=== PATIENT | female | born 1945 | race Caucasian/White ===

== ENCOUNTER 2021-03-03 17:22 | Emergency (ER) | payer MEDICARE, MEDICAID, SELFPAY ==
--- NOTE | ~2021-03-03 | US_ITS ---
EXAMINATION: US VENOUS ULTRASOUND WITH DOPPLER LOWER EXTREMITY, BILATERAL CLINICAL INFORMATION: Positive Homans, swelling COMPARISON: None TECHNIQUE: Ultrasound of the deep veins is performed from the hip to the calf with compression sonography and color and pulse Doppler assessment. Spectral analysis with color-flow imaging is performed. FINDINGS: RIGHT: There is normal venous compression and respiratory variation and augmented flow. The visualized common femoral vein, superficial femoral vein, profunda femoral vein, popliteal vein, and the trifurcation region shows no evidence of deep venous thrombosis. There is no significant popliteal fossa cyst. LEFT: There is normal venous compression and respiratory variation and augmented flow. The visualized common femoral vein, superficial femoral vein, profunda femoral vein, popliteal vein, and the trifurcation region shows no evidence of deep venous thrombosis. There is no significant popliteal fossa cyst. If the patient's symptoms persist, followup ultrasound in 5 days 7 days might be of value to exclude proximal propagation from a non-visualized calf vein. US/US venous duplex LE BI IMPRESSION: No DVT demonstrated in the bilateral lower extremity.
--- NOTE | ~2021-03-03 | XR_ITS ---
EXAMINATION: XR CHEST CLINICAL INFORMATION: Shortness of breath COMPARISON: None TECHNIQUE: 2 views of the chest were obtained. FINDINGS: The cardiac silhouette does not appear enlarged. The thoracic aorta is tortuous and may be slightly ectatic. Hilar and mediastinal contours are unremarkable. The lungs are clear. There is no pleural effusion or pneumothorax. There are degenerative changes of the spine. There are surgical clips under the left hemidiaphragm in the region of the stomach. XR/XR chest 2V IMPRESSION: Tortuous and possibly slightly ectatic thoracic aorta. No evidence for acute disease in the chest.
[2021-03-03 17:36] VITALS: BP 157/77; PULSE 95; RESP 24; TEMP 37.4; O2SAT 95; BMI 33.6
--- NOTE | 2021-03-03 18:03 | ED_ITS ---
HPI - Extremity Problem General Chief complaint: Extremity Problem Stated complaint: infected lower legs Time Seen by Provider: 03/03/21 17:35 Source: patient Mode of arrival: EMS Limitations: language barrier (Tajik speaking, used emergency vehicle technician as interpretor) History of Present Illness HPI Narrative: patient is a 75-year-old Tajik speaking female with a past medical history of hypertension, panic attacks, macular degeneration and low vitamin-D who presents with 2 weeks of increasing bilateral leg swelling and shortness of breath with exertion. Patient states her legs are getting heavy and itchy and are painful to walk on. She explains she has itchiness throughout her whole body. she states her legs have been getting bigger and bigger over the last 2 weeks, she has not tried to do anything to make it better, nothing seems to make it worse. She states she is drinking plenty of water, she denies headaches dizziness chest pain, arm pain. she states she is also concerned with some jaw pain because she had implants put in in [place] a little while ago and they are bothering her. She tried to go to a dentist in the [facility] but they referred her back to her oral surgeon in [place] which she has not been able to return to see. She states her left lower jaw line is painful. Related Data Previous Rx's Medication Instructions Recorded cephalexin [Keflex] 750 mg PO Q12H #20 cap 03/03/21 doxycycline hyclate 100 mg PO BID #20 tab 03/03/21 Allergies Allergy/AdvReac Type Severity Reaction Status Date / Time No Known Allergies Allergy Unverified 03/03/21 18:02 Review of Systems Review of Systems: Yes all other systems are reviewed and are negative [facility] Social History Social History Alcohol intake: unknown Patient Tobacco Use Status: Tobacco use Unknown Use of substances other than those prescribed or required for medical reasons: Unknown Advance Directives: No Advance Directives Information Provided: Yes Physical Exam Vital Signs: Vital Signs: Last Vital Signs Temp 99.8 F 03/03/21 21:13 Pulse 94 03/03/21 21:13 Resp 18 03/03/21 21:13 BP 137/68 03/03/21 21:13 Pulse Ox 95 03/03/21 21:13 Body Mass Index 33.6 Const: General: cooperative, healthy appearing, comfortable, no acute distress and well developed Nutritional Appearance: obese Orientation/consciousness: patient oriented x3 Limitations: language barrier HENMT: Head: Yes normal to inspection, Yes No palpable skull fracture present, Yes normocephalic and Yes atraumatic Ears: hearing grossly normal bilaterally General nose exam: Normal external nose present Face and sinus: Yes normal facial exam and Yes face symmetric Mouth: Normal oral and palatal mucosa present and tongue normal Teeth and gingiva: multiple restorations ( no inflammation, no erythema or other signs of infection noted) Throat: Yes posterior oropharynx normal and Yes uvula midline Eyes: General: appearance normal, both eyes and all related structures EOM: EOMs intact bilaterally Neck: Neck: Yes normal visual inspection and Yes full ROM Resp: Effort & Inspection: normal respiratory effort and able to speak in complete sentences Auscultation: clear to auscultation bilaterally Cardio: Rate: regular rate Rhythm: regular rhythm Heart sounds: normal S 1 and S2 GI: Inspection: Yes normal to inspection Palpation (GI): Soft to palpation and nontender Skin: General skin exam: no rashes or lesions noted Neuro: General: patient oriented x3 Extrem: General: Yes capillary refill normal, Yes edema (2+ pitting bilaterally) and Yes other (strong pedal pulses) Course Course Course Narrative: patient is a 75-year-old Tajik speaking female with a past medical history of hypertension, panic attacks, macular degeneration and low vitamin-D who presents with 2 weeks of increasing bilateral leg swelling and shortness of breath with exertion. VSS sans slightly elevated blood pressure, PE remarkable for 2+ pitting edema bilaterally. Will get EKG, labs, troponin, chest x-ray and reassess. Likely new onset CHF Reevaluation(s) Reevaluation #1: labs are all WNL, troponin was slightly elevated so we are pending a 2nd 1, chest x-ray was negative, very unlikely this is a new onset CHF as BNP was not elevated, Lung sounds were normal and chest x-ray did not show edema. Will get it ultrasound of bilateral lower extremities to rule out a DVT, she does have a small area of erythema on the left lower extremity and both legs are warm but both of her thighs are also warm. If DVT is ruled out, likely cellulitis as WBC is elevated at 14.3. Reevaluation #2: [address] [id number] ReportSigned Patient: Christopher Shaikh#: [id number]: 1945cct:[id number]/Sex: 75 / FADM Date: 03/03/21Loc: EDAttending Dr: Ordering Physician: Alberta Xavier PA-C Date of Service: 03/03/21 Procedure(s): US venous duplex LE BI Accession Number(s): [id number] cc: Alberta Xavier PA-C~ EXAMINATION: US VENOUS ULTRASOUND WITH DOPPLER LOWER EXTREMITY, BILATERAL CLINICAL INFORMATION: Positive Homans, swelling COMPARISON: None TECHNIQUE: Ultrasound of the deep veins is performed from the hip to the calf with compression sonography and color and pulse Doppler assessment. Spectral analysis with color-flow imaging is performed. FINDINGS: RIGHT: There is normal venous compression and respiratory variation and augmented flow. The visualized common femoral vein, superficial femoral vein, profunda femoral vein, popliteal vein, and the trifurcation region shows no evidence of deep venous thrombosis. There is no significant popliteal fossa cyst. LEFT: There is normal venous compression and respiratory variation and augmented flow. The visualized common femoral vein, superficial femoral vein, profunda femoral vein, popliteal vein, and the trifurcation region shows no evidence of deep venous thrombosis. There is no significant popliteal fossa cyst. If the patient's symptoms persist, followup ultrasound in 5 days 7 days might be of value to exclude proximal propagation from a non-visualized calf vein. US/US venous duplex LE BI IMPRESSION: No DVT demonstrated in the bilateral lower extremity. Dictated By:ESE LYNCH MDSigned By:<Electronically signed by ESE LYNCH MD in [place]>03/03/212205 DD/ 47TD/TT: Slide Forming Machine Tender: KARTIK Time: 22:53 Reevaluation #3: Discussed with patient's family, we have ruled out CHF, DVT so the most likely diagnosis at this point with swelling, warmth and erythema would be cellulitis. I did recommend that she follow-up with her PCP and possibly see a roof truss machine tender. Second trop was not >50% change. VSS. Will discharge. MDM - Extremity (Nontraumatic) Lab Data Attestation: I reviewed the patient's lab results. Result diagrams: 03/03/21 18:18 03/03/21 19:01 Labs: Lab Results 03/03/21 03/03/21 03/03/21 Range/Units 18:18 18:18 18:18 WBC 14.3 H (4.8-10.8) X10*3/uL RBC 4.40 (4.20-5.50) X10*6/uL Hgb 12.8 (12.0-16.0) g/dl Hct 40.7 (37-47) % MCV 92.5 (80-98) fL MCH 29.1 (27.0-33.0) pg MCHC 31.4 (31.0-35.0) g/dl RDW 13.2 (11.0-16.0) % Plt Count 161 (160-400) X10*3/uL MPV 10.5 (9.4-12.3) fL Immature Gran % (Auto) 1.0 H (0.0-0.4) % Neut % (Auto) 86.4 H (45-73) % Lymph % (Auto) 5.5 L (20-40) % Pine % (Auto) 6.2 (2-11) % Eos % (Auto) 0.6 (0-4) % Baso % (Auto) 0.3 (0-2) % Lymph # (Auto) 0.8 L (1.2-4.9) X10*3/uL Pine # (Auto) 0.9 (0.1-1.2) X10*3/uL Eos # (Auto) 0.1 (0.0-0.4) X10*3/uL Baso # (Auto) 0.0 (0.0-0.2) X10*3/uL Abs Immat Gran (auto) 0.14 H (0.00-0.03) X10*3/uL Absolute Neuts (auto) 12.4 H (2.0-8.3) X10*3/uL Absolute Nucleated RBC 0.000 (0.0-0.012) X10*3/uL Nucleated RBC % (auto) 0.0 (0.0-0.2) /100WBC PT 11.5 (10.8-13.0) SEC INR 1.0 (0.9-1.1) APTT 28.5 (24.1-38.0) SEC Sodium (135-145) mmol/L Potassium (3.3-5.1) mmol/L Chloride (96-108) mmol/L Carbon Dioxide (22-29) mmol/L Anion Gap (12-20) BUN (9-16) mg/dL Creatinine (0.5-1.4) mg/dL Estim Creat Clear Calc Estimated GFR Random Glucose (60-115) mg/dL Calcium (8.4-10.2) mg/dL Magnesium (1.6-2.6) mg/dL Total Bilirubin (0.0-1.0) mg/dL Direct Bilirubin (0.0-0.5) mg/dL AST (5-31) U/L ALT (0-31) U/L Alkaline Phosphatase (39-117) U/L Troponin I High Sens 7.5 (<3.5-17.0) ng/L B-Natriuretic Peptide 44 (<100) pg/mL Total Protein (6.5-8.0) g/dL Albumin (3.5-5.0) g/dL Urine Color Urine Appearance Urine pH (5.0-8.0) Ur Specific [place] (1.005-1.025) Urine Protein (NEG-TRACE) MG/DL Urine Glucose (UA) (NEG) MG/DL Urine Ketones (NEG) MG/DL Urine Blood (NEG) Urine Nitrite (NEG) Ur Leukocyte Esterase (NEG) 03/03/21 03/03/21 03/03/21 Range/Units 19:01 19:01 21:54 WBC (4.8-10.8) X10*3/uL RBC (4.20-5.50) X10*6/uL Hgb (12.0-16.0) g/dl Hct (37-47) % MCV (80-98) fL MCH (27.0-33.0) pg MCHC (31.0-35.0) g/dl RDW (11.0-16.0) % Plt Count (160-400) X10*3/uL MPV (9.4-12.3) fL Immature Gran % (Auto) (0.0-0.4) % Neut % (Auto) (45-73) % Lymph % (Auto) (20-40) % Pine % (Auto) (2-11) % Eos % (Auto) (0-4) % Baso % (Auto) (0-2) % Lymph # (Auto) (1.2-4.9) X10*3/uL Pine # (Auto) (0.1-1.2) X10*3/uL Eos # (Auto) (0.0-0.4) X10*3/uL Baso # (Auto) (0.0-0.2) X10*3/uL Abs Immat Gran (auto) (0.00-0.03) X10*3/uL Absolute Neuts (auto) (2.0-8.3) X10*3/uL Absolute Nucleated RBC (0.0-0.012) X10*3/uL Nucleated RBC % (auto) (0.0-0.2) /100WBC PT (10.8-13.0) SEC INR (0.9-1.1) APTT (24.1-38.0) SEC Sodium 139 (135-145) mmol/L Potassium 4.2 (3.3-5.1) mmol/L Chloride 105 (96-108) mmol/L Carbon Dioxide 24 (22-29) mmol/L Anion Gap 14 (12-20) BUN 19 H (9-16) mg/dL Creatinine 1.14 (0.5-1.4) mg/dL Estim Creat Clear Calc 44.3 Estimated GFR 46 Random Glucose 106 (60-115) mg/dL Calcium 10.2 (8.4-10.2) mg/dL Magnesium 1.9 (1.6-2.6) mg/dL Total Bilirubin 0.4 (0.0-1.0) mg/dL Direct Bilirubin 0.2 (0.0-0.5) mg/dL AST 19 (5-31) U/L ALT 19 (0-31) U/L Alkaline Phosphatase 86 (39-117) U/L Troponin I High Sens 12.2 D (<3.5-17.0) ng/L B-Natriuretic Peptide (<100) pg/mL Total Protein 7.6 (6.5-8.0) g/dL Albumin 4.0 (3.5-5.0) g/dL Urine Color YELLOW Urine Appearance CLEAR Urine pH 5.5 (5.0-8.0) Ur Specific [place] 1.020 (1.005-1.025) Urine Protein NEG (NEG-TRACE) MG/DL Urine Glucose (UA) NEG (NEG) MG/DL Urine Ketones NEG (NEG) MG/DL Urine Blood NEG (NEG) Urine Nitrite NEG (NEG) Ur Leukocyte Esterase NEG (NEG) Imaging Data Chest x-ray: Attestation: I personally reviewed and interpreted this imaging study as follows: Radiologist's impression: [address] [id number] ReportSigned Patient: Christopher Shaikh#: [id number]: 1945cct:[id number]/Sex: 75 / FADM Date: 03/03/21Loc: [email or web address].EDAttending Dr: Ordering Physician: Alberta Xavier PA-C Date of Service: 03/03/21 Procedure(s): XR chest 2V Accession Number(s): [id number] cc: Alberta Xavier PA-C~ EXAMINATION: XR CHEST CLINICAL INFORMATION: Shortness of breath COMPARISON: None TECHNIQUE: 2 views of the chest were obtained. FINDINGS: The cardiac silhouette does not appear enlarged. The thoracic aorta is tortuous and may be slightly ectatic. Hilar and mediastinal contours are unremarkable. The lungs are clear. There is no pleural effusion or pneumothorax. There are degenerative changes of the spine. There are surgical clips under the left hemidiaphragm in the region of the stomach. XR/XR chest 2V IMPRESSION: Tortuous and possibly slightly ectatic thoracic aorta. No evidence for acute disease in the chest. Dictated By:ESTEE AGUIRRE MDSigned By:<Electronically signed by ESTEE AGUIRRE MD in [place]>03/03/211929 DD/ 1803TD/TT: Slide Forming Machine Tender: YOVANY ECG Data Attestation EKG: I personally reviewed and interpreted this ECG as follows: Interpretation: [address] [id number] ReportDraft Patient: Christopher Shaikh#: [id number]: 1945cct:[id number]/Sex: 75 / FADM Date: 03/03/21Loc: Ramez Dr: Ordering Physician: lAberta Xavier PA-C Date of Service: 03/03/21 Procedure(s): ECG 12 lead EKG Accession Number(s): [id number] cc: ~ Test Reason : SHORTNESS OF BREATH Blood Pressure : / mmHG Vent. Rate : 097 BPM Atrial Rate : 097 BPM P-R Int : 124 ms QRS Dur : 086 ms QT Int : 340 ms P-R-T Axes : 044 053 026 degrees QTc Int : 431 ms Normal sinus rhythm Normal ECG No previous ECGs available Referred By: Alberta Xavier Electronically Signed By: Dictated By:Signed By: DD/ 13TD/TT: 03/03/211813Transcriptionist: Discharge Plan Discharge Clinical Impression: Cellulitis Patient Disposition: Home, Self-Care Instructions: Cellulitis (ED) Additional Instructions: As discussed, we are treating you for a lower extremity cellulitis with 2 different antibiotics. It is important that you take both antibiotics in full. We have given your 1st dose of each antibiotic tonight in the emergency department. If you develop of chest pain, shortness of breath, please return to the emergency department. Prescriptions: New cephalexin [Keflex] 750 mg capsule 750 mg PO Q12H Qty: 20 RF: 0 doxycycline hyclate 100 mg tablet 100 mg PO BID Qty: 20 RF: 0 Interventions: ED Discharge Assessment Last Done: 03/03/21 23:52 Discharge Date/Time: 03/03/21 23:53
[2021-03-03 18:22] VITALS: BP 176/83; PULSE 96; RESP 24; O2SAT 94
[2021-03-03 18:34] LABS: MANUAL DIFF FLAG NO
[2021-03-03 18:35] LABS: Basophils Percent Auto 0.3 % (0-2); Eosinophils Absolute Auto 0.1 X10*3/uL (0.0-0.4); Eosinophils Percent Auto 0.6 % (0-4); Hematocrit 40.7 % (37-47); Hemoglobin 12.8 g/dl (12.0-16.0); Imm Gran Abs Auto 0.14 X10*3/uL (0.00-0.03); Lymphocytes Absolute Auto 0.8 X10*3/uL (1.2-4.9); Lymphocytes Percent Auto 5.5 % (20-40); Mean Corpuscular HGB Conc 31.4 g/dl (31.0-35.0); Mean Corpuscular Hemoglobin 29.1 pg (27.0-33.0); Mean Corpuscular Volume 92.5 fL (80-98); Mean Platelet Volume 10.5 fL (9.4-12.3); Monocytes Absolute Auto 0.9 X10*3/uL (0.1-1.2); Monocytes Percent Auto 6.2 % (2-11); Neutrophils Absolute Auto 12.4 X10*3/uL (2.0-8.3); Neutrophils Percent Auto 86.4 % (45-73); Platelet Count 161 X10*3/uL (160-400); Red Cell Distribution Width 13.2 % (11.0-16.0); White Blood Count 14.3 X10*3/uL (4.8-10.8)
[2021-03-03 18:39] LABS: Prothrombin Time 11.5 SEC (10.8-13.0)
[2021-03-03 18:42] LABS: Partial Thromboplastin Time 28.5 SEC (24.1-38.0)
--- NOTE | 2021-03-03 18:52 | PC.NURSE ---
Recollection required for chemistry level.
[2021-03-03 19:02] LABS: B Type Natriuretic Peptide 44 pg/mL (<100); Troponin-I High Sensitivity 7.5 ng/L (<3.5-17.0)
[2021-03-03 19:10] LABS: Glucose Urine UA NEG (NEG); Leukocyte Esterase Urine NEG (NEG); Nitrite Urine NEG (NEG); PH 5.5 (5.0-8.0); Urine Blood NEG (NEG); Urine Ketones NEG (NEG); Urine Protein NEG (NEG-TRACE)
[2021-03-03 19:11] LABS: Appearance Urine CLEAR; Color Urine YELLOW
[2021-03-03 19:36] LABS: Alanine Aminotransferase 19 U/L (0-31); Alkaline Phosphatase 86 U/L (39-117); Anion Gap 14 (12-20); Aspartate Amino Transferase 19 U/L (5-31); Bilirubin Direct 0.2 mg/dL (0.0-0.5); Bilirubin Total 0.4 mg/dL (0.0-1.0); Blood Urea Nitrogen 19 mg/dL (9-16); Calcium 10.2 mg/dL (8.4-10.2); Carbon Dioxide 24 mmol/L (22-29); Chloride 105 mmol/L (96-108); Creatinine Clr Calc Pharmacy 44.3; Estimated Glomerular Filt Rate 46; Glucose Random 106 mg/dL (60-115); Magnesium 1.9 mg/dL (1.6-2.6); Potassium 4.2 mmol/L (3.3-5.1); Sodium 139 mmol/L (135-145); Total Protein 7.6 g/dL (6.5-8.0)
[2021-03-03 21:13] VITALS: BP 137/68; PULSE 94; RESP 18; TEMP 37.7; O2SAT 95
--- NOTE | 2021-03-03 21:23 | PC.NURSE ---
Patient away for ultrasound. Plan to draw repeat troponin upon return to ED bed 3.
[2021-03-03 22:28] LABS: Troponin-I High Sensitivity 12.2 ng/L (<3.5-17.0)
[2021-03-03] MEDS: cephALEXin 500 MG CAPSULE PO (23:46)
== END 2021-03-03 23:53 | disposition home or self-care (01) ==
PROVIDERS: Physician Assistant; Emergency Provider Internal Medicine
DX: L03.119 Cellulitis of unspecified part of limb (principal); R06.02 Shortness of breath; I10 Essential (primary) hypertension
CPT/HCPCS: 36415; 71046; 80048; 80076; 81003; 83735; 83880; 84484; 85025; 85610; 85730; 93005; 93970; 99284

== ENCOUNTER 2021-05-19 18:02 | Emergency (ER) | payer MEDICARE, SELFPAY ==
[2021-05-19 19:40] VITALS: BP 171/76; PULSE 69; RESP 16; TEMP 36.6; O2SAT 99; BMI 32.9
[2021-05-19 20:52] VITALS: BP 148/77; PULSE 60; RESP 18; TEMP 36.9; O2SAT 96
--- NOTE | 2021-05-19 21:40 | ED.ANXIETY ---
HPI - Anxiety General Chief Complaint: Anxiety Stated Complaint: Panix attacks for past 10 days Time Seen by Provider: 05/19/21 21:40 Source: patient and family Mode of arrival: ambulatory Limitations: no limitations History of Present Illness HPI narrative: Patient history of anxiety panic attacks on citalopram came from presents saying with her daughter no increased stressors been more anxious and having panic attacks often. Denies any significant depression or suicidal ideation crying constantly Related Data Previous Rx's Medication Instructions Recorded cephalexin 750 mg capsule (Keflex) 750 mg PO Q12H #20 cap 03/03/21 doxycycline hyclate 100 mg tablet 100 mg PO BID #20 tab 03/03/21 lorazepam 1 mg tablet (Ativan) 1 mg PO DAILY PRN #30 tab 05/19/21 Allergies Allergy/AdvReac Type Severity Reaction Status Date / Time cortisone Allergy Unknown Verified 05/19/21 19:49 Review of Systems Review of Systems: Yes all other systems are reviewed and are negative [facility] Social History Social History Alcohol intake: unknown Patient Tobacco Use Status: Tobacco use Unknown Advance Directives: No Advance Directives Information Provided: No Physical Exam Vital Signs: Vital Signs: Last Vital Signs Temp 98.5 F 05/19/21 20:52 Pulse 60 05/19/21 20:52 Resp 18 05/19/21 20:52 BP 148/77 H 05/19/21 20:52 Pulse Ox 96 05/19/21 20:52 Body Mass Index 32.9 Appearance: Alert. Oriented X3. No acute distress. Anxious Eyes: PERRLA, No Nystagmus ENT: Pharynx normal. Oral Mucosa moist Neck: Normal inspection. Neck supple. CVS: Normal heart rate and rhythm. Pulses normal. Respiratory: No respiratory distress. Equal air entry bilateral, no wheezing/rales/rhonchi Abdomen: Soft and nontender. Bowel sounds are present, no mass palpable, no CVA tenderness Skin: Skin warm and dry. Normal skin color. Normal skin turgor. Extremities: No lower extremity edema. No calf tenderness Neuro: Oriented X 3. No motor deficit. No sensory deficit.No cerebellar signs , cranial nerves II-XII intact MDM - Anxiety MDM Narrative Medical decision making narrative: Patient's anxiety/panic attacks Max gonzalez denies depression suicidal ideation will discharge patient home on Ativan 0.5 mg tablet once or twice daily Discharge Plan Discharge Clinical Impression: Panic disorder Patient Disposition: Home, Self-Care Instructions: Panic Attack (ED) Additional Instructions: Continue citalopram Take Ativan 1/2 to 1 tablet daily for acute anxiety once or twice as prescribed Prescriptions: New lorazepam [Ativan] 1 mg tablet 1 mg PO DAILY PRN (Reason: anxiety) Qty: 30 RF: 0 No Action cephalexin [Keflex] 750 mg capsule 750 mg PO Q12H Qty: 20 RF: 0 doxycycline hyclate 100 mg tablet 100 mg PO BID Qty: 20 RF: 0
[2021-05-19] MEDS: LORazepam 1 MG TABLET PO (22:01)
== END 2021-05-19 22:04 | disposition home or self-care (01) ==
PROVIDERS: Emergency Provider Internal Medicine
DX: F43.0 Acute stress reaction (principal); Z79.899 Other long term (current) drug therapy
CPT/HCPCS: 99284

== ENCOUNTER 2021-07-31 13:58 | Emergency (ER) | payer MEDICARE, SELFPAY ==
[2021-07-31 14:17] VITALS: BP 144/69; PULSE 66; RESP 18; TEMP 36.6; O2SAT 97; BMI 35.4
--- NOTE | 2021-07-31 15:52 | ED.GENADULT ---
HPI - General Adult General Chief complaint: General Medical Stated complaint: shingles Time Seen by Provider: 07/31/21 15:06 Source: patient and family (Son at the bedside) Mode of arrival: ambulatory Limitations: language barrier (Used son as welfare administrator) History of Present Illness HPI narrative: 75-year-old female past medical history significant for anxiety, hypertension, GERD presents to the emergency department with a rash progressively worsening x2 days. The rash is localized to the right side of the torso, patient tells me it started as a burning sensation, then she developed a rash, then she developed blistering all within 2 days. She tells me that the pain is 10/10, severe and it feels like there is a hot iron pressing on her. She states this is never happened to her before. She denies fevers, chills, nausea, vomiting, chest pain, shortness breath, headache, weakness, dizziness, recent URI. Onset (ago): day(s) (2) Location: chest (right ) and right Radiation: non-radiation Severity: severe Severity scale (1-10): >10 Quality: burning Pain Consistency: constant Relieving factors: none Exacerbating factors: none Associated symptoms: denies other symptoms Treatments prior to arrival: none Related Data Previous Rx's Medication Instructions Recorded amlodipine 5 mg-olmesartan 40 mg 1 tab PO DAILY #30 tab 06/10/21 tablet citalopram 20 mg tablet 20 mg PO DAILY #30 tab 06/10/21 famotidine 20 mg tablet 20 mg PO DAILY #30 tab 06/10/21 hydroxyzine HCl 25 mg tablet 25 mg PO BID PRN #20 tab 06/10/21 gabapentin 100 mg capsule 100 mg PO TID PRN #12 cap 07/31/21 valacyclovir 1 gram tablet 1,000 mg PO TID 7 Days #21 tab 07/31/21 (Valtrex) Allergies Allergy/AdvReac Type Severity Reaction Status Date / Time No Known Allergies Allergy Verified 06/18/21 02:10 Review of Systems Review of Systems: Constitutional : No Weight loss, No Fever, No Chills, No Fatigue, No Malaise ENT/Mouth : No sore throat, No Rhinorrhea Eyes: No Eye Pain, No Swelling, No Redness Cardiovascular : No Chest Pain, No SOB, No Dyspnea on Exertion, No Orthopnea, No Edema, No Palpitations Respiratory : No Cough, No Sputum, No Wheezing Gastrointestinal : No Nausea, No Vomiting, No Diarrhea, No Constipation, No abdominal Pain, No Hematochezia, No Melena Genitourinary : No Dysuria, No Urinary Frequency, No Hematuria, Musculoskeletal : No joint pain, No Myalgias, No Joint Swelling Skin : No Skin Lesions, + rash Neuro : No Weakness, No Numbness, No Dizziness, No Headache All other systems reviewed and are negative [facility] Past Medical History Attestation statement: The following information was validated with the patient. Source: old records reviewed and nursing notes reviewed Medical History Chronic gastroesophageal reflux disease Essential hypertension Generalized anxiety disorder with panic attacks Lesion of skin of face GALLITO on CPAP Family History Family History Son Generalized anxiety disorder with panic attacks Social History Social History Housing: Apartment Alcohol intake: unknown Patient Tobacco Use Status: Former Tobacco user Years Smoked: 5 yrs Advance Directives: No Advance Directives Information Provided: No Current occupational status: disabled Physical Exam Vital Signs: Vital Signs: Last Vital Signs Temp 98 F 07/31/21 14:17 Pulse 66 07/31/21 14:17 Resp 18 07/31/21 14:17 BP 144/69 H 07/31/21 14:17 Pulse Ox 97 07/31/21 14:17 Body Mass Index 35.4 VSS slightly hypertensive. Appearance: Alert.? Oriented X3.? No acute distress.? Head: Normocephalic, atraumatic, no step-offs or deformities Eyes: Pupils equal, round and reactive to light.? ENT: Pharynx normal.? Neck: Normal inspection.? Neck supple.? CVS: Normal heart rate and rhythm.? Pulses normal.? Respiratory: No respiratory distress.? Breath sounds normal.? Abdomen: Soft and nontender.? Skin: Skin warm and dry.? Normal skin color.? Normal skin turgor.?+ erythematous, vesicular rash overlying T5 dermatome on the right side doesnt cross the midline. (picture below) Extremities: No lower extremity edema.? No calf ttp. 5/5 strength to bilateral upper and lower extremities Back: No midline tenderness, no C-spine tenderness, full range of motion, no CVA tenderness bilaterally Neuro: Oriented X 3.? No motor deficit.? No sensory deficit. Course Reevaluation(s) Reevaluation #1: Answered all questions, educated patient. Advised her to return to the emergency department with new or worsening symptoms. Patient is safe for discharge home with PCP follow-up. Time: 16:08 Medical Decision Making [facility] Narrative Medical decision making narrative: 1550 75-year-old female past medical history significant for hypertension, anxiety presents the emergency department with a vesicular rash that started 2 days ago progressively worsening. Started off as a burning sensation, then got a rash, then blistering. Patient reports severe 10/10 pain to the site. Denies fevers, chills, nausea, vomiting, chest pain, shortness of breath, recent upper respiratory infection Upon physical examination there is a vesicular rash noted in the T5 dermatome on the right side of the trunk. There is a picture in the physical examination portion of the chart. This rash is consistent with shingles. No other abnormalities noted on exam. Plan at this time is to discharge patient home on Valtrex 1 g p.o. t.i.d. x7 days, will also prescribe gabapentin for nerve pain. Critical Care Time Critical Care Time Critical Care Time: No Discharge Plan Discharge Clinical Impression: Shingles Qualifiers: Herpes zoster complications: without complications Qualified Code(s): B02.9 - Zoster without complications Patient Disposition: Home, Self-Care Instructions: Shingles (ED) Additional Instructions: Take your medications as prescribed. Stay away from females. Gabapentin is a medication tnat was prescribed for nerve pain. Follow-up with your primary care provider this week. Return to the emergency department with new or worsening symptoms. In case of emergency call 911 I attest that I have reviewed patients MassPAT, and at the time prescribing the patient a controlled substance is appropriate based off of patients diagnosis and treatment plan. Prescriptions: New valacyclovir [Valtrex] 1 gram tablet 1,000 mg PO TID 7 Days Qty: 21 RF: 0 gabapentin 100 mg capsule 100 mg PO TID PRN (Reason: severe pain (scale score 7-10)) Qty: 12 RF: 0 No Action hydroxyzine HCl 25 mg tablet 25 mg PO BID PRN (Reason: itching) Qty: 20 RF: 0 citalopram 20 mg tablet 20 mg PO DAILY Qty: 30 RF: 2 amlodipine-olmesartan 5-40 mg tablet 1 tab PO DAILY Qty: 30 RF: 3 famotidine 20 mg tablet 20 mg PO DAILY Qty: 30 RF: 4 Referrals: Buffy Delgado MD [Primary Care Provider] - 2 days
== END 2021-07-31 16:17 | disposition home or self-care (01) ==
LOC: HO.ED 16:00
PROVIDERS: Emergency Provider Emergency Medicine; PCP Internal Medicine
DX: B02.9 Zoster without complications (principal); I10 Essential (primary) hypertension
CPT/HCPCS: 99283

== ENCOUNTER 2021-10-04 10:48 | Outpatient (REF) | payer MEDICARE, SELFPAY ==
[2021-10-04 14:38] LABS: MANUAL DIFF FLAG NO
[2021-10-04 14:44] LABS: Basophils Percent Auto 0.4 % (0-2); Eosinophils Absolute Auto 0.3 X10*3/uL (0.0-0.4); Eosinophils Percent Auto 4.6 % (0-4); Hematocrit 42.3 % (37.0-47.0); Hemoglobin 12.8 g/dl (12.0-16.0); Imm Gran Abs Auto 0.01 X10*3/uL (0.00-0.03); Imm Gran Pct Auto 0.1 % (0.0-0.4); Lymphocytes Absolute Auto 1.8 X10*3/uL (1.2-4.9); Mean Corpuscular HGB Conc 30.3 g/dl (31.0-35.0); Mean Corpuscular Hemoglobin 28.1 pg (27.0-33.0); Mean Platelet Volume 11.3 fL (9.4-12.3); Monocytes Absolute Auto 0.5 X10*3/uL (0.1-1.2); Neutrophils Absolute Auto 4.1 x10*3/uL (2.0-8.3); Neutrophils Percent Auto 59.9 % (45-73); Platelet Count 204 X10*3/uL (160-400); Red Blood Count 4.55 X10*6/uL (4.20-5.50); Red Cell Distribution Width 13.8 % (11.0-16.0); White Blood Count 6.8 X10*3/uL (4.8-10.8)
[2021-10-04 15:01] LABS: Alanine Aminotransferase 21 U/L (0-31); Anion Gap 9 (12-20); Aspartate Amino Transferase 19 U/L (5-31); Blood Urea Nitrogen 23 mg/dL (9-16); Calcium 10.5 mg/dL (8.4-10.2); Carbon Dioxide 32 mmol/L (22-29); Chloride 105 mmol/L (96-108); Cholesterol 247 mg/dL; Estimated Glomerular Filt Rate 45; Glucose Fasting 90 mg/dL (60-99); HDL Cholesterol 44 mg/dL; LDL Cholesterol Calculated 174 mg/dl; Potassium 4.5 mmol/L (3.3-5.1); Sodium 141 mmol/L (135-145); Triglycerides 146 mg/dL
[2021-10-04 15:24] LABS: Vitamin D 25-OH Total 50.3 ng/mL (>30)
== END 2021-10-04 10:49 | disposition home or self-care (01) ==
LOC: HO.HMGCLDS 10:48
PROVIDERS: PCP Internal Medicine; Visit Provider Internal Medicine
DX: F41.0 Panic disorder [episodic paroxysmal anxiety] (principal); F41.1 Generalized anxiety disorder; I10 Essential (primary) hypertension; K21.9 Gastro-esophageal reflux disease without esophagitis; N90.4 Leukoplakia of vulva; Z78.0 Asymptomatic menopausal state
CPT/HCPCS: 36415; 80048; 80061; 82306; 84443; 84450; 84460; 85025

== ENCOUNTER 2022-11-07 10:24 | Outpatient (REF) | payer MEDICARE, SELFPAY ==
[2022-11-07 11:15] LABS: MANUAL DIFF FLAG NO
[2022-11-07 11:35] LABS: Basophils Absolute Auto 0.1 X10*3/uL (0.0-0.2); Basophils Percent Auto 0.8 % (0-2); Eosinophils Absolute Auto 0.2 X10*3/uL (0.0-0.4); Eosinophils Percent Auto 2.9 % (0-4); Hematocrit 39.3 % (37.0-47.0); Hemoglobin 12.4 g/dl (12.0-16.0); Imm Gran Abs Auto 0.02 X10*3/uL (0.00-0.03); Imm Gran Pct Auto 0.3 % (0.0-0.4); Lymphocytes Percent Auto 25.4 % (20-40); Mean Corpuscular HGB Conc 31.6 g/dl (31.0-35.0); Mean Corpuscular Hemoglobin 28.4 pg (27.0-33.0); Mean Corpuscular Volume 90.1 fL (80.0-98.0); Mean Platelet Volume 11.1 fL (9.4-12.3); Monocytes Absolute Auto 0.5 X10*3/uL (0.1-1.2); Monocytes Percent Auto 6.6 % (2-11); Neutrophils Absolute Auto 5.1 x10*3/uL (2.0-8.3); Platelet Count 194 X10*3/uL (160-400); Red Blood Count 4.36 X10*6/uL (4.20-5.50); Red Cell Distribution Width 13.4 % (11.0-16.0); White Blood Count 7.9 X10*3/uL (4.8-10.8)
[2022-11-07 12:59] LABS: Alanine Aminotransferase 13 U/L (0-31); Albumin Level 3.6 g/dL (3.5-5.0); Alkaline Phosphatase 96 U/L (39-117); Anion Gap 12 (12-20); Aspartate Amino Transferase 15 U/L (5-31); Bilirubin Total 0.4 mg/dL (0.0-1.0); Blood Urea Nitrogen 21 mg/dL (9-16); Calcium 9.7 mg/dL (8.4-10.2); Carbon Dioxide 31 mmol/L (22-29); Chloride 106 mmol/L (96-108); Cholesterol 163 mg/dL; Estimated Glomerular Filt Rate 48; Glucose Fasting 88 mg/dL (60-99); HDL Cholesterol 53 mg/dL; LDL Cholesterol Calculated 86 mg/dl; Potassium 4.6 mmol/L (3.3-5.1); Sodium 144 mmol/L (135-145); Total Protein 6.6 g/dL (6.5-8.0); Triglycerides 123 mg/dL
[2022-11-07 13:11] LABS: TSH reflex Free T4 1.06 uIU/mL (0.32-4.0); Vitamin B12 1567 pg/mL (200-900); Vitamin D 25-OH Total 41.3 ng/mL (>30)
== END 2022-11-07 10:25 | disposition home or self-care (01) ==
LOC: HO.HMGCLDS 10:24
PROVIDERS: PCP Internal Medicine; Visit Provider Internal Medicine
DX: E78.5 Hyperlipidemia, unspecified (principal); F41.0 Panic disorder [episodic paroxysmal anxiety]; F41.1 Generalized anxiety disorder; G47.33 Obstructive sleep apnea (adult) (pediatric); I10 Essential (primary) hypertension; K21.9 Gastro-esophageal reflux disease without esophagitis; R12 Heartburn; Z99.89 Dependence on other enabling machines and devices; Z83.49 Family history of other endocrine, nutritional and metabolic diseases
CPT/HCPCS: 36415; 80053; 80061; 82306; 82607; 82746; 84443; 85025

== ENCOUNTER → 2022-12-06 11:03 | Outpatient (BNVA) | payer MEDICARE, SELFPAY | PROVIDERS: PCP Internal Medicine; Visit Provider Internal Medicine | DX: Z12.11 Encounter for screening for malignant neoplasm of colon (principal); R12 Heartburn; K21.9 Gastro-esophageal reflux disease without esophagitis | CPT/HCPCS: 99202 ==

== ENCOUNTER 2023-06-06 09:56 | Outpatient (REF) | payer MEDICARE, SELFPAY ==
[2023-06-06 13:57] LABS: Alanine Aminotransferase 12 U/L (0-31); Albumin Level 3.6 g/dL (3.5-5.0); Alkaline Phosphatase 90 U/L (39-117); Anion Gap 13 (12-20); Aspartate Amino Transferase 14 U/L (5-31); Bilirubin Total 0.3 mg/dL (0.0-1.0); Blood Urea Nitrogen 19 mg/dL (9-16); Calcium 10.1 mg/dL (8.4-10.2); Carbon Dioxide 29 mmol/L (22-29); Chloride 106 mmol/L (96-108); Cholesterol 219 mg/dL (<200); Estimated Glomerular Filt Rate 54; Glucose Fasting 96 mg/dL (60-99); HDL Cholesterol 50 mg/dL (>40); LDL Cholesterol Calculated 142 mg/dL (<100); Potassium 4.7 mmol/L (3.3-5.1); Sodium 143 mmol/L (135-145); Triglycerides 138 mg/dL (<150)
[2023-06-06 14:30] LABS: Folate 12.8 ng/mL (> or = 4.0); Vitamin B12 1768 pg/mL (200-900)
== END 2023-06-06 09:57 | disposition home or self-care (01) ==
LOC: HO.HMGCLDS 09:56
PROVIDERS: PCP Internal Medicine; Visit Provider Internal Medicine
DX: E78.5 Hyperlipidemia, unspecified (principal); I10 Essential (primary) hypertension; R74.8 Abnormal levels of other serum enzymes; N18.9 Chronic kidney disease, unspecified
CPT/HCPCS: 36415; 80053; 80061; 82607; 82746

== ENCOUNTER 2023-06-13 11:54 | Outpatient (AMB) | payer MEDICARE, SELFPAY ==
[2023-06-13 12:45] VITALS: BP 100/60; PULSE 68; O2SAT 95; BMI 35.5
--- NOTE | 2023-06-13 12:45 | A.OFFPC_ITS ---
Vital Signs 06/13/23 12:45 Height 4 ft 11 in Weight 176 lb BMI 35.5 BP 100/60 Blood Pressure Location Rt brachial Position Sitting Pulse 68 Pulse Source Pulse Oximeter Pulse Oximetry (%) 95 Oxygen Delivery Method Room Air Intake Visit Reasons: f/u labs Intake Note: Pt is here today to discuss recent lab results Allergies hydrocortisone [From Cortizone-10] Adverse Reaction (Verified 06/13/23 12:50) blurred vision Medication List - Last Reconciled 06/13/23 by Buffy Delgado MD amlodipine-olmesartan 5-40 mg 1 tab PO DAILY citalopram 20 mg PO DAILY omeprazole 20 mg PO DAILY vit C,X-Dz-qfzmd-lutein-zeaxan 250-90-40-1 mg (PreserVision AREDS-2) 1 tab PO BID Tobacco use date assessed: 06/13/23 Fall risk assessment: 1 Fall in past year Last assessed Fall Risk: 06/13/23 Dental Screening Dental Screen Date: 06/13/23 Did you have a dental visit in the last 12 months?: Yes Did you have a dental problem in the last 6 months where you did not have access to dental care?: Yes Was dental information given to patient?: Patient has dentist HPI f/u labs HPI Details 77-year-old lady with hyperlipidemia, hy pertension, and macular degeneration, here today for follow-up. She had recent fasting labs done which showed fasting glucose, and fasting lipids showed LDL cholesterol elevated at 142 mg/dL. She of however was noted to have markedly elevated vitamin B12 level. Blood pressure however has been stable controlled on amlodipine-olmesartan 5-40 mg tablet taken once daily [facility] Medical History Gait instability Heartburn symptom Macular degeneration Hyperlipidemia Family history of thyroid disease Lichen sclerosus et atrophicus of the vulva History of herpes zoster Lesion of skin of face Generalized anxiety disorder with panic attacks GALLITO on CPAP Essential hypertension Chronic gastroesophageal reflux disease Surgical History Hx of colonoscopy History of esophagogastroduodenoscopy (EGD) Hx of hernia repair Family History Son Generalized anxiety disorder with panic attacks Maternal Aunt Mental health disorder Social History Housing: Apartment Alcohol intake: unknown Patient Tobacco Use Status: Former Tobacco user Quit Date: 50 years Years Smoked: 5 yrs e-Cigarette/Vaping Use: Never Used service: No Current occupational status: disabled Cognitive needs: No Hearing needs: No Vision needs: No Questionnaire Thrive Questionnaire Date Thrive assessed: 11/03/22 AUDIT C Alcohol Use Questionnaire (AUDIT-C) 1. How often do you have a drink containing alcohol?: Never Total Score: 0 NELY-7 AMB Questionnaire NELY-7 Date NELY - 7 assessed: 11/03/22 Source: Developed by Drs. Kemar Cullen, Cira Mclean, Bo Allen and colleagues, with an educational haily from [employer]. Review of Systems Const Denies fever(s), Denies headache(s) and Denies weakness Eyes Reports no additional complaints ENT Denies dizziness, Denies headache(s), Denies nasal congestion, Denies nasal discharge and Denies sore throat Card Denies chest pain, Denies lightheadedness, Denies palpitations and Denies dyspnea Resp Denies chest congestion, Denies cough, Denies dyspnea and Denies wheezing GI Denies abdominal pain, Denies change in bowel habits and Denies heartburn Denies urinary frequency, Denies dysuria and Denies urinary urgency Musc Denies abnormal gait, Denies deformity, Denies arthralgias and Reports stiffness Skin/Breast Denies lesions and Denies rash Neuro Denies abnormal gait, Denies dizziness, Denies headache(s) and Denies weakness Endo Denies polydipsia, Denies polyuria and Denies palpitations Abilio/Lymph Denies easy bruising Aller/Immun Denies seasonal rhinorrhea and Denies wheezing Physical exam (Primary Care) Vital Signs: Last Vital Signs Pulse 68 06/13/23 12:45 BP 100/60 06/13/23 12:45 Pulse Ox 95 06/13/23 12:45 Oxygen Delivery Method Room Air 06/13/23 12:45 BMI result Body Mass Index 35.5 Tobacco/Smoking Status: Tobacco use Status Tobacco use date assessed 06/13/23 06/13/23 12:49 Patient Tobacco Use Status Former Tobacco user 06/13/23 12:49 e-Cigarette/Vaping Use Never Used 06/13/23 12:49 Thrive Assessment: Date of Thrive Assessment Date Thrive assessed 11/03/22 06/13/23 12:49 Const General: comfortable, no acute distress and alert Orientation/consciousness: patient oriented x3 [facility] General nose exam: Normal external nose present and No nasal discharge present Face and sinus: Yes face symmetric Mouth: Normal oral and palatal mucosa present, oropharynx normal and moist mucous membranes Eyes General: appearance normal, both eyes and all related structures Neck Neck: Yes full ROM, Yes no lymphadenopathy and Yes supple Resp Effort & Inspection: normal respiratory effort and able to speak in complete sentences Auscultation: clear to auscultation bilaterally Cardio Jugular venous distension: no JVD Rate: regular rate Rhythm: regular rhythm Heart sounds: S1 normal heart sound present and S2 normal heart sound present GI Palpation (GI): Soft to palpation, nontender, no guarding and no masses Back/Spine/Pelvis Back: No back tenderness Neuro General: patient oriented x3, moves all extremities, Normal light touch and pain sensation, no focal motor deficits and CN's II-XI intact bilaterally Extrem General: Yes full ROM, Yes no joint enlargement, Yes no pedal edema and Yes no calf tenderness Results Reviewed Results Reviewed: NTERED: 06/06/23 [facility] [place]: ORDERED: CMP Fast, Lipid Panel Test Result Flag Reference Site Sodium 143 135-145 mmol/L Potassium 4.7 3.3-5.1 mmol/L CL 106 96-108 mmol/L CO2 29 22-29 mmol/L Gap 13 12-20 BUN 19 H 9-16 mg/dL Creat 1.00 0.5-1.4 mg/dL EGFR 54 NOTE: For -[place] individuals, multiply the result by 1.210. Chronic Kidney Disease: Estimated GFR < 60 mL/min/1.73m2 Severe Kidney Disease: Estimated GFR < 15 mL/min/1.73m2 FBS 96 60-99 mg/dL CA 10.1 8.4-10.2 mg/dL Total Bili 0.3 0.0-1.0 mg/dL AST (GOT) 14 5-31 U/L ALT (GPT) 12 0-31 U/L Protein, Total 7.0 6.5-8.0 g/dL Alb 3.6 3.5-5.0 g/dL Triglyceride 138 <150 mg/dL Desirable Triglyceride: less than 150 mg/dL Borderline High Triglyceride 150-199 mg/dL High Triglyceride: 200-499 mg/dL Very High Triglyceride: greater than or equal to 5OO mg/dL Cholesterol 219 H <200 mg/dL Desirable Cholesterol: less than 200 mg/dL Borderline High Cholesterol: 200-239 mg/dL High Cholesterol: greater than 239 mg/dL LDL Calculated 142 H <100 mg/dL Desirable LDL: less than 100 mg/dL Near Optimal/Above Optimal LDL: 110-129 mg/dL Borderline High LDL: 130-159 mg/dL High LDL: 160-189 mg/dL Very High LDL: greater than or equal to 190 mg/dL HDL 50 >40 mg/dL Desirable HDL: greater than 40 mg/dL Note: This HDL assay may give artificially low results in patients with liver disease. Alk Phos 90 39-117 U/L Assessment and Plan Assessment & Plan (1) Hyperlipidemia: Code(s): E78.5 - Hyperlipidemia, unspecified Qualifiers: Hyperlipidemia type: pure hypercholesterolemia Qualified Code(s): E78.00 - Pure hypercholesterolemia, unspecified Plan: Reviewed recent fasting lipid profile with patient with LDL cholesterol better than last check but still above normal limits. . Continue with adherence to low-cholesterol diet and regular exercise, at least 30 minutes 3 to 4 times a week. Advised patient to make healthy food choices, eat more fruits, vegetables, whole grains, wild caught fish and low-fat dairy. Limit amount of meat and fried or fatty food products, as well as processed foods and fast foods. Follow-up scheduled with repeat fasting lipid panel in months. (2) Essential hypertension: Code(s): I10 - Essential (primary) hypertension Plan: Blood pressure at goal of less than 130/80. Continue with current medication. Reinforced importance of following a low sodium diet, getting regular exercise, and lowering stress levels. Orders: Orders PT Evaluation and Treatment 06/13/23 R26.81 - Unsteadiness on feet Coding Level of Care Code Est Pt Level 3 (32312) Diagnoses Pure hypercholesterolemia E78.00 Hyperlipidemia type: pure hypercholesterolemia Essential hypertension I10
== END 2023-06-13 13:28 | disposition home or self-care (01) ==
PROVIDERS: PCP Internal Medicine; Visit Provider Internal Medicine
DX: E78.00 Pure hypercholesterolemia, unspecified (principal); I10 Essential (primary) hypertension
CPT/HCPCS: 99213

== ENCOUNTER 2023-10-26 11:05 | Day surgery (SDC) | payer MEDICARE, SELFPAY ==
--- NOTE | 2023-10-25 09:23 | HO.ANESPROP2 ---
Documented by User: Tiesha Hernandez NP 10/25/23 09:24 HPI - Anesthesia Eval Consult details Narrative: 77yo F for Colonoscopy, Upper Endoscopy with Balloon Dilitation PMFSH Active Problems Active Problems: All Active Problems (Updated 06/13/23 @ 13:17 by Buffy Delgado MD) Gait instability (Acute) Globus sensation (Acute) GERD (gastroesophageal reflux disease) (Acute) Heartburn symptom (Acute) Macular degeneration (Acute) Hyperlipidemia (Acute) Family history of thyroid disease (Acute) Lichen sclerosus et atrophicus of the vulva (Acute) Lesion of skin of face (Acute) Generalized anxiety disorder with panic attacks (Acute) GALLITO on CPAP (Acute) Essential hypertension (Acute) Chronic gastroesophageal reflux disease (Acute) Past Medical History Medical History (Updated 06/13/23 @ 13:17 by Buffy Delgado MD) Gait instability Heartburn symptom Macular degeneration Hyperlipidemia Family history of thyroid disease Lichen sclerosus et atrophicus of the vulva History of herpes zoster Lesion of skin of face Generalized anxiety disorder with panic attacks GALLITO on CPAP Essential hypertension Chronic gastroesophageal reflux disease Family History Family History Son Generalized anxiety disorder with panic attacks Maternal Aunt Mental health disorder Surgical History Surgical History Hx of colonoscopy History of esophagogastroduodenoscopy (EGD) Hx of hernia repair Social History Social History Housing: Apartment Alcohol intake: unknown Patient Tobacco Use Status: Former Tobacco user Years Smoked: 5 yrs e-Cigarette/Vaping Use: Never Used Current occupational status: disabled Cognitive needs: No Hearing needs: No Vision needs: No Meds Allergies Allergy/AdvReac Type Severity Reaction Status Date / Time hydrocortisone AdvReac blurred Verified 06/13/23 12:50 [From Cortizone-10] vision Home Medications Medication Instructions Recorded Confirmed Last Taken Type vit C 250 mg-vit E 90 mg-zinc 40 1 tab PO BID 11/03/22 10/24/23 Unknown History mg-copper 1 cg-nzfiqb-egjqyq capsule (PreserVision AREDS-2) Exam Height,Weight and Vital Signs: Height 4 ft 11 in Assessment and Plan Assessment Anesthesia Assessment: Chart Reviewed Documented by User: Gertrude Asencio MD 10/26/23 10:41 PMFSH Past Medical History Medical History (Updated 06/13/23 @ 13:17 by Buffy Delgado MD) Gait instability Heartburn symptom Macular degeneration Hyperlipidemia Family history of thyroid disease Lichen sclerosus et atrophicus of the vulva History of herpes zoster Lesion of skin of face Generalized anxiety disorder with panic attacks GALLITO on CPAP Essential hypertension Chronic gastroesophageal reflux disease Family History Family History Son Generalized anxiety disorder with panic attacks Maternal Aunt Mental health disorder Family history of problems with anesthesia: No Surgical History Surgical History Hx of colonoscopy History of esophagogastroduodenoscopy (EGD) Hx of hernia repair History of Problems with Anesthesia: No Social History Social History Housing: Apartment Alcohol intake: unknown Patient Tobacco Use Status: Former Tobacco user Years Smoked: 5 yrs e-Cigarette/Vaping Use: Never Used Current occupational status: disabled Cognitive needs: No Hearing needs: No Vision needs: No Meds Allergies Allergy/AdvReac Type Severity Reaction Status Date / Time hydrocortisone AdvReac blurred Verified 06/13/23 12:50 [From Cortizone-10] vision Home Medications Medication Instructions Recorded Confirmed Last Taken Type vit C 250 mg-vit E 90 mg-zinc 40 1 tab PO BID 11/03/22 10/24/23 Unknown History mg-copper 1 sd-czcmbf-nlruyx capsule (PreserVision AREDS-2) Exam Airway Mallampati Class: III TM Dist: >3cm Neck ROM: Full Assessment and Plan Assessment Anesthesia Assessment: Anesthesia Plan Discussed Final Anesthetic Review Family History of Problems with Anesthesia: No History of Problems with Anesthesia: No NPO: Yes ASA Class: III Final Preanesthetic Review: No Changes in Pt Med Stat, Meds/Allgs Chart Reviewed, Consent Obtained/Reviewed and Anes Risks/Benef Reviewed Patient Risk: Intermediate Procedure Risk: Low Anesthetic Plan Anesthetic Plan: TIVA Disposition: Standard PACU
--- NOTE | 2023-10-26 10:02 | P.HPSUR_ITS ---
Pre-Procedural Eval Section A - 24 Hr Update-Section A only Date of Service: 10/26/23 The patient is an INPATIENT: No The patient has been examined within 24 hours of the surgical procedure. The History & Physical has been completed within 30 days and I have reviewed it.: No Section B - Complete if H&P > 30 days Chief Complaint: Colon cancer screening, GERD, dysphagia Relevant Family History (Specify if Yes): No Relevant Social History: Tobacco Use (Former smoker) Present Medications: see Short Stay Collaborative assessment Medical History: Significant History (Chronic gastroesophageal reflux disease Essential hypertension Family history of thyroid disease Generalized anxiety disorder with panic attacks Heartburn symptom History of herpes zoster H yperlipidemia Lesion of skin of face Lichen sclerosus et atrophicus of the vulva Macular degeneration GALLITO on CP) History of Previous Operations: Relevant previous surgery/procedure and date(s) (History of esophagogastroduodenoscopy (EGD) Hx of colonoscopy Hx of hernia repair) Allergies: Allergies Allergy/AdvReac Type Severity Reaction Status Date / Time hydrocortisone AdvReac blurred Verified 06/13/23 12:50 [From Cortizone-10] vision Review of Systems Sugical H&P ROS: Negative: Constitution, Cardiovascular and Respiratory and Yes, Specify: Gastrointestinal (dysphagia) Exam Surgical H&P Exam: Normal: Heart, Normal: Lungs, Normal: Extremities and Normal: Abdomen Plan Diagnosis/Plan: Unchanged I have reviewed the history and physical and performed a pertinent physical examination on my patient. No changes have occurred unless specified. Time Spent With Patient Time: Total time managing care of this patient today ____ minutes.
[2023-10-26 11:20] VITALS: BMI 35.3
[2023-10-26 11:22] VITALS: BP 104/65; PULSE 78; RESP 18; TEMP 36.2; O2SAT 94
[2023-10-26 11:31] VITALS: BMI 34.2
[2023-10-26] MEDS: Lactated Ringers 1,000 ML 100 ML IVCONT (11:46)
--- NOTE | 2023-10-26 11:50 | W.PM.OPN ---
Operative Note Operative Note Date of Service: 10/26/23 Narrative: FLEXIBLE TRANSORAL UPPER GASTROINTESTINAL ENDOSCOPY WITH BIOPSIES AND COLONOSCOPY TILL CECUM WITH BIOPSIES Pre-op diagnosis: Colon cancer screening, GERD, dysphagia Post-op diagnosis: GERD, erosive esophagitis, gastritis, gastric polyps, Esophageal Nodule Colon polyp, diverticulosis, hemorrhoids Endoscopist:? Jonny Olson MD Anesthesia:?MAC UPPER ENDOSCOPY Consent: Indications for the procedure and potential complications of bleeding, perforation, reaction to medications and missed diagnosis were discussed with the patient and informed consent was obtained. Instrument: Olympus GIF H 190 mid size upper endoscope Monitoring: Vital signs and clinical assessment, continuous EKG monitoring, Pulse oximetry, Carbon Dioxide monitoring and blood pressure monitoring were done throughout the procedure. Procedure: The patient was placed in the left lateral decubitis position and pre-procedure medications were administered and a bite block was placed. The endoscope was inserted into the mouth and advanced under direct vision to the third part of duodenum. A careful inspection was made as the upper endoscope was withdrawn including a retroflexed examination of the proximal stomach; Findings and interventions are described below. Findings: Larynx: Normal Esophagus: GE junction at 36 cms. Erosive esophagitis from 30 to 36 cms with multiple 1-2 cms ulcers (LA grade D) Edematous folds at the GE junction with two benign appearing nodules - biopsied. Stomach: A few 5-6 mm benign appearing polyps in the gastric body - biopsied. Mild gastric erythema. Biopsies were obtained. Loose/slipped fundal wrap on retroflexed examination of the cardia. Duodenum: Normal bulb and descending duodenum Intervention: Biopsies as noted above COLONOSCOPY PROCEDURE NOTE Consent: Indications for the procedure and potential complications of bleeding, perforation, reaction to medications and missed diagnosis were discussed with the patient and informed consent was obtained. Instrument: Olympus PCF H 190 L variable stiffness pediatric colonoscope Monitoring: Vital signs and clinical assessment, intermittent blood pressure monitoring, continuous EKG monitoring, Pulse oximetry and Carbon Dioxide monitoring were done throughout the procedure. Colon withdrawl time was 20 minutes. Procedure: The patient was placed in the left lateral decubitis position and pre-procedure medications were administered. After a digital rectal examination of the ano-rectum, the video colonoscope was inserted into the rectum and advanced through the colon to the cecum. The colonoscope was slowly withdrawn in a retrograde panoramic fashion and the colon mucosa was carefully examined including a retroflexed view of the rectum. Findings and interventions are described below. Procedure Difficulty: : Without difficulty Findings: Terminal Ileum: Not evaluated Cecum: Normal Ascending Colon: Moderate scattered diverticulosis throughout the entire colon Transverse Colon: A 1 cms fold versus inverted diverticulum in the proximal TC - biopsied. A 3-4 mm sessile polyp - removed with a cold snare. Moderate scattered diverticulosis throughout the entire colon Descending Colon: Moderate scattered diverticulosis throughout the entire colon (left > right) Sigmoid Colon: Moderate diverticulosis Rectum: Normal Ano-rectum: Moderate internal hemorrhoids Colon preparation: Good after some irrigation Impression and Post Procedure Diagnosis: Endoscopy Findings: ESOPHAGUS: Erosive esophagitis from 30 to 36 cms with multiple 1-2 cms ulcers (LA grade D) Edematous folds at the GE junction with two benign appearing nodules - biopsied. STOMACH: A few 5-6 mm benign appearing polyps in the gastric body - biopsied. Mild gastric erythema. Biopsies were obtained. Loose/slipped fundal wrap on retroflexed examination of the cardia. Colonoscopy Findings: One small polyp removed Moderate diverticulosis seen in the enitre colon Moderate hemorrhoids on retroflexed exam. Plan: Await pathology results Patient has an appointment on 12/05/23 in the [facility] with Dr Sommers. Repeat Colonoscopy interval based on path results - in 5 years if polyps are adenomatous and 10 years if polyps are hyperplastic. Above findings were reviewed with the patient and GERD, colon polyps and diverticulosis handouts were given in the discharge area Pt was advised to increase Omerazole to 20 mg twice a day and schedule a FU EGD with Dr Sommers in 4-5 months to confirm esophagitis has healed.. BIOPSIES SHOWED: A. Gastric antrum, biopsy: Gastric antral mucosa with reactive changes, ectatic mucosal vessels, and focal minimal chronic inactive inflammation; negative for H pylori, intestinal metaplasia and dysplasia. B. Gastric polyp: Gastric body mucosa with congestion and focal minimal chronic inactive inflammation; no adenomatous dysplasia seen. C. Esophagogastric junction, esophageal nodule, biopsy: Squamous mucosa with spongiosis and intraepithelial neutrophils and few eosinophils (up to 2 per high-power field) consistent with reflux esophagitis and columnar mucosa with mild chronic active inflammation and hyperplasia; negative for intestinal metaplasia and dysplasia (see comment). D. Colon, transverse fold, biopsy: Colonic mucosa with lymphoid aggregate and no specific change. E. Colon, transverse, polyp: Tubular adenoma; negative for high-grade dysplasia and carcinoma. Comment: (C): The findings may represent an inflammatory polyp
[2023-10-26 12:56] VITALS: BP 132/71; PULSE 80; RESP 16; TEMP 36.9; O2SAT 96
[2023-10-26 13:11] VITALS: BP 126/72; PULSE 75; RESP 16; TEMP 36.5; O2SAT 98
[2023-10-26 13:26] VITALS: BP 126/66; PULSE 69; RESP 16; TEMP 36.7; O2SAT 95
[2023-10-26 13:41] VITALS: BP 120/60; PULSE 68; RESP 14; O2SAT 98
[2023-10-26 13:56] VITALS: BP 121/67; PULSE 68; RESP 14; TEMP 36.7; O2SAT 94
== END 2023-10-26 14:15 | disposition home or self-care (01) ==
PROVIDERS: PCP Internal Medicine; Visit Provider Internal Medicine Gastroenterology
PROC: 0DJD8ZZ Inspection of Lower Intestinal Tract, Via Natural or Artificial Opening Endoscopic (ICD-10-PCS; CPT 45378; principal; 2023-10-26 11:50)
PROC: (CPT 45385; 2023-10-26 11:50)
DX: Z12.11 Encounter for screening for malignant neoplasm of colon (principal); K57.30 Diverticulosis of large intestine without perforation or abscess without bleeding; K64.8 Other hemorrhoids; K21.00 Gastro-esophageal reflux disease with esophagitis, without bleeding; K22.10 Ulcer of esophagus without bleeding; R13.10 Dysphagia, unspecified; K22.9 Disease of esophagus, unspecified; K29.50 Unspecified chronic gastritis without bleeding; K31.7 Polyp of stomach and duodenum; I10 Essential (primary) hypertension; F41.0 Panic disorder [episodic paroxysmal anxiety]; E78.5 Hyperlipidemia, unspecified; H35.30 Unspecified macular degeneration; G47.33 Obstructive sleep apnea (adult) (pediatric); Z99.89 Dependence on other enabling machines and devices; Z79.899 Other long term (current) drug therapy; Z88.8 Allergy status to other drugs, medicaments and biological substances
CPT/HCPCS: 45385; 45380; 43239; 88305; 88313; 88342; C1726; J2405; J2704; J3010

== ENCOUNTER → 2023-10-26 11:05 | Outpatient (BNV) | payer MEDICARE, SELFPAY | PROVIDERS: PCP Internal Medicine; Visit Provider Internal Medicine Gastroenterology | DX: Z12.11 Encounter for screening for malignant neoplasm of colon (principal); K57.90 Diverticulosis of intestine, part unspecified, without perforation or abscess without bleeding; D12.3 Benign neoplasm of transverse colon; K64.8 Other hemorrhoids; K21.00 Gastro-esophageal reflux disease with esophagitis, without bleeding; R13.10 Dysphagia, unspecified; K29.70 Gastritis, unspecified, without bleeding; K31.7 Polyp of stomach and duodenum | CPT/HCPCS: 43239; 45380; 45385 ==

== ENCOUNTER 2023-10-27 15:15 | Inpatient (IN) | payer MEDICARE, SELFPAY ==
[2023-10-27] VITALS (12 sets, daily range): BP systolic 100–128; BP diastolic 47–62; PULSE 66–80; RESP 16–18; TEMP 36.7; O2SAT 86–98; BMI 33.4
--- NOTE | ~2023-10-27 | CT_ITS ---
EXAMINATION: CT ANGIOGRAM OF THE CHEST WITH AND WITHOUT CONTRAST (CT PULMONARY ANGIOGRAM FOR PE) CLINICAL INFORMATION: Reason for Exam hypoxia, R sided pain COMPARISON: None. TECHNIQUE: Prior to contrast administration, noncontrast localization images were obtained. Subsequently, multidetector volumetric imaging was performed from the thoracic inlet to below the diaphragms following the administration of 80 mL Omnipaque 350 intravenous contrast. No contrast reaction reported Sagittal, coronal, and MIP oblique sagittal reformatted images were obtained on the CT workstation, uploaded to PACS, and reviewed. This CT examination was performed using dose optimization techniques as appropriate, variously including the following: *Automated exposure control *Adjustment of mA and/or kV according to patient size (this includes techniques or standardized protocols for targeted exams where dose is matched to indication/reason for exam; i.e. extremities or head) *Use of iterative reconstruction technique Total exam dose-length product 193 mGy-cm FINDINGS: QUALITY OF STUDY/CONTRAST BOLUS: Satisfactory. PULMONARY ARTERIES: No pulmonary emboli. Main pulmonary arteries enlarged suggesting elements of pulmonary arterial hypertension. THORACIC AORTA: Aneurysmal dilatation of the ascending aorta at the level of main pulmonary artery measuring 4.1 cm. The descending aorta at this level measures 2.9 cm. Atherosclerotic calcifications of the aortic arch. LUNG/PLEURA: Emphysematous changes. Peripheral reticular nodular opacities. Atelectatic changes versus scarring in the right middle lobe. Pleural-based nodular focus in the lateral aspect of the right upper lobe (series 29, image 237) measuring 2 mm. Subpleural nodule in the lateral aspect of the right lower lobe (series 21, image 279) measuring 3 mm. Central airways are patent. No pneumothorax. No large pleural effusion. MEDIASTINUM: Heart is mildly enlarged. No pericardial effusion. A few mildly prominent though nonenlarged lymph nodes are noted. Coronary artery calcifications are noted. No evidence of septal bowing or right heart strain. CHEST WALL/AXILLA: No axillary or internal mammary lymphadenopathy. OSSEOUS STRUCTURES: Multilevel degenerative changes of the thoracolumbar and lumbosacral spine. UPPER ABDOMEN: Decreased hepatic attenuation suggesting hepatic steatosis. Small to moderate hiatal hernia. Postsurgical changes at the gastroesophageal junction. Postsurgical changes in the splenogastric space. Reflux of contrast into the hepatic veins suggesting elevated right heart pressures. CT/CT angio chest PE protocol IMPRESSION: 1. No pulmonary emboli. Main pulmonary artery is enlarged suggesting elements of pulmonary arterial hypertension. Reflux of contrast into the hepatic veins suggesting elevated right heart pressures. 2. Aneurysmal dilatation of the ascending aorta at the level of main pulmonary artery measuring 4.1 cm. 3. Multiple pulmonary nodules the largest measuring up to 3 mm. Follow-up as per Fleischner criteria. 4. Decreased hepatic attenuation suggesting hepatic steatosis. 5. Small to moderate hiatal hernia. Various management parameters for solitary pulmonary nodules are in the literature. According to the Fleischner Society, recommendations for pulmonary nodules are as follows: According to the UPDATED 2017 Fleischner Society recommendations, the advised follow-up imaging for solid nodules < 6 mm is: HIGH RISK PATIENT: Optional CT at 12 months.
--- NOTE | ~2023-10-27 | CT_ITS ---
EXAMINATION: CT head/brain wo IV con CLINICAL INFORMATION: Reason for Exam AMS, headache change in mental status COMPARISON: None. TECHNIQUE: Contiguous axial imaging was performed from the skull base to vertex without intravenous contrast. Sagittal and coronal reformatted images were obtained. This CT examination was performed using dose optimization techniques as appropriate, variously including the following: * Automated exposure control * Adjustment of mA and/or kV according to patient size (this includes techniques or standardized protocols for targeted exams where dose is matched to indication/reason for exam; i.e. extremities or head) Use of iterative reconstruction technique DLP: 668.5 mGy-cm FINDINGS: No acute osseous or soft tissue abnormality. Hyperostosis frontalis interna. The mastoid air cells and visualized portions of the paranasal sinuses are well aerated. There is no evidence of acute intracranial hemorrhage or territorial infarction. No abnormal mass effect or midline shift is seen. Starks to white matter differentiation is well preserved. No extra-axial fluid collections are identified. No hydrocephalus. No significant volume loss. Patchy periventricular and deep white matter hypoattenuation is consistent with mild small vessel ischemic changes. CT/CT head/brain wo IV con IMPRESSION: No acute intracranial abnormality including hemorrhage, mass effect, hydrocephalus, or acute territorial edematous infarction.
--- NOTE | 2023-10-27 15:43 | ECG_ITS ---
Test Reason : HYPOXIA Blood Pressure : / mmHG Vent. Rate : 076 BPM Atrial Rate : 076 BPM P-R Int : 130 ms QRS Dur : 088 ms QT Int : 368 ms P-R-T Axes : -13 048 035 degrees QTc Int : 414 ms Normal sinus rhythm Normal ECG When compared with ECG of 03-MAR-2021 18:14, No significant change was found Referred By: Alice Pulido Electronically Signed By:MEÑO STINSON MD
--- NOTE | 2023-10-27 15:59 | PC.NURSE ---
Pt coming in from home via EMS. pt Romanian speaking, family at bedside translates. Family reports pt had routine endoscopy/ colonoscopy yesterday and since then has been weak, lethargic and pale. Family also reported pt slept until after 1pm today which is not normal for her. Family reports pt had low SPO2 and BP after procedure yesterday, they checked her vitals today and found the same. Pt was complaining of some lower back pain this morning per family. Pt is alert and oriented, breathing even and unlabored, skin notably pale and dry. Pt denied any pain, SOB or CP. Pt appears lethargic. ABD slightly distended. SPO2 noted to be 84-86% on RA, pt placed on 2L O2 via NC with quick improvements to 95-99%. Pt placed on monitoring coordinator bedside. Provider aware of condition, family at bedside.
[2023-10-27] MEDS: 0.9 % Sodium Chloride 500 ML IV (16:13)
[2023-10-27 16:15] LABS: MANUAL DIFF FLAG NO
[2023-10-27 16:20] LABS: VBG Base Excess 2.6 mmol/L; VBG HCO3 32 mmol/L (22-26); VBG pCO2 73 mmHg; VBG pH 7.24 (7.32-7.43); VBG pO2 48 mmHg
--- NOTE | 2023-10-27 16:20 | ED_ITS ---
HPI - Weakness General Chief complaint: General Medical Stated complaint: low blood pressure Time Seen by Provider: 10/27/23 16:05 Source: patient, family and old records reviewed Mode of arrival: EMS Limitations: no limitations History of Present Illness HPI Narrative: 77 yo female with PMH of GALLITO who has CPAP but did not use it last night, GERD/hiatal hernia, HLD, anxiety, HTN here with c/o having a colonoscopy / EGD done yesterday with Dr. Olson. Her sons note she seemed to do well and did tolerate PO. She seemed to be doing well yesterday. She did not use her CPAP last night. She does have a history of choking on her food but the sons did not notice this. The patient was very sleepy and slept all day and did not wake up until 130pm today and when she did her O2 sats were in the 80s, she was dizzy and acting off, she had chills and nausea. They noted she had a hard time walking. She was able to answer orientation questions. She had a cough prior to the procedure as well for 4 days. She noted R flank pain but no abdominal pain bloody stools, diarrhea, vomiting. MD Complaint: generalized weakness Onset (ago): day(s) (1) Duration: constant Location: generalized Migration: none Severity: moderate Relieving factors: none Exacerbating factors: movement and exertion Context: recent illness and recent surgery Associated symptoms: confusion, headaches, loss of appetite and nausea/vomiting Related Data Home Medications Medication Instructions Recorded Confirmed vit C 250 mg-vit E 90 mg-zinc 40 1 tab PO BID 11/03/22 10/24/23 mg-copper 1 [id number] capsule (PreserVision AREDS-2) Previous Rx's Medication Instructions Recorded amlodipine 5 mg-olmesartan 40 mg 1 tab PO DAILY #90 tabs 11/03/22 tablet citalopram 20 mg tablet 20 mg PO DAILY #90 tabs 11/03/22 omeprazole 20 mg capsule,delayed 20 mg PO DAILY #90 caps 06/08/23 release Allergies Allergy/AdvReac Type Severity Reaction Status Date / Time hydrocortisone AdvReac blurred Verified 06/13/23 12:50 [From Cortizone-10] vision Review of Systems 2 Review of Systems: Constitutional : No Fever, No Chills, pos Fatigue ENT/Mouth : No sore throat, No Rhinorrhea Eyes: No Eye Pain, No Swelling, No Redness Cardiovascular : No Chest Pain, pos SOB, No Dyspnea on Exertion Respiratory : pos Cough, No Sputum Gastrointestinal : pos Nausea, No Vomiting, No Diarrhea, No abdominal Pain Genitourinary : No Dysuria, No Urinary Frequency, No Hematuria, Musculoskeletal : No joint pain, No Myalgias, No Joint Swelling Skin : No Skin Lesions, No rash Neuro : pos Weakness, No Numbness, No Dizziness, positive Headache Psych : No Anxiety/Panic, No Depression Heme/Lymph: No Bruising, No Bleeding,No Lymphadenopathy Endocrine : No Polyuria, No Polydipsia All other systems reviewed and are negative [facility] Past Medical History Attestation statement: The following information was validated with the patient. Source: old records reviewed and obtained from family Medical History Gait instability Heartburn symptom Macular degeneration Hyperlipidemia Family history of thyroid disease Lichen sclerosus et atrophicus of the vulva History of herpes zoster Lesion of skin of face Generalized anxiety disorder with panic attacks GALLITO on CPAP Essential hypertension Chronic gastroesophageal reflux disease Surgical History Hx of colonoscopy History of esophagogastroduodenoscopy (EGD) Hx of hernia repair Family History Family History Son Generalized anxiety disorder with panic attacks Maternal Aunt Mental health disorder Social History Social History Housing: Apartment Alcohol intake: unknown Patient Tobacco Use Status: Former Tobacco user Quit Date: 50 years Years Smoked: 5 yrs Smoked in Last 30 Days: No e-Cigarette/Vaping Use: Never Used Use of substances other than those prescribed or required for medical reasons: No Advance Directives: Yes Advance Directives Information Provided: No Advance Directives on File: No Current occupational status: disabled Cognitive needs: No Hearing needs: No Vision needs: No Physical Exam 2 Vital Signs: Vital Signs: Last Vital Signs Temp 98.1 F 10/27/23 15:49 Pulse 66 10/27/23 18:11 Resp 18 10/27/23 18:11 BP 101/47 L 10/27/23 18:11 Pulse Ox 95 10/27/23 20:28 O2 Del Method Nasal Cannula 10/27/23 20:28 O2 Flow Rate 3 10/27/23 20:28 BMI result Body Mass Index 33.4 Appearance: Alert. Oriented X3. No acute distress. Eyes: Pupils equal, round and reactive to light. ENT: Pharynx normal. Neck: Normal inspection. Neck supple. CVS: Normal heart rate and rhythm. Pulses normal. Respiratory: No respiratory distress. Breath sounds diminished rales heard R base Abdomen: Soft and nontender. no pain to palpation Skin: Skin warm and dry. Normal skin color. Normal skin turgor. Extremities: trace bilateral pitting lower extremity edema. Neuro: Oriented X 3. No motor deficit. No sensory deficit. Course Course Course Narrative: given VGB ABG ordered but patient is not altered she is alert and oriented x 3 easily answering questions Reevaluation(s) Reevaluation #1: patient is tolerating NIPPV well Reevaluation #2: VBG improved - will trial off bipap Reevaluation #3: still requiring O2 becomes hypoxic without it. family notes she has not been compliant with CPAP for a year colonoscopy likely tipped her over. off bipap doing well. VBG improved will monitor and if stable still will admit to floor will need nighttime CPAP Medications Administered Discontinued Medications Generic Name Dose Route Start Last Admin Trade Name Eircq PRN Reason Stop Dose Admin Albuterol/Ipratropium 3 ml 10/27/23 16:33 10/27/23 16:36 Albuterol/Iprat 2.5/0.5mg 3 Ml Ampul.Neb INHALE 10/27/23 16:34 3 ml ONCE ONE Administration Sodium Chloride 500 mls @ 500 mls/hr 10/27/23 15:45 10/27/23 17:32 Ns IV 10/27/23 16:44 Infused .Q1H EVELIN Infusion Piperacillin Sod/Tazobactam 50 mls @ 100 mls/hr 10/27/23 16:15 10/27/23 18:12 Sod 3.375 gm/ Sodium Chloride IV 10/27/23 16:44 Infused ONCE ONE Infusion Iohexol 100 ml 10/27/23 18:46 10/27/23 18:47 Iohexol 350 Mg/Ml 100 Ml Infus..Btl IV 10/27/23 18:47 65 ml ONCE ONE Administration Medical Decision Making Medical Decision Making [facility] Narrative: 77 yo female with PMH of GALLITO who has CPAP but did not use it last night, GERD/hiatal hernia, HLD, anxiety, HTN here with recent colonoscopy but preceding cough per sons - she woke up after prolonged sleep after seemingly doing okay yesterday upon discharge from short stay. She woke up at 130pm confused, hypoxic and with low BPs. At this time will obtain CT head for ICH has no focal deficitis, CTA for PE/aspiration pneumonia given nausea chills and hypoxia and hx of aspiration in past. Her abdomen is benign she has no ttp and no GIB symptoms reported. She will be given gentle fluids, empiric zosyn given concern for aspiration, viral testing, O2, bronch protocol and likely admit pending findings Differential Diagnosis Differential Diagnoses: The differential diagnosis associated with the presentation includes aspiration pneumonia, COVID/flu, PE, hypercarbia due to lack of CPAP Admission/Observation Consideration of admission/observation: Escalation of care including admission/observation considered admit given hypoxia which is new recovered well with Bipap and repeat VBG is normal. she is much more awake and alert. suspect the colonoscopy and her non- compliance with CPAP is what contributed to her retention and hypoxia though the hypoxia has not recovered. there is no aspiration I did discuss the importance of her CPAP with patient and family Consult Healthcare Provider Management of the patient was discussed with: Hospitalist (will admit) Lab Data [facility] Lab Attestation statement: I reviewed the patient's lab results. 10/27/23 16:07 10/27/23 16:07 Labs: Lab Results 10/27/23 10/27/23 10/27/23 Range/Units 16:07 16:13 16:45 WBC 8.0 (4.8-10.8) X10*3/uL RBC 4.02 L (4.20-5.50) X10*6/uL Hgb 11.6 L (12.0-16.0) g/dl Hct 38.4 (37.0-47.0) % MCV 95.5 (80.0-98.0) fL MCH 28.9 (27.0-33.0) pg MCHC 30.2 L (31.0-35.0) g/dl RDW 13.9 (11.0-16.0) % Plt Count 142 L D (160-400) X10*3/uL MPV 10.5 (9.4-12.3) fL Immature Gran % (Auto) 0.6 H (0.0-0.4) % Neut % (Auto) 78.0 H (45-73) % Lymph % (Auto) 13.7 L (20-40) % Greenlee % (Auto) 7.1 (2-11) % Eos % (Auto) 0.2 (0-4) % Baso % (Auto) 0.4 (0-2) % Lymph # (Auto) 1.1 L (1.2-4.9) X10*3/uL [place]lee # (Auto) 0.6 (0.1-1.2) X10*3/uL Eos # (Auto) 0.0 (0.0-0.4) X10*3/uL Baso # (Auto) 0.0 (0.0-0.2) X10*3/uL Abs Immat Gran (auto) 0.05 H (0.00-0.03) X10*3/uL Absolute Neuts (auto) 6.2 (2.0-8.3) x10*3/uL Absolute Nucleated RBC 0.000 (0.0-0.012) X10*3/uL Nucleated RBC % (auto) 0.0 (0.0-0.2) /100WBC PT 11.2 (11.1-13.3) SEC INR 0.9 (0.9-1.1) O2 Saturation 97.0 % ABG pH at Pt Temp 7.27 L (7.35-7.45) ABG pCO2 at Pt Temp 63 H* (32-45) mmHg ABG pO2 at Pt Temp 82 L (83-108) mmHg ABG HCO3 30 H (22-26) mmol/L ABG Base Excess (Actual) 1.8 mmol/L VBG pH 7.24 L (7.32-7.43) VBG pCO2 73 mmHg VBG pO2 48 mmHg VBG HCO3 32 H (22-26) mmol/L VBG O2 Saturation 79.0 % VBG Base Excess 2.6 mmol/L Sodium 142 (135-145) mmol/L Potassium 4.5 (3.3-5.1) mmol/L Chloride 106 (96-108) mmol/L Carbon Dioxide 27 (22-29) mmol/L Anion Gap 14 (12-20) BUN 20 H (9-16) mg/dL Creatinine 1.25 (0.5-1.4) mg/dL Estim Creat Clear Calc 36.1 Estimated GFR 42 Random Glucose 156 H (60-115) mg/dL Lactic Acid 1.8 (0.5-2.0) mmol/L Calcium 9.7 (8.4-10.2) mg/dL Magnesium 2.2 (1.6-2.6) mg/dL Total Bilirubin 0.2 (0.0-1.0) mg/dL AST 21 (5-31) U/L ALT 24 (0-31) U/L Alkaline Phosphatase 83 (39-117) U/L Troponin I High Sens 34.4 H (<3.5-17.0) ng/L B-Natriuretic Peptide 398 H (<100) pg/mL Total Protein 7.0 (6.5-8.0) g/dL Albumin 3.5 (3.5-5.0) g/dL Influenza Type A (PCR) NEGATIVE (Negative) Influenza Type B (PCR) NEGATIVE (Negative) RSV RNA Qual (PCR) NEGATIVE (Negative) SARS-CoV-2 RNA (RT-PCR) NEGATIVE (Negative) 10/27/23 10/27/23 Range/Units 19:11 19:13 WBC (4.8-10.8) X10*3/uL RBC (4.20-5.50) X10*6/uL Hgb (12.0-16.0) g/dl Hct (37.0-47.0) % MCV (80.0-98.0) fL MCH (27.0-33.0) pg MCHC (31.0-35.0) g/dl RDW (11.0-16.0) % Plt Count (160-400) X10*3/uL MPV (9.4-12.3) fL Immature Gran % (Auto) (0.0-0.4) % Neut % (Auto) (45-73) % Lymph % (Auto) (20-40) % Greenlee % (Auto) (2-11) % Eos % (Auto) (0-4) % Baso % (Auto) (0-2) % Lymph # (Auto) (1.2-4.9) X10*3/uL Greenlee # (Auto) (0.1-1.2) X10*3/uL Eos # (Auto) (0.0-0.4) X10*3/uL Baso # (Auto) (0.0-0.2) X10*3/uL Abs Immat Gran (auto) (0.00-0.03) X10*3/uL Absolute Neuts (auto) (2.0-8.3) x10*3/uL Absolute Nucleated RBC (0.0-0.012) X10*3/uL Nucleated RBC % (auto) (0.0-0.2) /100WBC PT (11.1-13.3) SEC INR (0.9-1.1) O2 Saturation % ABG pH at Pt Temp (7.35-7.45) ABG pCO2 at Pt Temp (32-45) mmHg ABG pO2 at Pt Temp (83-108) mmHg ABG HCO3 (22-26) mmol/L ABG Base Excess (Actual) mmol/L VBG pH 7.37 (7.32-7.43) VBG pCO2 51 mmHg VBG pO2 44 mmHg VBG HCO3 29 H (22-26) mmol/L VBG O2 Saturation 80.0 % VBG Base Excess 3.5 mmol/L Sodium (135-145) mmol/L Potassium (3.3-5.1) mmol/L Chloride (96-108) mmol/L Carbon Dioxide (22-29) mmol/L Anion Gap (12-20) BUN (9-16) mg/dL Creatinine (0.5-1.4) mg/dL Estim Creat Clear Calc Estimated GFR Random Glucose (60-115) mg/dL Lactic Acid (0.5-2.0) mmol/L Calcium (8.4-10.2) mg/dL Magnesium (1.6-2.6) mg/dL Total Bilirubin (0.0-1.0) mg/dL AST (5-31) U/L ALT (0-31) U/L Alkaline Phosphatase (39-117) U/L Troponin I High Sens 45.8 H (<3.5-17.0) ng/L B-Natriuretic Peptide (<100) pg/mL Total Protein (6.5-8.0) g/dL Albumin (3.5-5.0) g/dL Influenza Type A (PCR) (Negative) Influenza Type B (PCR) (Negative) RSV RNA Qual (PCR) (Negative) SARS-CoV-2 RNA (RT-PCR) (Negative) Independent Interpretation I performed an independent interpretation of an: EKG and CT Scan (no ICH, no PE, no aspiration) Interpretation: Rate: 76 Rhythm: NSR [place]: normal Normal P waves. Normal MIRANDA. Normal QRS complex. ST T wave : normal no LOS qTC: 414 prior studies: no acute ischemia The study has been interpreted contemporaneously by me. . Radiology Impression Discussion of test interpretation with radiology: I have reviewed the radiologist's reading. Independent Historian Clinical information obtained from an independent historian. History obtained from or confirmed by: Other (sons) External Record Review External record reviewed: Inpatient record Critical Care Time Critical Care Time Critical Care Time: Yes Total Critical Care Time: 60 Attestation: repeat VBG, Bipap, repeat assessments, discussion with family, review of records I attest to this time spent taking care of the patient Discharge Plan Discharge Clinical Impression: Hypoxia Respiratory failure Qualifiers: Chronicity: acute Respiratory failure complication: hypoxia and hypercapnia Q ualified Code(s): J96.01 - Acute respiratory failure with hypoxia Cough Qualifiers: Cough type: acute Qualified Code(s): R05.1 - Acute cough Patient Disposition: Admitted As Inpatient
[2023-10-27 16:21] LABS: Venous Blood Gas Refer to POC result
[2023-10-27 16:21] LABS: Basophils Percent Auto 0.4 % (0-2); Eosinophils Percent Auto 0.2 % (0-4); Hematocrit 38.4 % (37.0-47.0); Hemoglobin 11.6 g/dl (12.0-16.0); Imm Gran Abs Auto 0.05 X10*3/uL (0.00-0.03); Imm Gran Pct Auto 0.6 % (0.0-0.4); Lymphocytes Absolute Auto 1.1 X10*3/uL (1.2-4.9); Lymphocytes Percent Auto 13.7 % (20-40); Mean Corpuscular HGB Conc 30.2 g/dl (31.0-35.0); Mean Corpuscular Hemoglobin 28.9 pg (27.0-33.0); Mean Corpuscular Volume 95.5 fL (80.0-98.0); Mean Platelet Volume 10.5 fL (9.4-12.3); Monocytes Absolute Auto 0.6 X10*3/uL (0.1-1.2); Monocytes Percent Auto 7.1 % (2-11); Neutrophils Absolute Auto 6.2 x10*3/uL (2.0-8.3); Platelet Count 142 X10*3/uL (160-400); Red Blood Count 4.02 X10*6/uL (4.20-5.50); Red Cell Distribution Width 13.9 % (11.0-16.0)
[2023-10-27 16:31] LABS: INTERNATIONAL NORM RATIO 0.9 (0.9-1.1); Prothrombin Time 11.2 SEC (11.1-13.3)
[2023-10-27 16:33] LABS: Lactic Acid 1.8 mmol/L (0.5-2.0)
[2023-10-27] MEDS: Albuterol/Iprat 2.5/0.5MG 3 ML AMPUL.NEB INHALE ×2 (16:36→21:09)
[2023-10-27 16:40] LABS: B Type Natriuretic Peptide 398 pg/mL (<100)
[2023-10-27 16:51] LABS: Troponin-I High Sensitivity 34.4 ng/L (<3.5-17.0)
[2023-10-27 16:52] LABS: ABG Base Excess 1.8 mmol/L; ABG HCO3 30 mmol/L (22-26); ABG pCO2 63 mmHg (32-45); ABG pH 7.27 (7.35-7.45); ABG pO2 82 mmHg (83-108)
[2023-10-27 16:56] LABS: Influenza A PCR NEGATIVE (Negative); Influenza B PCR NEGATIVE (Negative); Resp Syncy Virus RNA Qual PCR NEGATIVE (Negative); SARS COV2 PCR INHOUSE NEGATIVE (Negative)
--- NOTE | 2023-10-27 17:04 | PC.NURSE ---
Addendum entered by Margareth Angel 10/27/23 17:30: BIPAP settings updated to: 16/03, 30% per RT Original Note: Pt being placed on BIPAP by RT per MD. BIPAP settings: 08/07, 30%. Pt tolerating well.
[2023-10-27] MEDS: Piperacillin Sodium/Tazobactam 3.375 GM in 0.9 % Sodium Chloride 50 ML IV (17:31)
[2023-10-27 18:11] LABS: Alanine Aminotransferase 24 U/L (0-31); Albumin Level 3.5 g/dL (3.5-5.0); Alkaline Phosphatase 83 U/L (39-117); Anion Gap 14 (12-20); Aspartate Amino Transferase 21 U/L (5-31); Bilirubin Total 0.2 mg/dL (0.0-1.0); Blood Urea Nitrogen 20 mg/dL (9-16); Calcium 9.7 mg/dL (8.4-10.2); Carbon Dioxide 27 mmol/L (22-29); Chloride 106 mmol/L (96-108); Creatinine Clr Calc Pharmacy 36.1; Estimated Glomerular Filt Rate 42; Glucose Random 156 mg/dL (60-115); Magnesium 2.2 mg/dL (1.6-2.6); Potassium 4.5 mmol/L (3.3-5.1); Sodium 142 mmol/L (135-145)
--- NOTE | 2023-10-27 18:12 | PC.NURSE ---
Pt continues to tolerate BIPAP well, skin color has improved. VSS.
[2023-10-27] MEDS: iohexoL 350 MG/ML 100 ML INFUS..BTL IV (18:47)
[2023-10-27 19:18] LABS: Venous Blood Gas Refer to POC result
[2023-10-27 19:19] LABS: VBG Base Excess 3.5 mmol/L; VBG HCO3 29 mmol/L (22-26); VBG pCO2 51 mmHg; VBG pH 7.37 (7.32-7.43); VBG pO2 44 mmHg
--- NOTE | 2023-10-27 19:31 | PC.NURSE ---
Assumed care of pt. Pt lying on stretcher, on BiPap 14/7 30%, current O2 saturation at 93%. Explained currwent plan of care to family at bedside, no acute distress at this time.
[2023-10-27 19:39] LABS: Troponin-I High Sensitivity 45.8 ng/L (<3.5-17.0)
--- NOTE | 2023-10-27 20:29 | PC.NURSE ---
Purewik placed for pt comfort.
--- NOTE | 2023-10-27 21:17 | P.HPHOSP_ITS ---
History of Present Illness Date of Service: 10/27/23 Attending physician on admission: Douglas Rivero Chief Complaint: Somnolence, cough Evelyn Shaikh is a very pleasant 77 years old woman with past medical history significant for obstructive sleep apnea noncompliant with CPAP, essential hypertension and GERD was brought to the emergency department from home via EMS as she was found somnolent. Seems like she slept until 15:30 today. She underwent a colonoscopy/endoscopy yesterday. Patient's daughter who was at bedside mentioned that after the procedure her oxygen saturation was monitored closely as it was dropping. The patient complained of productive cough and headache. There is no fever or chills reported. She denies chest pain. In the ED, she was noted to have stable vital sign, however her oxygen saturation dropped to 86% on room air. She underwent BiPAP ventilation as her venous blood gas showed significant respiratory acidosis. Venous blood gas was repeated and significantly improved. She is still requiring supplemental oxygen 3 liters/minute -her oxygen saturation is fluctuating between 95 and 97%. The rest of her vital signs are basically unremarkable except for slight elevation of troponin x2 and BNP. ED tx: NS 500 mL IV, Zosyn 3.375 g IV, DuoNeb x1. Review of Systems 2 Review of Systems: All 12 systems were reviewed and normal except as noted in HPI. [facility] Medical History Gait instability Heartburn symptom Macular degeneration Hyperlipidemia Family history of thyroid disease Lichen sclerosus et atrophicus of the vulva History of herpes zoster Lesion of skin of face Generalized anxiety disorder with panic attacks GALLITO on CPAP Essential hypertension Chronic gastroesophageal reflux disease Family History Son Generalized anxiety disorder with panic attacks Maternal Aunt Mental health disorder Surgical History Hx of colonoscopy History of esophagogastroduodenoscopy (EGD) Hx of hernia repair Social History Housing: Apartment Alcohol intake: unknown Patient Tobacco Use Status: Former Tobacco user Quit Date: 50 years Years Smoked: 5 yrs Smoked in Last 30 Days: No e-Cigarette/Vaping Use: Never Used Use of substances other than those prescribed or required for medical reasons: No Advance Directives: Yes Advance Directives Information Provided: No Advance Directives on File: No Current occupational status: disabled Cognitive needs: No Hearing needs: No Vision needs: No Meds Allergies Allergy/AdvReac Type Severity Reaction Status Date / Time hydrocortisone AdvReac blurred Verified 06/13/23 12:50 [From Cortizone-10] vision Active Medications: Current Medications Albuterol/Ipratropium (Albuterol/Iprat 2.5/0.5mg 3 Ml Ampul.Neb) 3 ml INHALE Q4H [facility]ELIN Stop: 10/28/23 05:01 Heparin Sodium (Porcine) (Heparin Sodium,Porcine 5,000 Unit/Ml Vial) 5,000 unit SUBCUT Q12H EVELIN Piperacillin Sod/Tazobactam (Sod 3.375 gm/ Sodium Chloride) 50 mls @ 100 mls/hr IV Q6H [facility] Sodium Chloride (0.9 % Sodium Chloride Flush 3 Ml Syringe) 3 ml IVFLUSH QSHIFT [facility] Home Medications Medication Instructions Recorded Confirmed Last Taken Type vit C 250 mg-vit E 90 mg-zinc 40 1 tab PO BID 11/03/22 10/27/23 Unknown History mg-copper 1 [id number] capsule (PreserVision AREDS-2) Physical Exam 2 Vital Signs and Narrative: Vital Signs: Last Vital Signs Temp 98.1 F 10/27/23 15:49 Pulse 67 10/27/23 21:09 Resp 16 10/27/23 21:09 BP 101/47 L 10/27/23 18:11 Pulse Ox 95 10/27/23 20:28 O2 Del Method Nasal Cannula 10/27/23 20:28 O2 Flow Rate 3 10/27/23 20:28 BMI result Body Mass Index 33.4 Constitutional - Awake and Alert, No apparent distress. Pleaseant. Cooperative. Afebrile. HEENT - Pupils equally round. No sclera icterus. Dry oral mucosa. Heart - S1S2, RRR, No edema Lungs - Normal lung expansion, Normal respiratory effort, No respiratory distress, CTA bilaterally Abdomen - NT / ND; +BS; No rebound or guarding Extremities - No calf tenderness bilaterally. Minimal pitting edema. Musculoskeletal - Normal inspection, normal ROM Skin - Warm/Dry Neurological - Alert & oriented x3. No gross focal weakness. Normal speech. Answer questions appropriately. Psychological - Appropriate affect Results Labs 10/27/23 16:07 10/27/23 16:07 Labs: Laboratory Results - last 24 hr 10/27/23 10/27/23 10/27/23 16:07 16:13 16:45 MCV 95.5 MCH 28.9 MCHC 30.2 L RDW 13.9 Plt Count 142 L D MPV 10.5 Immature Gran % (Auto) 0.6 H Neut % (Auto) 78.0 H Lymph % (Auto) 13.7 L [place] % (Auto) 7.1 Eos % (Auto) 0.2 Baso % (Auto) 0.4 Lymph # (Auto) 1.1 L [place] # (Auto) 0.6 Eos # (Auto) 0.0 Baso # (Auto) 0.0 Abs Immat Gran (auto) 0.05 H Absolute Neuts (auto) 6.2 Absolute Nucleated RBC 0.000 Nucleated RBC % (auto) 0.0 PT 11.2 INR 0.9 O2 Saturation 97.0 ABG pH at Pt Temp 7.27 L ABG pCO2 at Pt Temp 63 H* ABG pO2 at Pt Temp 82 L ABG HCO3 30 H ABG Base Excess (Actual) 1.8 VBG pH 7.24 L VBG pCO2 73 VBG pO2 48 VBG HCO3 32 H VBG O2 Saturation 79.0 VBG Base Excess 2.6 Anion Gap 14 Estim Creat Clear Calc 36.1 Estimated GFR 42 Random Glucose 156 H Lactic Acid 1.8 Calcium 9.7 Magnesium 2.2 Total Bilirubin 0.2 AST 21 ALT 24 Alkaline Phosphatase 83 Troponin I High Sens 34.4 H B-Natriuretic Peptide 398 H Total Protein 7.0 Albumin 3.5 Influenza Type A (PCR) NEGATIVE Influenza Type B (PCR) NEGATIVE RSV RNA Qual (PCR) NEGATIVE SARS-CoV-2 RNA (RT-PCR) NEGATIVE 10/27/23 10/27/23 19:11 19:13 MCV MCH MCHC RDW Plt Count MPV Immature Gran % (Auto) Neut % (Auto) Lymph % (Auto) [place] % (Auto) Eos % (Auto) Baso % (Auto) Lymph # (Auto) [place] # (Auto) Eos # (Auto) Baso # (Auto) Abs Immat Gran (auto) Absolute Neuts (auto) Absolute Nucleated RBC Nucleated RBC % (auto) PT INR O2 Saturation ABG pH at Pt Temp ABG pCO2 at Pt Temp ABG pO2 at Pt Temp ABG HCO3 ABG Base Excess (Actual) VBG pH 7.37 VBG pCO2 51 VBG pO2 44 VBG HCO3 29 H VBG O2 Saturation 80.0 VBG Base Excess 3.5 Anion Gap Estim Creat Clear Calc Estimated GFR Random Glucose Lactic Acid Calcium Magnesium Total Bilirubin AST ALT Alkaline Phosphatase Troponin I High Sens 45.8 H B-Natriuretic Peptide Total Protein Albumin Influenza Type A (PCR) Influenza Type B (PCR) RSV RNA Qual (PCR) SARS-CoV-2 RNA (RT-PCR) Imaging Radiologist's Impressions: Impressions Chest CTA 10/27/23 18:55 IMPRESSION: 1. No pulmonary emboli. Main pulmonary artery is enlarged suggesting elements of pulmonary arterial hypertension. Reflux of contrast into the hepatic veins suggesting elevated right heart pressures. 2. Aneurysmal dilatation of the ascending aorta at the level of main pulmonary artery measuring 4.1 cm. 3. Multiple pulmonary nodules the largest measuring up to 3 mm. Follow-up as per Fleischner criteria. 4. Decreased hepatic attenuation suggesting hepatic steatosis. 5. Small to moderate hiatal hernia. Various management parameters for solitary pulmonary nodules are in the literature. According to the Fleischner Society, recommendations for pulmonary nodules are as follows: According to the UPDATED 2017 Fleischner Society recommendations, the advised follow-up imaging for solid nodules < 6 mm is: HIGH RISK PATIENT: Optional CT at [address] 10/27/23 18:55 IMPRESSION: No acute intracranial abnormality including hemorrhage, mass effect, hydrocephalus, or acute territorial edematous infarction. Assessment and Plan (1) Hypercapnic respiratory failure: Qualifiers: Chronicity: acute Qualified Code(s): J96.02 - Acute respiratory failure with hypercapnia Status: Acute (2) Hypoxia: Status: Acute (3) Cough: Qualifiers: Cough type: acute Qualified Code(s): R05.1 - Acute cough Status: Acute (4) GERD (gastroesophageal reflux disease): Qualifiers: Esophagitis presence: without esophagitis Qualified Code(s): K21.9 - Gastro-esophageal reflux disease without esophagitis Status: Acute (5) Essential hypertension: Status: Acute (6) Elevated brain natriuretic peptide (BNP) level: Status: Acute Plan Evelyn Shaikh is a very pleasant 77 years old woman with past medical history significant for obstructive sleep apnea noncompliant with CPAP, essential hypertension and GERD * Hypercapnic and hypoxic respiratory failure likely secondary to sedation (had endoscopies yesterday) in in the setting of obstructive sleep apnea. Concern for aspiration. Admit to hospitalist service. Telemetry. Pulse oximetry. Continue supplemental oxygen to keep saturation between 89-90% to avoid CO2 poisoning. Start nocturnal CPAP now. Bronchodilator therapy now and as needed. Continue empiric IV antibiotic therapy with Zosyn. Robitussin every 6 hours. * Elevated BNP, findings consistent with pulmonary hypertension on chest x-ray. Likely cor pulmonale. Check echocardiogram. * Essential hypertension. Continue amlodipine/olmesartan (or alternative). * GERD. Continue PPI. DVT prophylaxis-heparin subcut Code status: Full Patient will need hospitalization for at least 2 midnights for hypercapnic and hypoxic respiratory failure therapy + ? Aspiration with supplemental oxygen, bronchodilator therapy, vital signs close monitoring and empiric IV antibiotic therapy. Quality Stroke Does the patient have a stroke diagnosis?: No VTE Prior VTE?: No VTE Risk Level:: Medical - moderate - high VTE Device Contraindication: N/A - Device Ordered VTE Drug Contraindication: N/A - Med Ordered
--- NOTE | 2023-10-27 22:22 | PC.NURSE ---
Pt with mild desaturation - repositioned in bed, O2 at 4L via CPAP, pt now at 92-93%.
[2023-10-28] VITALS (13 sets, daily range): BP systolic 123–143; BP diastolic 58–96; PULSE 59–75; RESP 14–22; TEMP 36.4–38.2; O2SAT 90–96; BMI 33.4
[2023-10-28] MEDS: Piperacillin Sodium/Tazobactam 3.375 GM in 0.9 % Sodium Chloride 50 ML IV ×2 (00:07→06:28)
[2023-10-28] MEDS: Albuterol/Iprat 2.5/0.5MG 3 ML AMPUL.NEB INHALE ×2 (00:34→05:16)
--- NOTE | 2023-10-28 00:36 | MHC.EDTECH ---
This tech took over care of patient at 2300.hourly rounds and vitals completed. Patient has a pure-wick in place done by previous shift,patient has an output of 200MLs in canister,patient is clean and dry at this time and is resting comfortably.call garcia in reach
[2023-10-28] MEDS: Omeprazole 20 MG CAPSULE.DR PO (06:28)
--- NOTE | 2023-10-28 07:51 | PHA.MEDREC ---
Pharmacy Consult ? Medication Reconciliation Pharmacy has completed the medication reconciliation. Reviewed med rec done by Dr: Douglas Rivero.
[2023-10-28] MEDS: Heparin Sodium,Porcine 5,000 UNIT/ML VIAL 5000 UNIT SUBCUT ×2 (10:17→22:26)
[2023-10-28] MEDS: Escitalopram Oxalate 10 MG TABLET PO (10:17)
[2023-10-28] MEDS: Multivitamin TABLET 1 TAB PO (10:17)
[2023-10-28] MEDS: guaiFENesin 100 MG/5 ML LIQUID PO ×2 (10:17→16:20)
[2023-10-28] MEDS: amLODIPine Besylate 5 MG TABLET PO (10:30)
[2023-10-28] MEDS: Valsartan 160 MG TABLET PO (10:30)
--- NOTE | 2023-10-28 11:26 | HO.PM.IMPN ---
Subjective Subjective Date of Service: 10/28/23 Interval History: seen and examined this morning follow up for respiratory failure history obtained with assistance of [place] hearing stenographer via MIRELA used CPAP overnight, appears more awake this morning but still reports being sleepy no cough, fever or chills Review of Systems Review of Systems: Yes all other systems are reviewed and are negative Constitutional Constitutional: Denies chills and Denies fever(s) Cardiovascular Cardiovascular: Denies chest pain and Denies palpitations Endocrine Endocrine: Denies palpitations Physical Exam Vital Signs: Vital Signs: Last Vital Signs Temp 99.1 F 10/28/23 11:15 Pulse 73 10/28/23 11:15 Resp 18 10/28/23 11:15 BP 131/63 10/28/23 11:15 Pulse Ox 93 10/28/23 11:15 O2 Del Method Nasal Cannula 10/28/23 11:15 O2 Flow Rate 3 10/28/23 11:15 BMI result Body Mass Index 33.4 Const: General: cooperative, comfortable, alert and awake Nutritional Appearance: overweight Orientation/consciousness: patient oriented x3 Resp: Effort & Inspection: normal respiratory effort, able to speak in complete sentences, no respiratory distress and no use of accessory muscles Auscultation: no wheezes Cardio: Rate: regular rate Skin: Other: warm/dry Neuro: General: patient oriented x3, No moves all extremities and CN's II-XI intact bilaterally Extrem: General: Yes no pedal edema Objective Data Active Medications Amlodipine Besylate (Amlodipine Besylate 5 Mg Tablet) 5 mg PO DAILY [facility] Last Admin: 10/28/23 10:30 Dose: 5 mg Documented By: DAVINA Artificial Tears (Artificial Tears 15 Ml Drops) 2 drop EYE-BOTH Q4H PRN PRN Reason: Dry Eyes Escitalopram Oxalate (Escitalopram Oxalate 10 Mg Tablet) 10 mg PO DAILY [facility] Last Admin: 10/28/23 10:17 Dose: 10 mg Documented By: DAVINA Guaifenesin (Guaifenesin 100 Mg/5 Ml Liquid) 5 ml PO Q6H [facility] Last Admin: 10/28/23 10:17 Dose: 5 ml Documented By: DAVINA Heparin Sodium (Porcine) (Heparin Sodium,Porcine 5,000 Unit/Ml Vial) 5,000 unit SUBCUT Q12H [facility] Last Admin: 10/28/23 10:17 Dose: 5,000 unit Documented By: DAVINA Piperacillin Sod/Tazobactam (Sod 3.375 gm/ Sodium Chloride) 50 mls @ 100 mls/hr IV Q6H [facility] Last Infusion: 10/28/23 07:10 Dose: Infused Documented By: DAVINA Multivitamins/Vitamin C (Multivitamin Tablet) 1 tab PO DAILY [facility] Last Admin: 10/28/23 10:17 Dose: 1 tab Documented By: DAVINA Omeprazole (Omeprazole 20 Mg Capsule.Dr) 20 mg PO DAILY@0630 [facility] Last Admin: 10/28/23 06:28 Dose: 20 mg Documented By: CHUCK Sodium Chloride (0.9 % Sodium Chloride Flush 3 Ml Syringe) 3 ml IVFLUSH QSHIFT [facility] Last Admin: 10/28/23 07:10 Dose: Not Given Documented By: DAVINA Non-Admin Reason: See Note Valsartan (Valsartan 160 Mg Tablet) 160 mg PO DAILY [facility] Last Admin: 10/28/23 10:30 Dose: 160 mg Documented By: DAVINA Labs 10/27/23 16:07 10/27/23 16:07 Labs: Laboratory Results - last 24 hr 10/27/23 10/27/23 10/27/23 16:07 16:13 16:45 MCV 95.5 MCH 28.9 MCHC 30.2 L RDW 13.9 Plt Count 142 L D MPV 10.5 Immature Gran % (Auto) 0.6 H Neut % (Auto) 78.0 H Lymph % (Auto) 13.7 L [place] % (Auto) 7.1 Eos % (Auto) 0.2 Baso % (Auto) 0.4 Lymph # (Auto) 1.1 L [place] # (Auto) 0.6 Eos # (Auto) 0.0 Baso # (Auto) 0.0 Abs Immat Gran (auto) 0.05 H Absolute Neuts (auto) 6.2 Absolute Nucleated RBC 0.000 Nucleated RBC % (auto) 0.0 PT 11.2 INR 0.9 O2 Saturation 97.0 ABG pH at Pt Temp 7.27 L ABG pCO2 at Pt Temp 63 H* ABG pO2 at Pt Temp 82 L ABG HCO3 30 H ABG Base Excess (Actual) 1.8 VBG pH 7.24 L VBG pCO2 73 VBG pO2 48 VBG HCO3 32 H VBG O2 Saturation 79.0 VBG Base Excess 2.6 Anion Gap 14 Estim Creat Clear Calc 36.1 Estimated GFR 42 Random Glucose 156 H Lactic Acid 1.8 Calcium 9.7 Magnesium 2.2 Total Bilirubin 0.2 AST 21 ALT 24 Alkaline Phosphatase 83 Troponin I High Sens 34.4 H B-Natriuretic Peptide 398 H Total Protein 7.0 Albumin 3.5 Influenza Type A (PCR) NEGATIVE Influenza Type B (PCR) NEGATIVE RSV RNA Qual (PCR) NEGATIVE SARS-CoV-2 RNA (RT-PCR) NEGATIVE 10/27/23 10/27/23 19:11 19:13 MCV MCH MCHC RDW Plt Count MPV Immature Gran % (Auto) Neut % (Auto) Lymph % (Auto) [place] % (Auto) Eos % (Auto) Baso % (Auto) Lymph # (Auto) [place] # (Auto) Eos # (Auto) Baso # (Auto) Abs Immat Gran (auto) Absolute Neuts (auto) Absolute Nucleated RBC Nucleated RBC % (auto) PT INR O2 Saturation ABG pH at Pt Temp ABG pCO2 at Pt Temp ABG pO2 at Pt Temp ABG HCO3 ABG Base Excess (Actual) VBG pH 7.37 VBG pCO2 51 VBG pO2 44 VBG HCO3 29 H VBG O2 Saturation 80.0 VBG Base Excess 3.5 Anion Gap Estim Creat Clear Calc Estimated GFR Random Glucose Lactic Acid Calcium Magnesium Total Bilirubin AST ALT Alkaline Phosphatase Troponin I High Sens 45.8 H B-Natriuretic Peptide Total Protein Albumin Influenza Type A (PCR) Influenza Type B (PCR) RSV RNA Qual (PCR) SARS-CoV-2 RNA (RT-PCR) Assessment and Plan (1) GALLITO on CPAP: Status: Acute (2) Hypercapnic respiratory failure: Status: Acute Plan This is a 77 year old female with past medical history significant for obstructive sleep apnea noncompliant with CPAP, essential hypertension and GERD who presented to the emergency department with somnolence found to have hypercapnic respiratory failure Hypercapnic and hypoxic respiratory failure likely secondary to sedation (had endoscopies yesterday) in in the setting of obstructive sleep apnea and underlying undiagnosed COPD CTA showing emphysematous changes Continue supplemental oxygen to keep saturation between 89-90% nocturnal CPAP (has been noncompliant with cpap at home) Bronchodilator prn no wheezing on exam to suggest exacerbation of copd treated empirically for aspiration but no pneumonia on imaging, no wbc count or fever, will stop abx blood cultures pending check am abg Elevated BNP echocardiogram pending does not appears to be fluid overloaded on exam pulmonary nodules outpatient follow up Essential hypertension Continue amlodipine/olmesartan GERD. Continue PPI. mood continue lexapro DVT prophylaxis-heparin subcut Code status: Full Requires ongoing inpatiet stay for hypercapnic and hypoxic respiratory failure therapy, supplemental oxygen, bronchodilator therapy, vital signs close monitoring Quality Stroke Does the patient have a stroke diagnosis?: No VTE Prior VTE?: No VTE Risk Level:: Medical - moderate - high VTE Device Contraindication: N/A - Device Ordered VTE Drug Contraindication: N/A - Med Ordered
--- NOTE | 2023-10-28 11:50 | PC.NURSE ---
family updated by this RN and MD
--- NOTE | 2023-10-28 14:06 | MHC.CM.PN ---
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
[2023-10-28] MEDS: Artificial Tears 15 ML DROPS 2 DROP EYE-BOTH ×2 (16:17→22:26)
[2023-10-28] MEDS: 0.9 % Sodium Chloride Flush 3 ML SYRINGE IVFLUSH (16:20)
--- NOTE | 2023-10-28 18:24 | PC.NURSE ---
both eyelids and sclera reddened, pt reports burning sensation to both eyes ,family reported that they noticed some crust in her eyes . Pt's son stated that he is concern about bacterial infection . Provider Neva was notified , per provider continue artificial tears and pt's will be reassess tomorrow
[2023-10-28] MEDS: Acetaminophen 325 MG TABLET 650 MG PO (18:53)
--- NOTE | 2023-10-28 22:45 | PC.NURSE ---
ambulated on the hallway this afternoon with oxygen , tolerated well . Oxygen saturation down to 84% when fell asleep , CPAP applied by RT , tolerating well 96% o2sat
[2023-10-29] MEDS: 0.9 % Sodium Chloride Flush 3 ML SYRINGE IVFLUSH ×3 (00:10→14:43)
[2023-10-29 03:10] VITALS: BP 142/76; PULSE 60; RESP 18; TEMP 36.4; O2SAT 95
[2023-10-29 05:58] LABS: Venous Blood Gas Refer to POC result
[2023-10-29 06:02] LABS: VBG Base Excess 6.3 mmol/L; VBG HCO3 30 mmol/L (22-26); VBG pCO2 42 mmHg; VBG pH 7.46 (7.32-7.43); VBG pO2 79 mmHg
--- NOTE | 2023-10-29 07:00 | CA_ITS ---
Transthoracic Echocardiogram Patient (Last, First, Middle): Evelyn Shaikh, Gender: Female Date of : 1945 Age: 77 Procedure Date: 10/29/2023 Procedure Type: Transthoracic Echocardiogram [place] [facility] [place]: 154.94 cm Weight: 80.29 kg BSA: 1.79 m2 Heart Rate: 73 bpm BP: 142 / 76 mmHg Legal Coordinator: SB Referring MD: Charlotte FERRSI Symptoms: sob ?chf Study Quality: Fair ECG Rhythm: Sinus Conclusions: - The left ventricular systolic function is hyperdynamic. The visually estimated ejection fraction is >70%. - No obvious valvular pathology seen on this study. Findings Procedure Information The quality of the study was technically difficult. The study quality is limited by patients body habitus. Left Ventricle Normal left ventricular cavity size. There is normal left ventricular wall thickness. The left ventricular systolic function is hyperdynamic. The visually estimated ejection fraction is >70%. There is no evidence of regional wall motion abnormalities. Diastolic function is normal for age. Right Ventricle Normal right ventricular cavity size and systolic function. Atria Both atria are normal in size. Aortic Valve There is mild calcification of the aortic valve. There is no aortic valve stenosis. There is no aortic valve regurgitation. Mitral Valve The mitral valve appears normal. There is no mitral valve regurgitation. There is no mitral valve stenosis. Pulmonic Valve The pulmonic valve is likely normal. Tricuspid Valve There is trace tricuspid valve regurgitation. There is no evidence of pulmonary hypertension. Great Vessels The aorta was not well visualized. The sinuses of valsalva is normal in size. Venous The inferior vena cava is mildly dilated and collapses greater than 50% with inspiration. Pericardium/Pleural There is no evidence of pericardial effusion. Prior Study Comparison No prior study available for comparison. Recommendations, Care & Conclusions No obvious valvular pathology seen on this study. Measurements 2D Linear Measurements IVSd: 0.83 0.6-0.9/0.6-1.0 cm LVIDd: 4.97 3.9-5.3/4.2-5.9 cm LVIDd Index: 2.78 2.4-3.2/2.2-3.1 cm/m2 LVIDs: 3.54 2.0-3.6 cm LVPWd: 0.80 0.7-1.1 cm LA Diam: 3.90 2.7-3.8/3.0-4.0 cm LAIDs Index: 2.18 1.5-2.3 cm/m2 LV Mass: 172.00 67-162/88-224 g LV Mass Index: 96.09 43-95/49-115 g/m2 LVOT Diam: 1.90 3.0+(-)1.3 cm 2D Systolic Function EF 4C: 74.60 >55% Mitral Valve MV Pk E: 1.05 MV PK A: 1.41 MV Decel Time: 210.00 E/A: 0.70 E'Lateral: 7.51 E'Medial: 6.42 E/E' Med: 16.40 E/E' Lat: 14.00 PHT: 61.00 MVA PHT: 3.61 Decel [place]: 5.00 Aortic Valve AoV Pk Maurice: 2.14 AoV Mn Maurice: 1.35 AoV VTI: 0.38 AoV Pk Grad: 18.00 Aov Mn Grad: 9.00 BRIAN Cont.VTI: 2.57 LVOT LVOT Pk Maurice: 1.79 LVOT Mn Maurice: 1.22 LVOT VTI: 0.35 LVOT Pk Grad: 13.00 LVOT Mn Grad: 7.00 LVOT Diam: 1.90 LVOT Area: 2.84 Diastolic Function MV Pk E: 1.05 MV Pk A: 1.41 E/A: 0.70 E'Medial: 6.42 E/E' Med: 16.40 E' Laterial: 7.51 E/E' Lat: 14.00 Right Ventricle TAPSE (mm): 22.80 TVS' Maurice: 13.70 Tricuspid Valve TR Pk Maurice: 2.70 TR Pk Grad: 29.00 RA Press: 8.00 RVSP: 37.00 Great Vessels Aorta Sinus of Valsalva: 3.60 2.0-3.5 cm Updated in Other Vendor System with Status of Final Fransisco Savage MD electronically signed on 10/29/2023 7:59:45 AM with status of Final
[2023-10-29 08:00] VITALS: BP 125/73; PULSE 62; RESP 20; TEMP 36.5; O2SAT 95
[2023-10-29] MEDS: Valsartan 160 MG TABLET PO (08:42)
[2023-10-29] MEDS: Escitalopram Oxalate 10 MG TABLET PO (08:42)
[2023-10-29] MEDS: Heparin Sodium,Porcine 5,000 UNIT/ML VIAL 5000 UNIT SUBCUT (08:42)
[2023-10-29] MEDS: amLODIPine Besylate 5 MG TABLET PO (08:42)
[2023-10-29] MEDS: Multivitamin TABLET 1 TAB PO (08:42)
[2023-10-29] MEDS: guaiFENesin 100 MG/5 ML LIQUID PO ×2 (08:42→14:42)
[2023-10-29 11:43] LABS: Hematocrit 38.5 % (37.0-47.0); Mean Corpuscular HGB Conc 31.2 g/dl (31.0-35.0); Mean Corpuscular Hemoglobin 28.6 pg (27.0-33.0); Mean Corpuscular Volume 91.9 fL (80.0-98.0); Mean Platelet Volume 10.6 fL (9.4-12.3); Platelet Count 124 X10*3/uL (160-400); Red Blood Count 4.19 X10*6/uL (4.20-5.50); Red Cell Distribution Width 13.2 % (11.0-16.0); White Blood Count 7.1 X10*3/uL (4.8-10.8)
[2023-10-29 11:50] VITALS: BP 125/70; PULSE 70; RESP 16; TEMP 36.9; O2SAT 91
[2023-10-29 12:03] LABS: Anion Gap 6 (12-20); Blood Urea Nitrogen 18 mg/dL (9-16); Calcium 10.2 mg/dL (8.4-10.2); Carbon Dioxide 33 mmol/L (22-29); Chloride 106 mmol/L (96-108); Creatinine Clr Calc Pharmacy 50.7; Estimated Glomerular Filt Rate > 60; Glucose Random 78 mg/dL (60-115); Potassium 4.1 mmol/L (3.3-5.1); Sodium 141 mmol/L (135-145)
[2023-10-29] MEDS: Docusate Sodium 100 MG CAPSULE PO (12:04)
[2023-10-29] MEDS: Artificial Tears 15 ML DROPS 2 DROP EYE-BOTH (12:07)
--- NOTE | 2023-10-29 13:01 | P.DS_ITS ---
DS: Providers Provider Date of Service: 10/30/23 Date of admission: 10/27/23 21:09 Primary care physician: Buffy Delgado MD DS: Diagnosis Discharge Diagnosis (1) GALLITO on CPAP: Status: Acute (2) Hypercapnic respiratory failure: Status: Acute DS: Summary Hospital Course Hospital Course: History of presenting illness: Date of Service: 10/27/23 Attending physician on admission: Douglas Rivero Chief Complaint: Somnolence, cough Evelyn Shaikh is a very pleasant 77 years old woman with past medical history significant for obstructive sleep apnea noncompliant with CPAP, essential hypertension and GERD was brought to the emergency department from home via EMS as she was found somnolent. Seems like she slept until 15:30 today. She underwent a colonoscopy/endoscopy yesterday. Patient's daughter who was at bedside mentioned that after the procedure her oxygen saturation was monitored closely as it was dropping. The patient complained of productive cough and headache. There is no fever or chills reported. She denies chest pain. In the ED, she was noted to have stable vital sign, however her oxygen saturation dropped to 86% on room air. She underwent BiPAP ventilation as her venous blood gas showed significant respiratory acidosis. Venous blood gas was repeated and significantly improved. She is still requiring supplemental oxygen 3 liters/minute -her oxygen saturation is fluctuating between 95 and 97%. The rest of her vital signs are basically unremarkable except for slight elevation of troponin x2 and BNP. ED tx: NS 500 mL IV, Zosyn 3.375 g IV, DuoNeb x1. Hospital course: 77 year old female with past medical history significant for obstructive sleep apnea noncompliant with CPAP, essential hypertension and GERD who presented to the emergency department with somnolence found to have hypercapnic respiratory failure Hypercapnic and hypoxic respiratory failure likely secondary to sedation had endoscopies day prior to admission,in the setting of obstructive sleep apnea and underlying undiagnosed COPD ,CTA showing emphysematous changes , patient was placed on nocturnal CPAP she has been noncompliant with CPAP at home, she required supplemental oxygen, bronchodilators as needed patient had no acute exacerbation of COPD, had no fevers, no WBC count therefore did not require treatment with antibiotics, blood cultures x2 negative, repeat ABG showed si gnificant improvement in CO2, oxygen was weaned to off, oxygenation remains stable on room air therefore she is being discharged home with strong recommendation to continue home CPAP. Recommend to avoid sedatives, she was noted to have elevated BNP ,echocardiogram was obtained that showed stable EF, normal diastolic function, no wall motion abnormality, likely related to underlying COPD, CTA chest showed pulmonary nodules up to 4 mm recommend to follow-up with PCP for repeat CT chest in 12 weeks, noted to have mild drop in platelet count, no active bleeding noted, recommend to follow CBC as outpatient. Essential hypertension recommend to continue amlodipine/olmesartan GERD. ontinue PPI. mood disorder continue lexapro Time Attestation Discharge coordination time: Greater than 30 minutes Quality: Safe Use of Opioids Does Pt have an Active Cancer Diagnosis on the Problem List?: No Quality: Stroke Does the patient have a stroke diagnosis?: No Physical Exam Vital Signs: Vital Signs: Last Vital Signs Temp 98.4 F 10/29/23 11:50 Pulse 70 10/29/23 11:50 Resp 16 10/29/23 11:50 BP 125/70 10/29/23 11:50 Pulse Ox 91 L 10/29/23 11:50 O2 Del Method Room Air 10/29/23 11:50 O2 Flow Rate 3 10/28/23 20:00 BMI result Body Mass Index 33.4 Const: Other: General awake alert x3, resting comfortably in no acute distress. Neck supple no JVD. CVS regular rate rhythm, Respiratory lungs clear to auscultation, no respiratory distress, no wheeze, no rhonchi. Gastrointestinal abdomen soft, non tender, bowel sounds audible, no guarding , no rigidity. Extremities no edema. Neuro nonfocal Skin no rash Psych appropriate affect DS: Data Data Completed and Pending Labs on day of discharge: Laboratory Results - last 24 hr 10/29/23 10/29/23 10/29/23 05:47 05:56 11:33 WBC 7.1 RBC 4.19 L Hgb 12.0 Hct 38.5 MCV 91.9 MCH 28.6 MCHC 31.2 RDW 13.2 Plt Count 124 L MPV 10.6 Absolute Nucleated RBC 0.000 Nucleated RBC % (auto) 0.0 Hold Purple Top SEE NOTE VBG pH 7.46 H VBG pCO2 42 VBG pO2 79 VBG HCO3 30 H VBG O2 Saturation 99.0 VBG Base Excess 6.3 Sodium 141 Potassium 4.1 Chloride 106 Carbon Dioxide 33 H Anion Gap 6 L BUN 18 H Creatinine 0.89 Estim Creat Clear Calc 50.7 Estimated GFR > 60 Random Glucose 78 Calcium 10.2 Preliminary micro results at discharge 10/27/23 16:07 Blood Culture - Preliminary Blood - Venous No growth after 24 hours. 10/27/23 16:07 Blood Culture - Preliminary Blood - Venous No growth after 24 hours. Discharge Plan Discharge Anticipated Discharge Date/Time: 10/29/23 11:17 Patient Disposition: Home, Self-Care Discharge Diagnosis: Acute hypercarbic and hypoxic respiratory failure Referrals: Buffy Delgado MD [Primary Care Provider] - 1 Week Discharge Medications: Continued omeprazole 20 mg capsule,delayed release(DR/EC) 20 mg PO DAILY Qty: 90 1RF PreserVision AREDS-2 250-90-40-1 mg capsule 1 tab PO BID citalopram 20 mg tablet 20 mg PO DAILY Qty: 90 3RF Rx Instructions: Schedule PCP appt for more refills amlodipine-olmesartan 5-40 mg tablet 1 tab PO DAILY Qty: 90 3RF Rx Instructions: Schedule PCP appt for more refills Discharge Orders: Discharge Order (Routine); Ordered 10/29/23 Ordered By: Dasiy Campa Diet: Advance to usual diet Activity on Discharge: As tolerated Stand Alone Forms: Patient Portal Discharge page Other Ambulatory Orders: Basic Metabolic Panel (Routine) Timeframe: 1 Week Facility: [facility] - Location: Laboratory Ordered By: Daisy Campa Complete Blood Count no Diff (Routine) Timeframe: 1 Week Facility: [facility] - Location: Laboratory Ordered By: Daisy Campa Care Plan Goals: Hypoxic and hypercarbic respiratory failure resolved recommend compliance with CPAP Pulmonary nodules measuring up to 3 mm recommend outpatient follow-up with primary care physician Aneurysmal dilatation of ascending aorta 4.1 cm outpatient follow-up with primary care physician Health Concerns: Continue CPAP at home Continue all home medications as before Avoid sedative medications Plan of Treatment: Outpatient follow-up with primary care physician call for appointment Assessment: as above Discharge Date/Time: 10/29/23 15:17
--- NOTE | 2023-10-29 13:14 | MHC.CM.PN ---
Patient has been medically cleared for dc to home today, self care. Last IMM was addressed yesterday.
[2023-10-29] MEDS: polyethylene glycoL 3350 17 GM POWD.PACK PO (14:43)
== END 2023-10-29 15:17 | disposition home or self-care (01) | DRG 189 ==
LOC: HO.ED 17:14 → HO.EDOVER 21:33 → HO.IMC 10-28 00:39
PROVIDERS: Physician Assistant; Physician Assistant Medical; Admitting Provider Internal Medicine; Emergency Provider Emergency Medicine; PCP Internal Medicine; Visit Provider Hospitalist
DX: J95.821 Acute postprocedural respiratory failure (principal); E87.29 Other acidosis; G47.33 Obstructive sleep apnea (adult) (pediatric); I27.29 Other secondary pulmonary hypertension; R91.8 Other nonspecific abnormal finding of lung field; I10 Essential (primary) hypertension; K21.9 Gastro-esophageal reflux disease without esophagitis; Z20.822 Contact with and (suspected) exposure to COVID-19; Z91.199 Patient's noncompliance with other medical treatment and regimen due to unspecified reason; Z87.891 Personal history of nicotine dependence; Z79.899 Other long term (current) drug therapy
CPT/HCPCS: 0241U; 36415; 70450; 71275; 80048; 80053; 82803; 83605; 83735; 83880; 84484; 85025; 85027; 85610; 87040; 93005; 93306; 94640; 94660; 99285; J1644; J2543; Q9967

== ENCOUNTER → 2023-10-27 15:43 | Outpatient (BNV) | payer MEDICARE, SELFPAY | PROVIDERS: Admitting Provider Internal Medicine; Emergency Provider Emergency Medicine; PCP Internal Medicine; Visit Provider Internal Medicine Cardiovascular Disease | DX: R09.02 Hypoxemia (principal) | CPT/HCPCS: 93010 ==

== ENCOUNTER 2023-10-27 21:09 | Outpatient (BNV) | payer MEDICARE, SELFPAY | END 2023-10-29 07:00 | PROVIDERS: Admitting Provider Internal Medicine; Emergency Provider Emergency Medicine; PCP Internal Medicine; Visit Provider Internal Medicine | DX: J96.02 Acute respiratory failure with hypercapnia (principal) | CPT/HCPCS: 93306 ==

== ENCOUNTER → 2023-10-27 21:09 | Outpatient (BNV) | payer MEDICARE, SELFPAY | PROVIDERS: Admitting Provider Internal Medicine; Emergency Provider Emergency Medicine; PCP Internal Medicine; Visit Provider Internal Medicine | DX: J96.01 Acute respiratory failure with hypoxia (principal); J96.02 Acute respiratory failure with hypercapnia; J44.9 Chronic obstructive pulmonary disease, unspecified; G47.33 Obstructive sleep apnea (adult) (pediatric); Z99.89 Dependence on other enabling machines and devices | CPT/HCPCS: 99223; 99233; 99238 ==

== ENCOUNTER 2023-11-05 06:10 | Outpatient (REF) | payer MEDICARE, SELFPAY ==
[2023-11-05 07:33] LABS: Hematocrit 37.4 % (37.0-47.0); Hemoglobin 11.4 g/dl (12.0-16.0); Mean Corpuscular HGB Conc 30.5 g/dl (31.0-35.0); Mean Corpuscular Hemoglobin 28.4 pg (27.0-33.0); Mean Platelet Volume 10.7 fL (9.4-12.3); Platelet Count 167 X10*3/uL (160-400); Red Blood Count 4.02 X10*6/uL (4.20-5.50); Red Cell Distribution Width 13.3 % (11.0-16.0); White Blood Count 7.5 X10*3/uL (4.8-10.8)
[2023-11-05 08:10] LABS: Anion Gap 11 (12-20); Blood Urea Nitrogen 20 mg/dL (9-16); Calcium 10.2 mg/dL (8.4-10.2); Carbon Dioxide 30 mmol/L (22-29); Chloride 107 mmol/L (96-108); Estimated Glomerular Filt Rate 50; Glucose Random 83 mg/dL (60-115); Potassium 4.3 mmol/L (3.3-5.1); Sodium 144 mmol/L (135-145)
== END 2023-11-05 06:11 | disposition home or self-care (01) ==
LOC: HO.LAB 06:10
PROVIDERS: PCP Internal Medicine; Visit Provider Hospitalist
DX: J96.92 Respiratory failure, unspecified with hypercapnia (principal); D69.6 Thrombocytopenia, unspecified
CPT/HCPCS: 36415; 80048; 85027

== ENCOUNTER 2023-12-05 14:21 | Outpatient (AMB) | payer MEDICARE, SELFPAY ==
--- NOTE | 2023-12-05 14:27 | A.OFFVIS_ITS ---
Intake Vital Signs 12/05/23 14:30 Height 5 ft 1 in Weight 176 lb 5.917 oz BMI 33.3 BP 113/52 L Blood Pressure Location Lt brachial Position Sitting Pulse 75 Intake Visit Reasons: S/P Double; Dr. Olson Intake Note: Evelyn presents in the office as a follow up egd and colo. 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 This is associated with nausea and vomiting. Occurs mostly with solid foods or acidic foods such as coffee. Has never needed medical attention for food obstruction. Was prescribed famotidine by her PCP but never picked it up. No unintentional weight loss. No blood in emesis or stool. Last colo was roughly 5 years ago in [facility]. Per her report no polyps. 10/06/23: EGD/colo (Dr Olson) ESOPHAGUS: Erosive esophagitis from 30 to 36 cms with multiple 1-2 cms ulcers (LA grade D) Edematous folds at the GE junction with two benign appearing nodules - biopsied. STOMACH: A few 5-6 mm benign appearing polyps in the gastric body - biopsied. Mild gastric erythema. Biopsies were obtained. Loose/slipped fundal wrap on retroflexed examination of the cardia. Colonoscopy Findings: One small polyp removed Moderate diverticulosis seen in the enitre colon Moderate hemorrhoids on retroflexed exam. Path: A. Gastric antrum, biopsy: Gastric antral mucosa with reactive changes, ectatic mucosal vessels, and focal minimal chronic inactive inflammation; negative for H pylori, intestinal metaplasia and dysplasia. B. Gastric polyp: Gastric body mucosa with congestion and focal minimal chronic inactive inflammation; no adenomatous dysplasia seen. C. Esophagogastric junction, esophageal nodule, biopsy: Squamous mucosa with spongiosis and intraepithelial neutrophils and few eosinophils (up to 2 per high-power field) consistent with reflux esophagitis and columnar mucosa with mild chronic active inflammation and hyperplasia; negative for intestinal metaplasia and dysplasia (see comment). D. Colon, transverse fold, biopsy: Colonic mucosa with lymphoid aggregate and no specific change. E. Colon, transverse, polyp: Tubular adenoma; negative for high-grade dysplasia and carcinoma. Comment: (C): The findings may represent an infla mmatory polyp 12/05/23: Seen with online Cambodian dope heater: [id number] Accompanied by daughter. Reports complete resolution of sx including burning pain or nausea. Feels back to baseline. Has been taking omeprazole 20 BID. EGD and colo results and path reviewed. Pt aware that needs a repeat EGD to ensure esophagitis has healed- already booked for April. [facility] Medical History Gait instability Heartburn symptom Macular degeneration Hyperlipidemia Family history of thyroid disease Lichen sclerosus et atrophicus of the vulva History of herpes zoster Lesion of skin of face Generalized anxiety disorder with panic attacks GALLITO on CPAP Essential hypertension Chronic gastroesophageal reflux disease Surgical History Hx of colonoscopy History of esophagogastroduodenoscopy (EGD) Hx of hernia repair Family History Son Generalized anxiety disorder with panic attacks Maternal Aunt Mental health disorder Social History Housing: Apartment Alcohol intake: unknown Patient Tobacco Use Status: Former Tobacco user Quit Date: 50 years Years Smoked: 5 yrs e-Cigarette/Vaping Use: Never Used service: No Current occupational status: disabled Cognitive needs: No Hearing needs: No Vision needs: No Review of Systems Const All systems reviewed & are unremarkable except as noted in HPI and below Physical Exam Vital Signs: Last Vital Signs Pulse 75 12/05/23 14:30 BP 113/52 L 12/05/23 14:30 BMI result Body Mass Index 33.3 Elderly female NAD Nonicteric NO overt resp distress A.Ox3, normal gait Assessment & Plan Assessment & Plan (1) Erosive esophagitis: Code(s): K22.10 - Ulcer of esophagus without bleeding (2) Tubular adenoma: Code(s): D36.9 - Benign neoplasm, unspecified site Plan GERD with erosive esophagitis: COmpelted 8 weeks of BID ppi therapy with good clinical response. Plan: - Interval EGD to document healing - Decrease omeprazole to 20mg once daily to be cont'd indefinitely. Refilled today. - Avoid trigger foods Hx of polyps: Had one small TA on most recent colo. Plan: - Can consider repeat colo in 5-7 years if pt in good health Follow up after EGD Medications: Refilled omeprazole 20 mg PO DAILY 90 caps 1RF Coding Level of Care Code Est Pt Level 4 (63667) Diagnoses Erosive esophagitis K22.10 Tubular adenoma D36.9
[2023-12-05 14:30] VITALS: BP 113/52; PULSE 75; BMI 33.3
== END 2023-12-05 15:39 | disposition home or self-care (01) ==
PROVIDERS: PCP Internal Medicine; Visit Provider Internal Medicine
DX: K22.10 Ulcer of esophagus without bleeding (principal); D36.9 Benign neoplasm, unspecified site
CPT/HCPCS: 99214

== ENCOUNTER → 2023-12-05 14:21 | Outpatient (BNVA) | payer MEDICARE, SELFPAY | PROVIDERS: PCP Internal Medicine; Visit Provider Internal Medicine | DX: K22.10 Ulcer of esophagus without bleeding (principal); R11.2 Nausea with vomiting, unspecified; R09.89 Other specified symptoms and signs involving the circulatory and respiratory systems; D36.9 Benign neoplasm, unspecified site | CPT/HCPCS: 99212 ==

== ENCOUNTER 2023-12-19 09:04 | Outpatient (AMB) | payer MEDICARE, SELFPAY ==
[2023-12-19 09:13] VITALS: BP 102/52; PULSE 69; O2SAT 94; BMI 34.8
--- NOTE | 2023-12-19 09:13 | MHC.PC.OV ---
Vital Signs 12/19/23 09:13 Height 5 ft 1 in Weight 184 lb BMI 34.8 BP 102/52 L Blood Pressure Location Rt brachial Position Sitting Pulse 69 Pulse Source Pulse Oximeter Pulse Oximetry (%) 94 Oxygen Delivery Method Room Air Intake Visit Reasons: [facility], dizzy, lethargic Intake Note: Pt is here today [facility] dizzy and lethargic Accompanied by: Daughter (Lynda) Allergies hydrocortisone [From Cortizone-10] Adverse Reaction (Verified 12/20/23 01:56) blurred vision Medication List - Last Reconciled 12/20/23 by Buffy Delgado MD amlodipine-olmesartan 5-40 mg 1 tab PO DAILY carbamazepine ER 100 mg PO Q12H citalopram 20 mg PO DAILY furosemide 40 mg PO QAM omeprazole 20 mg PO DAILY vit C,J-Gv-rrlqx-lutein-zeaxan 250-90-40-1 mg (PreserVision AREDS-2) 1 tab PO BID Tobacco use date assessed: 12/19/23 Fall risk assessment: No Falls in past year Last assessed Fall Risk: 12/19/23 Dental Screening Dental Screen Date: 12/19/23 Did you have a dental visit in the last 12 months?: Yes Did you have a dental problem in the last 6 months where you did not have access to dental care?: No Was dental information given to patient?: Patient has dentist HPI HMC, dizzy, lethargic HPI Details 78 year old female with past medical history significant for obstructive sleep apnea noncompliant with CPAP, essential hypertension, esophagitis, gastritis , hiatal hernia and GERD here today for follow-up after recent admission at [facility]. She presented to the emergency department with somnolence found to have hypercapnic respiratory failure, which was felt to be likely secondary to sedation given during her endoscopies the day prior to admission,in the setting of obstructive sleep apnea and underlying undiagnosed COPD . CTA showed emphysematous changes , she required supplemental oxygen, bronchodilators as needed . During her hospital stay, she had no fever no elevation in white blood cell count, blood cultures obtained came back negative x2 and repeat ABG showed improve significant improvement in her CO2, and supplemental oxygen was weaned off, and she remained stable on room air . She was discharged home with strong recommendation to continue home CPAP, avoid sedatives. During her hospital stay, BNP was noted to be slightly elevated ,echocardiogram was was done which showed stable EF, normal diastolic function, no wall motion abnormality. CTA chest showed pulmonary nodules up to 4 mm. Remote history of smoking cigarettes when she was younger. She was continued on her amlodipine and olmesartan for blood pressure control, continued on omeprazole 20 mg once a day, and continued on citalopram for her anxiety disorder which has been helping. Patient however complains of swelling in both lower extremities the right more than the left , feels tight but not painful. Patient states that she has had varicose veins in both legs had vein stripping done more than 10 years ago in [place]. Incidental finding of aneurysmal dilatation of ascending aorta measuring 4.1 cm as noted on CTA of chest. Denies any chest pain, no shortness of breath, palpitations or lightheadedness. Has history of trigeminal neuralgia, previously was receiving treatment in [place] could not remember the name of the medication. Experiences sharp shooting pains in her right cheek occurring intermittently. [facility] Medical History (Updated 12/20/23 @ 02:32 by Buffy Delgado MD) Essential hypertension Trigeminal neuralgia of right side of face Localized swelling of both lower legs Ascending aorta dilatation Polyarthralgia Cough GERD (gastroesophageal reflux disease) Gait instability Heartburn symptom Macular degeneration Hyperlipidemia Family history of thyroid disease Lichen sclerosus et atrophicus of the vulva History of herpes zoster Lesion of skin of face Generalized anxiety disorder with panic attacks GALLITO on CPAP Chronic gastroesophageal reflux disease Surgical History (Updated 12/19/23 @ 10:02 by Buffy Delgado MD) History of varicose vein ligation Hx of colonoscopy History of esophagogastroduodenoscopy (EGD) Hx of hernia repair Family History Son Generalized anxiety disorder with panic attacks Maternal Aunt Mental health disorder Social History Housing: Apartment Alcohol intake: unknown Patient Tobacco Use Status: Former Tobacco user Quit Date: 50 years Years Smoked: 5 yrs e-Cigarette/Vaping Use: Never Used service: No Current occupational status: disabled Cognitive needs: No Hearing needs: No Vision needs: No Questionnaire PHQ-9 Over the last 2 weeks, how often have you been bothered by any of the following problems? 1. Little interest or pleasure in doing things: not at all 2. Feeling down, depressed, or hopeless: not at all 3. Trouble falling or staying asleep, or sleeping too much: not at all 4. Feeling tired or having little energy: more than half the days 5. Poor appetite or overeating: not at all 6. Feeling bad about yourself - or that you are a failure or have let yourself or your family down: not at all 7. Trouble concentrating on things, such as reading the newspaper or watching television: not at all 8. Moving or speaking so slowly that other people could have noticed. Or the opposite - being so fidgety or restless that you have been moving around a lot more than usual: not at all 9. Thoughts that you would be better off or of hurting yourself in some way: not at all Total score: 2 Depression Screening Interpretation: Negative Depression Screening Done: Yes 14636 - PHQ-9 Billing: Yes Source: Developed by Drs. Kemar Cullen, Cira Mclean, Bo Allen and colleagues, with an educational haily from [employer]. Thrive Questionnaire Date Thrive assessed: 12/19/23 I am a: Patient What is your living situation today?: I have a steady place to live Within the past 12 months, did the food you bought not last and you didn't have the money to get more?: Never true Within the past 12 months, did you worry whether your food would run out before you got money to buy more?: Never true Do you have trouble paying for medicines?: No Do you have trouble getting transportation to medical appointments?: No Do you have trouble paying your heating and electricity bill?: No Do you have trouble taking care of your child, family member or friend?: No Do you have trouble with day-to-day activities such as bathing, preparing meals, shopping, managing finances, etc.?: No Are you currently unemployed and looking for a job?: No Are you interested in more education?: No THRIVE Score: 0 AUDIT C Alcohol Use Questionnaire (AUDIT-C) 1. How often do you have a drink containing alcohol?: Never Total Score: 0 NELY-7 AMB Questionnaire NELY-7 Date NELY - 7 assessed: 12/19/23 Feeling nervous, anxious, or on edge: 0 = Not at all Not being able to stop or control worryin = Not at all Worrying too much about different things: 0 = Not at all Trouble relaxin = Not at all Being so restless that it is hard to sit still: 0 = Not at all Becoming easily annoyed or irritable: 0 = Not at all Feeling afraid as if something awful might happen: 0 = Not at all Total NELY-7 score (0-4 normal; 5-9 mild; 10-14 moderate; 15-21 severe): 0 Source: Developed by Drs. Kemar Cullen, Cira Mclean, Bo Allen and colleagues, with an educational haily from [employer]. NELY-7 Assessment Billing NELY-7 Assessment Tool: NELY-7 Assessment 12028 Review of Systems Const Denies fever(s), Denies headache(s) and Denies weakness Eyes Reports no additional complaints ENT Denies dizziness, Denies headache(s), Denies nasal congestion, Denies nasal discharge and Denies sore throat Card Denies chest pain, Denies lightheadedness, Denies palpitations and Denies dyspnea Resp Denies chest congestion, Denies cough, Denies dyspnea and Denies wheezing GI Denies abdominal pain, Denies change in bowel habits and Reports heartburn (Controlled with omeprazole) Denies urinary frequency, Denies dysuria and Denies urinary urgency Musc Reports as per HPI, Denies abnormal gait, Denies deformity, Reports arthralgias and Reports stiffness Skin/Breast Denies lesions and Denies rash Neuro Reports as per HPI, Denies abnormal gait, Denies dizziness, Denies headache(s) and Denies weakness Psych Reports no additional complaints Endo Denies polydipsia, Denies polyuria and Denies palpitations Abilio/Lymph Denies easy bruising Aller/Immun Denies seasonal rhinorrhea and Denies wheezing Physical exam (Primary Care) Vital Signs: Last Vital Signs Pulse 69 12/19/23 09:13 BP 102/52 L 12/19/23 09:13 Pulse Ox 94 12/19/23 09:13 Oxygen Delivery Method Room Air 12/19/23 09:13 BMI result Body Mass Index 34.8 Tobacco/Smoking Status: Tobacco use Status Tobacco use date assessed 12/19/23 12/19/23 09:23 Patient Tobacco Use Status Former Tobacco user 12/19/23 09:13 e-Cigarette/Vaping Use Never Used 12/19/23 09:13 PHQ-9: PHQ-9 Score PHQ-9: Total score 2 12/19/23 10:18 Depression Screening Interpretation: Negative Thrive Assessment: Date of Thrive Assessment Date Thrive assessed 12/19/23 12/19/23 09:33 Const Other: Accompanied by daughter who helps translate General: comfortable, no acute distress and alert Nutritional Appearance: obese Orientation/consciousness: patient oriented x3 [facility] General nose exam: Normal external nose present and No nasal discharge present Face and sinus: Yes face symmetric Mouth: Normal oral and palatal mucosa present, oropharynx normal and moist mucous membranes Neck Neck: Yes full ROM, Yes no lymphadenopathy and Yes supple Resp Effort & Inspection: normal respiratory effort and able to speak in complete sentences Auscultation: clear to auscultation bilaterally Cardio Jugular venous distension: no JVD Rate: regular rate Rhythm: regular rhythm Heart sounds: S1 normal heart sound present and S2 normal heart sound present Peripheral pulses: popliteal pulses present, posterior tibial pulses present and dorsalis pedis present GI Palpation (GI): Soft to palpation, nontender, no guarding and no masses Back/Spine/Pelvis Back: No back tenderness Neuro Other: Positive tenderness on tapping over right cheek General: patient oriented x3, moves all extremities, no focal motor deficits and CN's II-XI intact bilaterally Extrem Other: Diffuse erythematous swelling in both lower extremities the right more than the left, no increased warmth on palpation, no tenderness General: Yes full ROM, Yes no joint enlargement and Yes no calf tenderness Psych Appearance: grossly normal and well kempt Affect: normal affect Attitude: cooperative Assessment and Plan Assessment & Plan (1) Pulmonary nodule: Code(s): R91.1 - Solitary pulmonary nodule Plan: Incidental finding of a 4 mm pulmonary nodule seen on CT chest, referred to Pulmonary for further evaluation management. Emphysema toes changes noted also on recent CT of chest (2) Polyarthralgia: Code(s): M25.50 - Pain in unspecified joint Plan: Not much relief afforded by Tylenol and oxmu-xyx-zqolgvj arthritis cream, advised to try using absorbent pam. Referred to Rheumatology per patient request (3) Ascending aorta dilatation: Code(s): I77.810 - Thoracic aortic ectasia Plan: Cardiology consult ordered. Reinforced importance of controlling blood pressure, cholesterol and glucose levels. (4) Localized swelling of both lower legs: Code(s): R22.43 - Localized swelling, mass and lump, lower limb, bilateral Plan: History of varicose veins with history of vein stripping in the past and right lower extremity, advised to elevate legs as much as possible, prescription was sent for furosemide 20 mg per tablet to take 1 tablet once a day in a.m. for no more than 5 days,. Advised to try wearing travel socks, as directed. Venous ultrasound ordered of both lower extremities, vascular consult obtained (5) History of varicose vein ligation: Code(s): Z98.890 - Other specified postprocedural states; Z86.79 - Personal history of other diseases of the circulatory system (6) Erosive esophagitis: Code(s): K22.10 - Ulcer of esophagus without bleeding Plan: Followed by GI, currently on omeprazole 20 mg daily which has been helping. Advised avoidance food triggers for heartburn, advised to avoid lying or sitting immediately after meal, noted to be mildly anemic on previous test, repeat CBC and iron profile ordered (7) Elevated brain natriuretic peptide (BNP) level: Code(s): R79.89 - Other specified abnormal findings of blood chemistry Plan: Recheck BNP, prescription sent for furosemide to take as directed (8) Hyperlipidemia: Code(s): E78.5 - Hyperlipidemia, unspecified Qualifiers: Hyperlipidemia type: pure hypercholesterolemia Qualified Code(s): E78.00 - Pure hypercholesterolemia, unspecified Plan: Fasting lipid panel ordered (9) Generalized anxiety disorder with panic attacks: Code(s): F41.1 - Generalized anxiety disorder; F41.0 - Panic disorder [episodic paroxysmal anxiety] Plan: Currently stable controlled on citalopram (10) Elevated vitamin B12 level: Code(s): R74.8 - Abnormal levels of other serum enzymes Plan: Repeat vitamin B12 and folic acid level (11) Trigeminal neuralgia of right side of face: Code(s): G50.0 - Trigeminal neuralgia Plan: Started on carbamazepine 100 mg per capsule to take 1 capsule every 12 hours. Return to clinic if no improvement of symptoms (12) Essential hypertension: Code(s): I10 - Essential (primary) hypertension Plan: Blood pressure at goal of less than 130/80. Continue with current medication. Reinforced importance of following a low sodium diet, getting regular exercise, and lowering stress levels.. Compressive metabolic panel ordered Orders: Orders Complete Blood Count Auto Diff 12/19/23 E78.00 - Pure hypercholesterolemia, unspecified, F41.0 - Panic disorder [episodic paroxysmal anxiety], F41.1 - Generalized anxiety disorder, I77.810 - Thoracic aortic ectasia, K22.10 - Ulcer of esophagus without bleeding, R22.43 - Localized swelling, mass and lump, lower limb, bilateral, R79.89 - Other specified abnormal findings of blood chemistry Lipid Panel 12/19/23 E78.00 - Pure hypercholesterolemia, unspecified, F41.0 - Panic disorder [episodic paroxysmal anxiety], F41.1 - Generalized anxiety disorder, I77.810 - Thoracic aortic ectasia, K22.10 - Ulcer of esophagus without bleeding, R22.43 - Localized swelling, mass and lump, lower limb, bilateral, R79.89 - Other specified abnormal findings of blood chemistry Vitamin B12 and Folate 12/19/23 E78.00 - Pure hypercholesterolemia, unspecified, F41.0 - Panic disorder [episodic paroxysmal anxiety], F41.1 - Generalized anxiety disorder, I77.810 - Thoracic aortic ectasia, K22.10 - Ulcer of esophagus without bleeding, R22.43 - Localized swelling, mass and lump, lower limb, bilateral, R74.8 - Abnormal levels of other serum enzymes, R79.89 - Other specified abnormal findings of blood chemistry B Type Natriuretic Peptide 12/19/23 E78.00 - Pure hypercholesterolemia, unspecified, F41.0 - Panic disorder [episodic paroxysmal anxiety], F41.1 - Generalized anxiety disorder, I77.810 - Thoracic aortic ectasia, K22.10 - Ulcer of esophagus without bleeding, R22.43 - Localized swelling, mass and lump, lower limb, bilateral, R79.89 - Other specified abnormal findings of blood chemistry US venous duplex LE BI 12/19/23 R22.43 - Localized swelling, mass and lump, lower limb, bilateral Comprehensive [place]. Panel Fast 12/19/23 E78.00 - Pure hypercholesterolemia, unspecified, F41.0 - Panic disorder [episodic paroxysmal anxiety], F41.1 - Generalized anxiety disorder, I77.810 - Thoracic aortic ectasia, K22.10 - Ulcer of esophagus without bleeding, R22.43 - Localized swelling, mass and lump, lower limb, bilateral, R79.89 - Other specified abnormal findings of blood chemistry IRON PROFILE 12/19/23 E78.00 - Pure hypercholesterolemia, unspecified, F41.0 - Panic disorder [episodic paroxysmal anxiety], F41.1 - Generalized anxiety disorder, I77.810 - Thoracic aortic ectasia, K22.10 - Ulcer of esophagus without bleeding, R22.43 - Localized swelling, mass and lump, lower limb, bilateral, R79.89 - Other specified abnormal findings of blood chemistry Vitamin D 25-OH Total 12/19/23 E78.00 - Pure hypercholesterolemia, unspecified, F41.0 - Panic disorder [episodic paroxysmal anxiety], F41.1 - Generalized anxiety disorder, I77.810 - Thoracic aortic ectasia, K22.10 - Ulcer of esophagus without bleeding, R22.43 - Localized swelling, mass and lump, lower limb, bilateral, R79.89 - Other specified abnormal findings of blood chemistry, Z78.0 - Asymptomatic menopausal state Referrals Pulmonary Medicine Referral R91.1 - Solitary pulmonary nodule Vascular Surgery Referral R22.43 - Localized swelling, mass and lump, lower limb, bilateral, Z86.79 - Personal history of other diseases of the circulatory system, Z98.890 - Other specified postprocedural states Rheumatology Referral M25.50 - Pain in unspecified joint Cardiology Referral I77.810 - Thoracic aortic ectasia Medications: New furosemide 40 mg PO QAM 7 tabs 0RF carbamazepine ER 100 mg PO Q12H 60 tabs 0RF Coding Level of Care Code Est Pt Level 4 (13088) Diagnoses Pulmonary nodule R91.1 Polyarthralgia M25.50 Ascending aorta dilatation I77.810 Localized swelling of both lower legs R22.43 History of varicose vein ligation Z98.890; Z86.79 Erosive esophagitis K22.10 Elevated brain natriuretic peptide (BNP) level R79.89 Pure hypercholesterolemia E78.00 Hyperlipidemia type: pure hypercholesterolemia Generalized anxiety disorder with panic attacks F41.1; F41.0 Elevated vitamin B12 level R74.8 Trigeminal neuralgia of right side of face G50.0 Essential hypertension I10 Additional Codes NELY-7 Assessment Billing - NELY-7 Assessment Tool: NELY-7 Assessment 91990 ([id number])
== END 2023-12-19 11:18 | disposition home or self-care (01) ==
PROVIDERS: PCP Internal Medicine; Visit Provider Internal Medicine
DX: R91.1 Solitary pulmonary nodule (principal); M25.50 Pain in unspecified joint; I77.810 Thoracic aortic ectasia; Z98.890 Other specified postprocedural states; Z86.79 Personal history of other diseases of the circulatory system; K22.10 Ulcer of esophagus without bleeding; R79.89 Other specified abnormal findings of blood chemistry; E78.00 Pure hypercholesterolemia, unspecified; F41.1 Generalized anxiety disorder; F41.0 Panic disorder [episodic paroxysmal anxiety]; R74.8 Abnormal levels of other serum enzymes; G50.0 Trigeminal neuralgia
CPT/HCPCS: 99214

== ENCOUNTER 2023-12-29 11:24 | Outpatient (REF) | payer MEDICARE, SELFPAY ==
[2023-12-29 13:45] LABS: MANUAL DIFF FLAG NO
[2023-12-29 13:53] LABS: Basophils Absolute Auto 0.1 X10*3/uL (0.0-0.2); Basophils Percent Auto 0.9 % (0-2); Eosinophils Absolute Auto 0.4 X10*3/uL (0.0-0.4); Hematocrit 37.7 % (37.0-47.0); Hemoglobin 11.8 g/dl (12.0-16.0); Imm Gran Abs Auto 0.01 X10*3/uL (0.00-0.03); Imm Gran Pct Auto 0.2 % (0.0-0.4); Lymphocytes Absolute Auto 1.4 X10*3/uL (1.2-4.9); Lymphocytes Percent Auto 24.6 % (20-40); Mean Corpuscular HGB Conc 31.3 g/dl (31.0-35.0); Mean Corpuscular Hemoglobin 28.2 pg (27.0-33.0); Mean Platelet Volume 11.3 fL (9.4-12.3); Monocytes Absolute Auto 0.4 X10*3/uL (0.1-1.2); Neutrophils Absolute Auto 3.2 x10*3/uL (2.0-8.3); Neutrophils Percent Auto 58.3 % (45-73); Platelet Count 149 X10*3/uL (160-400); Red Blood Count 4.19 X10*6/uL (4.20-5.50); Red Cell Distribution Width 13.2 % (11.0-16.0); White Blood Count 5.5 X10*3/uL (4.8-10.8)
[2023-12-29 14:16] LABS: B Type Natriuretic Peptide 84 pg/mL (<100)
[2023-12-29 14:17] LABS: Alanine Aminotransferase 17 U/L (0-31); Albumin Level 3.6 g/dL (3.5-5.0); Alkaline Phosphatase 97 U/L (39-117); Anion Gap 10 (12-20); Aspartate Amino Transferase 17 U/L (5-31); Bilirubin Total 0.3 mg/dL (0.0-1.0); Blood Urea Nitrogen 21 mg/dL (9-16); Calcium 10.1 mg/dL (8.4-10.2); Carbon Dioxide 32 mmol/L (22-29); Chloride 106 mmol/L (96-108); Cholesterol 241 mg/dL (<200); Estimated Glomerular Filt Rate 54; Glucose Fasting 90 mg/dL (60-99); HDL Cholesterol 58 mg/dL (>40); Iron 103 mcg/dL (30-160); LDL Cholesterol Calculated 154 mg/dL (<100); Percent Iron Saturation 34 % (15-50); Potassium 4.4 mmol/L (3.3-5.1); Sodium 144 mmol/L (135-145); Total Iron Binding Capacity 303 mcg/dL (228-428); Total Protein 7.3 g/dL (6.5-8.0); Triglycerides 148 mg/dL (<150); Unsaturated Iron Binding 200 ug/dL
[2023-12-29 14:35] LABS: Vitamin D 25-OH Total 47.5 ng/mL (>30)
[2023-12-29 14:49] LABS: Folate 11.6 ng/mL (> or = 4.0); Vitamin B12 > 2000 pg/mL (200-900)
== END 2023-12-29 11:25 | disposition home or self-care (01) ==
LOC: HO.HMGCLDS 11:24
PROVIDERS: PCP Internal Medicine; Visit Provider Internal Medicine
DX: I77.810 Thoracic aortic ectasia (principal); K22.10 Ulcer of esophagus without bleeding; R79.89 Other specified abnormal findings of blood chemistry; E78.00 Pure hypercholesterolemia, unspecified; F41.1 Generalized anxiety disorder; F41.0 Panic disorder [episodic paroxysmal anxiety]; R22.43 Localized swelling, mass and lump, lower limb, bilateral; Z78.0 Asymptomatic menopausal state
CPT/HCPCS: 36415; 80053; 80061; 82306; 82607; 82746; 83540; 83880; 85025

== ENCOUNTER 2024-01-16 10:30 | Outpatient (REF) | payer MEDICARE, SELFPAY ==
--- NOTE | ~2024-01-16 | US_ITS ---
EXAMINATION: US LOWER EXTREMITY VENOUS (REFLUX EXAM), BILATERAL CLINICAL INFORMATION: Chronic venous insufficiency with history of varicose veins and pain. History of prior vein stripping COMPARISON: Ultrasound from 03/03/2021 TECHNIQUE: Color flow triplex imaging and compression Doppler was performed to evaluate both the deep and the superficial systems bilaterally. To evaluate the superficial system, the examination was performed in the upright position. Color-flow Doppler ultrasound and compression ultrasound were utilized. In addition, maneuvers were utilized to demonstrate reflux. FINDINGS: 1. DEEP VENOUS ULTRASOUND OF THE RIGHT LOWER EXTREMITY: Common Femoral Vein: Compressible, normal respiratory variation and augmented flow. Femoral Vein: Compressible, normal color flow and augmentation. Popliteal Vein: Compressible, normal augmentation. Deep Reflux: Deep venous reflux seen in the common femoral vein measuring 2116 ms and mid superficial femoral vein measuring 1936 ms There is no evidence of a Evans's cyst. Enlarged lymph node in the right groin measuring 4.3 x 0.8 x 1.7 cm 2. SUPERFICIAL ULTRASOUND WITH DOPPLER OF RIGHT LOWER EXTREMITY: GREAT SAPHENOUS VEIN: Saphenofemoral Junction: 0.4 cm cm; Reflux: 1488 ms Remainder great saphenous vein not visualized consistent with history of prior vein stripping DUPLICATED MEDIAL GREAT SAPHENOUS VEIN: Diameter: None imaged Reflux: NA DUPLICATED LATERAL GREAT SAPHENOUS VEIN: Diameter: None imaged Reflux: NA SMALL SAPHENOUS VEIN: Saphenopopliteal Junction: 0.4 cm; Reflux: 0 ms Proximal: 0.6 cm; Reflux: 0 ms. Internal septations and partial compressibility consistent with chronic thrombophlebitis Distal: 0.2 cm; Reflux: 672 ms VEIN OF GIACOMINI: Size: NA Reflux: NA PERFORATORS: Location: Posterior mid calf into the small saphenous vein Size: 0.5 cm Reflux: 2652 ms VARICOSITIES: Location: Posterior calf off the small saphenous vein. There is partial compressibility and internal septations consistent with chronic thrombophlebitis Size: 0.3 to 0.5 cm Reflux: 2212 ms 3. DEEP VENOUS ULTRASOUND OF THE LEFT LOWER EXTREMITY: Common Femoral Vein: Compressible, normal respiratory variation and augmented flow. Femoral Vein: Compressible, normal color flow and augmentation. Popliteal Vein: Compressible, normal augmentation. Deep Reflux: There is no evidence of reflux in the deep system in either the common femoral vein, superficial femoral or the popliteal vein. There is no evidence of a Evans's cyst. 4. SUPERFICIAL ULTRASOUND WITH DOPPLER OF LEFT LOWER EXTREMITY: GREAT SAPHENOUS VEIN: Saphenofemoral Junction: 0.5 cm; Reflux: 0 ms Proximal Thigh: 0.3 cm; Reflux: 0 ms Mid Thigh: 0.3 cm; Reflux: 2676 ms Distal Thigh: 0.4 cm; Reflux: 2376 ms At Knee: 0.3 cm; Reflux: 1544 ms Proximal Calf: 0.2 cm; Reflux: 1284 ms Mid Calf: 0.2 cm; Reflux: 0 ms Distal Calf: 0.2 cm; Reflux: 0 ms DUPLICATED MEDIAL GREAT SAPHENOUS VEIN: Diameter: 0.3 cm Reflux: None DUPLICATED LATERAL GREAT SAPHENOUS VEIN: Diameter: 0.4 cm Reflux: None SMALL SAPHENOUS VEIN: Saphenopopliteal Junction: 0.2 cm; Reflux: 0 ms Proximal: 0.3 cm; Reflux: 0 ms Distal: 0.2 cm; Reflux: 0 ms VEIN OF GIACOMINI: Size: NA Reflux: NA PERFORATORS: Location: Proximal calf Size: 0.3 cm Reflux: None VARICOSITIES: Location: None Imaged Size: NA Reflux: NA US/US venous insuf bilat IMPRESSION: Right: Great saphenous vein is not visualized consistent with prior vein stripping. Evidence of chronic thrombophlebitis within the right small saphenous vein and branching varicosities with underlying reflux as described above. Severe deep venous reflux seen in the right common femoral vein and superficial femoral Left: Severe reflux in the left great saphenous vein through the thigh and calf as described above.
== END 2024-01-16 10:31 | disposition home or self-care (01) ==
LOC: HO.US 10:30
PROVIDERS: PCP Internal Medicine; Visit Provider Internal Medicine
DX: R22.43 Localized swelling, mass and lump, lower limb, bilateral (principal)
CPT/HCPCS: 93970

== ENCOUNTER 2024-01-23 13:36 | Outpatient (AMB) | payer MEDICARE, SELFPAY ==
[2024-01-23 13:50] VITALS: BP 138/67; PULSE 73; O2SAT 93; BMI 36.0
--- NOTE | 2024-01-23 13:50 | MHC.OFFVIS ---
Vital Signs 01/23/24 13:50 Height 5 ft 1 in Weight 190 lb 11.198 oz BMI 36.0 BP 138/67 Blood Pressure Location Rt brachial Position Sitting Pulse 73 Pulse Source Doppler Pulse Oximetry (%) 93 Oxygen Delivery Method Room Air Intake Visit Reasons: solitary pulm nodule Allergies hydrocortisone [From Cortizone-10] Adverse Reaction (Verified 12/20/23 01:56) blurred vision HPI HPI solitary pulm nodule: Details: 78-year-old lady, former minimal smoker in her 20s, referred for evaluation of abnormal CT scan that demonstrated multiple 3 mm and under pulmonary nodules. Patient denies any pulmonary related concerns or complaints. She has been employed with no exposure to industrial dusts. He denies significant environmental allergies. Patient does not have any pets in the house. Patient does not have prior personal or family history of lung disease. [facility] Medical History (Updated 01/23/24 @ 14:56 by Caden Angel MD) Essential hypertension Trigeminal neuralgia of right side of face Localized swelling of both lower legs Ascending aorta dilatation Polyarthralgia Cough GERD (gastroesophageal reflux disease) Gait instability Heartburn symptom Macular degeneration Hyperlipidemia Family history of thyroid disease Lichen sclerosus et atrophicus of the vulva History of herpes zoster Lesion of skin of face Generalized anxiety disorder with panic attacks GALLITO on CPAP Chronic gastroesophageal reflux disease Surgical History (Updated 12/19/23 @ 10:02 by Buffy Delgado MD) History of varicose vein ligation Hx of colonoscopy History of esophagogastroduodenoscopy (EGD) Hx of hernia repair Family History Son Generalized anxiety disorder with panic attacks Maternal Aunt Mental health disorder Social History Housing: Apartment Alcohol intake: unknown Patient Tobacco Use Status: Former Tobacco user Quit Date: 50 years Years Smoked: 5 yrs e-Cigarette/Vaping Use: Never Used service: No Current occupational status: disabled Cognitive needs: No Hearing needs: No Vision needs: No Review of Systems Const Denies daytime sleepiness, Denies excessive sweating, Denies fatigue, Denies fever(s), Denies lethargy, Denies malaise, Denies night sweats, Denies snoring and Denies weight loss Eyes Denies blurry vision and Denies itchy eyes ENT Denies nasal congestion, Denies post nasal drip, Denies sinus pain, Denies sinus pressure and Denies other ( Thrush) Card Denies chest pain, Denies pedal edema, Denies dyspnea, Denies orthopnea and Denies paroxysmal nocturnal dyspnea Resp Denies cough, Denies hemoptysis, Denies excessive phlegm production, Denies dyspnea, Denies snoring and Denies wheezing GI Denies abdominal pain and Denies heartburn Musc Denies myalgias, Denies arthralgias and Denies joint swelling Skin/Breast Denies rash Neuro Denies memory loss and Denies seizure-like activity Psych Denies abnormal sleep pattern, Denies anxiety and Denies memory loss Endo Denies excessive sweating, Denies fatigue and Denies heat intolerance Abilio/Lymph Denies easy bruising Aller/Immun Denies itchy eyes, Denies seasonal rhinorrhea and Denies wheezing Physical Exam Vital Signs: Last Vital Signs Pulse 73 01/23/24 13:50 BP 138/67 01/23/24 13:50 Pulse Ox 93 01/23/24 13:50 Oxygen Delivery Method Room Air 01/23/24 13:50 BMI result Body Mass Index 36.0 Const General: no acute distress and alert Nutritional Appearance: not obese Orientation/consciousness: Other orientation findings ( oriented) HEENT Head: Yes atraumatic Eyes General: appearance normal, both eyes and all related structures Sclerae: sclerae normal EOM: EOMs intact bilaterally Neck Neck: Yes supple Lymphatic: no lymphadenopathy noted Resp Effort & Inspection: normal respiratory effort and no use of accessory muscles Auscultation: clear to auscultation bilaterally Cardio Rate: regular rate Rhythm: regular rhythm Heart sounds: no gallops, no murmurs and no rubs Skin General skin exam: other ( warm) Extrem General: No clubbing, No cyanosis and No edema Assessment & Plan Assessment & Plan (1) Multiple pulmonary nodules: Code(s): R91.8 - Other nonspecific abnormal finding of lung field Category: Medical Plan: Results of CT chest reviewed, multiple pulmonary nodules mm and under. Will repeat CT chest in 6 months. Orders: Orders CT chest wo IV con 07/05/24 R91.8 - Other nonspecific abnormal finding of lung field Coding Level of Care Code New Pt Level 3 (91072) Diagnoses Multiple pulmonary nodules R91.8
== END 2024-01-23 14:25 | disposition home or self-care (01) ==
LOC: HO.HPS 13:40
PROVIDERS: PCP Internal Medicine; Visit Provider Internal Medicine Pulmonary Disease
DX: R91.8 Other nonspecific abnormal finding of lung field (principal)
CPT/HCPCS: 99203

== ENCOUNTER → 2024-01-23 13:40 | Outpatient (BNVA) | payer MEDICARE, SELFPAY | PROVIDERS: PCP Internal Medicine; Visit Provider Internal Medicine Pulmonary Disease | DX: R91.8 Other nonspecific abnormal finding of lung field (principal) | CPT/HCPCS: 99202 ==

== ENCOUNTER 2024-02-07 13:20 | Outpatient (AMB) | payer MEDICARE, SELFPAY ==
--- NOTE | 2024-02-07 13:23 | MHC.PC.OV ---
Vital Signs 02/07/24 13:24 Height 5 ft 1 in Weight 190 lb BMI 35.9 BP 122/80 Blood Pressure Location Lt brachial Position Sitting Pulse 67 Pulse Source Pulse Oximeter Pulse Oximetry (%) 94 Oxygen Delivery Method Room Air Intake Visit Reasons: Leg/Knee pain swelling Intake Note: pt here c/o leg/knee pain and swelling Allergies hydrocortisone [From Cortizone-10] Adverse Reaction (Verified 02/07/24 13:35) blurred vision Medication List - Last Reconciled 02/07/24 by Buffy Delgado MD amlodipine-olmesartan 5-40 mg 1 tab PO DAILY carbamazepine ER 100 mg PO Q12H citalopram 20 mg PO DAILY omeprazole 20 mg PO DAILY vit C,D-Ac-vjuow-lutein-zeaxan 250-90-40-1 mg (PreserVision AREDS-2) 1 tab PO BID Tobacco use date assessed: 02/07/24 Fall risk assessment: 1 Fall in past year Last assessed Fall Risk: 02/07/24 Dental Screening Dental Screen Date: 02/07/24 Did you have a dental visit in the last 12 months?: Yes Did you have a dental problem in the last 6 months where you did not have access to dental care?: No Was dental information given to patient?: Patient has dentist HPI Leg/Knee pain swelling HPI Details 78-year-old lady with hypertension, history of trigeminal neuralgia, generalized anxiety disorder chronic GERD, and history of macular degeneration, here today complaining of pain and swelling in both knees, right more than the left.. No history of trauma, has been taking zicx-yas-vlqbgis Tylenol which affords only temporary relief. Unable to walk long distances due to pain in knee, and would start swelling PFSH Medical History (Updated 02/07/24 @ 14:01 by Buffy Delgado MD) Venous insufficiency of both lower extremities Bilateral knee pain Essential hypertension Trigeminal neuralgia of right side of face Localized swelling of both lower legs Ascending aorta dilatation Polyarthralgia Cough GERD (gastroesophageal reflux disease) Gait instability Heartburn symptom Macular degeneration Hyperlipidemia Family history of thyroid disease Lichen sclerosus et atrophicus of the vulva History of herpes zoster Lesion of skin of face Generalized anxiety disorder with panic attacks GALLITO on CPAP Chronic gastroesophageal reflux disease Surgical History History of varicose vein ligation Hx of colonoscopy History of esophagogastroduodenoscopy (EGD) Hx of hernia repair Family History Son Generalized anxiety disorder with panic attacks Maternal Aunt Mental health disorder Social History Housing: Apartment Alcohol intake: unknown Patient Tobacco Use Status: Former Tobacco user Years Smoked: 5 yrs e-Cigarette/Vaping Use: Never Used service: No Current occupational status: disabled Cognitive needs: No Hearing needs: No Vision needs: No Questionnaire PHQ-9 Over the last 2 weeks, how often have you been bothered by any of the following problems? Depression Screening Interpretation: Negative Depression Screening Done: Yes Source: Developed by Drs. Kemar Cullen, Cira Mclean, Bo Allen and colleagues, with an educational haily from [employer]. Thrive Questionnaire Date Thrive assessed: 12/19/23 AUDIT C Alcohol Use Questionnaire (AUDIT-C) 1. How often do you have a drink containing alcohol?: Never Total Score: 0 NELY-7 AMB Questionnaire NELY-7 Date NELY - 7 assessed: 12/19/23 Source: Developed by Drs. Kemar Cullen, Cira Mclean, Bo Allen and colleagues, with an educational haily from [employer]. Review of Systems Const Denies fever(s), Denies headache(s) and Denies weakness Eyes Reports no additional complaints ENT Denies dizziness, Denies headache(s), Denies nasal congestion, Denies nasal discharge and Denies sore throat Card Denies chest pain, Denies lightheadedness, Denies palpitations and Denies dyspnea Resp Denies chest congestion, Denies cough, Denies dyspnea and Denies wheezing GI Denies abdominal pain, Denies change in bowel habits and Reports heartburn (Controlled with omeprazole) Denies urinary frequency, Denies dysuria and Denies urinary urgency Musc Denies deformity, Reports arthralgias and Reports stiffness Neuro Denies dizziness, Denies headache(s) and Denies weakness Psych Reports no additional complaints Endo Denies polydipsia, Denies polyuria and Denies palpitations Abilio/Lymph Denies easy bruising Aller/Immun Denies seasonal rhinorrhea and Denies wheezing Physical exam (Primary Care) Vital Signs: Last Vital Signs Pulse 67 02/07/24 13:24 BP 122/80 02/07/24 13:24 Pulse Ox 94 02/07/24 13:24 Oxygen Delivery Method Room Air 02/07/24 13:24 BMI result Body Mass Index 35.9 Tobacco/Smoking Status: Tobacco use Status Tobacco use date assessed 02/07/24 02/07/24 13:32 Patient Tobacco Use Status Former Tobacco user 02/07/24 13:32 e-Cigarette/Vaping Use Never Used 02/07/24 13:32 Depression Screening Interpretation: Negative Thrive Assessment: Date of Thrive Assessment Date Thrive assessed 12/19/23 02/07/24 13:32 Const Other: Accompanied by daughter who helps translate General: comfortable, no acute distress and alert Nutritional Appearance: obese Orientation/consciousness: patient oriented x3 [facility] General nose exam: Normal external nose present and No nasal discharge present Face and sinus: Yes face symmetric Mouth: Normal oral and palatal mucosa present, oropharynx normal and moist mucous membranes Neck Neck: Yes full ROM, Yes no lymphadenopathy and Yes supple Resp Effort & Inspection: normal respiratory effort and able to speak in complete sentences Auscultation: clear to auscultation bilaterally Cardio Jugular venous distension: no JVD Rate: regular rate Rhythm: regular rhythm Heart sounds: S1 normal heart sound present and S2 normal heart sound present Peripheral pulses: popliteal pulses present, posterior tibial pulses present and dorsalis pedis present GI Palpation (GI): Soft to palpation, nontender, no guarding and no masses Back/Spine/Pelvis Back: No back tenderness Neuro Other: Positive tenderness on tapping over right cheek General: patient oriented x3, moves all extremities, no focal motor deficits and CN's II-XI intact bilaterally Extrem Other: Diffuse erythematous swelling in both lower extremities the right more than the left, no increased warmth on palpation, no tenderness; crepitus felt in both knee joints General: Yes no joint enlargement and Yes no calf tenderness Psych Appearance: grossly normal and well kempt Affect: normal affect Attitude: cooperative Assessment and Plan Assessment & Plan (1) Bilateral knee pain: Code(s): M25.561 - Pain in right knee; M25.562 - Pain in left knee Plan: Ordered x-ray of both knees, not much relief afforded with taking fjbd-vxy-zomsejc Tylenol, unable to take NSAIDs due to her heartburn. Has tried massaging joint with jejm-yso-wxflsoc arthritis cream which has not helped. Will refer to orthopedics for further evaluation management (2) Venous insufficiency of both lower extremities: Code(s): I87.2 - Venous insufficiency (chronic) (peripheral) (3) Localized swelling of both lower legs: Code(s): R22.43 - Localized swelling, mass and lump, lower limb, bilateral Plan: Vascular surgery consult ordered (4) Essential hypertension: Code(s): I10 - Essential (primary) hypertension Plan: Blood pressure at goal of less than 130/80. Continue with amlodipine-olmesartan 5-40 mg tablet taken once a day. Reinforced importance of following a low sodium diet, getting regular exercise, and lowering stress levels. (5) Hyperlipidemia: Code(s): E78.5 - Hyperlipidemia, unspecified Qualifiers: Hyperlipidemia type: pure hypercholesterolemia Qualified Code(s): E78.00 - Pure hypercholesterolemia, unspecified Plan: Encouraged adherence to low-cholesterol diet and getting regular exercise, fasting lipid panel or Orders: Orders XR knee RT 4V 02/07/24 M25.561 - Pain in right knee, M25.562 - Pain in left knee Lipid Panel 06/03/24 I10 - Essential (primary) hypertension, E78.00 - Pure hypercholesterolemia, unspecified Alanine Aminotransferase 06/03/24 I10 - Essential (primary) hypertension, E78.00 - Pure hypercholesterolemia, unspecified XR knee LT 4V 02/07/24 M25.561 - Pain in right knee, M25.562 - Pain in left knee Aspartate Amino Transferase 06/03/24 I10 - Essential (primary) hypertension, E78.00 - Pure hypercholesterolemia, unspecified Basic Metabolic Panel Fasting 06/03/24 I10 - Essential (primary) hypertension, E78.00 - Pure hypercholesterolemia, unspecified Referrals Orthopedics Referral M25.561 - Pain in right knee, M25.562 - Pain in left knee Vascular Surgery Referral I87.2 - Venous insufficiency (chronic) (peripheral), R22.43 - Localized swelling, mass and lump, lower limb, bilateral Coding Level of Care Code Est Pt Level 4 (95005) Diagnoses Bilateral knee pain M25.561; M25.562 Venous insufficiency of both lower extremities I87.2 Localized swelling of both lower legs R22.43 Essential hypertension I10 Pure hypercholesterolemia E78.00 Hyperlipidemia type: pure hypercholesterolemia
[2024-02-07 13:24] VITALS: BP 122/80; PULSE 67; O2SAT 94; BMI 35.9
== END 2024-02-07 14:03 | disposition home or self-care (01) ==
PROVIDERS: PCP Internal Medicine; Visit Provider Internal Medicine
DX: M25.561 Pain in right knee (principal); M25.562 Pain in left knee; I87.2 Venous insufficiency (chronic) (peripheral); R22.43 Localized swelling, mass and lump, lower limb, bilateral; I10 Essential (primary) hypertension; E78.00 Pure hypercholesterolemia, unspecified
CPT/HCPCS: 99214

== ENCOUNTER 2024-02-07 14:04 | Outpatient (REF) | payer MEDICARE, SELFPAY ==
--- NOTE | ~2024-02-07 | XR_ITS ---
EXAMINATION: XR KNEE, RIGHT XR KNEE, LEFT CLINICAL INFORMATION: Pain in the bilateral knees. COMPARISON: None available. TECHNIQUE: 4 views of each knee. FINDINGS: RIGHT KNEE: Severe narrowing of the medial knee joint space is noted with subarticular sclerosis and mild irregularity of the articular margins. Lateral knee joint space is preserved. Patellofemoral joint space narrowing. Mild osteopenia. No evidence of acute fracture or dislocation. No soft tissue calcifications. No evidence of suprapatellar joint effusion. Patellar enthesophyte is noted at the insertion of quadriceps tendon. No evidence of soft tissue air or radiopaque foreign body. No evidence of acute fracture or dislocation. LEFT KNEE: Ftsliqdr-uw-hignwy narrowing of the medial knee joint space with subarticular sclerosis and irregularity of articular margins. Lateral knee joint space is preserved. There is minimal medial subluxation of the femoral condyles over tibial plateau. Mild osteopenia. No evidence of suprapatellar joint effusion. Narrowing of the patellofemoral joint space with marginal osteophytic changes. No evidence of soft tissue air or radiopaque foreign body. No soft tissue calcifications. Probable 0.7 cm loose body in the anterior knee joint space. No evidence of acute fracture or dislocation. XR/XR knee LT 4V IMPRESSION: Tricompartmental osteoarthritic changes in bilateral knees, uwcygtjq-zi-hvqvuj in the medial and patellofemoral compartments. Suspected small loose body in the left anterior knee joint space. No evidence of acute fracture or dislocation in the bilateral knees.
--- NOTE | ~2024-02-07 | XR_ITS ---
EXAMINATION: XR KNEE, RIGHT XR KNEE, LEFT CLINICAL INFORMATION: Pain in the bilateral knees. COMPARISON: None available. TECHNIQUE: 4 views of each knee. FINDINGS: RIGHT KNEE: Severe narrowing of the medial knee joint space is noted with subarticular sclerosis and mild irregularity of the articular margins. Lateral knee joint space is preserved. Patellofemoral joint space narrowing. Mild osteopenia. No evidence of acute fracture or dislocation. No soft tissue calcifications. No evidence of suprapatellar joint effusion. Patellar enthesophyte is noted at the insertion of quadriceps tendon. No evidence of soft tissue air or radiopaque foreign body. No evidence of acute fracture or dislocation. LEFT KNEE: Inwchkne-tu-zlhxbp narrowing of the medial knee joint space with subarticular sclerosis and irregularity of articular margins. Lateral knee joint space is preserved. There is minimal medial subluxation of the femoral condyles over tibial plateau. Mild osteopenia. No evidence of suprapatellar joint effusion. Narrowing of the patellofemoral joint space with marginal osteophytic changes. No evidence of soft tissue air or radiopaque foreign body. No soft tissue calcifications. Probable 0.7 cm loose body in the anterior knee joint space. No evidence of acute fracture or dislocation. XR/XR knee RT 4V IMPRESSION: Tricompartmental osteoarthritic changes in bilateral knees, ryoaouow-hp-yxjzde in the medial and patellofemoral compartments. Suspected small loose body in the left anterior knee joint space. No evidence of acute fracture or dislocation in the bilateral knees.
== END 2024-02-07 14:05 | disposition home or self-care (01) ==
LOC: HO.HMGCLDS 14:04
PROVIDERS: PCP Internal Medicine; Visit Provider Internal Medicine
DX: M25.561 Pain in right knee (principal); M25.562 Pain in left knee
CPT/HCPCS: 73564

== ENCOUNTER 2024-02-21 15:00 | Outpatient (AMB) | payer MEDICARE, SELFPAY ==
--- NOTE | 2024-02-21 15:03 | MHC.OFFVIS ---
Vital Signs 02/21/24 15:04 Height 5 ft 1 in Weight 186 lb 8.177 oz BMI 35.2 BP 114/76 Blood Pressure Location Lt brachial Position Sitting Pulse 66 Pulse Source Pulse Oximeter Pulse Oximetry (%) 94 Oxygen Delivery Method Room Air Intake Visit Reasons: Joint Pain/CM Family Caseworker Required: Yes Family Caseworker Language: Setswana Family Caseworker Name: Aníbal [id number] Allergies hydrocortisone [From Cortizone-10] Adverse Reaction (Verified 02/21/24 15:08) blurred vision Medication List - Last Reconciled 02/21/24 by Qasim Alaniz MD amlodipine-olmesartan 5-40 mg 1 tab PO DAILY carbamazepine ER 100 mg PO Q12H citalopram 20 mg PO DAILY omeprazole 20 mg PO DAILY vit C,K-Xm-styrg-lutein-zeaxan 250-90-40-1 mg (PreserVision AREDS-2) 1 tab PO BID HPI Comments Details: This is a 78-year-old female who presents for evaluation of multiple joint pain. Patient states that she has significant bilateral knee pain. She has swelling both her legs all the way to her toes. She has known history of venous insufficiency s/p vascular procedures. She takes Tylenol Arthritis without much relief. She has known history of erosive esophagitis. She is unaware of any family history of an autoimmune rheumatic disease [facility] Medical History Venous insufficiency of both lower extremities Essential hypertension Trigeminal neuralgia of right side of face Localized swelling of both lower legs Ascending aorta dilatation Polyarthralgia Cough GERD (gastroesophageal reflux disease) Gait instability Heartburn symptom Macular degeneration Hyperlipidemia Family history of thyroid disease Lichen sclerosus et atrophicus of the vulva History of herpes zoster Lesion of skin of face Generalized anxiety disorder with panic attacks GALLITO on CPAP Chronic gastroesophageal reflux disease Surgical History History of varicose vein ligation Hx of colonoscopy History of esophagogastroduodenoscopy (EGD) Hx of hernia repair Family History Son Generalized anxiety disorder with panic attacks Maternal Aunt Mental health disorder Social History Housing: Apartment Alcohol intake: unknown Patient Tobacco Use Status: Former Tobacco user Years Smoked: 5 yrs e-Cigarette/Vaping Use: Never Used service: No Current occupational status: disabled Cognitive needs: No Hearing needs: No Vision needs: No Review of Systems Eyes Reports loss of vision Musc Reports arthralgias, Reports joint swelling and Reports stiffness Skin/Breast Reports alopecia Neuro Reports loss of vision Psych Reports anxiety Physical Exam Vital Signs: Last Vital Signs Pulse 66 02/21/24 15:04 BP 114/76 02/21/24 15:04 Pulse Ox 94 02/21/24 15:04 Oxygen Delivery Method Room Air 02/21/24 15:04 BMI result Body Mass Index 35.2 Const General: cooperative, healthy appearing and comfortable Nutritional Appearance: obese Orientation/consciousness: patient oriented x3 Limitations: no limitations HEENT Head: Yes normocephalic and Yes atraumatic Mouth: moist mucous membranes Resp Effort & Inspection: normal respiratory effort and able to speak in complete sentences Skin Other: Signs of venous stasis bilaterally Neuro General: patient oriented x3 Extrem Other: Bilateral knee warmth, pain with flexion and extension No active synovitis otherwise Normal nailfold capillaroscopy Results Reviewed Results Reviewed: Reviewed patient's bilateral knee x-rays which showed significant osteoarthritis, more severe on the medial compartment Assessment & Plan Assessment & Plan (1) Bilateral primary osteoarthritis of knee: Code(s): M17.0 - Bilateral primary osteoarthritis of knee Category: Medical Plan: This is a 78-year-old female who presents for evaluation of multiple joint pain. Upon evaluation I do not see any signs suggestive of an autoimmune rheumatic disease. Clinical picture consistent with osteoarthritis. Patient has an appointment with Orthopedics in 2 weeks to further address. Advised patient to keep her appointment (2) Venous insufficiency of both lower extremities: Code(s): I87.2 - Venous insufficiency (chronic) (peripheral) Category: Medical Plan: Has a follow-up appointment with vascular next month Plan I spent 30 minutes reviewing patient's chart, evaluating patient, counseling patient and documenting in the chart Coding Level of Care Code New Pt Level 3 (57911) Diagnoses Bilateral primary osteoarthritis of knee M17.0 Venous insufficiency of both lower extremities I87.2
[2024-02-21 15:04] VITALS: BP 114/76; PULSE 66; O2SAT 94; BMI 35.2
== END 2024-02-21 15:34 | disposition home or self-care (01) ==
PROVIDERS: PCP Internal Medicine; Visit Provider Student in an Organized Health Care Education/Training Program
DX: M17.0 Bilateral primary osteoarthritis of knee (principal); I87.2 Venous insufficiency (chronic) (peripheral)
CPT/HCPCS: 99203

== ENCOUNTER → 2024-02-21 15:00 | Outpatient (BNVA) | payer MEDICARE, SELFPAY | PROVIDERS: PCP Internal Medicine; Visit Provider Student in an Organized Health Care Education/Training Program | DX: M17.0 Bilateral primary osteoarthritis of knee (principal); I87.2 Venous insufficiency (chronic) (peripheral) | CPT/HCPCS: 99202 ==

== ENCOUNTER 2024-03-05 12:37 | Outpatient (AMB) | payer MEDICARE, SELFPAY ==
--- NOTE | 2024-03-05 12:44 | A.OFFVIS_ITS ---
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 Pt states the pain started over a year ago with no injury. Pt states sometimes she can barely walk. She states the pain is getting worse. She states the pain goes down her legs as well. Pt denies any previous surgeries. The patient states that she is ?allergic to cortisone?. She has not had a viscosupplementation injection. She takes Tylenol which gives her minimal re lief. Heavy Equipment Technician Required: Yes Heavy Equipment Technician Language: Danish Heavy Equipment Technician Name: Sadiq([id number]) Allergies hydrocortisone [From Cortizone-10] Adverse Reaction (Verified 03/05/24 12:45) blurred vision Medication List - Last Reconciled 03/05/24 by Adrian Tsai MD amlodipine-olmesartan 5-40 mg 1 tab PO DAILY carbamazepine ER 100 mg PO Q12H citalopram 20 mg PO DAILY omeprazole 20 mg PO DAILY vit C,N-Sg-kkyaj-lutein-zeaxan 250-90-40-1 mg (PreserVision AREDS-2) 1 tab PO BID PFSH Medical History Venous insufficiency of both lower extremities Essential hypertension Trigeminal neuralgia of right side of face Localized swelling of both lower legs Ascending aorta dilatation Polyarthralgia Cough GERD (gastroesophageal reflux disease) Gait instability Heartburn symptom Macular degeneration Hyperlipidemia Family history of thyroid disease Lichen sclerosus et atrophicus of the vulva History of herpes zoster Lesion of skin of face Generalized anxiety disorder with panic attacks GALLITO on CPAP Chronic gastroesophageal reflux disease Surgical History History of varicose vein ligation Hx of colonoscopy History of esophagogastroduodenoscopy (EGD) Hx of hernia repair Family History Son Generalized anxiety disorder with panic attacks Maternal Aunt Mental health disorder Social History Housing: Apartment Alcohol intake: unknown Patient Tobacco Use Status: Former Tobacco user Years Smoked: 5 yrs e-Cigarette/Vaping Use: Never Used service: No Current occupational status: disabled Cognitive needs: No Hearing needs: No Vision needs: No Physical Exam Const Other: Well-nourished well-developed very friendly female awake alert and oriented x3 in no acute distress Extrem Other: Bilateral lower extremity examination shows good capillary refill, no skin lesions noted, normal sensation light touch Bilateral knee examination shows minimal effusions, palpable crepitus with range of motion, pain with range of motion, no instability Results Reviewed Results Reviewed: X-rays of the patient's bilateral knee show moderate to severe joint space narrowing, subchondral sclerosis, no acute bony abnormalities Assessment & Plan Assessment & Plan (1) Bilateral primary osteoarthritis of knee: Code(s): M17.0 - Bilateral primary osteoarthritis of knee Category: Medical Plan Ms. Shaikh presents with bilateral knee pains due to degenerative joint disease. I had a lengthy discussion with the patient regarding the treatment options. She wishes to hold off on total knee replacement surgery for as long as possible. I agree with this plan. The patient states that she is allergic to cortisone injections. We did discuss the risks and benefits of a viscosupplementation injection for both of her knees. She wishes to think this over. I did give her a prescription for meloxicam to help with her discomfort in the meantime. Feel free to call me at any time should questions regarding her orthopedic management arise. Thank you very much for asking me to see this very friendly patient. I spent 20 minutes in reviewing the patient's records and imaging studies, seeing the patient and documenting in the medical record. Medications: New meloxicam 15 mg PO DAILY PRN 30 tabs 2RF pain Coding Level of Care Code New Pt Level 3 (47889) Diagnoses Bilateral primary osteoarthritis of knee M17.0
== END 2024-03-05 13:01 | disposition home or self-care (01) ==
PROVIDERS: PCP Internal Medicine; Visit Provider Orthopaedic Surgery
DX: M17.0 Bilateral primary osteoarthritis of knee (principal)
CPT/HCPCS: 99203

== ENCOUNTER → 2024-03-05 12:37 | Outpatient (BNVA) | payer MEDICARE, SELFPAY | PROVIDERS: PCP Internal Medicine; Visit Provider Orthopaedic Surgery | DX: M17.0 Bilateral primary osteoarthritis of knee (principal) | CPT/HCPCS: 99202 ==

== ENCOUNTER 2024-03-26 14:23 | Outpatient (AMB) | payer MEDICARE, SELFPAY ==
[2024-03-26 14:26] VITALS: BP 120/62; PULSE 73; BMI 36.7
--- NOTE | 2024-03-26 14:26 | A.OFFVIS_ITS ---
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/?Thoracic aortic ectasia Dry Roller Required: Yes Dry Roller Name: [id number]/cyracom/mohawk buster Freight Hustler: Freight Hustler Present Accompanied by: Daughter Allergies hydrocortisone [From Cortizone-10] Adverse Reaction (Verified 03/05/24 12:45) blurred vision Medication List - Last Reconciled 03/26/24 by Fransisco Savage MD amlodipine-olmesartan 5-40 mg 1 tab PO DAILY carbamazepine ER 100 mg PO Q12H citalopram 20 mg PO DAILY meloxicam 15 mg PO DAILY PRN omeprazole 20 mg PO DAILY vit C,Q-Hu-uqhpk-lutein-zeaxan 250-90-40-1 mg (PreserVision AREDS-2) 1 tab PO BID HPI Comments Details: Evelyn has been referred for cardiac consultation for ascending aortic enlargement. Patient herself does not have any cardiac issues like coronary disease or myocardial infarction or cardiomyopathy. Her main issue or concern is the fact that her legs are swollen up and very painful. Otherwise, she denies any clear-cut exertional chest pain or other definitive cardiac symptoms. [facility], [facility] Medical History Venous insufficiency of both lower extremities Essential hypertension Trigeminal neuralgia of right side of face Localized swelling of both lower legs Ascending aorta dilatation Polyarthralgia Cough GERD (gastroesophageal reflux disease) Gait instability Heartburn symptom Macular degeneration Hyperlipidemia Family history of thyroid disease Lichen sclerosus et atrophicus of the vulva History of herpes zoster Lesion of skin of face Generalized anxiety disorder with panic attacks GALLITO on CPAP Chronic gastroesophageal reflux disease Surgical History History of varicose vein ligation Hx of colonoscopy History of esophagogastroduodenoscopy (EGD) Hx of hernia repair Family History Son Generalized anxiety disorder with panic attacks Maternal Aunt Mental health disorder Social History Housing: Apartment Alcohol intake: unknown Patient Tobacco Use Status: Former Tobacco user Years Smoked: 5 yrs e-Cigarette/Vaping Use: Never Used service: No Current occupational status: disabled Cognitive needs: No Hearing needs: No Vision needs: No Review of Systems Const Denies chills, Denies daytime sleepiness, Denies fatigue, Denies fever(s), Denies poor appetite, Denies snoring, Denies stops breathing during sleep, Denies weakness, Denies weight gain and Denies weight loss Eyes Denies loss of vision ENT Denies dizziness and Denies hearing loss Card Denies chest pain, Denies irregular heart rhythm, Denies claudication, Denies leg edema, Denies lightheadedness, Denies palpitations, Denies dyspnea on exertion and Denies orthopnea Resp Denies cough, Denies excessive phlegm production, Denies dyspnea on exertion, Denies snoring and Denies wheezing GI Denies abdominal pain, Denies hematochezia, Denies change in bowel habits, Denies nausea and Denies vomiting Denies urinary frequency and Denies dysuria Musc Denies arthralgias, Denies muscle weakness, Denies numbness and Denies other Skin/Breast Denies nail changes and Denies rash Neuro Denies Abnormal speech present, Denies dizziness, Denies loss of vision, Denies memory loss, Denies numbness and Denies weakness Psych Denies depression and Denies memory loss Endo Denies fatigue and Denies palpitations Abilio/Lymph Denies easy bruising Aller/Immun Denies wheezing Physical Exam Vital Signs: Last Vital Signs Pulse 73 03/26/24 14:26 BP 120/62 03/26/24 14:26 BMI result Body Mass Index 36.7 Const General: comfortable and no acute distress Orientation/consciousness: patient oriented x3 HEENT Other: Unremarkable Head: Yes normal to inspection Neck Neck: Yes normal visual inspection Chest Chest palpation & inspection: normal inspection of the chest Resp Auscultation: clear to auscultation bilaterally Cardio Palpation: normal PMI Heart sounds: S1 normal heart sound present, S2 normal heart sound present, no gallops, no murmurs and no rubs GI Palpation (GI): Soft to palpation Back/Spine/Pelvis Other: unremarkable Skin General skin exam: no rashes or lesions noted Neuro General: patient oriented x3 Speech: No Abnormal speech present Extrem Other: 1-2 + swelling bilateral. General: Yes normal to inspection Psych Mental Status: mental status grossly normal Assessment & Plan Assessment & Plan (1) Ascending aorta dilatation: Code(s): I77.810 - Thoracic aortic ectasia Category: Medical Plan: In the recent CT scan, ascending aortic size 4.1 cm the level of main pulmonary artery. No specific management at this time. Can be followed yearly. May choose to do this on echocardiograms. (2) Chronic right heart failure: Code(s): I50.812 - Chronic right heart failure Category: Medical Plan: She does have bilateral leg swelling which could be multifactorial. In the CT scan, there is reflux of contrast into the hepatic veins suggesting elevated right heart pressures. However, she also underwent venous insufficiency studies that showed bilateral venous reflux findings. Hence leg swelling could be from combination of both the right heart dysfunction as well as venous insufficiency. Can try low-dose Lasix to see if that helps. Patient states she did try that in the past but not much help. Prefer not to do high dose diuretics as it might cause other issues. Otherwise, losing weight will help both the right heart dysfunction type edema as well as venous insufficiency. Compliance with CPAP. Plan Discussed with patient as well as daughter using Togolese/Kiswahili armored transport service manager. Care plan discussed and they are in agreement. Medications: New furosemide (Lasix) 20 mg PO DAILY 90 tabs 1RF Coding Level of Care Code New Pt Level 4 (80839) Diagnoses Ascending aorta dilatation I77.810 Chronic right heart failure I50.812
== END 2024-03-26 15:04 | disposition home or self-care (01) ==
PROVIDERS: PCP Internal Medicine; Visit Provider Internal Medicine
DX: I77.810 Thoracic aortic ectasia (principal); I50.812 Chronic right heart failure
CPT/HCPCS: 99214

== ENCOUNTER → 2024-03-26 14:23 | Outpatient (BNVA) | payer MEDICARE, SELFPAY | PROVIDERS: PCP Internal Medicine; Visit Provider Internal Medicine | DX: I77.810 Thoracic aortic ectasia (principal); I50.812 Chronic right heart failure | CPT/HCPCS: 99212 ==

== ENCOUNTER 2024-04-01 11:15 | Outpatient (AMB) | payer MEDICARE, SELFPAY ==
[2024-04-01 11:35] VITALS: BMI 36.7
--- NOTE | 2024-04-01 11:35 | A.OFFVIS_ITS ---
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 Pt states she had sx 50 years ago bilateral LE, stripping of Right GSV, over last 3 months swelling has increased. Slight swelling prior. Pt states she has pain over right thigh area as well. 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 Reports that it has been more present over the last 3 months. She does have a history of venous disease. She reports that it is right more so than left. Patient prior right leg vein stripping nearly 30-40 years ago Patient denies any history of DVT/ PE. Patient denies any history of phlebitis. Trial of compression includes - [id number] They now present for vascular evaluation regarding their varicose veins. [facility] Medical History Venous insufficiency of both lower extremities Essential hypertension Trigeminal neuralgia of right side of face Localized swelling of both lower legs Ascending aorta dilatation Polyarthralgia Cough GERD (gastroesophageal reflux disease) Gait instability Heartburn symptom Macular degeneration Hyperlipidemia Family history of thyroid disease Lichen sclerosus et atrophicus of the vulva History of herpes zoster Lesion of skin of face Generalized anxiety disorder with panic attacks GALLITO on CPAP Chronic gastroesophageal reflux disease Surgical History History of varicose vein ligation Hx of colonoscopy History of esophagogastroduodenoscopy (EGD) Hx of hernia repair Family History Son Generalized anxiety disorder with panic attacks Maternal Aunt Mental health disorder Social History Housing: Apartment Alcohol intake: unknown Patient Tobacco Use Status: Former Tobacco user Years Smoked: 5 yrs e-Cigarette/Vaping Use: Never Used service: No Current occupational status: disabled Cognitive needs: No Hearing needs: No Vision needs: No Review of Systems Const Reports as per HPI ENT Reports no additional complaints Card Denies chest pain, Denies chest pain at rest and Denies chest pain with activity Resp Denies chest congestion and Denies cough GI Reports no additional complaints Musc Details: pain over varicosities, aching of lower extremities, swelling, cramping, heaviness and tiredness, itching Denies abnormal gait Skin/Breast Reports pruritus and Denies wounds Neuro Reports no additional complaints and Denies abnormal gait Psych Denies no additional complaints Physical Exam Vital Signs: BMI result Body Mass Index 36.7 Const General: cooperative, healthy appearing and comfortable Orientation/consciousness: oriented to person, oriented to place and oriented to time Neck Carotids: no bruits Chest Chest palpation & inspection: normal inspection of the chest and normal palpation of entire chest wall Resp Effort & Inspection: normal respiratory effort and able to speak in complete sentences Cardio Rate: regular rate Heart sounds: S1 normal heart sound present and S2 normal heart sound present Peripheral pulses: Peripheral pulses 2+ throughout GI Inspection: Yes normal to inspection Skin Other: +2 edema CEAP Classification C4 - skin color changes Ep - Etiology Primary As - superficial veins P - reflux General skin exam: dry skin Neuro General: oriented to person, oriented to place and oriented to time Extrem Right lower extremity: full ROM, normal capillary refill and edema Left lower extremity: full ROM, normal capillary refill and edema Psych Mental Status: mental status grossly normal Results Reviewed Results Reviewed: Brief summary of venous insufficiency testing is as follows: right great saphenous vein: Strip right small saphenous vein: negative right accessory vein: none present left great saphenous vein: Positive left small saphenous vein: negative left accessory vein: none present Please note there is no evidence of any venous aneurysms or significant tortuosity Assessment & Plan Assessment & Plan (1) Varicose veins of right lower extremity with inflammation: Code(s): I83.11 - Varicose veins of right lower extremity with inflammation Category: Medical Plan: In short patient has swollen lower extremities. This may be multifactorial inclusive of her morbid obesity and congestive heart failure. She does have a history of venous disease. She has refluxing left more so than right but complains more so of the right. We will have a 3 month trial of conservative management. Should that not be effective will consider left leg ablation. May even require lymphedema pumps in the future. For now would like to continue with conservative measures including compression elevation and exercise. This was discussed in detail with the patient and the patient's son who was at bedside. Thank you for allowing us to assist in her care. Coding Level of Care Code New Pt Level 4 (13707) Diagnoses Varicose veins of right lower extremity with inflammation I83.11
== END 2024-04-01 12:27 | disposition home or self-care (01) ==
PROVIDERS: PCP Internal Medicine; Visit Provider Surgery Vascular Surgery
DX: I83.11 Varicose veins of right lower extremity with inflammation (principal)
CPT/HCPCS: 99204

== ENCOUNTER → 2024-04-01 11:15 | Outpatient (BNVA) | payer MEDICARE, SELFPAY | PROVIDERS: PCP Internal Medicine; Visit Provider Surgery Vascular Surgery | DX: I83.11 Varicose veins of right lower extremity with inflammation (principal) | CPT/HCPCS: 99202 ==

== ENCOUNTER 2024-04-09 13:01 | Outpatient (AMB) | payer MEDICARE, SELFPAY ==
--- NOTE | 2024-04-09 13:03 | MHC.OFFVIS ---
Intake Visit Reasons: Bilateral primary osteoarthritis of knee Intake Note: Evelyn is a 78 year old female who presents with complaints of progressively worsening bilateral knee pains. The patient describes her pains as sharp in nature. Her pains have gotten worse over the last year in spite of continued non operative treatments. She has failed the last 3 months of a home exercise program, topical creams, Tylenol and anti-inflammatory medicines. The patient states that she can not tolerate cortisone injections because of an allergic reaction. She has not had a viscosupplementation injection. She wishes to hold off on surgery for as long as possible. Allergies hydrocortisone [From Cortizone-10] Adverse Reaction (Verified 04/09/24 13:03) blurred vision Medication List - Last Reconciled 04/09/24 by Adrian Tsai MD amlodipine-olmesartan 5-40 mg 1 tab PO DAILY carbamazepine ER 100 mg PO Q12H citalopram 20 mg PO DAILY commode As directed furosemide (Lasix) 20 mg PO DAILY Grab bar As directed meloxicam 15 mg PO DAILY PRN omeprazole 20 mg PO DAILY vit C,C-Sg-vqkut-lutein-zeaxan 250-90-40-1 mg (PreserVision AREDS-2) 1 tab PO BID walker (Ultra-Light Rollator misc) As directed [facility] Medical History Venous insufficiency of both lower extremities Essential hypertension Trigeminal neuralgia of right side of face Localized swelling of both lower legs Ascending aorta dilatation Polyarthralgia Cough GERD (gastroesophageal reflux disease) Gait instability Heartburn symptom Macular degeneration Hyperlipidemia Family history of thyroid disease Lichen sclerosus et atrophicus of the vulva History of herpes zoster Lesion of skin of face Generalized anxiety disorder with panic attacks GALLITO on CPAP Chronic gastroesophageal reflux disease Surgical History History of varicose vein ligation Hx of colonoscopy History of esophagogastroduodenoscopy (EGD) Hx of hernia repair Family History Son Generalized anxiety disorder with panic attacks Maternal Aunt Mental health disorder Social History Housing: Apartment Alcohol intake: unknown Patient Tobacco Use Status: Former Tobacco user Years Smoked: 5 yrs e-Cigarette/Vaping Use: Never Used service: No Current occupational status: disabled Cognitive needs: No Hearing needs: No Vision needs: No Physical Exam Const Other: Well-nourished well-developed very friendly female awake alert and oriented x3 in no acute distress Extrem Other: Bilateral lower extremity examination shows good capillary refill, no skin lesions noted, normal sensation light touch Bilateral knee examination shows minimal effusions, palpable crepitus with range of motion, pain with range of motion, range of motion from -3 degrees to 115 degrees, no instability Results Reviewed Results Reviewed: X-rays of the patient's bilateral knee show joint space narrowing, subchondral sclerosis, no acute bony abnormalities Assessment & Plan Assessment & Plan (1) Bilateral primary osteoarthritis of knee: Code(s): M17.0 - Bilateral primary osteoarthritis of knee Category: Medical Plan Ms. Shaikh presents with bilateral knee pains due to osteoarthritis. I had a lengthy discussion with the patient regarding the treatment options. At this point she has failed the last 3 months of conservative treatment. She is allergic to cortisone injections. Thus, I will see whether or not the patient's insurance company will cover a viscosupplementation injection for both of her knees. I will see her back once the injections are available. She will contact me prior to that time should her symptoms worsen in any way. I spent 22 minutes in reviewing the patient's records and imaging studies, seeing the patient and documenting in the medical record. Coding Level of Care Code Est Pt Level 3 (62148) Diagnoses Bilateral primary osteoarthritis of knee M17.0
== END 2024-04-09 13:18 | disposition home or self-care (01) ==
PROVIDERS: PCP Internal Medicine; Visit Provider Orthopaedic Surgery
DX: M17.0 Bilateral primary osteoarthritis of knee (principal)
CPT/HCPCS: 99213

== ENCOUNTER → 2024-04-09 13:01 | Outpatient (BNVA) | payer MEDICARE, SELFPAY | PROVIDERS: PCP Internal Medicine; Visit Provider Orthopaedic Surgery | DX: M17.0 Bilateral primary osteoarthritis of knee (principal) | CPT/HCPCS: 99212 ==

== ENCOUNTER 2024-04-17 06:23 | Day surgery (SDC) | payer MEDICARE, SELFPAY ==
[2024-04-15 09:10] VITALS: BMI 36.8
--- NOTE | 2024-04-16 08:37 | P.CONAN_ITS ---
Documented by User: Tiesha Hernandez NP 04/16/24 08:41 HPI - Anesthesia Eval Consult details Narrative: 78yo F for Upper End[place] [facility] [place]iac eval 03/2024 for Asc aortic dilitation (4.1cm on CT, follow yearly) and chronic right HF (leg swelling could be from combination of both the right heart dysfunction as well as venous insufficiency) PMFSH Active Problems Active Problems: All Active Problems Varicose veins of right lower extremity with inflammation (Acute) Chronic right heart failure (Acute) Bilateral primary osteoarthritis of knee (Acute) Venous insufficiency of both lower extremities (Acute) Multiple pulmonary nodules (Acute) Essential hypertension (Acute) Trigeminal neuralgia of right side of face (Acute) History of varicose vein ligation (Acute) Localized swelling of both lower legs (Acute) Ascending aorta dilatation (Acute) Polyarthralgia (Acute) Tubular adenoma (Acute) Erosive esophagitis (Acute) Elevated brain natriuretic peptide (BNP) level (Acute) Gait instability (Acute) Globus sensation (Acute) Heartburn symptom (Acute) Macular degeneration (Acute) Hyperlipidemia (Acute) Family history of thyroid disease (Acute) Lichen sclerosus et atrophicus of the vulva (Acute) Lesion of skin of face (Acute) Generalized anxiety disorder with panic attacks (Acute) Chronic gastroesophageal reflux disease (Acute) Past Medical History Medical History Venous insufficiency of both lower extremities Essential hypertension Trigeminal neuralgia of right side of face Localized swelling of both lower legs Ascending aorta dilatation Polyarthralgia Cough GERD (gastroesophageal reflux disease) Gait instability Heartburn symptom Macular degeneration Hyperlipidemia Family history of thyroid disease Lichen sclerosus et atrophicus of the vulva History of herpes zoster Lesion of skin of face Generalized anxiety disorder with panic attacks GALLITO on CPAP Chronic gastroesophageal reflux disease Family History Family History Son Generalized anxiety disorder with panic attacks Maternal Aunt Mental health disorder Family history of problems with anesthesia: No Surgical History Surgical History History of varicose vein ligation Hx of colonoscopy History of esophagogastroduodenoscopy (EGD) Hx of hernia repair History of Problems with Anesthesia: No Social History Social History Housing: Apartment Alcohol intake: unknown Patient Tobacco Use Status: Former Tobacco user Years Smoked: 5 yrs e-Cigarette/Vaping Use: Never Used service: No Current occupational status: disabled Cognitive needs: No Hearing needs: No Vision needs: No Meds Allergies Allergy/AdvReac Type Severity Reaction Status Date / Time hydrocortisone AdvReac blurred Verified 04/17/24 06:43 [From Cortizone-10] vision Home Medications ?Medication ?Instructions ?Recorded ?Confirmed ?Last Taken ?Type vit C 250 mg-vit E 90 mg-zinc 40 1 tab PO BID 11/03/22 04/17/24 04/16/24 History mg-copper 1 zf-[id number]-dhxjfh capsule (PreserVision AREDS-2) Exam Height,Weight and Vital Signs: Height 5 ft 1 in Weight 88.451 kg Pertinent Lab Results Pertinent Lab Results: Laboratory Tests 12/29/23 11:34 WBC 5.5 Hgb 11.8 L Hct 37.7 Plt Count 149 L Sodium 144 Potassium 4.4 Chloride 106 Carbon Dioxide 32 H BUN 21 H Creatinine 1.00 Narrative Narrative: ECHO 10/2023 Conclusions: - The left ventricular systolic function is hyperdynamic. The visually estimated ejection fraction is >70%. - No obvious valvular pathology seen on this study. EKG 10/2023 Vent. Rate : 076 BPM Atrial Rate : 076 BPM P-R Int : 130 ms QRS Dur : 088 ms QT Int : 368 ms P-R-T Axes : -13 048 035 degrees QTc Int : 414 ms Normal sinus rhythm Normal ECG When compared with ECG of 03-MAR-2021 18:14, No significant change was found Assessment and Plan Assessment Anesthesia Assessment: Chart Reviewed Final Anesthetic Review Family History of Problems with Anesthesia: No History of Problems with Anesthesia: No Documented by User: Nae Cotton MD 04/17/24 08:33 PMFSH Active Problems Active Problems: All Active Problems Varicose veins of right lower extremity with inflammation (Acute) Chronic right heart failure (Acute) Bilateral primary osteoarthritis of knee (Acute) Venous insufficiency of both lower extremities (Acute) Multiple pulmonary nodules (Acute) Essential hypertension (Acute) Trigeminal neuralgia of right side of face (Acute) History of varicose vein ligation (Acute) Localized swelling of both lower legs (Acute) Ascending aorta dilatation (Acute) Polyarthralgia (Acute) Tubular adenoma (Acute) Erosive esophagitis (Acute) Elevated brain natriuretic peptide (BNP) level (Acute) Gait instability (Acute) Globus sensation (Acute) Heartburn symptom (Acute) Macular degeneration (Acute) Hyperlipidemia (Acute) Family history of thyroid disease (Acute) Lichen sclerosus et atrophicus of the vulva (Acute) Lesion of skin of face (Acute) Generalized anxiety disorder with panic attacks (Acute) Chronic gastroesophageal reflux disease (Acute) GALLITO. Uses CPAP machine Past Medical History Medical History Venous insufficiency of both lower extremities Essential hypertension Trigeminal neuralgia of right side of face Localized swelling of both lower legs Ascending aorta dilatation Polyarthralgia Cough GERD (gastroesophageal reflux disease) Gait instability Heartburn symptom Macular degeneration Hyperlipidemia Family history of thyroid disease Lichen sclerosus et atrophicus of the vulva History of herpes zoster Lesion of skin of face Generalized anxiety disorder with panic attacks GALLITO on CPAP Chronic gastroesophageal reflux disease Family History Family History Son Generalized anxiety disorder with panic attacks Maternal Aunt Mental health disorder Family history of problems with anesthesia: No Surgical History Surgical History History of varicose vein ligation Hx of colonoscopy History of esophagogastroduodenoscopy (EGD) Hx of hernia repair History of Problems with Anesthesia: No Social History Social History Housing: Apartment Alcohol intake: unknown Patient Tobacco Use Status: Former Tobacco user Years Smoked: 5 yrs e-Cigarette/Vaping Use: Never Used service: No Current occupational status: disabled Cognitive needs: No Hearing needs: No Vision needs: No Meds Allergies Allergy/AdvReac Type Severity Reaction Status Date / Time hydrocortisone AdvReac blurred Verified 04/17/24 06:43 [From Cortizone-10] vision Home Medications ?Medication ?Instructions ?Recorded ?Confirmed ?Last Taken ?Type vit C 250 mg-vit E 90 mg-zinc 40 1 tab PO BID 11/03/22 04/17/24 04/16/24 History mg-copper 1 [id number]-hvrapt capsule (PreserVision AREDS-2) Exam Height,Weight and Vital Signs: Height 5 ft 1 in Weight 88.451 kg Vital Signs Temp Pulse Resp BP Pulse Ox O2 Del Method 97.8 F 67 16 136/76 93 Room Air 04/17/24 06:57 04/17/24 06:57 04/17/24 06:57 04/17/24 06:57 04/17/24 06:57 04/17/24 06:57 Pertinent Lab Results Pertinent Lab Results: Laboratory Tests 12/29/23 11:34 WBC 5.5 Hgb 11.8 L Hct 37.7 Plt Count 149 L Sodium 144 Potassium 4.4 Chloride 106 Carbon Dioxide 32 H BUN 21 H Creatinine 1.00 Airway Mallampati Class: IV (Overbite) TM Dist: >3cm Neck ROM: Full Partial: Upper and Lower Loose/Missing/Broken Teeth: Yes (Loose implant bottom left. Denies broken teeth) Heart: RRR Lungs: CTAB Assessment and Plan Assessment Anesthesia Assessment: Anesthesia Plan Discussed and Chart Reviewed Final Anesthetic Review Family History of Problems with Anesthesia: No History of Problems with Anesthesia: No NPO: Yes ASA Class: III Final Preanesthetic Review: No Changes in Pt Med Stat, Meds/Allgs Chart Reviewed, Consent Obtained/Reviewed and Anes Risks/Benef Reviewed Patient Risk: Intermediate Procedure Risk: Low Assessment/Block/Sedation in SS: Assess/Block/Sedation-SS Anesthetic Plan Anesthetic Plan: TIVA Disposition: Standard PACU
[2024-04-17 06:31] VITALS: BMI 36.7
[2024-04-17 06:57] VITALS: BP 136/76; PULSE 67; RESP 16; TEMP 36.6; O2SAT 93
--- NOTE | 2024-04-17 07:57 | MHC.SHP ---
Pre-Procedural Eval Section A - 24 Hr Update-Section A only Date of Service: 04/17/24 Section B - Complete if H&P > 30 days Chief Complaint: Esophagitis Details of Present Illness: Gait instability Heartburn symptom Macular degeneration Hyperlipidemia Family history of thyroid disease Lichen sclerosus et atrophicus of the vulva History of herpes zoster Lesion of skin of face Generalized anxiety disorder with panic attacks GALLITO on CPAP Essential hypertension Chronic gastroesophageal reflux disease Surgical History Hx of colonoscopy History of esophagogastroduodenoscopy (EGD) Hx of hernia repair Present Medications: see Short Stay Collaborative assessment Allergies: Allergies Allergy/AdvReac Type Severity Reaction Status Date / Time hydrocortisone AdvReac blurred Verified 04/17/24 06:43 [From Cortizone-10] vision Review of Systems Review of Systems Comment: 10 Point ROS negative Exam Exam Comment: Gen appear: No acute distress HEENT: no icterus Chest: No overt resp distress Abd: soft, nontender, nondistended Psych: Stable affect, answering questions appropriately Neuro: A/Ox3 noted to move all extremities spontaneously Ext: no peripheral edema Plan Diagnosis/Plan: Unchanged I have reviewed the history and physical and performed a pertinent physical examination on my patient. No changes have occurred unless specified. Time Spent With Patient Time: Total time managing care of this patient today ____ minutes.
--- NOTE | 2024-04-17 07:58 | P.OP_ITS ---
Operative Note Operative Note Date of Service: 04/17/24 Narrative: Procedure: Esophagogastroduodenoscopy Endoscopist: Izabela Sommers MD Indication: Esophagitis Anesthesia Provider: Dr Nae Cotton MD Anesthesia Type: MAC ?? EGD Procedure:?? The procedure, indications, preparation and potential complications were review ed with the patient, who indicated understanding and gave written informed consent to proceed. A physical exam was performed. The endoscope was introduced through the mouth, and advanced to the second part of duodenum. The mucosa was carefully examined on slow withdrawal of the endoscope. The patient tolerated the procedure well. There were no immediate complications.? ? EGD Findings:? * Esophagus:? Normal mucosa noted in the entire esophagus. The Z line was at 30 cm. There was a large hiatal hernia with the diaphragmatic pinch at 38 cm. Lower esophagus forceps biopsies were obtained. * Stomach:? Mild erythema and edema was noted in the body as well as antrum of the stomach. Random cold forceps gastric biopsies were taken to rule out H Pylori infection. * Duodenum:? Normal mucosa was noted in the whole of the examined duodenum. ? EGD Impressions:? * Normal esophagus (biopsy) * Gastritis (biopsy) * Normal duodenum ?? Recommendations:?? * Follow biopsy results. Our office will call or send a letter with results within 7-10 days. * Continue PPI therapy. * Check barium swallow for further evaluation of the large hiatal hernia * If H pylori +, patient will be prescribed eradication therapy followed by test of cure. * Avoid NSAIDs. Above has been reviewed with the patient.
[2024-04-17 08:26] VITALS: BP 112/59; PULSE 68; RESP 20; TEMP 36.4; O2SAT 94
[2024-04-17 08:41] VITALS: BP 126/71; PULSE 67; RESP 16; O2SAT 96
[2024-04-17 08:51] VITALS: BP 159/78; PULSE 63; RESP 18; TEMP 36.4; O2SAT 96
--- NOTE | 2024-04-17 09:49 | PC.NURSE ---
HILDA USED FOR LANGUAGE PURPOSES. DR. LAUREANO SPOKE WITH PATIENT PRIOR TO DISCHARGE. DC PAPERS GIVEN WITH HILDA .
--- NOTE | 2024-04-17 09:51 | PC.NURSE ---
OUTSIDE SALES ASSOCIATE NO. [id number].
== END 2024-04-17 09:51 | disposition home or self-care (01) ==
PROVIDERS: PCP Internal Medicine; Visit Provider Internal Medicine
PROC: 0DJ08ZZ Inspection of Upper Intestinal Tract, Via Natural or Artificial Opening Endoscopic (ICD-10-PCS; CPT 43235; principal; 2024-04-17 07:30)
DX: K29.60 Other gastritis without bleeding (principal); K44.9 Diaphragmatic hernia without obstruction or gangrene; K22.10 Ulcer of esophagus without bleeding; K21.9 Gastro-esophageal reflux disease without esophagitis; I11.0 Hypertensive heart disease with heart failure; I50.812 Chronic right heart failure; E78.5 Hyperlipidemia, unspecified; G47.33 Obstructive sleep apnea (adult) (pediatric); Z99.89 Dependence on other enabling machines and devices; Z87.891 Personal history of nicotine dependence; Z79.899 Other long term (current) drug therapy
CPT/HCPCS: 43239; 88305; 88313; 88342; J2704

== ENCOUNTER → 2024-04-17 06:23 | Outpatient (BNV) | payer MEDICARE, SELFPAY | PROVIDERS: PCP Internal Medicine; Visit Provider Internal Medicine | DX: K20.90 Esophagitis, unspecified without bleeding (principal); K29.70 Gastritis, unspecified, without bleeding | CPT/HCPCS: 43239 ==

== ENCOUNTER 2024-04-18 13:38 | Outpatient (AMB) | payer MEDICARE, SELFPAY ==
[2024-04-18 13:49] VITALS: BP 110/64; PULSE 81; O2SAT 94; BMI 34.7
--- NOTE | 2024-04-18 13:49 | MHC.OFFVIS ---
Vital Signs 04/18/24 13:49 Height 5 ft 1 in Weight 183 lb 6.793 oz BMI 34.7 BP 110/64 Blood Pressure Location Rt brachial Position Sitting Pulse 81 Pulse Source Pulse Oximeter Pulse Oximetry (%) 94 Oxygen Delivery Method Room Air Intake Visit Reasons: follow up Intake Note: Pt presents to the office today for a follow up.Pt states she is feeling better since taking the omeprazole. Haircutter Required: Yes Haircutter Language: Citizen Of [place] Haircutter Name: [id number] Allergies hydrocortisone [From Cortizone-10] Adverse Reaction (Verified 04/18/24 13:53) blurred vision HPI Comments Details: 77y.o Citizen Of [place] speaking F with PMH of HTN who is here for follow up after EGD/colo 12/06/22: Pt reports heartburn and sensation of food getting stuck in her upper esophagus. This is associated with nausea and vomiting. Occurs mostly with solid foods or acidic foods such as coffee. Has never needed medical attention for food obstruction. Was prescribed famotidine by her PCP but never picked it up. No unintentional weight loss. No blood in emesis or stool. Last colo was roughly 5 years ago in [facility]. Per her report no polyps. 10/06/23: EGD/colo (Dr Olson) ESOPHAGUS: Erosive esophagitis from 30 to 36 cms with multiple 1-2 cms ulcers (LA grade D) Edematous folds at the GE junction with two benign appearing nodules - biopsied. STOMACH: A few 5-6 mm benign appearing polyps in the gastric body - biopsied. Mild gastric erythema. Biopsies were obtained. Loose/slipped fundal wrap on retroflexed examination of the cardia. Colonoscopy Findings: One small polyp removed Moderate diverticulosis seen in the enitre colon Moderate hemorrhoids on retroflexed exam. Path: A. Gastric antrum, biopsy: Gastric antral mucosa with reactive changes, ectatic mucosal vessels, and focal minimal chronic inactive inflammation; negative for H pylori, intestinal metaplasia and dysplasia. B. Gastric polyp: Gastric body mucosa with congestion and focal minimal chronic inactive inflammation; no adenomatous dysplasia seen. C. Esophagogastric junction, esophageal nodule, biopsy: Squamous mucosa with spongiosis and intraepithelial neutrophils and few eosinophils (up to 2 per high-power field) consistent with reflux esophagitis and columnar mucosa with mild chronic active inflammation and hyperplasia; negative for intestinal metaplasia and dysplasia (see comment). D. Colon, transverse fold, biopsy: Colonic mucosa with lymphoid aggregate and no specific change. E. Colon, transverse, polyp: Tubular adenoma; negative for high-grade dysplasia and carcinoma. Comment: (C): The findings may represent an inflammatory polyp 12/05/23: Seen with online Citizen Of [place] exhibition designer: [id number] Accompanied by daughter. Reports complete resolution of sx including burning pain or nausea. Feels back to baseline. Has been taking omeprazole 20 BID. EGD and colo results and path reviewed. Pt aware that needs a repeat EGD to ensure esophagitis has healed- already booked for April. 04/17/24: EGD Impressions:? Normal esophagus (biopsy) Gastritis (biopsy) Normal duodenum ?? 04/18/24: Here for follow up. EGD results reviewed. Resolution of esophagitis. Bx still pending however. [facility] Medical History Venous insufficiency of both lower extremities Essential hypertension Trigeminal neuralgia of right side of face Localized swelling of both lower legs Ascending aorta dilatation Polyarthralgia Cough GERD (gastroesophageal reflux disease) Gait instability Heartburn symptom Macular degeneration Hyperlipidemia Family history of thyroid disease Lichen sclerosus et atrophicus of the vulva History of herpes zoster Lesion of skin of face Generalized anxiety disorder with panic attacks GALLITO on CPAP Chronic gastroesophageal reflux disease Surgical History History of varicose vein ligation Hx of colonoscopy History of esophagogastroduodenoscopy (EGD) Hx of hernia repair Family History Son Generalized anxiety disorder with panic attacks Maternal Aunt Mental health disorder Social History Housing: Apartment Alcohol intake: unknown Patient Tobacco Use Status: Former Tobacco user Years Smoked: 5 yrs e-Cigarette/Vaping Use: Never Used service: No Current occupational status: disabled Cognitive needs: No Hearing needs: No Vision needs: No Review of Systems Const All systems reviewed & are unremarkable except as noted in HPI and below Physical Exam Vital Signs: Last Vital Signs Pulse 81 04/18/24 13:49 BP 110/64 04/18/24 13:49 Pulse Ox 94 04/18/24 13:49 Oxygen Delivery Method Room Air 04/18/24 13:49 BMI result Body Mass Index 34.7 No apparent distress Nonicteric Abdomen soft, nondistended Alert and oriented x3, normal gait Assessment & Plan Assessment & Plan (1) Erosive esophagitis: Code(s): K22.10 - Ulcer of esophagus without bleeding Category: Medical (2) Hiatal hernia: Code(s): K44.9 - Diaphragmatic hernia without obstruction or gangrene Category: Medical Plan GERD with erosive esophagitis - healed. Large hiaral hernia on EGD for which would recommend barium esophagogram for further eval. Plan: - Cont omeprazole 20mg once daily - Barium swallow - results of path will be communicated over the letter Follow up 6 months Orders: Orders [place] barium swallow Today K44.9 - Diaphragmatic hernia without obstruction or gangrene Medications: Refilled omeprazole 20 mg PO DAILY 90 caps 1RF Coding Level of Care Code Est Pt Level 4 (57083) Diagnoses Erosive esophagitis K22.10 Hiatal hernia K44.9
== END 2024-04-18 14:38 | disposition home or self-care (01) ==
PROVIDERS: PCP Internal Medicine; Visit Provider Internal Medicine
DX: K22.10 Ulcer of esophagus without bleeding (principal); K44.9 Diaphragmatic hernia without obstruction or gangrene
CPT/HCPCS: 99214

== ENCOUNTER → 2024-04-18 13:38 | Outpatient (BNVA) | payer MEDICARE, SELFPAY | PROVIDERS: PCP Internal Medicine; Visit Provider Internal Medicine | DX: K44.9 Diaphragmatic hernia without obstruction or gangrene (principal); K21.9 Gastro-esophageal reflux disease without esophagitis; I10 Essential (primary) hypertension; Z87.19 Personal history of other diseases of the digestive system | CPT/HCPCS: 99212 ==

== ENCOUNTER 2024-05-02 14:08 | Outpatient (AMB) | payer MEDICARE, SELFPAY ==
--- NOTE | 2024-05-02 13:00 | A.OFFPSYCH_ITS ---
Intake Intake Visit Reasons: consultation, panic attacks Veterans Service Officer Required: Yes Provided:: Language: ([place] Citizen [place]) and Veterans Service Officer (ID # [id number] voice only video not available ) Type:: Remote Allergies hydrocortisone [From Cortizone-10] Adverse Reaction (Verified 04/18/24 13:53) blurred vision Medication List - Last Reconciled 05/02/24 by Candace Mcclelland APRN amlodipine-olmesartan 5-40 mg 1 tab PO DAILY carbamazepine ER 100 mg PO Q12H citalopram 20 mg PO DAILY commode As directed furosemide (Lasix) 20 mg PO DAILY Grab bar As directed meloxicam 15 mg PO DAILY PRN omeprazole 20 mg PO DAILY vit C,E-Ld-aylhs-lutein-zeaxan 250-90-40-1 mg (PreserVision AREDS-2) 1 tab PO BID walker (Ultra-Light Rollator misc) As directed HPI- Psychiatric Chief Complaint: consultation, panic attacks HPI Narrative: 78-year-old woman referred by PCP for ev al of panic attacks. Pt has history of hypertension, history of trigeminal neuralgia, generalized anxiety disorder chronic GERD, and history of macular degeneration. Pt tells me she has been on celexa 20mg daily for 25 years due to anxiety and worry; she had her first panic attack years ago. She has had increased sadness and anxiety since her sister became ill and then ; it was particularly difficult for her- they were very close and when sister she was in [facility] and patient could not get to her to say goodbaye and arrived only in time for . Pt worries about he future, about her children and granchildren. She has had several panic attacks in the last year; some panic lasted from 24 hours- 5 days; she hs stayed with family memeber to feels safe; a friend gave her clonazepam 1mg which helped with the panic once- she denies side effects from it. she denies depression ans she feels she can enjoy family and has energy to get things done; the only time she feels high distress is when she panics and feels fearful. During these episodes she can not eat or drink; she is afraid to be alone. No SI or HI. she says she has taken clonazepam 1 mg disintegrating tablet in past as prn with good effect Past Psychiatric History: outpatient treatment x 25 yrs celexa 20 mg daily; she has taken 30mg daily on her own thinking it would help and she feels it helped little; no side effects; no cardiac hx Subjective Subjective Subjective Medication Compliance: Yes Side effects from medications: No Review of Systems Medical Review of Systems: unchanged Mental Status Exam Mental Status Exam Patient Appearance: Well Grooomed and Appropriate Patient Orientation: Person, Place, Time and Situation Level of Consciousness: Awake, Appropriate and Alert Patient Behavior: Appropriate and Talkative Mood Description: Anxious Affect Description: Anxious Patient Cognition Impaired: No Ability to Follow Directions: Good Speech Pattern: Clear Memory Description: Intact Hallucinations: None Delusions: Not Present Thought Process: Intact and Goal Oriented Thought Content: positive for Intact and positive for Goal Oriented Judgement: Good Assessment and Plan Assessment & Plan (1) Generalized anxiety disorder with panic attacks: Status: Acute Code(s): F41.1 - Generalized anxiety disorder; F41.0 - Panic disorder [episodic paroxysmal anxiety] Plan increase celexa to 30mg daily add clonazepam 0.5mg disintergrating tablets one daily prn panic discussed risks vs benefits Medications: New clonazepam 0.5 mg PO DAILY PRN 30 tabs 2RF anxiety/panic Changed From citalopram 20 mg PO DAILY 90 tabs 1RF F41.1 - Generalized anxiety disorder, F41.0 - Panic disorder [episodic paroxysmal anxiety] To citalopram 30 mg (1.5 x 20 mg) PO DAILY 135 tabs 2RF F41.1 - Generalized anxiety disorder, F41.0 - Panic disorder [episodic paroxysmal anxiety] Counseling and coordination of Care Pt. Self Management counseling: Maintenance-social rhythm, Sleep hygiene, Behavior activation and General coping skills Medication management counseling: Effectiveness, Side effects, Dosing range, Duration, Drug interaction and Adherence Diagnosis and Prognosis Counseling: Accuracy of diagnosis, Prognosis over time, Impact of diagnosis on life functions, Impact of family relationship, Problematic behaviors secondary to diagnosis and Adequacy of current interventions Details: I spent 75 minutes reviewing the record, seeing the patient and documenting in the medical record. Counseling provided to the patient/caregiver as outlined below. Addressed patient/caregiver concerns regarding current medication regime including effective adherence. Addressed patient/caregiver concerns regarding diagnosis and prognosis including accuracy of diagnosis, prognosis over time, impact of diagnosis. Addressed patient/caregiver concerns regarding impact of recent stressors. [facility] Medical History Venous insufficiency of both lower extremities Essential hypertension Trigeminal neuralgia of right side of face Localized swelling of both lower legs Ascending aorta dilatation Polyarthralgia Cough GERD (gastroesophageal reflux disease) Gait instability Heartburn symptom Macular degeneration Hyperlipidemia Family history of thyroid disease Lichen sclerosus et atrophicus of the vulva History of herpes zoster Lesion of skin of face Generalized anxiety disorder with panic attacks GALLITO on CPAP Chronic gastroesophageal reflux disease Surgical History History of varicose vein ligation Hx of colonoscopy History of esophagogastroduodenoscopy (EGD) Hx of hernia repair Family History Son Generalized anxiety disorder with panic attacks Maternal Aunt Mental health disorder Social History Housing: Apartment Alcohol intake: unknown Patient Tobacco Use Status: Former Tobacco user Years Smoked: 5 yrs e-Cigarette/Vaping Use: Never Used service: No Current occupational status: disabled Cognitive needs: No Hearing needs: No Vision needs: No Social History: lives alone; from [place]; has 4 children 3 sons and 1 daughter - all her children are very supportive Substance History: none Trauma History: deferred Coding Level of Care Code Psych Diag Eval w/Med (75399) Diagnoses Generalized anxiety disorder with panic attacks F41.1; F41.0
== END 2024-05-02 14:09 | disposition home or self-care (01) ==
LOC: HO.HOP 14:08
PROVIDERS: PCP Internal Medicine; Visit Provider Clinical Nurse Specialist Psychiatric/Mental Health
DX: F41.1 Generalized anxiety disorder (principal); F41.0 Panic disorder [episodic paroxysmal anxiety]
CPT/HCPCS: 90792

== ENCOUNTER → 2024-05-02 14:08 | Outpatient (BNVA) | payer MEDICARE, SELFPAY | PROVIDERS: PCP Internal Medicine; Visit Provider Clinical Nurse Specialist Psychiatric/Mental Health | DX: F41.1 Generalized anxiety disorder (principal); F41.0 Panic disorder [episodic paroxysmal anxiety]; Z71.89 Other specified counseling | CPT/HCPCS: 90792 ==

== ENCOUNTER 2024-10-27 11:25 | Outpatient (AMB) | payer MEDICARE, SELFPAY ==
[2024-10-27 11:49] VITALS: BP 138/90; PULSE 75; TEMP 36.8; O2SAT 96; BMI 35.7
--- NOTE | 2024-10-27 11:49 | MHC.PC.OV ---
Vital Signs 10/27/24 11:49 Height 5 ft 1 in Weight 189 lb BMI 35.7 BP 138/90 H Blood Pressure Location Lt brachial Position Sitting Pulse 75 Pulse Source Pulse Oximeter Temp 98.2 F Temp Source Oral Pulse Oximetry (%) 96 Oxygen Delivery Method Room Air Intake Visit Reasons: 4 month f/u Intake Note: Pt is here today for her 4mo f/u Clinical Services Assistant Required: Yes Clinical Services Assistant Name: VOYCE Information Interpreted: clinical only Traffic Law Attorney: Present Allergies hydrocortisone [From Cortizone-10] Adverse Reaction (Verified 10/27/24 12:08) blurred vision Medication List - Last Reconciled 10/27/24 by Buffy Delgado MD amlodipine 5 mg PO DAILY atorvastatin 40 mg PO DAILY carbamazepine ER 100 mg PO Q12H cholecalciferol (vitamin D3) 50 mcg PO DAILY commode As directed escitalopram oxalate 20 mg PO DAILY Grab bar As directed omeprazole 20 mg PO DAILY quetiapine 50 mg PO BEDTIME vit C,J-Nq-sxwzb-lutein-zeaxan 250-90-40-1 mg (PreserVision AREDS-2) 1 tab PO BID walker (Ultra-Light Rollator misc) As directed Tobacco use date assessed: 10/27/24 Dental Screening Dental Screen Date: 02/07/24 HPI 4 month f/u HPI Details 78-year-old lady with hypertension, venous insufficiency , chronic right heart failure, osteoarthritis of knee, ascending aorta dilatation, history of adenomatous polyp of colon, and gastritis here today for follow-up. She has been compliant with taking her medications, but no regular exercise done, lives a sedentary lifestyle. Adherence to recommended diet is spotty at times. Recently came back from [place] where she had treatment for her right sided trigeminal neuralgia. As per her daughter who accompanied her during that visit, patient started developing severe anxiety attacks, does not want to be left alone at all times. She has generalized anxiety disorder with panic attacks currently on escitalopram, seen by nurse psychiatrist at [facility] who increased her citalopram to 30 mg daily and added clonazepam to take as needed for acute panic attacks. Patient however has not yet been seen for her follow-up. FOR[facility]LY [facility], [facility] Medical History (Updated 10/27/24 @ 12:51 by Buffy Delgado MD) Depression with anxiety Venous insufficiency of both lower extremities Essential hypertension Trigeminal neuralgia of right side of face Localized swelling of both lower legs Ascending aorta dilatation Polyarthralgia Cough GERD (gastroesophageal reflux disease) Gait instability Heartburn symptom Macular degeneration Hyperlipidemia Family history of thyroid disease Lichen sclerosus et atrophicus of the vulva History of herpes zoster Lesion of skin of face Generalized anxiety disorder with panic attacks GALLITO on CPAP Chronic gastroesophageal reflux disease Surgical History History of varicose vein ligation Hx of colonoscopy History of esophagogastroduodenoscopy (EGD) Hx of hernia repair Family History Son Generalized anxiety disorder with panic attacks Maternal Aunt Mental health disorder Social History Housing: Apartment Alcohol intake: former Patient Tobacco Use Status: Former Tobacco user Years Smoked: 5 yrs e-Cigarette/Vaping Use: Never Used service: No Current occupational status: disabled Cognitive needs: No Hearing needs: No Vision needs: No Questionnaire PHQ-9 Over the last 2 weeks, how often have you been bothered by any of the following problems? 1. Little interest or pleasure in doing things: not at all 2. Feeling down, depressed, or hopeless: several days 3. Trouble falling or staying asleep, or sleeping too much: several days 4. Feeling tired or having little energy: several days 5. Poor appetite or overeating: not at all 6. Feeling bad about yourself - or that you are a failure or have let yourself or your family down: not at all 7. Trouble concentrating on things, such as reading the newspaper or watching television: not at all 8. Moving or speaking so slowly that other people could have noticed. Or the opposite - being so fidgety or restless that you have been moving around a lot more than usual: not at all 9. Thoughts that you would be better off or of hurting yourself in some way: not at all Total score: 3 Depression Screening Interpretation: Positive Depression Screening Follow-up: Existing condition and Community Mental Health Worker F/U Depression Screening Done: Yes 81206 - PHQ-9 Billing: Yes Source: Developed by Drs. Kemar LCira Rosales Kurt Kroenke and colleagues, with an educational haily from [employer]. Thrive Questionnaire Date Thrive assessed: 10/24/24 I am a: Parent/Caregiver What is your living situation today?: I have a steady place to live Within the past 12 months, did the food you bought not last and you didn't have the money to get more?: Never true Within the past 12 months, did you worry whether your food would run out before you got money to buy more?: Never true Do you have trouble paying for medicines?: Yes Do you have trouble getting transportation to medical appointments?: Yes Do you have trouble paying your heating and electricity bill?: Yes Do you have trouble taking care of your child, family member or friend?: No Do you have trouble with day-to-day activities such as bathing, preparing meals, shopping, managing finances, etc.?: Yes Are you currently unemployed and looking for a job?: No Are you interested in more education?: No Please select the resources that you would like help with: Food, Paying for medicine, Transportation, Utilities, Care for elder or disabled and Daily support Currently or been in a relationship where the following occur: No concerns reported THRIVE Score: 2 AUDIT C Alcohol Use Questionnaire (AUDIT-C) 1. How often do you have a drink containing alcohol?: Never 3. How often do you have six or more drinks on one occasion?: Never Total Score: 0 NELY-7 AMB Questionnaire NELY-7 Date NELY - 7 assessed: 12/19/23 Feeling nervous, anxious, or on edge: 3 = Nearly every day Not being able to stop or control worryin = Nearly every day Worrying too much about different things: 3 = Nearly every day Trouble relaxin = Nearly every day Being so restless that it is hard to sit still: 1 = Several days Becoming easily annoyed or irritable: 0 = Not at all Feeling afraid as if something awful might happen: 0 = Not at all Total NELY-7 score (0-4 normal; 5-9 mild; 10-14 moderate; 15-21 severe): 13 Source: Developed by Cira Danielson Kurt Kroenke and colleagues, with an educational haily from [employer]. NELY-7 Assessment Billing NELY-7 Assessment Tool: NELY-7 Assessment 06360 (Currently being seen by nurse psychiatrist, Candace Lee at [facility] Review of Systems Const Denies chills, Denies fatigue, Denies fever(s), Denies headache(s) and Denies weight gain ENT Denies dizziness, Denies headache(s) and Denies nasal congestion Card Denies chest pain, Denies edema, Denies irregular heart rhythm, Denies leg edema, Denies lightheadedness, Denies palpitations, Reports dyspnea on exertion and Denies orthopnea Resp Denies cough and Reports dyspnea on exertion GI Denies hematochezia and Denies change in stool character Reports no additional complaints Musc Denies abnormal gait, Denies muscle weakness, Denies numbness, Denies radiating pain into limb and Denies tingling Neuro Denies Abnormal speech present, Denies abnormal gait, Denies dizziness, Denies headache(s), Denies numbness and Denies tingling Psych Reports as per HPI Endo Denies fatigue and Denies palpitations Abilio/Lymph Reports no additional complaints Aller/Immun Reports no additional complaints Physical exam (Primary Care) Vital Signs: Last Vital Signs Temp 98.2 F 10/27/24 11:49 Pulse 75 10/27/24 11:49 BP 138/90 H 10/27/24 11:49 Pulse Ox 96 10/27/24 11:49 Oxygen Delivery Method Room Air 10/27/24 11:49 BMI result Body Mass Index 35.7 Tobacco/Smoking Status: Tobacco use Status Tobacco use date assessed 10/27/24 10/27/24 12:00 Patient Tobacco Use Status Former Tobacco user 10/27/24 12:00 e-Cigarette/Vaping Use Never Used 10/27/24 12:00 PHQ-9: PHQ-9 Score PHQ-9: Total score 3 10/27/24 12:17 Depression Screening Interpretation: Positive Depression Screening Follow-up: Existing condition and Community Mental Health Worker F/U Thrive Assessment: Date of Thrive Assessment Date Thrive assessed 10/24/24 10/27/24 12:00 Currently or been in a relationship where the following occur: No concerns reported Const Other: Accompanied by daughter General: alert and anxious Nutritional Appearance: obese Orientation/consciousness: patient oriented x3 HENMT General nose exam: Normal external nose present and No nasal discharge present Face and sinus: Yes sinuses nontender and Yes face symmetric Mouth: Normal oral and palatal mucosa present, oropharynx normal and moist mucous membranes Neck Neck: Yes full ROM, Yes no lymphadenopathy and Yes supple Resp Effort & Inspection: normal respiratory effort and able to speak in complete sentences Auscultation: clear to auscultation bilaterally Cardio Jugular venous distension: no JVD Rate: regular rate Rhythm: regular rhythm Heart sounds: S1 normal heart sound present and S2 normal heart sound present Peripheral pulses: popliteal pulses present, posterior tibial pulses present and dorsalis pedis present GI Palpation (GI): Soft to palpation, nontender, no guarding and no masses Back/Spine/Pelvis Back: No back tenderness Neuro General: patient oriented x3, moves all extremities, no focal motor deficits and CN's II-XI intact bilaterally Speech: No Abnormal speech present Extrem General: Yes no joint enlargement and Yes no calf tenderness Psych Appearance: grossly normal and well kempt Affect: normal affect Attitude: cooperative Coding Level of Care Code Est Pt Level 4 (21491) Complex EM visit Add On G2211 Diagnoses Depression with anxiety F41.8 Essential hypertension I10 Pure hypercholesterolemia E78.00 Hyperlipidemia type: pure hypercholesterolemia Erosive esophagitis K22.10 Additional Codes PHQ-9 - 18201 - PHQ-9 Billing: Yes ([id number]) NELY-7 Assessment Billing - NELY-7 Assessment Tool: NELY-7 Assessment 50724 ([id number]) Assessment & Plan Assessment & Plan (1) Depression with anxiety: Code(s): F41.8 - Other specified anxiety disorders Category: Medical Plan: Advised to continue taking quetiapine 50 mg at bedtime to help her sleep and increase dose of escitalopram to 30 mg daily, advised to schedule an appointment with Mariela Lee NP for follow-up. (2) Essential hypertension: Code(s): I10 - Essential (primary) hypertension Category: Medical Plan: Blood pressure slightly elevated on this visit, likely due to acute anxiety attack. On amlodipine 5 mg daily and started on olmesartan 20 mg daily. Has an appointment already scheduled for with cardiology later this week. (3) Hyperlipidemia: Code(s): E78.5 - Hyperlipidemia, unspecified Category: Medical Qualifiers: Hyperlipidemia type: pure hypercholesterolemia Qualified Code(s): E78.00 - Pure hypercholesterolemia, unspecified Plan: Continue atorvastatin 40 mg daily (4) Erosive esophagitis: Code(s): K22.10 - Ulcer of esophagus without bleeding Category: Medical Plan: Continue omeprazole 20 mg daily Orders: Orders Basic Metabolic Panel Fasting 10/27/24 E78.00 - Pure hypercholesterolemia, unspecified, F41.0 - Panic disorder [episodic paroxysmal anxiety], F41.1 - Generalized anxiety disorder, F41.8 - Other specified anxiety disorders, I10 - Essential (primary) hypertension, I50.812 - Chronic right heart failure, K22.10 - Ulcer of esophagus without bleeding Alanine Aminotransferase 10/27/24 E78.00 - Pure hypercholesterolemia, unspecified, F41.0 - Panic disorder [episodic paroxysmal anxiety], F41.1 - Generalized anxiety disorder, F41.8 - Other specified anxiety disorders, I10 - Essential (primary) hypertension, I50.812 - Chronic right heart failure, K22.10 - Ulcer of esophagus without bleeding Aspartate Amino Transferase 10/27/24 E78.00 - Pure hypercholesterolemia, unspecified, F41.0 - Panic disorder [episodic paroxysmal anxiety], F41.1 - Generalized anxiety disorder, F41.8 - Other specified anxiety disorders, I10 - Essential (primary) hypertension, I50.812 - Chronic right heart failure, K22.10 - Ulcer of esophagus without bleeding Complete Blood Count Auto Diff 10/27/24 E78.00 - Pure hypercholesterolemia, unspecified, F41.0 - Panic disorder [episodic paroxysmal anxiety], F41.1 - Generalized anxiety disorder, F41.8 - Other specified anxiety disorders, I10 - Essential (primary) hypertension, I50.812 - Chronic right heart failure, K22.10 - Ulcer of esophagus without bleeding Lipid Panel 10/27/24 E78.00 - Pure hypercholesterolemia, unspecified, F41.0 - Panic disorder [episodic paroxysmal anxiety], F41.1 - Generalized anxiety disorder, F41.8 - Other specified anxiety disorders, I10 - Essential (primary) hypertension, I50.812 - Chronic right heart failure, K22.10 - Ulcer of esophagus without bleeding Vitamin D 25-OH Total 10/27/24 E78.00 - Pure hypercholesterolemia, unspecified, F41.0 - Panic disorder [episodic paroxysmal anxiety], F41.1 - Generalized anxiety disorder, F41.8 - Other specified anxiety disorders, I10 - Essential (primary) hypertension, I50.812 - Chronic right heart failure, K22.10 - Ulcer of esophagus without bleeding Medications: New olmesartan Taken in am 40 mg PO DAILY 30 tabs 0RF escitalopram oxalate 30 mg (1.5 x 20 mg) PO DAILY 30 days 45 tabs 5RF escitalopram oxalate 20 mg PO DAILY 30 tabs 5RF
--- OUTSIDE RECORDS SUMMARY | 2024-10-27 13:10 | XMS_ITS | Encounter Summary ---
Author Organization [facility] Address [address] [place] [address] [address] [place] [address] Care Team Providers Care Outside Installation Machinist Name Role Phone Vlad Childers Primary Care Provider Encounter Details Date Type Department Care Team (Latest Contact Info) Description 06/21/2020 Abstract [facility] CONVERSIONS Dental, Provider, DDS Social History Tobacco Use Types Packs/Day Years Used Date Smoking Tobacco: Never Assessed Comments Unknown Sex and Gender Information Value Date Recorded Sex Assigned at Female 05/08/2024 9:50 AM EDT Legal Sex Female 8:37 PM EST Gender Identity Female 05/08/2024 9:50 AM EDT Sexual Orientation Straight 05/08/2024 9: 50 AM EDT documented as of this encounter Plan of Treatment Not on file documented as of this encounter Visit Diagnoses Not on filedocumented in this encounter Care Teams Outside Installation Machinist Relationship Specialty Start Date End Date Vlad Childers LLD [address] [place] [place] [id number] PCP - General Dentist 06/30/22 documented as of this encounter
--- OUTSIDE RECORDS SUMMARY | 2024-10-27 13:10 | XMS_ITS | Clinical Summary ---
Author Organization [facility] Address [address] [place] [address] Care Team Providers Care Underground Mining Section Foreman Name Role Phone Vlad Childers Primary Care Provider Allergies Active Allergy Reactions Criticality Noted Date Comments Hydrocortisone 04/04/2018 Because of her eyes Medications omeprazole (PriLOSEC) [address] capsule Take 20 mg by mouth Once per day. Active amLODIPine-olme sartan (Pipe) 5-40 MG tablet Take 1 tablet by mouth Once per day. Active citalopram (CeleXA) 20 MG tablet TAKE 1 AND 1/2 TABLETS BY MOUTH DAILY Active Multiple Vitamins-Minera ls (ICAPS AREDS 2 PO) Take by mouth. Activ e chlorhexidine (Peridex) 0.12 % solution Please use 15 ml solution orally as mouthwash every night before bed for 2 weeks. 473 mL Active Active Problems No known active problems Social History Tobacco Use Types Packs/Day Years Used Date Smoking Tobacco: Unknown Tobacco Cessation:Counseling Given: Not Answered Comments Unknown Sex and Gender Information Value Date Recorded Sex Assigned at Female 05/08/2024 9:50 AM EDT Legal Sex Female 8:37 PM EST Gender Identity Female 05/08/2024 9:50 AM EDT Sexual Orientation Straight 05/08/2024 9: 50 AM EDT Plan of Treatment Health Maintenance Due Date Last Done Comments Depression Screening 1945 Lipid Panel 1945 SDOH Screening 1945 Alcohol/Substance Use Screening 1957 Hepatitis C Screening 12/07/1963 RSV Patients and Patients Aged 60 years or older (1 - 1-dose 75+ series) 2020 Dental Oral Exam 12/21/2020 06/21/2020, 01/2017, 08/15/2011 Dental Prophylaxis 12/21/2020 06/21/2020, 0 03/04/2012, 07/18/2011 Dental X-Ray: Full Mouth 11/13/2023 021, 06/21/2020, 2016 Zoster Vaccines (2 of 2) 02/27/2024 01/02/2024 COVID-19 Vaccine (4 - season) 2024 09/19/2021, 12/13/2020, 11/15/2020 Tobacco Screening 05/08/2025 05/08/2024 Dental X-Ray: Bitewings 05/09/2025 05/08/20 24, 06/21/2020, 2016, Additional history exists DTaP/Tdap/Td Vaccines (2 - Td or Tdap) 07/10/2026 07/10/2016 Pneumococcal Vaccine: 50+ Years Completed 01/02/2024, 11/03/2022, 11/03/2022 Influenza Vaccine Completed 04/24/2024, , 05/24/2017, Additional history exists HIB Vaccines Aged Out No longer eligi ble based on patient's age to complete this topic HPV Vaccines Aged Out No longer eligi ble based on patient's age to complete this topic Hepatitis A Vaccines Aged Out No long er eligible based on patient's age to complete this topic Hepatitis B Vaccines Aged Out No long er eligible based on patient's age to complete this topic IPV Vaccines Aged Out No longer eligi ble based on patient's age to complete this topic Meningococcal Vaccine Aged Out No kenney artur eligible based on patient's age to complete this topic RSV under 20 months Aged Out No longe r eligible based on patient's age to complete this topic Rotavirus Vaccines Aged Out No longer eligible based on patient's age to complete this topic Procedures Procedure Name Priority Date/Time Associated Diagnosis Comments BITEWING - SINGLE RADIOGRAPHIC IMAGE Routine 05/08/2024 1:00 PM EDT PANORAMIC RADIOGRAPHIC IMAGE Routine 11/11/2020 12:00 AM EST PROPHYLAXIS - ADULT Routine 06/21/2020 1 2:00 AM EDT PERIODIC ORAL EVALUATION - ESTABLISHED PATIENT Routine 06/21/2020 12:00 AM EDT from Last 3 Months or Most Recently Relevant to Health Maintenance Insurance DENTAL - DQ [facility] Care Teams Underground Mining Section Foreman Relationship Specialty Start Date End Date Vlad Childers LLD [address] [place] [id number] PCP - General Dentist 06/30/22
== END 2024-10-27 13:20 | disposition home or self-care (01) ==
PROVIDERS: PCP Internal Medicine; Visit Provider Internal Medicine
DX: F41.8 Other specified anxiety disorders (principal); I10 Essential (primary) hypertension; E78.00 Pure hypercholesterolemia, unspecified; K22.10 Ulcer of esophagus without bleeding

== ENCOUNTER → 2024-10-27 11:25 | Outpatient (BNVA) | payer MEDICARE, SELFPAY | PROVIDERS: PCP Internal Medicine; Visit Provider Internal Medicine | DX: F41.8 Other specified anxiety disorders (principal); I10 Essential (primary) hypertension; E78.00 Pure hypercholesterolemia, unspecified; K22.10 Ulcer of esophagus without bleeding | CPT/HCPCS: 96127; 99212 ==

== ENCOUNTER 2024-10-30 14:20 | Outpatient (AMB) | payer MEDICARE, SELFPAY ==
--- NOTE | 2024-10-30 14:24 | MHC.OFFVIS ---
Vital Signs 10/30/24 14:25 Height 5 ft 1 in Weight 186 lb 8.177 oz BMI 35.2 BP 120/58 L Blood Pressure Location Lt brachial Position Sitting Pulse 70 Pulse Source Pulse Oximeter Intake Visit Reasons: Over due Follow up Cherry Grower Required: Yes Cherry Grower Services: Cherry Grower Present Cherry Grower Name: Jhonny [phone] Accompanied by: Daughter Allergies hydrocortisone [From Cortizone-10] Adverse Reaction (Verified 10/27/24 12:08) blurred vision Medication List - Last Reconciled 10/30/24 by Fransisco Savage MD amlodipine 5 mg PO DAILY atorvastatin 40 mg PO DAILY carbamazepine ER 100 mg PO Q12H cholecalciferol (vitamin D3) 50 mcg PO DAILY commode As directed escitalopram oxalate 30 mg (1.5 x 20 mg) PO DAILY 30 days Grab bar As directed olmesartan 40 mg PO DAILY omeprazole 20 mg PO DAILY quetiapine 50 mg PO BEDTIME vit C,T-Lw-rcyqe-lutein-zeaxan 250-90-40-1 mg (PreserVision AREDS-2) 1 tab PO BID walker (Ultra-Light Rollator misc) As directed HPI Comments Details: Evelyn returns for follow-up. In the past, she was seen regarding ascending aortic enlargement. Patient herself does not have any cardiac issues like coronary disease or myocardial infarction or cardiomyopathy. Her main issue or concern is the fact that her legs are swollen up and very painful. Otherwise, she denies any clear-cut exertional chest pain or other definitive cardiac symptoms. Since last seen, no new concerns. Leg swelling is also stable. [facility] Medical History (Updated 10/27/24 @ 12:51 by Buffy Delgado MD) Depression with anxiety Venous insufficiency of both lower extremities Essential hypertension Trigeminal neuralgia of right side of face Localized swelling of both lower legs Ascending aorta dilatation Polyarthralgia Cough GERD (gastroesophageal reflux disease) Gait instability Heartburn symptom Macular degeneration Hyperlipidemia Family history of thyroid disease Lichen sclerosus et atrophicus of the vulva History of herpes zoster Lesion of skin of face Generalized anxiety disorder with panic attacks GALLITO on CPAP Chronic gastroesophageal reflux disease Surgical History History of varicose vein ligation Hx of colonoscopy History of esophagogastroduodenoscopy (EGD) Hx of hernia repair Family History Son Generalized anxiety disorder with panic attacks Maternal Aunt Mental health disorder Social History (Updated 10/30/24 @ 14:32 by Blanca Mendoza CMA) Housing: Apartment Alcohol intake: former Patient Tobacco Use Status: Former Tobacco user Years Smoked: 5 yrs e-Cigarette/Vaping Use: Never Used service: No Current occupational status: disabled Cognitive needs: No Hearing needs: No Vision needs: No Review of Systems Const Denies chills, Denies fatigue, Denies fever(s), Denies weight gain and Denies weight loss ENT Denies dizziness Card Denies chest pain, Denies leg edema, Denies lightheadedness, Denies palpitations, Reports dyspnea on exertion, Denies orthopnea and Denies other Resp Denies cough and Reports dyspnea on exertion GI Denies hematochezia and Denies change in stool character Musc Denies abnormal gait, Denies muscle weakness, Denies numbness, Denies radiating pain into limb and Denies tingling Neuro Denies Abnormal speech present, Denies abnormal gait, Denies dizziness, Denies numbness and Denies tingling Endo Denies fatigue and Denies palpitations Physical Exam Vital Signs: Last Vital Signs Pulse 70 10/30/24 14:25 BP 120/58 L 10/30/24 14:25 BMI result Body Mass Index 35.2 Const General: comfortable and no acute distress Orientation/consciousness: patient oriented x3 HEENT Other: Unremarkable Head: Yes normal to inspection Neck Neck: Yes normal visual inspection Chest Chest palpation & inspection: normal inspection of the chest Resp Auscultation: clear to auscultation bilaterally Cardio Palpation: normal PMI Heart sounds: S1 normal heart sound present, S2 normal heart sound present, no gallops, no murmurs and no rubs GI Palpation (GI): Soft to palpation Back/Spine/Pelvis Other: unremarkable Skin General skin exam: no rashes or lesions noted Neuro General: patient oriented x3 Speech: No Abnormal speech present Extrem Other: 1+ swelling bilateral. General: Yes normal to inspection Psych Mental Status: mental status grossly normal Assessment & Plan Assessment & Plan (1) Ascending aorta dilatation: Code(s): I77.810 - Thoracic aortic ectasia Category: Medical Plan: In the CT scan, ascending aortic size 4.1 cm at the level of main pulmonary artery. No specific management at this time. We will check an echocardiogram before next visit. (2) Chronic right heart failure: Code(s): I50.812 - Chronic right heart failure Category: Medical Plan: She does have bilateral leg swelling which could be multifactorial. In the CT scan, there is reflux of contrast into the hepatic veins suggesting elevated right heart pressures. However, she also underwent venous insufficiency studies that showed bilateral venous reflux findings. Hence leg swelling could be from combination of both the right heart dysfunction as well as venous insufficiency. She was on a diuretic but not in her list anymore. Doubt if she can lose any weight but if she can do that, we will certainly help. CPAP. Plan Discussed with patient and family using Wallisian/Somali full time staff interpreter. Orders: Orders CA echo transthoracic complete 6 Months I50.812 - Chronic right heart failure, I77.810 - Thoracic aortic ectasia Coding Level of Care Code Est Pt Level 4 (14375) Complex EM visit Add On G2211 Diagnoses Ascending aorta dilatation I77.810 Chronic right heart failure I50.812
[2024-10-30 14:25] VITALS: BP 120/58; PULSE 70; BMI 35.2
--- OUTSIDE RECORDS SUMMARY | 2024-10-30 17:27 | XMS_ITS | Clinical Summary ---
Author Organization [employer] [facility] Address [address] 7[address] [place] [address] Care Team Providers Care Pipe Smoker Machine Operator Name Role Phone Vlad Childers Primary Care [...] to Health Maintenance Insurance DENTAL - DQ [facility] Care Teams Pipe Smoker Machine Operator Relationship Specialty Start Date End Date Vlad Childers LLD [address] [place] [phone] PCP - General Dentist 06/30/22
--- OUTSIDE RECORDS SUMMARY | 2024-10-30 17:27 | XMS_ITS | Encounter Summary ---
Author Organization [employer] [facility] Address [address] [place] [address] 7 [place] [address] Care Team Providers Care Television Reporter Name Role Phone Vlad Childers Primary Care [...] on filedocumented in this encounter Care Teams Television Reporter Relationship Specialty Start Date End Date Vlad Childers LLD [address] [place] [phone] PCP - General Dentist 06/30/22 documented as of this encounter
== END 2024-10-30 14:47 | disposition home or self-care (01) ==
PROVIDERS: PCP Internal Medicine; Visit Provider Internal Medicine
DX: I77.810 Thoracic aortic ectasia (principal); I50.812 Chronic right heart failure
CPT/HCPCS: 99214; G2211

== ENCOUNTER → 2024-10-30 14:20 | Outpatient (BNVA) | payer MEDICARE, SELFPAY | PROVIDERS: PCP Internal Medicine; Visit Provider Internal Medicine | DX: I77.810 Thoracic aortic ectasia (principal); I50.812 Chronic right heart failure | CPT/HCPCS: 99212 ==

== ENCOUNTER 2024-11-03 11:01 | Outpatient (AMB) | payer MEDICARE, SELFPAY ==
--- NOTE | 2024-11-03 11:13 | MHC.OFFVISPS ---
Intake Intake Visit Reasons: follow up Top Lift Compresser Required: Yes Provided:: Language: (St Helenian Barbadian HILDA # [id number]) Language Interpreted:: Barbadian Allergies hydrocortisone [From Cortizone-10] Adverse Reaction (Verified 10/27/24 12:08) blurred vision Medication List - Last Reconciled 11/03/24 by Candace Mcclelland APRN amlodipine 5 mg PO DAILY atorvastatin 40 mg PO DAILY carbamazepine ER 100 mg PO Q12H cholecalciferol (vitamin D3) 50 mcg PO DAILY commode As directed escitalopram oxalate 30 mg (1.5 x 20 mg) PO DAILY 30 days Grab bar As directed olmesartan 40 mg PO DAILY omeprazole 20 mg PO DAILY quetiapine 50 mg PO BEDTIME vit C,R-Vr-ipxxx-lutein-zeaxan 250-90-40-1 mg (PreserVision AREDS-2) 1 tab PO BID walker (Ultra-Light Rollator misc) As directed HPI- Psychiatric Chief Complaint: follow up HPI Narrative: pt is here for follow up for NELY with panic attacks; In interim pt went to [place] for dental work. it turned out patient had trigeminal nerve pain and needed surgery. she has the surgery; while in [place] she was switched to esciptopram and put on 30mg daily she was on seroqule 50 mg at bedtime but is not taking it now due to not needing it but it was also very sedating; she is on tegretol 100mg daily for pain ( she had been on 800mg) but it is tapered. Pt and daughter agree the anxiety is much better; she has no panic attacks; she does not really like to be alone during the day but has 5 children that check on her when they are not working; she also has help from [employer] a visiting nurse comes weekly named lisha. Past Psychiatric History: outpatient treatment x 25 yrs celexa 20 mg daily; she has taken 30mg daily on her own thinking it would help and she feels it helped little; no side effects; no cardiac hx Subjective Subjective Subjective Medication Compliance: Yes Side effects from medications: No Review of Systems Medical Review of Systems: unchanged Mental Status Exam Mental Status Exam Patient Appearance: Well Grooomed Patient Orientation: Person, Place, Time and Situation Level of Consciousness: Awake, Appropriate and Alert Patient Behavior: Appropriate Mood Description: Calm and Cheerful Affect Description: Calm and Cheerful Patient Cognition Impaired: Yes Ability to Follow Directions: Good Speech Pattern: Clear and Appropriate Memory Description: Intact Hallucinations: None Delusions: Not Present Thought Process: Intact and Goal Oriented Thought Content: positive for Intact and positive for Goal Oriented Judgement: Good Assessment and Plan Assessment & Plan (1) Long-term use of high-risk medication: Status: Acute Code(s): Z79.899 - Other senior living (current) drug therapy (2) Generalized anxiety disorder with panic attacks: Status: Acute Code(s): F41.1 - Generalized anxiety disorder; F41.0 - Panic disorder [episodic paroxysmal anxiety] Plan discussed risk of QTC prolongation with high dose escitaolopram or citalopram and we agree to get EKG to check now that escitaopram above the FDA recommended dose Orders: Orders ECG 12 lead EKG Today Z79.899 - Other senior living (current) drug therapy Counseling and coordination of Care Pt. Self Management counseling: Maintenance-social rhythm, Med illness tx adherence, Mod caffeine/ETOH intake, Nutrition education and improvement, Sleep hygiene, General coping skills and Problem solving Medication management counseling: Effectiveness, Side effects, Dosing range, Duration, Drug interaction and Adherence Diagnosis and Prognosis Counseling: Accuracy of diagnosis, Prognosis over time, Impact of diagnosis on life functions, Impact of family relationship, Problematic behaviors secondary to diagnosis and Adequacy of current interventions Details: I spent 45 minutes reviewing the record, seeing the patient and documenting in the medical record. Counseling provided to the patient/caregiver as outlined below. Addressed patient/caregiver concerns regarding current medication regime including effective adherence. Addressed patient/caregiver concerns regarding diagnosis and prognosis including accuracy of diagnosis, prognosis over time, impact of diagnosis. Addressed patient/caregiver concerns regarding impact of recent stressors. [facility] Medical History (Updated 11/03/24 @ 11:34 by Candace Mcclelland APRN) Depression with anxiety Venous insufficiency of both lower extremities Essential hypertension Trigeminal neuralgia of right side of face Localized swelling of both lower legs Ascending aorta dilatation Polyarthralgia Cough GERD (gastroesophageal reflux disease) Gait instability Heartburn symptom Macular degeneration Hyperlipidemia Family history of thyroid disease Lichen sclerosus et atrophicus of the vulva History of herpes zoster Lesion of skin of face Generalized anxiety disorder with panic attacks GALLITO on CPAP Chronic gastroesophageal reflux disease Surgical History History of varicose vein ligation Hx of colonoscopy History of esophagogastroduodenoscopy (EGD) Hx of hernia repair Family History Son Generalized anxiety disorder with panic attacks Maternal Aunt Mental health disorder Social History Housing: Apartment Alcohol intake: former Patient Tobacco Use Status: Former Tobacco user Years Smoked: 5 yrs e-Cigarette/Vaping Use: Never Used service: No Current occupational status: disabled Cognitive needs: No Hearing needs: No Vision needs: No Social History: lives alone; from [place]; has 4 children 3 sons and 1 daughter - all her children are very supportive Substance History: none Trauma History: deferred Coding Level of Care Code Est Pt Level 5 (58801) Diagnoses Long-term use of high-risk medication Z79.899 Generalized anxiety disorder with panic attacks F41.1; F41.0
--- OUTSIDE RECORDS SUMMARY | 2024-11-03 13:05 | XMS_ITS | Encounter Summary ---
Author Organization [employer] [facility] Address [address] [place] [address] 7 [place] [address] Care Team Providers Care Roustabout Crew Name Role Phone Vlad Childers Primary Care [...] on filedocumented in this encounter Care Teams Roustabout Crew Relationship Specialty Start Date End Date Vlad Childers LLD [address] [place] [phone] PCP - General Dentist 06/30/22 documented as of this encounter
--- OUTSIDE RECORDS SUMMARY | 2024-11-03 13:05 | XMS_ITS | Clinical Summary ---
Author Organization [employer] [facility] Address [address] 7[address] [place] [address] Care Team Providers Care Open Hearth Furnace Operator Helper Name Role Phone Vlad Childers Primary Care Provider [phone] Allergies Active Allergy Reactions Criticality Noted Date [...] to Health Maintenance Insurance DENTAL - DQ [facility] Care Teams Open Hearth Furnace Operator Helper Relationship Specialty Start Date End Date Vlad Childers LLD [address] [place] [phone] PCP - General Dentist 06/30/22
== END 2024-11-03 16:18 | disposition home or self-care (01) ==
LOC: HO.HOP 11:01
PROVIDERS: PCP Internal Medicine; Visit Provider Clinical Nurse Specialist Psychiatric/Mental Health
DX: F41.1 Generalized anxiety disorder (principal); F41.0 Panic disorder [episodic paroxysmal anxiety]; Z79.899 Other long term (current) drug therapy
CPT/HCPCS: 99215

== ENCOUNTER → 2024-11-03 11:01 | Outpatient (REF) | payer MEDICARE, SELFPAY ==
--- NOTE | 2024-11-03 11:55 | ECG_ITS ---
Test Reason : [facility] Blood Pressure : */* mmHG Vent. Rate : 67 BPM Atrial Rate : 67 BPM P-R Int : 128 ms QRS Dur : 84 ms QT Int : 394 ms P-R-T Axes : 63 58 48 degrees QTcB Int : 416 ms Normal sinus rhythm Normal ECG When compared with ECG of 27-Oct-2023 15:55, No significant change was found Referred By: Candace Mcclelland Electronically Signed By: MEÑO STINSON MD
--- OUTSIDE RECORDS SUMMARY | 2024-11-03 13:57 | XMS_ITS | Encounter Summary ---
Author Organization [employer] [facility] Address [address] [place] [address] 7 [place] [address] Care Team Providers Care Student Nurse Name Role Phone Vlad Childers Primary Care [...] on filedocumented in this encounter Care Teams Student Nurse Relationship Specialty Start Date End Date Vlad Childers LLD [address] [place] [id number] PCP - General Dentist 06/30/22 documented as of this encounter
--- OUTSIDE RECORDS SUMMARY | 2024-11-03 13:57 | XMS_ITS | Clinical Summary ---
Author Organization [employer] [facility] Address [address] [place] [address] Care Team Providers Care Store Gift Wrap Associate Name Role Phone Vlad Childers Primary Care Provider [phone] Allergies Active Allergy Reactions Criticality Noted Date [...] to Health Maintenance Insurance DENTAL - DQ [facility] Care Teams Store Gift Wrap Associate Relationship Specialty Start Date End Date Vlad Childers LLD [address] [place] [phone] PCP - General Dentist 06/30/22
== END ==
LOC: HO.CARD 11:01
PROVIDERS: PCP Internal Medicine; Visit Provider Clinical Nurse Specialist Psychiatric/Mental Health
DX: Z79.899 Other long term (current) drug therapy (principal); F41.1 Generalized anxiety disorder; F41.0 Panic disorder [episodic paroxysmal anxiety]
CPT/HCPCS: 93005

== ENCOUNTER → 2024-11-03 11:55 | Outpatient (BNV) | payer MEDICARE, SELFPAY | PROVIDERS: PCP Internal Medicine; Visit Provider Internal Medicine Cardiovascular Disease | DX: Z79.899 Other long term (current) drug therapy (principal) | CPT/HCPCS: 93010 ==

== ENCOUNTER 2024-11-06 11:12 | Outpatient (REF) | payer MEDICARE, SELFPAY ==
--- NOTE | ~2024-11-06 | CT_ITS ---
CLINICAL HISTORY: R91.8 - Other nonspecific abnormal finding of lung field CT chest without contrast Comparison: Chest CT from 10/27/2023 Findings: Mild motion artifacts. Mild bibasilar atelectasis, scarring, and emphysematous changes. No consolidation, pneumothorax, or pleural effusion. Rounded atelectasis in the lateral basal segmental right lower lobe (89 of series 4). 5 mm pulmonary nodule laterally in the right lower lobe (image 66 of series 4) is unchanged and abuts the pleura (category 2). No significant change in additional small bilateral pulmonary nodules. No new pulmonary nodule 4 mm or larger. Postprocedural changes of the imaged upper abdomen including cholecystectomy. Mild-moderate volume loss of the imaged pancreas. Degenerative changes include the imaged shoulders and imaged spine. Fusion of the sternum and manubrium IMPRESSION: 1. No significant change in small bilateral pulmonary nodules with 5 mm pulmonary nodule abutting pleura in the right lower lobe. No new or suspicious pulmonary nodule compared to 10/27/2023. 2. Mild bilateral emphysematous changes. Consider lung cancer screening in 1 year. This document has been electronically signed by: Bhavik Shelton MD on 11/07/2024 19:21:49
== END 2024-11-06 11:13 | disposition home or self-care (01) ==
LOC: HO.CT 11:12
PROVIDERS: PCP Internal Medicine; Visit Provider Internal Medicine Pulmonary Disease
DX: R91.8 Other nonspecific abnormal finding of lung field (principal)
CPT/HCPCS: 71250

== ENCOUNTER → 2024-11-06 11:16 | Outpatient (BNV) | payer MEDICARE, SELFPAY | PROVIDERS: PCP Internal Medicine; Visit Provider Radiology Neuroradiology | DX: R91.8 Other nonspecific abnormal finding of lung field (principal) | CPT/HCPCS: 71250 ==

== ENCOUNTER 2024-11-13 08:59 | Outpatient (AMB) | payer MEDICARE, SELFPAY ==
--- NOTE | 2024-11-13 09:03 | MHC.OFFVIS ---
Intake Visit Reasons: 3 month vein check Intake Note: Patient presents for vein check. Left lower leg experiences pain that comes and goes . Dairy Nutrition Consultant Required: Yes Accompanied by: Daughter Allergies hydrocortisone [From Cortizone-10] Adverse Reaction (Verified 11/13/24 09:04) blurred vision HPI HPI 3 month vein check: Details: Evelyn, a pleasant Nauruan speaking 78-year-old female patient, is presenting today with her daughter for a vein check, overdue by several months. We did utilize the phone spanish interpreter/translator; however, it quit approximately skilled nursing through the visit and her daughter interpreted for us. Her daughter states she has been out of the country having some dental procedures done; she states she was found to have a trigeminal neuralgia. She does continue with bilateral lower extremity swelling and discoloration. She states the swelling is worse at night. She does have concerns of restless legs, also worse at night. The patient does spend a significant amount of time sitting and sometimes elevates her legs with some relief. She does not use compression stockings. She has also been taken water pills in the past, the daughter states that they have helped only a little. [facility] Medical History Depression with anxiety Venous insufficiency of both lower extremities Essential hypertension Trigeminal neuralgia of right side of face Localized swelling of both lower legs Ascending aorta dilatation Polyarthralgia Cough GERD (gastroesophageal reflux disease) Gait instability Heartburn symptom Macular degeneration Hyperlipidemia Family history of thyroid disease Lichen sclerosus et atrophicus of the vulva History of herpes zoster Lesion of skin of face Generalized anxiety disorder with panic attacks GALLITO on CPAP Chronic gastroesophageal reflux disease Surgical History History of varicose vein ligation Hx of colonoscopy History of esophagogastroduodenoscopy (EGD) Hx of hernia repair Family History Son Generalized anxiety disorder with panic attacks Maternal Aunt Mental health disorder Social History Housing: Apartment Alcohol intake: former Patient Tobacco Use Status: Former Tobacco user Years Smoked: 5 yrs e-Cigarette/Vaping Use: Never Used service: No Current occupational status: disabled Cognitive needs: No Hearing needs: No Vision needs: No Review of Systems Const Reports as per HPI and Denies weakness ENT Reports Normal hearing present and Denies dizziness Card Reports as per HPI, Denies chest pain, Denies chest pain at rest, Denies chest pain with activity, Denies dyspnea and Denies dyspnea on exertion Resp Reports as per HPI, Denies cough, Denies dyspnea and Denies dyspnea on exertion GI Reports as per HPI, Denies abdominal pain, Denies nausea and Denies vomiting Musc Denies numbness Skin/Breast Reports as per HPI, Denies erythema and Denies wounds Neuro Reports Normal hearing present, Denies dizziness, Denies numbness, Denies Sensory deficit (Neuro) and Denies weakness Psych Reports no additional complaints Endo Reports no additional complaints Physical Exam Const General: healthy appearing and no acute distress Orientation/consciousness: patient oriented x3 HEENT Head: Yes normal to inspection Ears: hearing grossly normal bilaterally Mouth: Normal oral and palatal mucosa present Resp Effort & Inspection: normal respiratory effort and able to speak in complete sentences Auscultation: clear to auscultation bilaterally Cardio Jugular venous distension: no JVD Rate: regular rate Rhythm: regular rhythm Heart sounds: S1 normal heart sound present and S2 normal heart sound present Bruits: no abdominal aortic bruits, no carotid bruits, no femoral bruits and no renal bruits Peripheral pulses: Peripheral pulses 2+ throughout GI Inspection: Yes normal to inspection Palpation (GI): No Abdominal aortic bruit present Skin General skin exam: no rashes or lesions noted Wounds: no wounds Hair: normal Neuro General: patient oriented x3 Cranial nerves: Yes Normal hearing present Cognition (Neuro): normal cognition Gait exam (Neuro): Normal gait present Motor exam (neuro): 5/5 motor strength present throughout Sensory Exam: No Sensory deficit (Neuro) Extrem Other: Bilateral lower extremities: Discoloration noted from the tibial tuberosities to the ankles bilaterally. +2 pitting peripheral edema noted. No wounds noted. No lymphorrhea noted. Hyperkeratosis noted. Leg measurements Right in cm: Thigh 60 Knee 49 Calf 42 Ankle 33 Left in cm: Thigh 58 Knee 48 Calf 40 Ankle 30 General: Yes normal to inspection, Yes full ROM, Yes capillary refill normal and Yes normal gait Assessment & Plan Assessment & Plan (1) Lymphedema: Code(s): I89.0 - Lymphedema, not elsewhere classified Category: Medical Plan: Soledad presents for evaluation of lymphedema. The patient complains of lymphedema located in her bilateral lower extremities. This has been present for years despite conservative treatments. Symptoms that the patient has been experiencing include hyperkeratosis, hyperpigmentation, lymphedema, papillomatosis, and pitting edema. Patient has had a trial of conservative therapy inclusive compression garments of 20-30 mmHg starting over 6m ago; however, she does not tolerate them. In addition, the patient has tried exercise, limb elevation, and home manual lymph decongestive therapy for approximately 30 minutes a day. They have not experienced any significant relief from the swelling and discomfort. They now present for follow-up evaluation. We will have them return on January 14 for our lymphedema clinic. We have included bilateral leg measurements in the physical exam. Thank you for allowing us to participate in the patient's care. We will have her return on January 14 to meet with [facility] to order compression pumps for her lymphedema. Coding Level of Care Code Est Pt Level 4 (05381) Diagnoses Lymphedema I89.0
--- OUTSIDE RECORDS SUMMARY | 2024-11-13 10:09 | XMS_ITS | Clinical Summary ---
Author Organization [employer] [facility] Address [address] [place] [address] Care Team Providers Care Sports Activities Foul Judge Name Role Phone Vlad Childers Primary Care [...] to Health Maintenance Insurance DENTAL - DQ [facility] Care Teams Sports Activities Foul Judge Relationship Specialty Start Date End Date Vlad Childers LLD [address] [place] [id number] PCP - General Dentist 06/30/22
--- OUTSIDE RECORDS SUMMARY | 2024-11-13 10:10 | XMS_ITS | Encounter Summary ---
Author Organization [employer] [facility] Address [address] [place] [address] [address] [place] [address] Care Team Providers Care Beadworker Name Role Phone Vlad Childers Primary Care [...] on filedocumented in this encounter Care Teams Beadworker Relationship Specialty Start Date End Date Vlad Childers LLD [address] [place] [phone] PCP - General Dentist 06/30/22 documented as of this encounter
== END 2024-11-13 09:41 | disposition home or self-care (01) ==
LOC: HO.HVS 08:59
PROVIDERS: PCP Internal Medicine; Visit Provider Physician Assistant Surgical
DX: I89.0 Lymphedema, not elsewhere classified (principal)
CPT/HCPCS: 99214

== ENCOUNTER → 2024-11-13 08:59 | Outpatient (BNVA) | payer MEDICARE, SELFPAY | PROVIDERS: PCP Internal Medicine; Visit Provider Physician Assistant Surgical | DX: I89.0 Lymphedema, not elsewhere classified (principal); Z87.891 Personal history of nicotine dependence | CPT/HCPCS: 99212 ==

== ENCOUNTER 2024-11-26 12:36 | Outpatient (AMB) | payer MEDICARE, SELFPAY ==
[2024-11-26 12:53] VITALS: BP 112/66; PULSE 68; O2SAT 93; BMI 35.2
--- NOTE | 2024-11-26 12:53 | MHC.OFFVIS ---
Vital Signs 11/26/24 12:53 Height 5 ft 1 in Weight 186 lb 4.65 oz BMI 35.2 BP 112/66 Blood Pressure Location Rt brachial Position Sitting Pulse 68 Pulse Source Doppler Pulse Oximetry (%) 93 Oxygen Delivery Method Room Air Intake Visit Reasons: Solitary Pulm Nodule Allergies hydrocortisone [From Cortizone-10] Adverse Reaction (Verified 11/26/24 13:00) blurred vision HPI HPI Solitary Pulm Nodule: Details: 78-year-old lady, former minimal smoker in her 20s, referred for evaluation of abnormal CT scan that demonstrated multiple 5 mm and under pulmonary nodules. Patient denies any pulmonary related concerns or complaints. She has been employed with no exposure to industrial dusts. He denies significant environmental allergies. Patient does not have any pets in the house. Patient does not have prior personal or family history of lung disease. She had a 12 months follow-up CT chest that demonstrated no significant changes from prior. Patient is using CPAP machine with good control of her underlying sleep apnea symptoms. [facility] Medical History (Updated 11/26/24 @ 13:19 by Caden Angel MD) GALLITO on CPAP Depression with anxiety Venous insufficiency of both lower extremities Essential hypertension Trigeminal neuralgia of right side of face Localized swelling of both lower legs Ascending aorta dilatation Polyarthralgia Cough GERD (gastroesophageal reflux disease) Gait instability Heartburn symptom Macular degeneration Hyperlipidemia Family history of thyroid disease Lichen sclerosus et atrophicus of the vulva History of herpes zoster Lesion of skin of face Generalized anxiety disorder with panic attacks Chronic gastroesophageal reflux disease Surgical History History of varicose vein ligation Hx of colonoscopy History of esophagogastroduodenoscopy (EGD) Hx of hernia repair Family History Son Generalized anxiety disorder with panic attacks Maternal Aunt Mental health disorder Social History Housing: Apartment Alcohol intake: former Patient Tobacco Use Status: Former Tobacco user Years Smoked: 5 yrs e-Cigarette/Vaping Use: Never Used service: No Current occupational status: disabled Cognitive needs: No Hearing needs: No Vision needs: No Review of Systems Const Denies daytime sleepiness, Denies excessive sweating, Denies fatigue, Denies fever(s), Denies lethargy, Denies malaise, Denies night sweats, Denies snoring and Denies weight loss Eyes Denies blurry vision and Denies itchy eyes ENT Denies nasal congestion, Denies post nasal drip, Denies sinus pain, Denies sinus pressure and Denies other ( Thrush) Card Denies chest pain, Denies pedal edema, Denies dyspnea, Denies orthopnea and Denies paroxysmal nocturnal dyspnea Resp Denies cough, Denies hemoptysis, Denies excessive phlegm production, Denies dyspnea, Denies snoring and Denies wheezing GI Denies abdominal pain and Denies heartburn Musc Denies myalgias, Denies arthralgias and Denies joint swelling Skin/Breast Denies rash Neuro Denies memory loss and Denies seizure-like activity Psych Denies abnormal sleep pattern, Denies anxiety and Denies memory loss Endo Denies excessive sweating, Denies fatigue and Denies heat intolerance Abilio/Lymph Denies easy bruising Aller/Immun Denies itchy eyes, Denies seasonal rhinorrhea and Denies wheezing Physical Exam Vital Signs: Last Vital Signs Pulse 68 11/26/24 12:53 BP 112/66 11/26/24 12:53 Pulse Ox 93 11/26/24 12:53 Oxygen Delivery Method Room Air 11/26/24 12:53 BMI result Body Mass Index 35.2 Const General: no acute distress and alert Nutritional Appearance: obese Orientation/consciousness: Other orientation findings ( oriented) HEENT Head: Yes atraumatic Eyes General: appearance normal, both eyes and all related structures Sclerae: sclerae normal EOM: EOMs intact bilaterally Neck Neck: Yes supple Lymphatic: no lymphadenopathy noted Resp Effort & Inspection: normal respiratory effort and no use of accessory muscles Auscultation: clear to auscultation bilaterally Cardio Rate: regular rate Rhythm: regular rhythm Heart sounds: no gallops, no murmurs and no rubs Skin General skin exam: other ( warm) Extrem General: No clubbing, No cyanosis and No edema Assessment & Plan Assessment & Plan (1) Multiple pulmonary nodules: Code(s): R91.8 - Other nonspecific abnormal finding of lung field Category: Medical Plan: Results of follow-up CT chest reviewed, no changes in multiple bilateral pulmonary nodules. Will repeat CT chest in 12 months, if no changes at that time, then no further imaging follow-up would be required. (2) GALLITO on CPAP: Code(s): G47.33 - Obstructive sleep apnea (adult) (pediatric); Z99.89 - Dependence on other enabling machines and devices Category: Medical Plan: Well controlled on current CPAP therapy. Continue CPAP therapy. Orders: Orders CT chest wo IV con 11/06/25 R91.8 - Other nonspecific abnormal finding of lung field Coding Level of Care Code Est Pt Level 4 (89629) Diagnoses Multiple pulmonary nodules R91.8 GALLITO on CPAP G47.33; Z99.89
--- OUTSIDE RECORDS SUMMARY | 2024-11-26 14:54 | XMS_ITS | Encounter Summary ---
Author Organization [employer] [facility] Address [address] [place] [address] [address] [place] [address] Care Team Providers Care Concrete Crusher Loader Operator Name Role Phone Vlad Childers Primary [...] on filedocumented in this encounter Care Teams Concrete Crusher Loader Operator Relationship Specialty Start Date End Date Vlad Childers LLD [address] [place] [id number] PCP - General Dentist 06/30/22 documented as of this encounter
--- OUTSIDE RECORDS SUMMARY | 2024-11-26 14:54 | XMS_ITS | Clinical Summary ---
Author Organization [facility] Address [address] [place] [address] Care Team Providers Care Laborer Cook House Name Role Phone Vlad Childers Primary Care Provider [phone] Allergies Active Allergy Reactions Criticality Noted Date [...] Health Maintenance Insurance DENTAL - DQ [facility] Care Teams Laborer Cook House Relationship Specialty Start Date End Date Vlad Childers LLD [address] [place] [id number] PCP - General Dentist 06/30/22
== END 2024-11-26 13:13 | disposition home or self-care (01) ==
LOC: HO.HPS 12:36
PROVIDERS: PCP Internal Medicine; Visit Provider Internal Medicine Pulmonary Disease
DX: R91.8 Other nonspecific abnormal finding of lung field (principal); G47.33 Obstructive sleep apnea (adult) (pediatric); Z99.89 Dependence on other enabling machines and devices
CPT/HCPCS: 99214

== ENCOUNTER → 2024-11-26 12:36 | Outpatient (BNVA) | payer MEDICARE, SELFPAY | PROVIDERS: PCP Internal Medicine; Visit Provider Internal Medicine Pulmonary Disease | DX: R91.8 Other nonspecific abnormal finding of lung field (principal); G47.33 Obstructive sleep apnea (adult) (pediatric); Z99.89 Dependence on other enabling machines and devices | CPT/HCPCS: 99212 ==

== ENCOUNTER 2024-11-28 12:10 | Outpatient (AMB) | payer MEDICARE, SELFPAY ==
[2024-11-28 13:03] VITALS: BP 110/68; PULSE 65; O2SAT 92
--- NOTE | 2024-11-28 13:03 | AM.OFFWIN_ITS ---
Intake Vital Signs 11/28/24 13:03 Weight 187 lb BP 110/68 Blood Pressure Location Lt brachial Pulse 65 Pulse Source Pulse Oximeter Pulse Oximetry (%) 92 Oxygen Delivery Method Room Air Intake Visit Reasons: EP Restless, sharp pains bilat legs, lt ankle pain Patient Tobacco Use Status: Former Tobacco user Allergies hydrocortisone [From Cortizone-10] Adverse Reaction (Verified 11/26/24 13:00) blurred vision HPI EP Restless, sharp pains bilat legs, lt ankle pain HPI Details This is a 78-year-old female patient who presents to the walk-in clinic today with report of Per Cardiology: CT scans suggested elevated right heart pressures. However, she also underwent venous insufficiency studies that showed bilateral venous reflux findings. Hence leg swelling could be from combination of both the right heart dysfunction as well as venous insufficiency. HPI Comments History of Present Illness Details Spanish video radiologist chief of breast imaging attempted to be used for this visit but it failed after 3 attempts so her daughter interpreted. History of Present Illness - The patient is a 78-year-old female pr esenting with sharp, shooting bilateral thigh pain. - Experienced sharp, shooting pain in th e front of both thighs for two months. - No radiation to the back of the leg, n umbness, tingling, or cramping. - Reports slight weakness without signif icant limitation, not worse with standing or sitting - Initial significant leg swelling resol laura with lasix. - Recently refilled meloxicam but hasn't taken any of the medication yet. - Medications include atorvastatin for c holesterol, citalopram for anxiety, and lisinopril for hypertension. Physical Exam General: Cooperative, healthy appearing, comfortable, no acute distress and well developed Orientation: Patient oriented x3 Limitations: Spanish speaking Head: Normal to inspection Ears: Hearing grossly normal bilaterally Nose: Normal External nose present Face and sinus: Normal facial exam Eyes: Appearance normal, both eyes and all related structures Neck: Normal visual inspection and Yes full ROM Respiratory: Normal respiratory effort and able to speak in complete sentences. Skin: No rashes or lesions noted Neuro: Patient oriented x3 Extremities: Normal to inspection, strength 5/5 bilaterally, sensation in tact, no edema or color changes PFSH Medical History (Updated 11/28/24 @ 13:40 by Alberta Xavier PA-C) GALLITO on CPAP Depression with anxiety Venous insufficiency of both lower extremities Essential hypertension Trigeminal neuralgia of right side of face Localized swelling of both lower legs Ascending aorta dilatation Polyarthralgia Cough GERD (gastroesophageal reflux disease) Gait instability Heartburn symptom Macular degeneration Hyperlipidemia Family history of thyroid disease Lichen sclerosus et atrophicus of the vulva History of herpes zoster Lesion of skin of face Generalized anxiety disorder with panic attacks Chronic gastroesophageal reflux disease Surgical History History of varicose vein ligation Hx of colonoscopy History of esophagogastroduodenoscopy (EGD) Hx of hernia repair Family History Son Generalized anxiety disorder with panic attacks Maternal Aunt Mental health disorder Social History Housing: Apartment Alcohol intake: former Patient Tobacco Use Status: Former Tobacco user Years Smoked: 5 yrs e-Cigarette/Vaping Use: Never Used service: No Current occupational status: disabled Cognitive needs: No Hearing needs: No Vision needs: No Review of Systems Const All systems reviewed & are unremarkable except as noted in HPI and below Physical Exam Vital Signs: Last Vital Signs Pulse 65 11/28/24 13:03 BP 110/68 11/28/24 13:03 Pulse Ox 92 11/28/24 13:03 Oxygen Delivery Method Room Air 11/28/24 13:03 Assessment & Plan Assessment & Plan (1) Leg pain, bilateral: Code(s): M79.604 - Pain in right leg; M79.605 - Pain in left leg Plan: The patient will continue meloxicam once daily for four to five days for the bilateral thigh pain with careful monitoring for side effects. Given the likely musculoskeletal nature of her symptoms, I consider this an appropriate intervention. The previously noted leg swelling is resolved, though will continue monitoring due to the unknown initial treatment. Future reassessment of her response to treatment is planned, with potential adjustments pending symptom evaluation. Patient was informed and verbally consented to the use of an ambient scribe for clinic note documentation during this visit. Coding Level of Care Code Est Pt Level 3 (31985) Diagnoses Leg pain, bilateral M79.604; M79.605
== END 2024-11-28 13:46 | disposition home or self-care (01) ==
PROVIDERS: PCP Internal Medicine; Visit Provider Physician Assistant
DX: M79.604 Pain in right leg (principal); M79.605 Pain in left leg

== ENCOUNTER → 2024-11-28 12:10 | Outpatient (BNVA) | payer MEDICARE, SELFPAY | PROVIDERS: PCP Internal Medicine; Visit Provider Physician Assistant | DX: M79.604 Pain in right leg (principal); M79.605 Pain in left leg | CPT/HCPCS: 99212 ==

== ENCOUNTER 2025-01-08 10:30 | Outpatient (REF) | payer MEDICARE, SELFPAY ==
--- OUTSIDE RECORDS SUMMARY | 2025-01-08 12:19 | XMS_ITS | Clinical Summary ---
Author Organization [employer] Address [address] [place] [address] Care Team Providers Care Crnp Name Role Phone Vlad Childers Primary Care [...] Active Active Problems No known active problems Encounters Date Type Department Care Team Description 01/02/2025 Refill [facility] CHC ADULT DENTAL [address] [place] [address] Екатерина Johnson BDS from Last 3 Months Social History Tobacco Use Types Packs/Day Years [...] (2 of 2) 02/27/2024 01/02/2024 COVID-19 Vaccine ( season) 2024 09/19/2021, 12/13/2020, 11/15/2020 Tobacco Screening [...] to Health Maintenance Insurance DENTAL - DQ [facility] Care Teams Crnp Relationship Specialty Start Date End Date Vlad Childers LLD [address] [place] [id number] PCP - General Dentist 06/30/22
--- OUTSIDE RECORDS SUMMARY | 2025-01-08 12:19 | XMS_ITS | Encounter Summary ---
Author Organization [employer] Address [address] [facility] 7t [place] [address] Care Team Providers Care Assistance Specialist Name Role Phone Vlad Childers Primary Care Provider Reason for Visit * Reason Comments Med Refill Encounter Details Date Type Department Care Team ([facility] st Contact Info) Description 01/02/[address] [facility] CHC ADULT DENTAL [address] [place] [address] Екатерина Johnson BDS Social History Tobacco Use Types Packs/Day Years Used Date Smoking Tobacco: Unknown Comments Unknown Sex and Gender Information Value [...] on filedocumented in this encounter Care Teams Assistance Specialist Relationship Specialty Start Date End Date Vlad Childers LLD [address] [place] [id number] PCP - General Dentist 06/30/22 documented as of this encounter
--- OUTSIDE RECORDS SUMMARY | 2025-01-08 12:19 | XMS_ITS | Encounter Summary ---
Author Organization [facility] Address [address] [place] [address] 7 [place] [address] Care Team Providers Care Metal Technician Name Role Phone Vlad Childers Primary Care [...] on filedocumented in this encounter Care Teams Metal Technician Relationship Specialty Start Date End Date Vlad Childers LLD [address] [place] [id number] PCP - General Dentist 06/30/22 documented as of this encounter
[2025-01-08 13:34] LABS: Appearance Urine Clear; Color Urine Yellow; Glucose Urine UA Negative (Negative); Leukocyte Esterase Urine Negative (Negative); Nitrite Urine Negative (Negative); PH 6.5 (5.0-9.0); Specific Gravity - Urine 1.015 (1.005-1.025); Urine Blood Negative (Negative); Urine Ketones Negative (Negative); Urine Protein Negative (Neg-Trace)
== END 2025-01-08 10:31 | disposition home or self-care (01) ==
LOC: HO.HMGCLNP 10:30
PROVIDERS: PCP Internal Medicine; Visit Provider Internal Medicine
DX: R35.0 Frequency of micturition (principal)
CPT/HCPCS: 81003; 99202

== ENCOUNTER 2025-01-08 13:26 | Outpatient (AMB) | payer MEDICARE, SELFPAY ==
--- NOTE | 2025-01-08 13:31 | MHC.OFFVIS ---
Vital Signs 01/08/25 13:32 Height 5 ft 1 in Weight 189 lb BMI 35.7 BP 132/82 Blood Pressure Location Rt brachial Position Sitting Intake Visit Reasons: INP-Trigeminal Neuralgia-Conf Intake Note: Patient referred inhouse by Dr. Delgado for trigeminal neuralgia right side of face. Fiberglass Boat Builder Required: Yes Fiberglass Boat Builder Services: Fiberglass Boat Builder Present Fiberglass Boat Builder Name: ZANDRA PEDERSEN #[id number] Information Interpreted: non-clinical & clinical Allergies hydrocortisone [From Cortizone-10] Adverse Reaction (Verified 01/08/25 13:37) blurred vision Medication List - Last Reconciled 01/08/25 by Jesica Navarro MD amlodipine 5 mg PO DAILY atorvastatin 40 mg PO DAILY carbamazepine ER 100 mg PO Q12H cholecalciferol (vitamin D3) 50 mcg PO DAILY commode As directed commode use as directed escitalopram oxalate 30 mg (1.5 x 20 mg) PO DAILY 30 days Grab bar As directed Grab bar Use as directed miscellaneous medical supply Use as directed olmesartan 40 mg PO DAILY omeprazole 20 mg PO DAILY vit C,O-Yj-cwpyt-lutein-zeaxan 250-90-40-1 mg (PreserVision AREDS-2) 1 tab PO BID walker (Ultra-Light Rollator misc) As directed HPI Comments Details: 79y/o female comes for further management of Right Trigeminal neuralgia.She is from [place].she started noticing right facial pain - 4 years ago . she was doing well for 2 years with carbamazepine but started having severe pain that did not respond to medications in Jun 2024 . she had surgery in OCT 2024 ? decompression - 90% better but she sill has residual episodes.she still takes carbamazepine 100mg qhs but it does not help her. Washing her face , brushing her teeth , eating talking can trigger episodes. she used to be on high doses of carbamazepine . [facility] Medical History GALLITO on CPAP Depression with anxiety Venous insufficiency of both lower extremities Essential hypertension Trigeminal neuralgia of right side of face Localized swelling of both lower legs Ascending aorta dilatation Polyarthralgia Cough GERD (gastroesophageal reflux disease) Gait instability Heartburn symptom Macular degeneration Hyperlipidemia Family history of thyroid disease Lichen sclerosus et atrophicus of the vulva History of herpes zoster Lesion of skin of face Generalized anxiety disorder with panic attacks Chronic gastroesophageal reflux disease Surgical History History of varicose vein ligation Hx of colonoscopy History of esophagogastroduodenoscopy (EGD) Hx of hernia repair Family History Son Generalized anxiety disorder with panic attacks Maternal Aunt Mental health disorder Social History Housing: Apartment Alcohol intake: former Patient Tobacco Use Status: Former Tobacco user Years Smoked: 5 yrs e-Cigarette/Vaping Use: Never Used service: No Current occupational status: disabled Cognitive needs: No Hearing needs: No Vision needs: No Physical Exam Vital Signs: Last Vital Signs BP 132/82 01/08/25 13:32 BMI result Body Mass Index 35.7 Const General: cooperative, healthy appearing, comfortable and no acute distress Nutritional Appearance: obese Orientation/consciousness: patient oriented x3 Eyes Pupils: Equal, round and reactive pupils present Neuro Other: antalgic gait- with cane General: patient oriented x3, tone normal, moves all extremities and no focal motor deficits Cranial nerves: Yes Facial sensation intact/muscles of mastication intact, Yes Equal, round and reactive pupils present, No Bilaterally intact EOM present, Yes Nystagmus not present, Yes Normal facial strength present, Yes Midline tongue present, Yes Symmetric palate elevation present and Yes Ability to bilaterally elevate shoulders present Cognition (Neuro): normal cognition Gait exam (Neuro): Antalgic gait present Motor exam (neuro): 5/5 motor strength present throughout and Normal motor muscle tone present throughout Deep tendon reflexes (DTR's): Right triceps reflex intensity grade: 1+, Left triceps reflex intensity grade: 1+, Rt Biceps (C5, C6): 1+, Left biceps reflex intensity grade: 1+, Right brachioradialis reflex intensity grade: 1+, Left brachioradialis reflex intensity grade: 1+, Right patellar reflex intensity grade: 1+ and Left patellar reflex intensity grade: 1+ Coordination: [id number] test normal Assessment & Plan Assessment & Plan (1) Trigeminal neuralgia of right side of face: Code(s): G50.0 - Trigeminal neuralgia Category: Medical Plan change carbamazipine to oxcarbamazepine 150 mg qhs her daughter will bring reports from [place] - and after reviewing will consider referring to for opinion Medications: New oxcarbazepine orally QHS; 30 tabs 2RF Discontinued carbamazepine ER Discontinued Reason: Doctor's Order 100 mg PO Q12H 60 tabs 2RF Coding Level of Care Code New Pt Level 4 (87710) Complex EM visit Add On G2211 Diagnoses Trigeminal neuralgia of right side of face G50.0
[2025-01-08 13:32] VITALS: BP 132/82; BMI 35.7
--- OUTSIDE RECORDS SUMMARY | 2025-01-08 14:30 | XMS_ITS | Encounter Summary ---
Author Organization [employer] [facility] Address [address] [place] [address] 7 [place] [address] Care Team Providers Care Mammography Tech Name Role Phone Vlad Childers Primary Care [...] on filedocumented in this encounter Care Teams Mammography Tech Relationship Specialty Start Date End Date Vlad Childers LLD [address] [place] [phone] PCP - General Dentist 06/30/22 documented as of this encounter
--- OUTSIDE RECORDS SUMMARY | 2025-01-08 14:30 | XMS_ITS | Encounter Summary ---
Author Organization [employer] Address [address] [facility] 7t [place] [address] Care Team Providers Care Test Clerk Name Role Phone Vlad Childers Primary Care Provider [phone] Reason for Visit * Reason Comments Med Refill Encounter Details Date Type Department Care Team ([facility] st Contact Info) Description 01/02/2025 Refill [facility] CHC ADULT DENTAL [address] [place] [address] Екатерина Johnson BDS Social History Tobacco Use [...] on filedocumented in this encounter Care Teams Test Clerk Relationship Specialty Start Date End Date Vlad Childers LLD [address] [place] [id number] PCP - General Dentist 06/30/22 documented as of this encounter
--- OUTSIDE RECORDS SUMMARY | 2025-01-08 14:30 | XMS_ITS | Clinical Summary ---
Author Organization [employer] Address [address] 7t [place] [address] Care Team Providers Care Metalsmith Apprentice Name Role Phone Vlad Childers Primary Care [...] Type Department Care Team Description 01/02/2025 Refill [facility] CHC ADULT DENTAL [address] [place] [address] Екатерина Johnson BDS from Last 3 Months [...] to Health Maintenance Insurance DENTAL - DQ [facility] Care Teams Metalsmith Apprentice Relationship Specialty Start Date End Date Vlad Childers LLD [address] [place] [id number] PCP - General Dentist 06/30/22
== END 2025-01-08 14:22 | disposition home or self-care (01) ==
LOC: HO.HSMS 13:27
PROVIDERS: PCP Internal Medicine; Visit Provider Psychiatry & Neurology Neurology
DX: G50.0 Trigeminal neuralgia (principal)
CPT/HCPCS: 99204; G2211

== ENCOUNTER 2025-01-14 14:33 | Outpatient (AMB) | payer MEDICARE, SELFPAY ==
--- NOTE | 2025-01-14 14:32 | MHC.OFFVIS ---
Intake Visit Reasons: Lymphedema clinic Intake Note: Patient presents for lymphedema clinic. Allergies hydrocortisone [From Cortizone-10] Adverse Reaction (Verified 01/14/25 14:33) blurred vision HPI HPI Lymphedema clinic: Details: Evelyn is presenting today with her daughter to our lymphedema clinic. She is Icelandic speaking only, and we utilized her daughter as an linux admin. She continues to endorse bilateral lower extremity swelling and pain. She has had difficulty with the compression socks, but has tried them. She has no new concerns today. [facility] Medical History GALLITO on CPAP Depression with anxiety Venous insufficiency of both lower extremities Essential hypertension Trigeminal neuralgia of right side of face Localized swelling of both lower legs Ascending aorta dilatation Polyarthralgia Cough GERD (gastroesophageal reflux disease) Gait instability Heartburn symptom Macular degeneration Hyperlipidemia Family history of thyroid disease Lichen sclerosus et atrophicus of the vulva History of herpes zoster Lesion of skin of face Generalized anxiety disorder with panic attacks Chronic gastroesophageal reflux disease Surgical History History of varicose vein ligation Hx of colonoscopy History of esophagogastroduodenoscopy (EGD) Hx of hernia repair Family History Son Generalized anxiety disorder with panic attacks Maternal Aunt Mental health disorder Social History Housing: Apartment Alcohol intake: former Patient Tobacco Use Status: Former Tobacco user Years Smoked: 5 yrs e-Cigarette/Vaping Use: Never Used service: No Current occupational status: disabled Cognitive needs: No Hearing needs: No Vision needs: No Review of Systems Const Reports as per HPI and Denies weakness ENT Reports Normal hearing present and Denies dizziness Card Reports as per HPI, Denies chest pain, Denies chest pain at rest, Denies chest pain with activity, Denies dyspnea and Denies dyspnea on exertion Resp Reports as per HPI, Denies cough, Denies dyspnea and Denies dyspnea on exertion GI Reports as per HPI, Denies abdominal pain, Denies nausea and Denies vomiting Musc Denies numbness Skin/Breast Reports as per HPI, Denies erythema and Denies wounds Neuro Reports Normal hearing present, Denies dizziness, Denies numbness, Denies Sensory deficit (Neuro) and Denies weakness Psych Reports no additional complaints Endo Reports no additional complaints Physical Exam Const General: healthy appearing and no acute distress Orientation/consciousness: patient oriented x3 HEENT Head: Yes normal to inspection Ears: hearing grossly normal bilaterally Mouth: Normal oral and palatal mucosa present Resp Effort & Inspection: normal respiratory effort and able to speak in complete sentences Auscultation: clear to auscultation bilaterally Cardio Jugular venous distension: no JVD Rate: regular rate Rhythm: regular rhythm Heart sounds: S1 normal heart sound present and S2 normal heart sound present Bruits: no abdominal aortic bruits, no carotid bruits, no femoral bruits and no renal bruits Peripheral pulses: Peripheral pulses 2+ throughout GI Inspection: Yes normal to inspection Palpation (GI): No Abdominal aortic bruit present Skin General skin exam: no rashes or lesions noted Wounds: no wounds Hair: normal Neuro General: patient oriented x3 Cranial nerves: Yes Normal hearing present Cognition (Neuro): normal cognition Gait exam (Neuro): Normal gait present Motor exam (neuro): 5/5 motor strength present throughout Sensory Exam: No Sensory deficit (Neuro) Extrem Other: Bilateral lower extremities: Discoloration noted from the tibial tuberosities to the ankles bilaterally. +2 pitting peripheral edema noted. No wounds noted. General: Yes normal to inspection, Yes full ROM, Yes capillary refill normal and Yes normal gait Assessment & Plan Assessment & Plan (1) Lymphedema: Code(s): I89.0 - Lymphedema, not elsewhere classified Category: Medical Plan: Evelyn is presenting today with her daughter to our lymphedema clinic. They has had more than 3 months, starting on 04/01/24, of conservative treatments with elevation, compression stockings daily use with 20-30mmHg, and physical activity with minimal relief. The swelling and pain has worsened since 11/13/24. They continue to have persistent symptoms despite conservative treatments. They are presenting with hyperpigmentation, lymphorrhea, hyperkeratosis, and 2+ pitting edema. They also complains of pain and itchiness. It appears that they has stage II lymphedema. Herbert from [employer] will be fitting them for a pneumatic compression device, which will get mailed to their house. The patient has lymphedema that extends to her upper thigh and abdominal region. The basic pneumatic compression device is not adequate for the patient; it has been trialed but is not clinically appropriate due to the extensive lymphedema noted. The advanced compression device will be the best in this case. They are not in the in-network option locally; so they will need an out of network exception. Thank you allowing us to care for the patient. Coding Level of Care Code Est Pt Level 3 (23488) Diagnoses Lymphedema I89.0
--- OUTSIDE RECORDS SUMMARY | 2025-01-14 14:36 | XMS_ITS | Encounter Summary ---
Author Organization [employer] Address [address] [facility] 7t [place] [address] Care Team Providers Care In Home Nanny Name Role Phone Vlad Childers Primary Care Provider Reason for Visit * Reason Comments Med Refill Encounter Details Date Type Department Care Team ([facility] st Contact Info) Description 01/02/2025 Refill [facility] CHC ADULT DENTAL [address] [place] [address] Екатерина Johnson BDS Social History Tobacco Use [...] on filedocumented in this encounter Care Teams In Home Nanny Relationship Specialty Start Date End Date Vlad Childers LLD [address] [place] [phone] PCP - General Dentist 06/30/22 documented as of this encounter
--- OUTSIDE RECORDS SUMMARY | 2025-01-14 14:36 | XMS_ITS | Encounter Summary ---
Author Organization [employer] [facility] Address [address] [place] [address] 7 [place] [address] Care Team Providers Care Baler Name Role Phone Vlad Childers Primary Care [...] on filedocumented in this encounter Care Teams Baler Relationship Specialty Start Date End Date Vlad Childers LLD [address] [place] [phone] PCP - General Dentist 06/30/22 documented as of this encounter
--- OUTSIDE RECORDS SUMMARY | 2025-01-14 14:36 | XMS_ITS | Clinical Summary ---
Author Organization [employer] Address [address] [facility] 7t [place] [address] Care Team Providers Care Supervisor Plate Forming Name Role Phone Vlad Childers Primary Care Provider [phone] Allergies Active Allergy Reactions Criticality Noted Date [...] Type Department Care Team Description 01/02/2025 Refill [facility] CHC ADULT DENTAL [address] [place] [address] Екатерина Johnson BDS from Last 3 Months [...] to Health Maintenance Insurance DENTAL - DQ [facility] Care Teams Supervisor Plate Forming Relationship Specialty Start Date End Date Vlad Childers LLD [address] [place] [phone] PCP - General Dentist 06/30/22
== END 2025-01-14 15:01 | disposition home or self-care (01) ==
LOC: HO.HVS 14:33
PROVIDERS: PCP Internal Medicine; Visit Provider Physician Assistant Surgical
DX: I89.0 Lymphedema, not elsewhere classified (principal)
CPT/HCPCS: 99213

== ENCOUNTER → 2025-01-14 14:33 | Outpatient (BNVA) | payer MEDICARE, SELFPAY | PROVIDERS: PCP Internal Medicine; Visit Provider Physician Assistant Surgical | DX: I89.0 Lymphedema, not elsewhere classified (principal) | CPT/HCPCS: 99212 ==

== ENCOUNTER 2025-04-10 08:28 | Outpatient (REF) | payer MEDICARE, SELFPAY ==
--- OUTSIDE RECORDS SUMMARY | 2025-04-10 08:42 | XMS_ITS | Clinical Summary ---
Author Organization [email or web address] [facility] Address [address] [facility] 7t [place] [address] Care Team Providers Care Health Program Director Name Role Phone Vlad Childers Primary Care [...] before bed for 2 weeks. 473 mL 4 Active Active Problems No known active problems [...] of 2) 02/27/2024 01/02/2024 COVID-19 Vaccine ( - season) 2024 09/19/2021, 12/13/2020, 11/15/2020 Influenza Vaccine (#1) 2025 , 09/27/2021, 05/24/2017, Additional history exists Tobacco Screening 05/08/2025 05/08/2024 Dental X-Ray: Bitewings 05/09/2025 05/08/20 24, 06/21/2020, 2016, Additional history exists DTaP/Tdap/Td Vaccines (2 - Td or Tdap) 07/10/2026 07/10/2016 Pneumococcal Vaccine: 50+ Years Completed 01/02/2024, 11/03/2022, 11/03/2022 HIB Vaccines Aged Out No longer eligi [...] patient's age to complete this topic Meningococcal B Vaccine Aged Out No l onger eligible based on patient's age to complete [...] to Health Maintenance Insurance DENTAL - DQ [facility] Care Teams Health Program Director Relationship Specialty Start Date End Date Vlad Childers LLD [address] [place] [id number] PCP - General Dentist 06/30/22
[2025-04-10 10:38] LABS: MANUAL DIFF FLAG NO
[2025-04-10 10:43] LABS: Hematocrit 40.3 % (37.0-47.0); Hemoglobin 12.3 g/dl (12.0-16.0); Imm Gran Abs Auto 0.02 X10*3/uL (0.00-0.03); Imm Gran Pct Auto 0.3 % (0.0-0.4); Lymphocytes Absolute Auto 1.9 X10*3/uL (1.2-4.9); Mean Corpuscular HGB Conc 30.5 g/dl (31.0-35.0); Mean Corpuscular Hemoglobin 28.4 pg (27.0-33.0); Mean Corpuscular Volume 93.1 fL (80.0-98.0); NRBC Abs Auto 0.000 X10*3/uL (0.0-0.012); NRBC Pct Auto 0.0 /100WBC (0.0-0.2); Platelet Count 156 X10*3/uL (160-400); Red Blood Count 4.33 X10*6/uL (4.20-5.50); White Blood Count 6.6 X10*3/uL (4.8-10.8)
[2025-04-10 11:03] LABS: Alanine Aminotransferase 20 U/L (0-31); Anion Gap 12 (12-20); Aspartate Amino Transferase 26 U/L (5-31); Blood Urea Nitrogen 38 mg/dL (9-16); Calcium 9.9 mg/dL (8.4-10.2); Carbon Dioxide 33 mmol/L (22-29); Chloride 106 mmol/L (96-108); Cholesterol 154 mg/dL (<200); Estimated Glomerular Filt Rate 33; HDL Cholesterol 45 mg/dL (>40); Potassium 4.5 mmol/L (3.3-5.1); Sodium 146 mmol/L (135-145); Triglycerides 116 mg/dL (<150)
== END 2025-04-10 08:29 | disposition home or self-care (01) ==
LOC: HO.HMGCLDS 08:28
PROVIDERS: PCP Internal Medicine; Visit Provider Internal Medicine
DX: I11.0 Hypertensive heart disease with heart failure (principal); I50.812 Chronic right heart failure; F41.1 Generalized anxiety disorder; F41.0 Panic disorder [episodic paroxysmal anxiety]; E78.00 Pure hypercholesterolemia, unspecified; K22.10 Ulcer of esophagus without bleeding
CPT/HCPCS: 36415; 80048; 80061; 82306; 84450; 84460; 85025

== ENCOUNTER 2025-04-27 11:31 | Outpatient (AMB) | payer MEDICARE, SELFPAY ==
[2025-04-27 11:34] VITALS: BP 116/70; PULSE 68; RESP 16; TEMP 36.8; O2SAT 94; BMI 36.1
--- NOTE | 2025-04-27 11:34 | MHC.PC.OV ---
Vital Signs 04/27/25 11:34 Height 5 ft 1 in Weight 191 lb BMI 36.1 BP 116/70 Blood Pressure Location Lt brachial Position Sitting Respiration 16 Pulse 68 Pulse Source Pulse Oximeter Temp 98.3 F Temp Source Oral Pulse Oximetry (%) 94 Oxygen Delivery Method Room Air Intake Visit Reasons: 6m follow up HTN/Hyperlipidemia Intake Note: Pt is here today for her 6mo. f/u/HTN/hyperlipidemia Dewatering Filtering Supervisor Required: Yes Dewatering Filtering Supervisor Language: Senegalese Dewatering Filtering Supervisor Name: ysabel ID#[id number] Information Interpreted: clinical only Terry Cloth Cutter Hand: Present Accompanied by: Son Post menopausal: Yes Allergies hydrocortisone (From Cortizone-10) Adverse Reaction (Verified 04/27/25 11:49) blurred vision Medication List - Last Reconciled 04/27/25 by Buffy Delgado MD amlodipine 5 mg PO DAILY atorvastatin 40 mg PO DAILY cholecalciferol (vitamin D3) 50 mcg PO DAILY commode As directed commode use as directed escitalopram oxalate 30 mg (1.5 x 20 mg) PO DAILY 30 days Grab bar As directed Grab bar Use as directed miscellaneous medical supply Use as directed olmesartan 40 mg PO DAILY omeprazole 20 mg PO DAILY oxcarbazepine orally QHS; vit C,R-Sk-mdnca-lutein-zeaxan 250-90-40-1 mg (PreserVision AREDS-2) 1 tab PO BID walker (Ultra-Light Rollator misc) As directed Tobacco use date assessed: 04/27/25 Fall risk assessment: No Falls in past year Last assessed Fall Risk: 04/27/25 Dental Screening Dental Screen Date: 04/27/25 Did you have a dental visit in the last 12 months?: No Did you have a dental problem in the last 6 months where you did not have access to dental care?: No Was dental information given to patient?: Patient declined [facility] Medical History (Updated 04/27/25 @ 12:27 by Buffy Delgado MD) GALLITO on CPAP Depression with anxiety Venous insufficiency of both lower extremities Essential hypertension Trigeminal neuralgia of right side of face Localized swelling of both lower legs Ascending aorta dilatation Polyarthralgia Cough GERD (gastroesophageal reflux disease) Gait instability Heartburn symptom Macular degeneration Hyperlipidemia Family history of thyroid disease Lichen sclerosus et atrophicus of the vulva History of herpes zoster Lesion of skin of face Generalized anxiety disorder with panic attacks Chronic gastroesophageal reflux disease Surgical History History of varicose vein ligation Hx of colonoscopy History of esophagogastroduodenoscopy (EGD) Hx of hernia repair Family History Son Generalized anxiety disorder with panic attacks Maternal Aunt Mental health disorder Social History Housing: Apartment Alcohol intake: former Patient Tobacco Use Status: Former Tobacco user Years Smoked: 5 yrs e-Cigarette/Vaping Use: Never Used service: No Current occupational status: disabled Cognitive needs: No Hearing needs: No Vision needs: No Questionnaire Thrive Questionnaire Date Thrive assessed: 10/24/24 I am a: Parent/Caregiver What is your living situation today?: I have a steady place to live Within the past 12 months, did the food you bought not last and you didn't have the money to get more?: Never true Within the past 12 months, did you worry whether your food would run out before you got money to buy more?: Never true Do you have trouble paying for medicines?: Yes Do you have trouble getting transportation to medical appointments?: Yes Do you have trouble paying your heating and electricity bill?: Yes Do you have trouble taking care of your child, family member or friend?: No Do you have trouble with day-to-day activities such as bathing, preparing meals, shopping, managing finances, etc.?: Yes Are you currently unemployed and looking for a job?: No Are you interested in more education?: No Currently or been in a relationship where the following occur: No concerns reported THRIVE Score: 2 NELY-7 AMB Questionnaire NELY-7 Date NELY - 7 assessed: 12/19/23 Source: Developed by Drs. Kemar Cullen, Cira Mclean, Bo Allen and colleagues, with an educational haily from [email or web address]. Physical exam (Primary Care) Vital Signs: Last Vital Signs Temp 98.3 F 04/27/25 11:34 Pulse 68 04/27/25 11:34 Resp 16 04/27/25 11:34 BP 116/70 04/27/25 11:34 Pulse Ox 94 04/27/25 11:34 Oxygen Delivery Method Room Air 04/27/25 11:34 BMI result Body Mass Index 36.1 Tobacco/Smoking Status: Tobacco use Status Tobacco use date assessed 04/27/25 04/27/25 11:37 Patient Tobacco Use Status Former Tobacco user 04/27/25 11:37 e-Cigarette/Vaping Use Never Used 04/27/25 11:37 Thrive Assessment: Date of Thrive Assessment Date Thrive assessed 10/24/24 04/27/25 11:37 Currently or been in a relationship where the following occur: No concerns reported Results AMB Hemoglobin A1c AMB Hemoglobin A1c 5.8 % Last Edit by Tiffani Mendoza CMA on 04/27/25 12:02 Results Reviewed Results Reviewed: Laboratory Last Values Hgb A1c (Clinic) 5.8 % (4.0-6.0) 04/27/25 11:41 Name: Evelyn Shaikh Age/Sex: 79/F : 1945 Unit#: [id number] Attend Dr: Buffy Delgado MD Re04/10/25 Status: DEP REF Location: [facility] Disch: SPEC : [id number] MAURO: 04/10/25 STATUS: COMP REQ : [id number] RECD: 04/10/25-[address]: Buffy Delgado MD COMP: 04/10/25 ENTERED: 04/10/[address] [facility] [address]: ORDERED: CBC Auto Diff Test Result Flag Reference WBC 6.6 4.8-10.8 X10*3/uL RBC 4.33 4.20-5.50 X10*6/uL HGB 12.3 12.0-16.0 g/dl HCT 40.3 37.0-47.0 % MCV 93.1 80.0-98.0 fL MCH 28.4 27.0-33.0 pg MCHC 30.5 L 31.0-35.0 g/dl RDW 13.4 11.0-16.0 % PLT 156 L 160-400 X10*3/uL MPV 11.3 9.4-12.3 fL Neut Pct Auto 55.8 45-73 % ImGran Pct Auto 0.3 0.0-0.4 % Lymp Pct Auto 29.2 20-40 % Warren Pct Auto 9.0 2-11 % Eos Pct Auto 4.9 H 0-4 % Baso Pct Auto 0.8 0-2 % NRBC Pct Auto 0.0 0.0-0.2 /100WBC ANC Neut Abs # 3.7 2.0-8.3 x10*3/uL ImGran Abs Auto 0.02 0.00-0.03 X10*3/uL Lymph Abs Auto 1.9 1.2-4.9 X10*3/uL Warren Abs Auto 0.6 0.1-1.2 X10*3/uL Eos Abs Auto 0.3 0.0-0.4 X10*3/uL Baso Abs Auto 0.1 0.0-0.2 X10*3/uL NRBC Abs Auto 0.000 0.0-0.012 X10*3/uL Name: Evelyn Shaikh Age/Sex: 79/F : 1945 Unit#: [id number] Attend Dr: Buffy Delgado MD Re04/10/25 Status: DEP REF Location: [facility] Disch: SPEC : [id number] MAURO: 04/10/25 STATUS: COMP REQ : [id number] RECD: 04/10/25-[address]: Buffy Delgado MD COMP: 04/10/25-9 ENTERED: 04/10/25-[address] [facility] [address]: ORDERED: Met Prof Fast, AST, ALT, Lipid Panel, Vitamin D 25-OH Test Result Flag Reference Sodium 146 H 135-145 mmol/L Potassium 4.5 3.3-5.1 mmol/L CL 106 96-108 mmol/L CO2 33 H 22-29 mmol/L Gap 12 12-20 BUN 38 H 9-16 mg/dL Creat 1.52 H 0.5-1.4 mg/dL eGFR 33 Chronic Kidney Disease: Estimated GFR < 60 mL/min/1.73m2 Severe Kidney Disease: Estimated GFR < 15 mL/min/1.73m2 FBS 100 H 60-99 mg/dL A fasting glucose from 100-125 mg/dl is considered impaired (pre-diabetes). CA 9.9 8.4-10.2 mg/dL AST (GOT) 26 5-31 U/L ALT (GPT) 20 0-31 U/L Triglyceride 116 <150 mg/dL Desirable Triglyceride: less than 150 mg/dL Borderline High Triglyceride 150-199 mg/dL High Triglyceride: 200-499 mg/dL Very High Triglyceride: greater than or equal to 5OO mg/dL Cholesterol 154 <200 mg/dL Desirable Cholesterol: less than 200 mg/dL Borderline High Cholesterol: 200-239 mg/dL High Cholesterol: greater than 239 mg/dL LDL Calculated 86 <100 mg/dL Desirable LDL: less than 100 mg/dL Near Optimal/Above Optimal LDL: 110-129 mg/dL Borderline High LDL: 130-159 mg/dL High LDL: 160-189 mg/dL Very High LDL: greater than or equal to 190 mg/dL HDL 45 >40 mg/dL Desirable HDL: greater than 40 mg/dL Note: This HDL assay may give artificially low results in patients with liver disease. Vitamin D 25-OH 65.5 >30 ng/mL Health Based Reference Values* < 20 ng/mL Deficient 20-30 ng/mL Insufficient > 30 ng/mL Sufficient *Holly IGNACIO. N Engl J Med. 2007;357:266-280 There is no well-established upper level of normal vitamin D levels. Some laboratories use 50 ng/mL as an upper limit of normal. However, toxicity is patient-dependent and may occur at any level. Careful correlation with the patient's presentation is necessary and, if there is concern for vitamin D toxicity, treatment should be considered irrespective of the serum level. Care must be taken in interpreting Vitamin D results from different laboratories and methodologies. Published data demonstrated that results from patients undergoing hemodialysis may show a negative bias when tested with various automated 25-OH vitamin D assays when compared to LC-MS/MS. When testing samples from patients whose predominant form of Vitamin D is Vitamin D2, such as patients receiving Vitamin D2 supplementation, results that are subtherapeutic should be confirmed with another method such as LC-MS/MS. Coding Level of Care Code Est Pt Level 4 (84703) Complex EM visit Add On G2211 Diagnoses Essential hypertension I10 Pure hypercholesterolemia E78.00 Hyperlipidemia type: pure hypercholesterolemia Impaired fasting glucose R73.01 Chronic gastroesophageal reflux disease K21.9 Venous insufficiency of both lower extremities I87.2 Bilateral primary osteoarthritis of knee M17.0 Lymphedema I89.0 Assessment & Plan Assessment & Plan (1) Essential hypertension: Code(s): I10 - Essential (primary) hypertension Category: Medical (2) Hyperlipidemia: Code(s): E78.5 - Hyperlipidemia, unspecified Category: Medical Qualifiers: Hyperlipidemia type: pure hypercholesterolemia Qualified Code(s): E78.00 - Pure hypercholesterolemia, unspecified (3) Impaired fasting glucose: Code(s): R73.01 - Impaired fasting glucose Plan: Your previous fasting blood sugars were elevated above 100 mg/dL. Hemoglobin A1c today is at 5.8%. Impaired glucose metabolism increases the risk for developing diabetes mellitus type 2, as well as heart attack and stroke later on. Lifestyle changes that promotes weight loss, healthy eating habits, and regular exercise are important, and can prevent the progression to diabetes (4) Chronic gastroesophageal reflux disease: Code(s): K21.9 - Gastro-esophageal reflux disease without esophagitis Category: Medical (5) Venous insufficiency of both lower extremities: Code(s): I87.2 - Venous insufficiency (chronic) (peripheral) Category: Medical (6) Bilateral primary osteoarthritis of knee: Code(s): M17.0 - Bilateral primary osteoarthritis of knee Category: Medical (7) Lymphedema: Code(s): I89.0 - Lymphedema, not elsewhere classified Category: Medical Orders: Orders AMB Hemoglobin A1c Today Z13.9 - Encounter for screening, unspecified Lipid Panel 08/03/25 E78.00 - Pure hypercholesterolemia, unspecified, I10 - Essential (primary) hypertension, I50.812 - Chronic right heart failure, I87.2 - Venous insufficiency (chronic) (peripheral), I89.0 - Lymphedema, not elsewhere classified, K21.9 - Gastro-esophageal reflux disease without esophagitis, M17.0 - Bilateral primary osteoarthritis of knee Alanine Aminotransferase 08/03/25 E78.00 - Pure hypercholesterolemia, unspecified, I10 - Essential (primary) hypertension, I50.812 - Chronic right heart failure, I87.2 - Venous insufficiency (chronic) (peripheral), I89.0 - Lymphedema, not elsewhere classified, K21.9 - Gastro-esophageal reflux disease without esophagitis, M17.0 - Bilateral primary osteoarthritis of knee Aspartate Amino Transferase 08/03/25 E78.00 - Pure hypercholesterolemia, unspecified, I10 - Essential (primary) hypertension, I50.812 - Chronic right heart failure, I87.2 - Venous insufficiency (chronic) (peripheral), I89.0 - Lymphedema, not elsewhere classified, K21.9 - Gastro-esophageal reflux disease without esophagitis, M17.0 - Bilateral primary osteoarthritis of knee Basic Metabolic Panel Fasting 08/03/25 E78.00 - Pure hypercholesterolemia, unspecified, I10 - Essential (primary) hypertension, I50.812 - Chronic right heart failure, I87.2 - Venous insufficiency (chronic) (peripheral), I89.0 - Lymphedema, not elsewhere classified, K21.9 - Gastro-esophageal reflux disease without esophagitis, M17.0 - Bilateral primary osteoarthritis of knee Hemoglobin and Hematocrit 08/03/25 E78.00 - Pure hypercholesterolemia, unspecified, I10 - Essential (primary) hypertension, I50.812 - Chronic right heart failure, I87.2 - Venous insufficiency (chronic) (peripheral), I89.0 - Lymphedema, not elsewhere classified, K21.9 - Gastro-esophageal reflux disease without esophagitis, M17.0 - Bilateral primary osteoarthritis of knee Medications: New diclofenac sodium ER Take it always with food no more than once a day as needed for severe joint 100 mg PO DAILY PRN 20 tabs 0RF Severe joint pain
--- OUTSIDE RECORDS SUMMARY | 2025-04-27 13:03 | XMS_ITS | Encounter Summary ---
Author Organization [facility] Address [address] [place] [id number] Phone Care Team Providers Care Windows Server Specialist Name Role Phone Margareth Camara DO Primary Care Provider [phone] Margareth Camara DO Primary Care Provider [phone] Carina Law MD Primary Care Provider Unavaila ble Encounter Details Date Type Department Care Team (Late st Contact Info) Description 07/10/2018 Ancillary Orders [facility] [address] [place] [address] Margareth Camara DO [address] [address] [email or web address] Breast screening Social History Tobacco Use Types Packs/Day Years Used Date Smoking Tobacco: Former Cigarettes Q uit: 10/18/2017 Smokeless Tobacco: Never Comments No Sex and Gender Information Value Date Recorded Sex Assigned at Not on file Legal Sex Female 10:08 PM EDT Gender Identity Not on file Sexual Orientation Not on file documented as of this encounter Plan of Treatment Not on file documented as of this encounter Visit Diagnoses Diagnosis Breast screening Breast screening, unspecified documented in this encounter Additional Health Concerns Assessment Noted Time PHQ-2 Depression Total Score: 0 06/25/20 18 10:57 AM EDT documented as of this encounter Care Teams Windows Server Specialist Relationship Specialty Start Date End Date Margareth Camara DO [address] [address] PCP - General 07/06/17 08/24/19 Margareth Camara DO [address] [place] [address], [facility] [address] [place] [address] PCP - General Family Medicine 08/25/19 03/15/20 Carina Law MD PCP - General Nephrology 03/16/20 documented as of this encounter Additional Source Comments The information contained in this document represents components of the legal health record. It is not the complete legal health record.[facility]
--- OUTSIDE RECORDS SUMMARY | 2025-04-27 13:03 | XMS_ITS | Clinical Summary ---
Author Organization [employer] [facility] Address [address] [place] [address] Care Team Providers Care Regional Climate Change Analyst Name Role Phone Vlad Childers Primary Care Provider [phone] Allergies Active Allergy Reactions Criticality Noted Date [...] DENTAL - DQ [facility] Care Teams Regional Climate Change Analyst Relationship Specialty Start Date End Date Vlad Childers LLD [address] [place] [id number] PCP - General Dentist 06/30/22
== END 2025-04-27 12:26 | disposition home or self-care (01) ==
LOC: HO.HMCC 11:32
PROVIDERS: PCP Internal Medicine; Visit Provider Internal Medicine
DX: Z13.9 Encounter for screening, unspecified (principal)

== ENCOUNTER → 2025-04-27 11:31 | Outpatient (BNVA) | payer MEDICARE, SELFPAY | PROVIDERS: PCP Internal Medicine; Visit Provider Internal Medicine | DX: I10 Essential (primary) hypertension (principal); E78.00 Pure hypercholesterolemia, unspecified; R73.01 Impaired fasting glucose; K21.9 Gastro-esophageal reflux disease without esophagitis; I87.2 Venous insufficiency (chronic) (peripheral); M17.0 Bilateral primary osteoarthritis of knee; I89.0 Lymphedema, not elsewhere classified | CPT/HCPCS: 83036; 99212 ==

== ENCOUNTER 2025-05-28 07:16 | Outpatient (AMB) | payer MEDICARE, SELFPAY ==
--- OUTSIDE RECORDS SUMMARY | 2025-05-28 07:18 | XMS_ITS | Clinical Summary ---
Author Organization [employer] [facility] Address [address] 7[address] [place] [address] Care Team Providers Care Windows Phone Developer Name Role Phone Vlad Childers MERRY Primary Care Provider Unava ilable Allergies Active Allergy Reactions Criticality Noted Date [...] 02/27/2024 01/02/2024 COVID-19 Vaccine ( - season) 2025 09/19/2021, 12/13/2020, 11/15/2020 Influenza Vaccine (#1) 2025 4, 09/27/2021, 05/24/2017, Additional history exists Tobacco Screening [...] to Health Maintenance Insurance DENTAL - DQ [facility] Care Teams Windows Phone Developer Relationship Specialty Start Date End Date Vlad Childers DMD PCP - General Dentist 06/30/22
--- OUTSIDE RECORDS SUMMARY | 2025-05-28 07:18 | XMS_ITS | Encounter Summary ---
Author Organization [facility] Address [address] [place] [address] Phone Care Team Providers Care Building Pressure Washer Name Role Phone Margareth Camara DO Primary Care Provider [phone] Margareth Camara DO Primary Care Provider [phone] Carina Law MD Primary Care Provider Unavaila ble Encounter Details Date Type Department Care Team (Late st Contact Info) Description 07/10/2018 Ancillary Orders [facility] [address] [place] [address] Margareth Camara DO [address] [address] [email or web address] Breast screening Social History Tobacco Use Types [...] documented as of this encounter Care Teams Building Pressure Washer Relationship Specialty Start Date End Date Margareth Camara DO [address] [address] PCP - General 07/06/17 08/24/19 Margareth Camara DO [address] [place] [address], [facility] [address] [place] [address] PCP - General Family Medicine 08/25/19 03/15/20 Carina Law MD PCP - General Nephrology 03/16/20 documented as of this encounter Additional Source Comments The information contained in this document represents components of the legal health record. It is not the complete legal health record.[facility]
--- OUTSIDE RECORDS SUMMARY | 2025-05-28 07:18 | XMS_ITS | Encounter Summary ---
Author Organization [facility] Address [address] [facility] [address] [place] [address] Phone Care Team Providers Care Painter Ordnance Name Role Phone Margareth Camara DO Primary Care Provider [phone] Margareth Camara DO Primary Care Provider [phone] Carina Law MD Primary Care Provider Unavaila ble Encounter Details Date Type Department Care Team (Late st Contact Info) Description 07/05/2018 Transcribe Orders [facility] [address] [place] [address] Margareth Camara DO 234 [facility] 7 [place] [address] [email or web address] Social History Tobacco Use Types Packs/Day Years [...] Diagnoses Not on filedocumented in this encounter Additional Health Concerns Assessment Noted Time PHQ-2 Depression Total Score: 0 06/25/20 18 10:57 AM EDT documented as of this encounter Care Teams Painter Ordnance Relationship Specialty Start Date End Date Margareth Camara DO 234 [facility] [address] [place] [address] [email or web address] PCP - General 07/06/17 08/24/19 Margareth Camara DO [address] [place] [address] 7 [place] [address] [email or web address] PCP - General Family Medicine 08/25/19 03/15/20 Carina Law MD PCP - General Nephrology 03/16/20 documented as of this encounter Additional Source Comments The information contained in this document represents components of the legal health record. It is not the complete legal health record.[facility]
--- OUTSIDE RECORDS SUMMARY | 2025-05-28 07:19 | XMS_ITS | Encounter Summary ---
Author Organization [facility] Address [address] [facility] [address] [place] [address] Phone Care Team Providers Care Medical Record Retrieval Specialist Name Role Phone Carina Law MD Primary Care Provider Unavaila ble Encounter Details Date Type Department Care Team (Latest Contact Info) Description 03/16/2020 Transcribe Orders [facility] [address] [place] [address] Carina Law MD Mixed hyperlipidemia (Primary Dx); Diabetes mellitus screening Social History Tobacco Use Types Packs/Day [...] on file documented as of this encounter Results * (ABNORMAL) Lipid panel (03/16/2020 9:57 AM EDT) HDL 60 mg/dL [facility] Comment: Interpretation <40 mg/dL: Low HDL cholesterol (major risk factor for CHD) Greater than or equal to 60 mg/dL: High HDL cholesterol ( negative risk factor for CHD) HDL - cholesterol is affected by a number of factors, e.g. smoking, excerise, hormones, sex and age. CHOLESTEROL 223 0 - 240 mg/dL [facility] TRIGLYCERIDES 112 30 - 160 mg/dL [facility] LDL 141(H) 50 - 129 mg/dL [facility] Comment: LDL levels in terms of risk for coronary heart disease: <100 mg/dL: Optimal 100-129 mg/dL: Near or above optimal 130-159 mg/dL: Borderline high 160-189 mg/dL: High >190 mg/dL: Very High CARDIAC RISK RATIO 3.7 3.3 - 4.4 C [facility] Blood 03/16/2020 9:57 AM EDT 03/16/2020 10:01 AM EDT us Carina Law MD LAB BLOOD ORDERABLES Final Resu lt [address] [address] * (ABNORMAL) Comprehensive metabolic panel (03/16/2020 9:57 AM EDT) SODIUM 141 133 - 146 mmol/L [facility] POTASSIUM 4.5 3.3 - 5.1 mmol/L [facility] CHLORIDE 107 96 - 108 mmol/L [facility] CO2 26 21 - 35 mmol/L [facility] BUN 21(H) 6 - 19 mg/dL [facility] CREATININE 0.90 0.5 - 1.5 mg/dL [facility] GLUCOSE 95 70 - 99 mg/dL [facility] ALBUMIN 4.0 3.9 - 4.8 g/dL [facility] TOTAL PROTEIN 7.2 6.5 - 8.0 g/dL [facility] CALCIUM 10.0 8.4 - 10.3 mg/dL [facility] ALKALINE PHOSPHATASE 95 39 - 117 U/L [facility] TOTAL BILIRUBIN 0.3 0.0 - 1.2 mg/dL [facility] AST 19 0 - 37 U/L [facility] ALT 26 0 - 40 U/L [facility] GLOBULIN 3.2 1 - 4.8 g/dL [facility] EGFR 63 >59 mL/min/1.7 3m2 [facility] Comment:Estimated glomerular filtration rate calculated using the CKD-EPI equation. ANION GAP 13 10 - 20 mmol/L [facility] Blood 03/16/2020 9:57 AM EDT 03/16/2020 10:01 AM EDT us Carina Law MD LAB BLOOD ORDERABLES Final Resu lt [address] [address] * Hemoglobin A1c (03/16/2020 9:57 AM EDT) HEMOGLOBIN A1C 5.8 4.3 - 5.8 % [facility] Blood 03/16/2020 9:57 AM EDT 03/16/2020 10:01 AM EDT us Carina Law MD LAB BLOOD ORDERABLES Final Resu lt Performing Organization Address [facility]/ZIP Co de Phone Number [address] [address] * CBC and differential (03/16/2020 9:57 AM EDT) WBC 6.64 4.00 - 11.00 K/uL [facility] Comment:Note Reference Range updates to all CBC and Differential results. RBC 4.30 3.72 - 5.30 M/uL [facility] HGB 12.5 11.4 - 15.9 g/dL [facility] Comment:Note updated Referen ce Ranges for all CBC and Differential results. HCT 38.1 34.2 - 46.8 % [facility] PLT 188 140 - 430 K/uL [facility] MCV 88.6 78.0 - 97.0 fL [facility] MCH 29.1 25.0 - 33.0 pg [facility] MCHC 32.8 32.0 - 36.0 g/dL [facility] RDW 13.4 11.0 - 16.0 % [facility] MPV 10.8 8.4 - 12.8 fl [facility] NRBC 0.00 0 /100 WBCs [facility] ABSOLUTE NRBC 0.00 0 K/uL [facility] DIFF METHOD Auto [facility] NEUTS 59.7 43.0 - 75.0 % [facility] LYMPHS 27.6 18.2 - 47.4 % [facility] MONOS 7.1 4.00 - 11.00 % [facility] EOS 4.4 0.0 - 8.0 % [facility] BASOS 0.9 0.0 - 2.0 % [facility] Granulocytes, immature (%) 0.3 0.0 - 0.9 % [facility] ABSOLUTE NEUTS 3.97 1.80 - 7.70 K/uL [facility] ABSOLUTE LYMPHS 1.83 1.00 - 3.10 K/uL [facility] ABSOLUTE MONOS 0.47 0.20 - 0.80 K/uL [facility] ABSOLUTE EOS 0.29 0.00 - 0.80 K/uL [facility] ABSOLUTE BASOS 0.06 0.00 - 0.09 K/uL [facility] Granulocytes, immature 0.02 0.00 - 0.05 K/uL [facility] Blood 03/16/2020 9:57 AM EDT 03/16/2020 10:01 AM EDT us Carina Law MD LAB BLOOD ORDERABLES Final Resu lt Performing Organization Address City/State/[facility] Co de Phone Number [address] [address] documented in this encounter Visit Diagnoses Diagnosis Mixed hyperlipidemia- Primary Diabetes mellitus screening Screening for diabetes mellitus documented in this encounter Additional Health Concerns Assessment Noted Time PHQ-2 Depression Total Score: 0 06/25/20 18 10:57 AM EDT documented as of this encounter Care Teams Medical Record Retrieval Specialist Relationship Specialty Start Date End Date Carina Law MD PCP - General Nephrology 03/16/20 documented as of this encounter Additional Source Comments The information contained in this document represents components of the legal health record. It is not the complete legal health record.[facility]
--- OUTSIDE RECORDS SUMMARY | 2025-05-28 07:19 | XMS_ITS | Encounter Summary ---
Author Organization [facility] Address [address] [facility] [address] [place] [address] Phone Care Team Providers Care Drying Tunnel Operator Name Role Phone Carina Law MD Primary Care Provider Unavaila ble Encounter Details Date Type Department Care Team (Late st Contact Info) Description 12/16/2020 Transcribe Orders [facility] [address] [place] [address] Carina Law MD Social History Tobacco Use Types Packs/Day Years [...] documented as of this encounter Care Teams Drying Tunnel Operator Relationship Specialty Start Date End Date Carina Law MD PCP - General Nephrology 03/16/20 documented as of this encounter Additional Source Comments The information contained in this document represents components of the legal health record. It is not the complete legal health record.[facility]
--- OUTSIDE RECORDS SUMMARY | 2025-05-28 07:19 | XMS_ITS | Encounter Summary ---
Author Organization [facility] Address [address] [facility] [address] [place] [address] Phone Care Team Providers Care Field Service Poultry Technician Name Role Phone Margareth Camara DO Primary Care Provider [phone] Margareth Camara DO Primary Care Provider [phone] Carina Law MD Primary Care Provider Unavaila ble Encounter Details Date Type Department Care Team (Late st Contact Info) Description 08/02/2017 Ancillary Orders [facility] [address] [place] [address] Margareth Camara, DO [address] [facility] [address] [place] [address] [email or web address] Breast screening Social History Tobacco Use Types [...] documented as of this encounter Results * BI MAMMOGRAM SCREENING WITH TOMOSYNTHESIS WITH CAD (BILATERAL) (09/17/2017 9:11 AM EST) Anatomical Region Laterality Modality Breast Left, Breast Right, Breast Bilateral Bila teral Mammography 09/17/2017 9:20 AM EST Impressions 09/17/2017 9:26 AM EST No mammographic evidence of malignancy. Recommend routine annual surveillance. BI-RADS CATEGORY: 2 - Benign finding. DENSITY: There are scattered fibroglandular densities. POS - CDHMAM2 Narrative 09/17/2017 9:26 AM EST 71-year-old female with no current breast symptoms. Comparison made to previous on 09/12/2016 and 08/29/2011. Interpretation made in conjunction with computer-aided detection and tomosynthesis. There are scattered areas of fibroglandular density. Bilateral vascular calcifications. There are no suspicious masses, areas of architectural distortion, or suspicious clusters of microcalcifications. Procedure Note Beka Nichols MD - 09/17/2017 71-year-old female with no current breast symptoms. Comparison made toprevious on 09/12/2016 and 08/29/2011. Interpretation made in conjunctionwith computer-aided detection and tomosynthesis. There are scattered areas of fibroglandular density. Bilateral vascularcalcifications. There are no suspicious masses, areas of architectural distortion, orsuspicious clusters of microcalcifications. IMPRESSION: No mammographic evidence of malignancy. Recommend routine annualsurveillance. BI-RADS CATEGORY: 2 - Benign finding. DENSITY: There are scattered fibroglandular densities. POS - CDHMAM2 Margareth Camara DO IMG MG EXAMS Final Result documented in this encounter Visit Diagnoses Diagnosis Breast screening Breast screening, unspecified Breast screening Breast screening, unspecified documented in this encounter Care Teams Field Service Poultry Technician Relationship Specialty Start Date End Date Margareth Camara DO [address] [place] [address] [address] [place] [address] [email or web address] PCP - General 07/06/17 08/24/19 Margareth Camara DO [address] [place] [address] [address] [place] [address] [email or web address] PCP - General Family Medicine 08/25/19 03/15/20 Carina Law MD PCP - General Nephrology 03/16/20 documented as of this encounter Additional Source Comments The information contained in this document represents components of the legal health record. It is not the complete legal health record.[facility]
--- OUTSIDE RECORDS SUMMARY | 2025-05-28 07:19 | XMS_ITS | Clinical Summary ---
Author Organization [facility] Address [address] [address] Phone Care Team Providers Care Adult High School Instructor Name Role Phone Carina Law MD Primary Care Provider Unavaila ble Allergies Active Allergy Reactions Criticality Noted Date Comments Hydrocortisone 04/04/2018 Because of her eyes Medications meloxicam (MOBIC) 7.5 MG tabletIndications: Sciatica of right side Take 1 tablet (7.5 mg total) by mouth daily. 30 tablet 08/04/20 17 Active triamcinolone acetonide 0.1 % cream 1 application to affected area Externally Twice a day, when necessary for the itching 07/10/20 16 Active nystatin (NYSTOP) powder 1 to affected area Externally Twice a day 07/10/20 16 Active raNITIdine (ZANTAC) 300 MG capsule Take 1 capsule by mouth nightly. Active nystatin cream 1 application to affected area Externally Twice a day 02/24/20 16 Active hydrocortisone (PROCTOSOL HC) 2.5 % rectal cream 1 application to affected area Rectal Twice a day 02/24/20 16 Active acetaminophen (TYLENOL) 325 mg tablet Take 1 tablet by mouth every 6 (six) hours as needed. 10/18/19 12 Active simvastatin (ZOCOR) 20 MG tablet Take 20 mg by mouth every evening. Active meclizine (ANTIVERT) 25 mg tablet Take 1 tablet (25 mg total) by mouth 3 (three) times a day. 21 tablet 03/27/20 19 Active ondansetron (ZOFRAN-ODT) 4 MG disintegrating tablet Take 1 tablet (4 mg total) by mouth every 8 (eight) hours as needed for nausea. 20 tablet 03/27/20 19 Active citalopram (CELEXA) 20 MG tabletIndications: Depression Take 1 tablet (20 mg total) by mouth daily. 90 tablet 09/22/19 20 Active amLODIPine-olmesar le (RAYO) 5-40 mg per tabletIndications: HTN (hypertension) TAKE 1 TABLET BY MOUTH ONCE DAILY 30 tablet 09/22/19 20 Active Active Problems Problem Noted Date Diagnosed Date Depression with anxiety 12/27/2017 Essential (primary) hypertension 12/27/2017 Gastroesophageal reflux disease with esophagitis 12/27/2017 Hypercholesterolemia 12/27/2017 GALLITO (obstructive sleep apnea) 12/27/2017 Immunizations Immunization Administration Dates Next Due Influenza High-Dose Trivalent Preservative Free IM 06/15/2016 Tdap 07/10/2016 Family History Relation Status Comments Father @ 62 ++ tob abuse/lung ds Mother @ 82 yr s old - old age/rheumatism Social History Tobacco Use Types Packs/Day Years Used Date Smoking Tobacco: Former Cigarettes Q uit: 10/18/2017 Smokeless Tobacco: Never Education Answer Date Recorded Are you interested in more education? Not on adalberto e 12/29/2022 Are you concerned about learning? Not on file 12/29/2022 No 12/29/2022 No 12/29/2022 Digital Access Answer Date Recorded No 01/29/2023 No 01/29/2023 Reliable internet access at home? Not on file 01/29/2023 Device with a working camera? Not on file Comments No Sex and Gender Information Value Date Recorded Sex Assigned at Not on file Legal Sex Female 10:08 PM EDT Gender Identity Not on file Sexual Orientation Not on file Last Filed Vital Signs Vital Sign Reading Time Taken Comments Blood Pressure 116/61 03/27/2019 1:45 AM EDT Pulse 73 03/27/2019 1:45 AM EDT Temperature 36.4 C (97.5 F) 03/27/2019 2:28 AM EDT Respiratory Rate 18 03/27/2019 1:45 AM EDT Oxygen Saturation 98% 03/27/2019 1:45 AM EDT Inhaled Oxygen Concentration - - Weight 81.6 kg (180 lb) 03/26/2019 10:08 PM EDT Height 144.8 cm (4' 9 ) 03/26/2019 10:08 PM EDT Body Mass Index 38.95 03/26/2019 10:08 PM EDT Plan of Treatment Health Maintenance Due Date Last Done Comments BLOOD PRESSURE 1945 SMOKING Hx and SMOKELESS TOBACCO SCREENING 1958 HEPATITIS C SCREENING 12/07/1963 COLOGUARD 1990 FIT TEST 1990 FOBT 1990 SIGMOIDOSCOPY 1990 VIRTUAL COLONOSCOPY 1990 PNEUMOCOCCAL VACCINES (50+ years) (1 of 1 - PCV) 12/07/1995 ZOSTER VACCINES (1 of 2) 12/07/1995 OSTEOPOROSIS SCREENING INITIAL (ONE-TIME) 2010 COLONOSCOPY 09/21/2018 09/21/2016 COLORECTAL CANCER SCREENING 09/21/2018 DEPRESSION SCREENING 06/25/2019 06/25/2018 RSV VACCINE (1 - 1-dose 75+ series) 2020 LIPID PANEL 03/16/2025 03/16/2020, 07/06, 08/02/2016, Additional history exists INFLUENZA VACCINE (#1) 2025 05/24/2017, 2015 COVID-19 VACCINE ( season) 2025 12/13/2020, 11/15/2020 Adult Td,Tdap Booster 07/10/2026 07/10/2016 HEPATITIS A VACCINES Aged Out No long er eligible based on patient's age to complete this topic HIB VACCINES Aged Out No longer eligi ble based on patient's age to complete this topic MENINGOCOCCAL VACCINES (ACWY) Aged Out No longer eligible based on patient's age to complete this topic MENINGOCOCCAL VACCINES (B) Aged Out N o longer eligible based on patient's age to complete this topic Medical Devices Not on file Procedures Procedure Name Priority Date/Time Associated Diagnosis Comments LIPID PANEL Routine 03/16/2020 9:57 AM EDT Mixed hyperlipidemia Diabetes mellitus screening COLONOSCOPY FOR RESULT ENTRY ONLY Routine 09/21/2016 from Last 3 Months or Most Recently Relevant to Health Maintenance Results * (ABNORMAL) Lipid panel (03/16/2020 9:57 AM EDT) HDL 60 mg/dL [facility] Comment: Interpretation <40 mg/dL: Low HDL cholesterol (major risk factor for CHD) Greater than or equal to 60 mg/dL: High HDL cholesterol ( negative risk factor for CHD) HDL - cholesterol is affected by a number of factors, e.g. smoking, excerise, hormones, sex and age. CHOLESTEROL 223 0 - 240 mg/dL [facility] TRIGLYCERIDES 112 30 - 160 mg/dL [facility] LDL 141(H) 50 - 129 mg/dL [facility] Comment: LDL levels in terms of risk for coronary heart disease: <100 mg/dL: Optimal 100-129 mg/dL: Near or above optimal 130-159 mg/dL: Borderline high 160-189 mg/dL: High >190 mg/dL: Very High CARDIAC RISK RATIO 3.7 3.3 - 4.4 C [facility] Blood 03/16/2020 9:57 AM EDT 03/16/2020 10:01 AM EDT Carina Law MD LAB BLOOD ORDERABLES Final Resu lt [facility] [address] [place] [address] * COLONOSCOPY FOR RESULT ENTRY ONLY (09/21/2016) Pathologist [facility] Colonoscopy 2 yr repeat Historical Provider HEALTH MAINTENANCE Final Result from Last 3 Months or Most Recently Relevant to Health Maintenance Insurance [facility] [place] [phone] [facility] [place] [phone] Care Teams Adult High School Instructor Relationship Specialty Start Date End Date Carina Law MD PCP - General Nephrology 03/16/20 Additional Source Comments The information contained in this document represents components of the legal health record. It is not the complete legal health record.[facility]
--- OUTSIDE RECORDS SUMMARY | 2025-05-28 07:19 | XMS_ITS | Encounter Summary ---
Author Organization [employer] Address [address] [facility] [address] [place] [address] Care Team Providers Care Ornamental Metal Worker Name Role Phone Vlad Childers DMD Primary Care Provider Unava ilable Reason for Visit * Reason Comments Med Refill Encounter Details Date Type Department Care Team (Late st Contact Info) Description 01/02/2025 Refill [facility] [address] [place] [address] Екатерина Johnson BDS Social History Tobacco Use [...] on filedocumented in this encounter Care Teams Ornamental Metal Worker Relationship Specialty Start Date End Date Vlad Childers DMD PCP - General Dentist 06/30/22 documented as of this encounter
--- OUTSIDE RECORDS SUMMARY | 2025-05-28 07:19 | XMS_ITS | Encounter Summary ---
Author Organization [facility] Address [address] [place] [address] [address] h Floor [place] [id number] Care Team Providers Care Bankruptcy Assistant Name Role Phone Vlad Childers DMD Primary Care Provider Unava ilable Encounter Details Date Type Department Care Team [...] on filedocumented in this encounter Care Teams Bankruptcy Assistant Relationship Specialty Start Date End Date Vlad Childers DMD PCP - General Dentist 06/30/22 documented as of this encounter
[2025-05-28 07:22] VITALS: BP 112/70; PULSE 64; O2SAT 93; BMI 36.9
--- NOTE | 2025-05-28 07:22 | A.OFFVIS_ITS ---
Vital Signs 05/28/25 07:22 Height 5 ft 1 in Weight 195 lb 2 oz BMI 36.9 BP 112/70 Blood Pressure Location Rt brachial Position Sitting Pulse 64 Pulse Source Pulse Oximeter Pulse Oximetry (%) 93 Oxygen Delivery Method Room Air Intake Visit Reasons: Follow up Intake Note: Follow up Trigeminal neuralgia of right side of face Vocational Ed Instructor Required: Yes Vocational Ed Instructor Services: Vocational Ed Instructor Present Vocational Ed Instructor Name: iPad daughter assisted w vital Accompanied by: Daughter Allergies hydrocortisone (From Cortizone-10) Adverse Reaction (Verified 05/28/25 07:22) blurred vision Medication List - Last Reconciled 05/28/25 by Jesica Navarro MD amlodipine 5 mg PO DAILY atorvastatin 40 mg PO DAILY cholecalciferol (vitamin D3) 50 mcg PO DAILY commode As directed commode use as directed diclofenac sodium ER 100 mg PO DAILY PRN escitalopram oxalate 30 mg (1.5 x 20 mg) PO DAILY 30 days Grab bar As directed Grab bar Use as directed miscellaneous medical supply Use as directed olmesartan 40 mg PO DAILY omeprazole 20 mg PO DAILY oxcarbazepine orally QHS; vit C,J-Nx-rormh-lutein-zeaxan 250-90-40-1 mg (PreserVision AREDS-2) 1 tab PO BID walker (Ultra-Light Rollator misc) As directed HPI Comments Details: 79y/o female comes for follow up of Right Trigeminal neuralgia. Portugese intrepreter used . [id number] she is doing OK . she still has mild residual pain when she bites.she is on oxcarbamazepin 150mg qam History from initial visit- 01/2025 She is from [place].she started noticing right facial pain - 4 years ago . she was doing well for 2 years with carbamazepine but started having severe pain that did not respond to medications in Jun 2024 . she had surgery in OCT 2024 ? decompression - 90% better but she sill has residual episodes.she still takes carbamazepine 100mg qhs but it does not help her. Washing her face , brushing her teeth , eating talking can trigger episodes. she used to be on high doses of carbamazepine . REPLACED BY [facility] Medical History (Updated 04/27/25 @ 12:27 by Buffy Delgado MD) GALLITO on CPAP Depression with anxiety Venous insufficiency of both lower extremities Essential hypertension Trigeminal neuralgia of right side of face Localized swelling of both lower legs Ascending aorta dilatation Polyarthralgia Cough GERD (gastroesophageal reflux disease) Gait instability Heartburn symptom Macular degeneration Hyperlipidemia Family history of thyroid disease Lichen sclerosus et atrophicus of the vulva History of herpes zoster Lesion of skin of face Generalized anxiety disorder with panic attacks Chronic gastroesophageal reflux disease Surgical History History of varicose vein ligation Hx of colonoscopy History of esophagogastroduodenoscopy (EGD) Hx of hernia repair Family History Son Generalized anxiety disorder with panic attacks Maternal Aunt Mental health disorder Social History Housing: Apartment Alcohol intake: former Patient Tobacco Use Status: Former Tobacco user Years Smoked: 5 yrs e-Cigarette/Vaping Use: Never Used service: No Current occupational status: disabled Cognitive needs: No Hearing needs: No Vision needs: No Physical Exam Vital Signs: Last Vital Signs Pulse 64 05/28/25 07:22 BP 112/70 05/28/25 07:22 Pulse Ox 93 05/28/25 07:22 Oxygen Delivery Method Room Air 05/28/25 07:22 BMI result Body Mass Index 36.9 Const General: cooperative, healthy appearing, comfortable and no acute distress Nutritional Appearance: obese Orientation/consciousness: patient oriented x3 Eyes Pupils: Equal, round and reactive pupils present Neuro Other: antalgic gait- with cane General: patient oriented x3, tone normal, moves all extremities and no focal motor deficits Cranial nerves: Yes Facial sensation intact/muscles of mastication intact, Yes Equal, round and reactive pupils present, No Bilaterally intact EOM present, Yes Nystagmus not present, Yes Normal facial strength present, Yes Midline tongue present, Yes Symmetric palate elevation present and Yes Ability to bilaterally elevate shoulders present Cognition (Neuro): normal cognition Gait exam (Neuro): Antalgic gait present Motor exam (neuro): 5/5 motor strength present throughout and Normal motor muscle tone present throughout Coordination: [id number] test normal Assessment & Plan Assessment & Plan (1) Trigeminal neuralgia of right side of face: Code(s): G50.0 - Trigeminal neuralgia Category: Medical Plan Continue Oxcarbamazepine 150 mg qam. can increase to bid if needed. Normal sodium and WBC Medications: Changed From oxcarbazepine orally QHS; 30 tabs 2RF To oxcarbazepine orally Qam; 90 tabs 6RF Coding Level of Care Code Est Pt Level 4 (28627) Complex EM visit Add On G2211 Diagnoses Trigeminal neuralgia of right side of face G50.0
== END 2025-05-28 08:06 | disposition home or self-care (01) ==
LOC: HO.HSMS 07:16
PROVIDERS: PCP Internal Medicine; Visit Provider Psychiatry & Neurology Neurology
DX: G50.0 Trigeminal neuralgia (principal)
CPT/HCPCS: 99214; G2211

== ENCOUNTER → 2025-05-28 07:16 | Outpatient (BNVA) | payer MEDICARE, SELFPAY | PROVIDERS: PCP Internal Medicine; Visit Provider Psychiatry & Neurology Neurology | DX: G50.0 Trigeminal neuralgia (principal) | CPT/HCPCS: 99212 ==

== ENCOUNTER → 2025-06-12 07:56 | Outpatient (REF) | payer MEDICARE, SELFPAY ==
--- OUTSIDE RECORDS SUMMARY | 2025-06-12 07:58 | XMS_ITS | Clinical Summary ---
Author Organization [facility] Address [address] [facility] [address] [place] [address] Care Team Providers Care Maintenance Pipefitter Name Role Phone Vlad Childers MERRY Primary [...] to Health Maintenance Insurance DENTAL - [facility] Care Teams Maintenance Pipefitter Relationship Specialty Start Date End Date Vlad Childers DMD PCP - General Dentist 06/30/22
--- OUTSIDE RECORDS SUMMARY | 2025-06-12 07:58 | XMS_ITS | Encounter Summary ---
Author Organization [facility] Address [address] [place] [address] [address] h Floor [place] [id number] Care Team Providers Care Oil Rig Driller Name Role Phone Vlad Childers DMD Primary [...] on filedocumented in this encounter Care Teams Oil Rig Driller Relationship Specialty Start Date End Date Vlad Childers DMD PCP - General Dentist 06/30/22 documented as of this encounter
--- OUTSIDE RECORDS SUMMARY | 2025-06-12 07:58 | XMS_ITS | Encounter Summary ---
Author Organization [employer] Address [address] [facility] 7t [place] [address] Care Team Providers Care Smalltalk Developer Name Role Phone Vlad Childers DMD Primary Care Provider Unava ilable Reason for Visit * Reason Comments Med Refill Encounter Details Date Type Department Care Team (Late st Contact Info) Description 01/02/2025 Refill [facility] [address] [place] [address] Екатерина Johnson BDS Social History Tobacco Use [...] on filedocumented in this encounter Care Teams Smalltalk Developer Relationship Specialty Start Date End Date Vlad Childers DMD PCP - General Dentist 06/30/22 documented as of this encounter
--- NOTE | 2025-06-12 07:59 | CA_ITS ---
Transthoracic Echocardiogram Patient (Last, First, Middle): Evelyn Shaikh, Gender: F Date of : 1945 Age: 79 Procedure Date: 06/12/2025 Procedure Type: Transthoracic Echocardiogram Location: OP Height: 152. cm Weight: 86.18 kg BSA: 1.82 m2 Heart Rate: 60 bpm BP: 118 / 60 mmHg Cardiovascular Surgical Tech: CHICO [place] MD: Fransisco Savage MD Auctioneer Automobile: Wolf Trotter MD Symptoms: I50.812 - Chronic right heart failure Study Quality: Fair ECG Rhythm: Sinus Conclusions: - Essentially normal study Findings Left Ventricle Normal left ventricular size, thickness, and systolic function. The visually estimated ejection fraction is between 60-65%. Right Ventricle Normal right ventricular cavity size and systolic function. Atria Both atria are normal in size. There is no evidence of interatrial shunt. Aortic Valve Normal aortic valve structure and function. There is no aortic valve stenosis. There is no aortic valve regurgitation. Mitral Valve Normal mitral valve structure and function. There is trace mitral valve regurgitation. There is no mitral valve stenosis. Pulmonic Valve The pulmonic valve is likely normal. There is trace pulmonic valve regurgitation. Tricuspid Valve Normal tricuspid valve structure. There is trace tricuspid valve regurgitation. The right ventricular systolic pressure is normal. The right ventricular systolic pressure is 28 mmHg. Normal right atrial pressure. There is no evidence of pulmonary hypertension. Great Vessels All visible segments of the aorta are normal in size. The pulmonary artery was not well visualized. Venous The inferior vena cava is normal in size and collapses greater than 50% with inspiration. Pericardium/Pleural There is no evidence of pericardial effusion. Prior Study Comparison No change compared to prior study dated: 10/29/2023. Measurements 2D Linear Measurements IVSd: 1.02 0.6-0.9/0.6-1.0 cm LVIDd: 4.81 3.9-5.3/4.2-5.9 cm LVIDd Index: 2.64 2.4-3.2/2.2-3.1 cm/m2 LVIDs: 2.72 2.0-3.6 cm LVPWd: 1.11 0.7-1.1 cm LA Diam: 3.30 2.7-3.8/3.0-4.0 cm LAIDs Index: 1.81 1.5-2.3 cm/m2 LV Mass: 231.89 67-162/88-224 g LV Mass Index: 127.41 43-95/49-115 g/m2 LVOT Diam: 1.80 3.0+(-)1.3 cm 2D Systolic Function EF 4C: 62.80 >55% EF 2C: 67.20 >55% EF BiP: 65.50 >55% Mitral Valve MV VTI: 0.57 MV Pk Maurice: 1.35 MV Mn Maurice: 0.69 MV Pk Grad: 7.00 MV Mn Grad: 2.00 MV Pk E: 1.19 MV PK A: 1.32 MV Decel Time: 278.00 E/A: 0.90 E'Lateral: 7.29 E'Medial: 5.98 E/E' Med: 19.90 E/E' Lat: 16.30 PHT: 82.00 MVA PHT: 2.68 MVA Continuity: 1.45 Decel Swisher: 4.26 Aortic Valve AoV Pk Maurice: 2.12 AoV Mn Maurice: 1.47 AoV VTI: 0.49 AoV Pk Grad: 18.00 Aov Mn Grad: 10.00 BRIAN Cont.VTI: 1.68 AI Pk Maurice: 3.38 AI Swisher: 1.45 LVOT LVOT Pk Maurice: 1.40 LVOT Mn Maurice: 0.94 LVOT VTI: 0.33 LVOT Pk Grad: 8.00 LVOT Mn Grad: 4.00 LVOT Diam: 1.80 LVOT Area: 2.54 Diastolic Function MV Pk E: 1.19 MV Pk A: 1.32 E/A: 0.90 E'Medial: 5.98 E/E' Med: 19.90 E' Laterial: 7.29 E/E' Lat: 16.30 Right Ventricle TAPSE (mm): 24.00 TVS' Maurice: 11.70 Tricuspid Valve TR Pk Maurice: 2.21 TR Pk Grad: 20.00 RA Press: 8.00 RVSP: 28.00 Great Vessels Aorta Sinus of Valsalva: 3.40 2.0-3.5 cm Ao Asc: 3.30 2.1-3.4 cm Ao Arch: 3.00 Pulmonary Veins Pulm Vein S/D 1.70 Pulmonary Valve PV Pk Maurice: 1.36 Peak PV Grad: 7.00 Updated in Other Vendor System with Status of Final Wolf Trotter MD electronically signed on 06/12/2025 5:26:12 PM with status of Final
== END ==
LOC: HO.CARD 07:56
PROVIDERS: PCP Internal Medicine; Visit Provider Internal Medicine
DX: I50.812 Chronic right heart failure (principal); I77.810 Thoracic aortic ectasia
CPT/HCPCS: 93306

== ENCOUNTER → 2025-06-12 07:59 | Outpatient (BNV) | payer MEDICARE, SELFPAY | PROVIDERS: PCP Internal Medicine; Visit Provider Internal Medicine Cardiovascular Disease | DX: I50.812 Chronic right heart failure (principal) | CPT/HCPCS: 93306 ==

== ENCOUNTER 2025-07-10 08:57 | Outpatient (REF) | payer MEDICARE, SELFPAY ==
--- OUTSIDE RECORDS SUMMARY | 2025-07-10 09:56 | XMS_ITS | Encounter Summary ---
Author Organization [facility] Address [address] [facility] [address] [place] [address] Phone Care Team Providers Care Control Room Tender Name Role Phone Carina Law MD Primary Care Provider Unavaila ble Encounter Details Date Type Department Care Team (Late st Contact Info) Description 12/16/2020 Transcribe Orders [address] [address] Carina Law MD Social History Tobacco Use [...] documented as of this encounter Care Teams Control Room Tender Relationship Specialty Start Date End Date Carina Law MD PCP - General Nephrology 03/16/20 documented as of this encounter Additional Source Comments The information contained in this document represents components of the legal health record. It is not the complete legal health record.[facility]
--- OUTSIDE RECORDS SUMMARY | 2025-07-10 09:56 | XMS_ITS | Encounter Summary ---
Author Organization [facility] Address [address] [facility] [address] [place] [address] Phone Care Team Providers Care Mushroom Spawn Maker Name Role Phone Margareth Camara DO Primary Care Provider [phone] Margareth Camara DO Primary Care Provider [phone] Carina Law MD Primary Care Provider Unavaila ble Encounter Details Date Type Department Care Team (Late st Contact Info) Description 07/05/2018 Transcribe Orders [facility] [address] [place] [address] Margareth Camara DO 234 [facility] 7 [place], [place] [id number] [email or web address] Social History Tobacco Use Types Packs/Day Years [...] documented as of this encounter Care Teams Mushroom Spawn Maker Relationship Specialty Start Date End Date Margareth Camara DO 234 [facility] 7 [place] [address] [email or web address] PCP - General 07/06/17 08/24/19 Margareth Camara DO [address] [place] [address] 7 [place] [address] [email or web address] PCP - General Family Medicine 08/25/19 03/15/20 Carina Law MD PCP - General Nephrology 03/16/20 documented as of this encounter Additional Source Comments The information contained in this document represents components of the legal health record. It is not the complete legal health record.[facility]
--- OUTSIDE RECORDS SUMMARY | 2025-07-10 09:56 | XMS_ITS | Encounter Summary ---
Author Organization [employer] [facility] Address [address] [place] [address] 7t h Floor [place] [id number] Care Team Providers Care Care Center Manager Name Role Phone Vlad Childers DMD Primary [...] on filedocumented in this encounter Care Teams Care Center Manager Relationship Specialty Start Date End Date Vlad Childers DMD PCP - General Dentist 06/30/22 documented as of this encounter
--- OUTSIDE RECORDS SUMMARY | 2025-07-10 09:56 | XMS_ITS | Encounter Summary ---
Author Organization [facility] Address [address] [facility] [address] [place] [address] Phone Care Team Providers Care Eeg Technologist Name Role Phone Margareth Camara DO Primary Care Provider [phone] Margareth Camara DO Primary Care Provider [phone] Carina Law MD Primary Care Provider Unavaila ble Encounter Details Date Type Department Care Team (Late st Contact Info) Description 07/10/2018 Ancillary Orders [facility] [address] [place] [address] Margareth Camara DO [address] [address] [email or web address] Breast screening Social History Tobacco Use Types [...] documented as of this encounter Care Teams Eeg Technologist Relationship Specialty Start Date End Date Margareth Camara DO [address] [address] [email or web address] PCP - General 07/06/17 08/24/19 Margareth Camara DO [address] [place] [address], [facility] [address] [place] [address] [email or web address] PCP - General Family Medicine 08/25/19 03/15/20 Carina Law MD PCP - General Nephrology 03/16/20 documented as of this encounter Additional Source Comments The information contained in this document represents components of the legal health record. It is not the complete legal health record.[facility]
--- OUTSIDE RECORDS SUMMARY | 2025-07-10 09:56 | XMS_ITS | Encounter Summary ---
Author Organization [employer] Address [address] [facility] 7t [place] [address] Care Team Providers Care Soloist Dancer Name Role Phone Vlad Childers DMD Primary Care Provider Unava ilable Reason for Visit * Reason Comments Med Refill Encounter Details Date Type Department Care Team (Late st Contact Info) Description 01/02/2025 Refill [facility] [address] [place] [address] Екатерина Johnson BDS Social History Tobacco Use [...] on filedocumented in this encounter Care Teams Soloist Dancer Relationship Specialty Start Date End Date Vlad Childers DMD PCP - General Dentist 06/30/22 documented as of this encounter
--- OUTSIDE RECORDS SUMMARY | 2025-07-10 09:56 | XMS_ITS | Encounter Summary ---
Author Organization [facility] Address [address] [facility] [address] [place] [address] Phone Care Team Providers Care Proofer Apprentice Name Role Phone Carina Law MD Primary Care Provider Unavaila ble Encounter Details Date Type Department Care Team (Latest Contact Info) Description 03/16/2020 Transcribe Orders [address] [address] Carina Law MD Mixed hyperlipidemia (Primary Dx); [...] (03/16/2020 9:57 AM EDT) HDL 60 mg/dL [facility] Comment: Interpretation <40 mg/dL: Low HDL cholesterol (major risk factor for CHD) Greater than or equal to 60 mg/dL: High HDL cholesterol ( negative risk factor for CHD) HDL - cholesterol is affected by a number of factors, e.g. smoking, excerise, hormones, sex and age. CHOLESTEROL 223 0 - 240 mg/dL [facility] TRIGLYCERIDES 112 30 - 160 mg/dL [facility] LDL 141(H) 50 - 129 mg/dL [facility] Comment: LDL levels in terms of risk for coronary heart disease: <100 mg/dL: Optimal 100-129 mg/dL: Near or above optimal 130-159 mg/dL: Borderline high 160-189 mg/dL: High >190 mg/dL: Very High CARDIAC RISK RATIO 3.7 3.3 - 4.4 C [facility] Blood 03/16/2020 9:57 AM EDT 03/16/2020 10:01 AM EDT us Carina Law MD LAB BLOOD BKR ORDERABLES Final Result [address] [address] * (ABNORMAL) Comprehensive metabolic panel (03/16/2020 9:57 AM EDT) SODIUM 141 133 - 146 mmol/L [facility] POTASSIUM 4.5 3.3 - 5.1 mmol/L [facility] CHLORIDE 107 96 - 108 mmol/L [facility] CO2 26 21 - 35 mmol/L [facility] BUN 21(H) 6 - 19 mg/dL [facility] CREATININE 0.90 0.5 - 1.5 mg/dL [facility] GLUCOSE 95 70 - 99 mg/dL [facility] ALBUMIN 4.0 3.9 - 4.8 g/dL [facility] TOTAL PROTEIN 7.2 6.5 - 8.0 g/dL [facility] CALCIUM 10.0 8.4 - 10.3 mg/dL [facility] ALKALINE PHOSPHATASE 95 39 - 117 U/L [facility] TOTAL BILIRUBIN 0.3 0.0 - 1.2 mg/dL [facility] AST 19 0 - 37 U/L [facility] ALT 26 0 - 40 U/L [facility] GLOBULIN 3.2 1 - 4.8 g/dL [facility] EGFR 63 >59 mL/min/1.7 3m2 [facility] Comment:Estimated glomerular filtration rate calculated using the CKD-EPI equation. ANION GAP 13 10 - 20 mmol/L [facility] Blood 03/16/2020 9:57 AM EDT 03/16/2020 10:01 AM EDT us Carina Law MD LAB BLOOD BKR ORDERABLES Final Result [address] [address] * Hemoglobin A1c (03/16/2020 9:57 AM EDT) HEMOGLOBIN A1C 5.8 4.3 - 5.8 % [facility] Blood 03/16/2020 9:57 AM EDT 03/16/2020 10:01 AM EDT us Carina Law MD LAB BLOOD BKR ORDERABLES Final Result Performing Organization Address [facility]/ZIP Co de Phone Number [address] [address] * CBC and differential (03/16/2020 9:57 AM EDT) WBC 6.64 4.00 - 11.00 K/uL [facility] Comment:Note Reference Range updates to all CBC and Differential results. RBC 4.30 3.72 - 5.30 M/uL [facility] HGB 12.5 11.4 - 15.9 g/dL [facility] Comment:Note updated Referen ce Ranges for all CBC and Differential results. HCT 38.1 34.2 - 46.8 % [facility] PLT 188 140 - 430 K/uL [facility] MCV 88.6 78.0 - 97.0 fL [facility] MCH 29.1 25.0 - 33.0 pg [facility] MCHC 32.8 32.0 - 36.0 g/dL [facility] RDW 13.4 11.0 - 16.0 % [facility] MPV 10.8 8.4 - 12.8 fl [facility] NRBC 0.00 0 /100 WBCs [facility] ABSOLUTE NRBC 0.00 0 K/uL [facility] DIFF METHOD Auto [facility] NEUTS 59.7 43.0 - 75.0 % [facility] LYMPHS 27.6 18.2 - 47.4 % [facility] MONOS 7.1 4.00 - 11.00 % [facility] EOS 4.4 0.0 - 8.0 % [facility] BASOS 0.9 0.0 - 2.0 % [facility] Granulocytes, immature (%) 0.3 0.0 - 0.9 % [facility] ABSOLUTE NEUTS 3.97 1.80 - 7.70 K/uL [facility] ABSOLUTE LYMPHS 1.83 1.00 - 3.10 K/uL [facility] ABSOLUTE MONOS 0.47 0.20 - 0.80 K/uL [facility] ABSOLUTE EOS 0.29 0.00 - 0.80 K/uL [facility] ABSOLUTE BASOS 0.06 0.00 - 0.09 K/uL [facility] Granulocytes, immature 0.02 0.00 - 0.05 K/uL [facility] Blood 03/16/2020 9:57 AM EDT 03/16/2020 10:01 AM EDT us Carnia Law MD LAB BLOOD BKR ORDERABLES Final Result Performing Organization Address City/State/[facility] Co de Phone Number [address] [address] documented in this encounter Visit Diagnoses Diagnosis Mixed hyperlipidemia- Primary Diabetes mellitus screening Screening for diabetes mellitus documented in this encounter Additional Health Concerns Assessment Noted Time PHQ-2 Depression Total Score: 0 06/25/20 18 10:57 AM EDT documented as of this encounter Care Teams Proofer Apprentice Relationship Specialty Start Date End Date Carina Law MD PCP - General Nephrology 03/16/20 documented as of this encounter Additional Source Comments The information contained in this document represents components of the legal health record. It is not the complete legal health record.[facility]
--- OUTSIDE RECORDS SUMMARY | 2025-07-10 09:56 | XMS_ITS | Encounter Summary ---
Author Organization [facility] Address [address] [facility] [address] [place] [address] Phone Care Team Providers Care Electronic Equipment Repairer Name Role Phone Carina Law MD Primary Care Provider Unavaila ble Reason for Visit * Reason Comments Medication Refill Encounter Details Date Type Department Care Team (Late st Contact Info) Description 06/29/2025 Refill [facility] iCMP PLUS Program [address] [place] [address] Ramirez Sultana MD [address] [place] [phone] [email or web address] Medication Refill Social History Tobacco Use Types Packs/Day Years [...] documented as of this encounter Care Teams Electronic Equipment Repairer Relationship Specialty Start Date End Date Carina Law MD PCP - General Nephrology 03/16/20 documented as of this encounter Additional Source Comments The information contained in this document represents components of the legal health record. It is not the complete legal health record.[facility]
--- OUTSIDE RECORDS SUMMARY | 2025-07-10 09:56 | XMS_ITS | Encounter Summary ---
Author Organization [facility] Address [address] [facility] [address] [place] [address] Phone Care Team Providers Care Washing And Screening Plant Supervisor Name Role Phone Margareth Camara DO Primary Care Provider [phone] Margareth Camara DO Primary Care Provider [phone] Carina Law MD Primary Care Provider Unavaila ble Encounter Details Date Type Department Care Team (Late st Contact Info) Description 08/02/2017 Ancillary Orders [facility] [address] [place] [address] Margareth Camara, DO 234 [facility] [address] [place] [address] [email or web address] Breast screening Social History Tobacco Use Types [...] unspecified documented in this encounter Care Teams Washing And Screening Plant Supervisor Relationship Specialty Start Date End Date Margareth Camara DO [address] [place] [address] 7 [place] [address] [email or web address] PCP - General 07/06/17 08/24/19 Margareth Camara DO [address] [place] [address] 7 [place] [address] [email or web address] PCP - General Family Medicine 08/25/19 03/15/20 Carina Law MD PCP - General Nephrology 03/16/20 documented as of this encounter Additional Source Comments The information contained in this document represents components of the legal health record. It is not the complete legal health record.[facility]
--- OUTSIDE RECORDS SUMMARY | 2025-07-10 09:56 | XMS_ITS | Encounter Summary ---
Author Organization [facility] Address [address] [facility] [address] [place] [address] Phone Care Team Providers Care Fire Fighters Dispatcher Name Role Phone Carina Law MD Primary Care Provider Unavaila ble Reason for Visit * Reason Comments Medication Refill Encounter Details Date Type Department Care Team (Late st Contact Info) Description 06/30/2025 Refill [facility] iCMP PLUS Program [address] [place] [address] Ramirez Sultana MD [address] [place] [phone] [email or web address] Medication Refill Social History Tobacco Use Types [...] documented as of this encounter Care Teams Fire Fighters Dispatcher Relationship Specialty Start Date End Date Carina Law MD PCP - General Nephrology 03/16/20 documented as of this encounter Additional Source Comments The information contained in this document represents components of the legal health record. It is not the complete legal health record.[facility]
--- OUTSIDE RECORDS SUMMARY | 2025-07-10 09:56 | XMS_ITS | Clinical Summary ---
Author Organization [facility] Address [address] [address] Phone Care Team Providers Care Farmworker Pullet Farm Name Role Phone Carina Law MD Primary [...] Hypercholesterolemia 12/27/2017 [place] (obstructive sleep apnea) 12/27/2017 Encounters Date Type Department Care Team Description 06/30/2025 Refill [facility]CMP [facility] Program [address] [place] [address] Ramirez Sultana MD Medication Refill 06/29/2025 Refill [facility] iCMP PLUS Program [address] [place] [address] Ramirez Sultana MD Medication Refill from Last 3 Months Immunizations Immunization Administration Dates Next Due Influenza [...] (#1) 2025 05/24/2017, 2015 COVID-19 VACCINE ( - season) 2025 12/13/2020, 11/15/2020 Adult Td,Tdap Booster 07/10/2026 07/10/2016 HEPATITIS A VACCINES Aged Out No long er eligible based on patient's age to complete this topic HIB VACCINES Aged Out No longer eligi ble based on patient's age to complete this topic IPV VACCINES Aged Out No longer eligi ble [...] (03/16/2020 9:57 AM EDT) HDL 60 mg/dL [facility] Comment: Interpretation <40 mg/dL: Low HDL cholesterol (major risk factor for CHD) Greater than or equal to 60 mg/dL: High HDL cholesterol ( negative risk factor for CHD) HDL - cholesterol is affected by a number of factors, e.g. smoking, excerise, hormones, sex and age. CHOLESTEROL 223 0 - 240 mg/dL [facility] TRIGLYCERIDES 112 30 - 160 mg/dL [facility] LDL 141(H) 50 - 129 mg/dL [facility] Comment: LDL levels in terms of risk for coronary heart disease: <100 mg/dL: Optimal 100-129 mg/dL: Near or above optimal 130-159 mg/dL: Borderline high 160-189 mg/dL: High >190 mg/dL: Very High CARDIAC RISK RATIO 3.7 3.3 - 4.4 C [facility] Blood 03/16/2020 9:57 AM EDT 03/16/2020 10:01 AM EDT us Carina Law MD LAB BLOOD BKR ORDERABLES Final Result [facility] [address] [place] [address] * COLONOSCOPY FOR RESULT ENTRY ONLY (09/21/2016) Pathologist [facility] Colonoscopy 2 yr repeat us Isma Degroot MD HEALTH MAINTENANCE Final Result from Last 3 Months or Most Recently Relevant to Health Maintenance Insurance [place] [facility] Care Teams Farmworker Pullet Farm Relationship Specialty Start Date End Date Carina Law MD PCP - General Nephrology 03/16/20 Additional Source Comments The information contained in this document represents components of the legal health record. It is not the complete legal health record.[facility]
--- OUTSIDE RECORDS SUMMARY | 2025-07-10 09:56 | XMS_ITS | Clinical Summary ---
Author Organization [facility] Address [address] [facility] [address] 7t [place] [address] Care Team Providers Care Console Operator Name Role Phone Vlad Childers MERRY Primary [...] to Health Maintenance Insurance DENTAL - [facility] Care Teams Console Operator Relationship Specialty Start Date End Date Vlad Childers DMD PCP - General Dentist 06/30/22
[2025-07-10 10:44] LABS: Hematocrit 38.7 % (37.0-47.0); Hemoglobin 11.9 g/dl (12.0-16.0)
[2025-07-10 11:03] LABS: Alanine Aminotransferase 17 U/L (0-31); Anion Gap 6 (12-20); Aspartate Amino Transferase 25 U/L (5-31); Blood Urea Nitrogen 22 mg/dL (9-16); Calcium 10.0 mg/dL (8.4-10.2); Carbon Dioxide 35 mmol/L (22-29); Chloride 106 mmol/L (96-108); Cholesterol 133 mg/dL (<200); Estimated Glomerular Filt Rate 52; HDL Cholesterol 49 mg/dL (>40); Potassium 4.2 mmol/L (3.3-5.1); Sodium 143 mmol/L (135-145); Triglycerides 119 mg/dL (<150)
== END 2025-07-10 08:58 | disposition home or self-care (01) ==
LOC: HO.HMGCLDS 08:57
PROVIDERS: PCP Internal Medicine; Visit Provider Internal Medicine
DX: I11.0 Hypertensive heart disease with heart failure (principal); I50.812 Chronic right heart failure; I87.2 Venous insufficiency (chronic) (peripheral); E78.00 Pure hypercholesterolemia, unspecified; K21.9 Gastro-esophageal reflux disease without esophagitis; M17.0 Bilateral primary osteoarthritis of knee; I89.0 Lymphedema, not elsewhere classified
CPT/HCPCS: 36415; 80048; 80061; 84450; 84460; 85014; 85018

== ENCOUNTER 2025-07-14 11:12 | Outpatient (AMB) | payer MEDICARE, SELFPAY ==
[2025-07-14 11:54] VITALS: BP 116/60; PULSE 67; RESP 16; TEMP 36.7; O2SAT 98; BMI 36.5
--- NOTE | 2025-07-14 11:54 | MHC.PC.OV ---
Vital Signs 07/14/25 11:54 Height 5 ft 1 in Weight 193 lb BMI 36.5 BP 116/60 Blood Pressure Location Rt brachial Position Sitting Respiration 16 Pulse 67 Pulse Source Pulse Oximeter Temp 98.0 F Temp Source Oral Pulse Oximetry (%) 98 Oxygen Delivery Method Room Air Intake Visit Reasons: 4 months f/up Intake Note: Pt is here today for her 4mo. f/u Rolls Baker Required: No Accompanied by: son and daughter Post menopausal: Yes Allergies hydrocortisone (From Cortizone-10) Adverse Reaction (Verified 07/19/25 22:49) blurred vision Medication List - Last Reconciled 07/14/25 by Buffy Delgado MD amlodipine 5 mg PO DAILY atorvastatin 40 mg PO DAILY cholecalciferol (vitamin D3) 50 mcg PO DAILY commode As directed commode use as directed diclofenac sodium ER 100 mg PO DAILY PRN escitalopram oxalate 30 mg (1.5 x 20 mg) PO DAILY 30 days Grab bar As directed Grab bar Use as directed miscellaneous medical supply Use as directed olmesartan 40 mg PO DAILY omeprazole 20 mg PO DAILY oxcarbazepine orally Qam; vit C,L-Am-kjjyd-lutein-zeaxan 250-90-40-1 mg (PreserVision AREDS-2) 1 tab PO BID walker (Ultra-Light Rollator misc) As directed Tobacco use date assessed: 07/14/25 Fall risk assessment: No Falls in past year Last assessed Fall Risk: 07/14/25 Dental Screening Dental Screen Date: 07/14/25 Did you have a dental visit in the last 12 months?: No Did you have a dental problem in the last 6 months where you did not have access to dental care?: No Was dental information given to patient?: Patient declined HPI 4 months f/up HPI Details 79-year-old female with past medical history significant for hypertension, hyperlipidemia, here today for her follow-up. She is currently taking amlodipine 5 mg daily, olmesartan 40 mg once a day, blood pressure stable and controlled on current medications. Latest fasting labs showed lipids, fasting glucose within normal limits, decreased renal function noted . Swelling in both leg have resolved, currently taking furosemide 20 mg once in the morning as needed for leg swelling Still having recurrent pain in both knees, exacerbated by walking, standing, spends most of her day sitting down, and uses a cane when walking. An x-ray from last year confirmed presence of severe arthritis. Currently followed by [facility] for trigeminal neuralgia , status post decompressive surgery, and now with pain controlled on oxcarbazepine. She is currently being seen at the pulmonary clinic at [facility] for her obstructive sleep apnea currently doing well with CPAP, compliant with using her machine, and is being followed for multiple pulmonary nodules, with CT scan monitoring Complains of recurrent nasal congestion and postnasal drainage, has to constantly clear her throat in the morning when she wakes up. Also complaining of an itchy red eye on left, which has been present now for the last several days. Denies any change in vision [facility] Medical History (Updated 07/19/25 @ 23:05 by Buffy Delgado MD) GALLITO on CPAP Venous insufficiency of both lower extremities Essential hypertension Trigeminal neuralgia of right side of face Localized swelling of both lower legs Ascending aorta dilatation Polyarthralgia Cough GERD (gastroesophageal reflux disease) Gait instability Heartburn symptom Macular degeneration Hyperlipidemia Family history of thyroid disease Lichen sclerosus et atrophicus of the vulva History of herpes zoster Lesion of skin of face Generalized anxiety disorder with panic attacks Chronic gastroesophageal reflux disease Surgical History History of varicose vein ligation Hx of colonoscopy History of esophagogastroduodenoscopy (EGD) Hx of hernia repair Family History Son Generalized anxiety disorder with panic attacks Maternal Aunt Mental health disorder Social History Housing: Apartment Alcohol intake: former Patient Tobacco Use Status: Former Tobacco user Years Smoked: 5 yrs e-Cigarette/Vaping Use: Never Used service: No Current occupational status: disabled Cognitive needs: No Hearing needs: No Vision needs: No Questionnaire PHQ-9 Over the last 2 weeks, how often have you been bothered by any of the following problems? 1. Little interest or pleasure in doing things: not at all 2. Feeling down, depressed, or hopeless: not at all 3. Trouble falling or staying asleep, or sleeping too much: several days 4. Feeling tired or having little energy: several days 5. Poor appetite or overeating: not at all 6. Feeling bad about yourself - or that you are a failure or have let yourself or your family down: not at all 7. Trouble concentrating on things, such as reading the newspaper or watching television: not at all 8. Moving or speaking so slowly that other people could have noticed. Or the opposite - being so fidgety or restless that you have been moving around a lot more than usual: not at all 9. Thoughts that you would be better off or of hurting yourself in some way: not at all Total score: 2 Depression Screening Interpretation: Negative Depression Screening Done: Yes Source: Developed by Drs. Kemar Cullen, Cira Mclean, Bo Allen and colleagues, with an educational haily from [employer]. Thrive Questionnaire Date Thrive assessed: 10/24/24 I am a: Parent/Caregiver What is your living situation today?: I have a steady place to live Within the past 12 months, did the food you bought not last and you didn't have the money to get more?: Never true Within the past 12 months, did you worry whether your food would run out before you got money to buy more?: Never true Do you have trouble paying for medicines?: Yes Do you have trouble getting transportation to medical appointments?: Yes Do you have trouble paying your heating and electricity bill?: Yes Do you have trouble taking care of your child, family member or friend?: No Do you have trouble with day-to-day activities such as bathing, preparing meals, shopping, managing finances, etc.?: Yes Are you currently unemployed and looking for a job?: No Are you interested in more education?: No Currently or been in a relationship where the following occur: No concerns reported THRIVE Score: 2 AUDIT C Alcohol Use Questionnaire (AUDIT-C) 1. How often do you have a drink containing alcohol?: Never 3. How often do you have six or more drinks on one occasion?: Never Total Score: 0 NELY-7 AMB Questionnaire NELY-7 Date NELY - 7 assessed: 07/14/25 Feeling nervous, anxious, or on edge: 0 = Not at all Not being able to stop or control worryin = Not at all Worrying too much about different things: 0 = Not at all Trouble relaxin = Not at all Being so restless that it is hard to sit still: 0 = Not at all Becoming easily annoyed or irritable: 0 = Not at all Feeling afraid as if something awful might happen: 0 = Not at all Total NELY-7 score (0-4 normal; 5-9 mild; 10-14 moderate; 15-21 severe): 0 Source: Developed by Drs. Kemar Cullen, Cira Mclean, Bo Allen and colleagues, with an educational haily from [employer]. NELY-7 Assessment Billing NELY-7 Assessment Tool: NELY-7 Assessment 07253 Review of Systems Const Denies daytime sleepiness, Denies difficulty sleeping, Denies stops breathing during sleep and Denies weakness Eyes Reports as per HPI ENT Reports no additional complaints Card Denies chest pain, Denies rapid heart rate, Denies irregular heart rhythm, Denies claudication, Denies leg edema, Denies lightheadedness and Denies dyspnea Resp Denies dyspnea GI Reports no additional complaints Reports no additional complaints Musc Denies abnormal gait, Denies muscle weakness and Denies numbness Neuro Denies abnormal gait, Denies numbness, Denies Sensory deficit (Neuro) and Denies weakness Psych Reports no additional complaints Endo Reports no additional complaints Abilio/Lymph Reports no additional complaints Aller/Immun Reports no additional complaints Physical exam (Primary Care) Vital Signs: Last Vital Signs Temp 98.0 F 07/14/25 11:54 Pulse 67 07/14/25 11:54 Resp 16 07/14/25 11:54 BP 116/60 07/14/25 11:54 Pulse Ox 98 07/14/25 11:54 Oxygen Delivery Method Room Air 07/14/25 11:54 BMI result Body Mass Index 36.5 Tobacco/Smoking Status: Tobacco use Status Tobacco use date assessed 07/14/25 07/14/25 12:02 Patient Tobacco Use Status Former Tobacco user 07/14/25 11:57 e-Cigarette/Vaping Use Never Used 07/14/25 11:57 PHQ-9: PHQ-9 Score PHQ-9: Total score 3 07/14/25 12:17 Depression Screening Interpretation: Negative Thrive Assessment: Date of Thrive Assessment Date Thrive assessed 10/24/24 07/14/25 11:57 Currently or been in a relationship where the following occur: No concerns reported Const General: alert and anxious Nutritional Appearance: obese Orientation/consciousness: patient oriented x3 [facility] General nose exam: Normal external nose present and No nasal discharge present Face and sinus: Yes sinuses nontender and Yes face symmetric Mouth: Normal oral and palatal mucosa present, oropharynx normal and moist mucous membranes Eyes Other: Slight erythema conjunctival injection 0 S, no active discharge Pupils: Equal, round and reactive pupils present EOM: EOMs intact bilaterally Neck Neck: Yes full ROM, Yes no lymphadenopathy and Yes supple Resp Effort & Inspection: normal respiratory effort Auscultation: clear to auscultation bilaterally Cardio Jugular venous distension: no JVD Rate: regular rate Rhythm: regular rhythm Heart sounds: S1 normal heart sound present and S2 normal heart sound present Peripheral pulses: popliteal pulses present, posterior tibial pulses present and dorsalis pedis present GI Palpation (GI): Soft to palpation, nontender, no guarding and no masses Back/Spine/Pelvis Back: No back tenderness Skin General skin exam: no rashes or lesions noted Neuro General: patient oriented x3, moves all extremities, no focal motor deficits and CN's II-XI intact bilaterally Cranial nerves: Yes Equal, round and reactive pupils present Sensory Exam: No Sensory deficit (Neuro) Extrem Other: Crepitus noted in both knees, trace ankle swelling noted General: Yes no calf tenderness Psych Appearance: grossly normal and well kempt Affect: normal affect Attitude: cooperative Results Reviewed Results Reviewed: Laboratory Tests 07/10/25 09:01 Hgb 11.9 L Hct 38.7 Name: Evelyn Shaikh Age/Sex: 79/F : 1945 Unit#: [id number] Attend Dr: Buffy Delgado MD Re07/10/25 Status: DEP REF [facility] Disch: SPEC : [id number] MAURO: 07/10/25 STATUS: COMP REQ : [id number] RECD: 07/10/[address]: Buffy Delgado MD COMP: 07/10/25 ENTERED: 07/10/[address]: ORDERED: Met Prof Fast, AST, ALT, Lipid Panel Test Result Flag Reference Sodium 143 135-145 mmol/L Potassium 4.2 3.3-5.1 mmol/L CL 106 96-108 mmol/L CO2 35 H 22-29 mmol/L Gap 6 L 12-20 BUN 22 H 9-16 mg/dL Creat 1.03 0.5-1.4 mg/dL eGFR 52 Chronic Kidney Disease: Estimated GFR < 60 mL/min/1.73m2 Severe Kidney Disease: Estimated GFR < 15 mL/min/1.73m2 FBS 91 60-99 mg/dL CA 10.0 8.4-10.2 mg/dL AST (GOT) 25 5-31 U/L ALT (GPT) 17 0-31 U/L Triglyceride 119 <150 mg/dL Desirable Triglyceride: less than 150 mg/dL Borderline High Triglyceride 150-199 mg/dL High Triglyceride: 200-499 mg/dL Very High Triglyceride: greater than or equal to 5OO mg/dL Cholesterol 133 <200 mg/dL Desirable Cholesterol: less than 200 mg/dL Borderline High Cholesterol: 200-239 mg/dL High Cholesterol: greater than 239 mg/dL LDL Calculated 61 <100 mg/dL Desirable LDL: less than 100 mg/dL Near Optimal/Above Optimal LDL: 110-129 mg/dL Borderline High LDL: 130-159 mg/dL High LDL: 160-189 mg/dL Very High LDL: greater than or equal to 190 mg/dL HDL 49 >40 mg/dL Desirable HDL: greater than 40 mg/dL Note: This HDL assay may give artificially low results in patients with liver disease. Coding Level of Care Code Est Pt Level 4 (18230) Complex EM visit Add On G2211 Diagnoses Essential hypertension I10 Venous insufficiency of both lower extremities I87.2 Pure hypercholesterolemia E78.00 Hyperlipidemia type: pure hypercholesterolemia Acute conjunctivitis of left eye, unspecified acute conjunctivitis type H10.32 Acute conjunctivitis type: unspecified Allergic rhinitis, unspecified seasonality, unspecified trigger J30.9 Allergic rhinitis trigger: unspecified Allergic rhinitis seasonality: unspecified Additional Codes NELY-7 Assessment Billing - NELY-7 Assessment Tool: NELY-7 Assessment 69631 ([id number]) Assessment & Plan Assessment & Plan (1) Essential hypertension: Code(s): I10 - Essential (primary) hypertension Category: Medical Plan: Blood pressure at goal of less than 130/80. Continue with current medication. Reinforced importance of following a low sodium diet, getting regular exercise, and lowering stress levels. (2) Venous insufficiency of both lower extremities: Code(s): I87.2 - Venous insufficiency (chronic) (peripheral) Category: Medical Plan: Continue with taking furosemide as needed for leg swelling , elevate legs as much as possible, and cut back on salt intake. Patient has tried using compression socks but unable to tolerate (3) Hyperlipidemia: Code(s): E78.5 - Hyperlipidemia, unspecified Category: Medical Qualifiers: Hyperlipidemia type: pure hypercholesterolemia Qualified Code(s): E78.00 - Pure hypercholesterolemia, unspecified Plan: Reviewed recent fasting lipid profile with patient with levels within normal limits . Continue atorvastatin 40 mg daily , in addition to adherence to low-cholesterol diet and regular exercise, at least 30 minutes 3 to 4 times a week. Advised patient to make healthy food choices, eat more fruits, vegetables, whole grains, wild caught fish and low-fat dairy. Limit amount of meat and fried or fatty food products, as well as processed foods and fast foods. (4) Acute conjunctivitis, left eye: Code(s): H10.32 - Unspecified acute conjunctivitis, left eye Qualifiers: Acute conjunctivitis type: unspecified Qualified Code(s): H10.32 - Unspecified acute conjunctivitis, left eye Plan: Prescription sent for moxifloxacin 0.5%, instill 1 drop to affected eye 3 times a day for no more than 5 days (5) Rhinitis, allergic: Code(s): J30.9 - Allergic rhinitis, unspecified Qualifiers: Allergic rhinitis trigger: unspecified Allergic rhinitis seasonality: unspecified Qualified Code(s): J30.9 - Allergic rhinitis, unspecified Plan: Prescription sent for levocetirizine 5 mg taken once a day at bedtime as medicine can cause drowsiness take it as needed for nasal congestion and runny nose. Prescription also sent for Azelastine nasal spray , 1 spray intranasally twice a day as needed for nasal congestion Medications: New levocetirizine 5 mg PO QPM PRN 30 tabs 2RF allergy symptoms azelastine administer into each nostril 1 spray intranasal BID 30 mL 0RF moxifloxacin 0.5% (Vigamox) 1 drp ophthalmic (eye) TID 3 mL 0RF 5 days
--- OUTSIDE RECORDS SUMMARY | 2025-07-14 13:22 | XMS_ITS | Encounter Summary ---
Author Organization [facility] Address [address] [place] [address] Phone Care Team Providers Care Color Checker Roving Or Yarn Name Role Phone Margareth Camara DO Primary Care Provider [phone] Margareth Camara DO Primary Care Provider [phone] Carina Law MD Primary Care Provider Unavaila ble Encounter Details Date Type Department Care Team (Late st Contact Info) Description 07/05/2018 Transcribe Orders [facility] [address] [place] [address] Margareth Camara DO [address] [facility] [address] [place], [place] [id number] [email or web address] Social History Tobacco Use Types Packs/Day Years [...] documented as of this encounter Care Teams Color Checker Roving Or Yarn Relationship Specialty Start Date End Date Margareth Camara DO [address] [facility] [address] [place] [address] [email or web address] PCP - General 07/06/17 08/24/19 Margareth Camara DO [address] [place] [address] 7 [place] [address] [email or web address] PCP - General Family Medicine 08/25/19 03/15/20 Carina Law MD PCP - General Nephrology 03/16/20 documented as of this encounter Additional Source Comments The information contained in this document represents components of the legal health record. It is not the complete legal health record.[facility]
--- OUTSIDE RECORDS SUMMARY | 2025-07-14 13:22 | XMS_ITS | Encounter Summary ---
Author Organization [facility] Address [address] [facility] [facility] [address] [place] [address] Phone Care Team Providers Care Chief Program Officer Name Role Phone Carina Law MD Primary Care Provider Unavaila ble Reason for Visit * Reason Comments Medication Refill Encounter Details Date Type Department Care Team (Late st Contact Info) Description 06/29/2025 Refill [facility] [address] [place] [address] Ramirez Sultana MD [address] [place] [phone] [email or web address] Medication Refill Social History Tobacco Use Types [...] documented as of this encounter Care Teams Chief Program Officer Relationship Specialty Start Date End Date Carina Law MD PCP - General Nephrology 03/16/20 documented as of this encounter Additional Source Comments The information contained in this document represents components of the legal health record. It is not the complete legal health record.[facility]
--- OUTSIDE RECORDS SUMMARY | 2025-07-14 13:22 | XMS_ITS | Encounter Summary ---
Author Organization [employer] Address [address] [facility] 7[address] [place] [address] Care Team Providers Care Student Nurse Name Role Phone Vlad Childers DMD Primary Care Provider Unava ilable Reason for Visit * Reason Comments Med Refill Encounter Details Date Type Department Care Team (Late st Contact Info) Description 01/02/2025 Refill [facility] [address] [place] [address] Екатерина Johnson BDS Social History Tobacco Use [...]
--- OUTSIDE RECORDS SUMMARY | 2025-07-14 13:22 | XMS_ITS | Encounter Summary ---
Author Organization [facility] Address [address] [facility] [address] [place] [address] Phone Care Team Providers Care Marketing Representative Name Role Phone Margareth Camara DO Primary Care Provider [phone] Margareth Camara DO Primary Care Provider [phone] Carina Law MD Primary Care Provider Unavaila ble Encounter Details Date Type Department Care Team (Late st Contact Info) Description 08/02/2017 Ancillary Orders [facility] [address] [place] [address] Margareth Camara, DO [address] [facility] [address] [place] [address] [email or web address] Breast screening Social History Tobacco Use Types [...] unspecified documented in this encounter Care Teams Marketing Representative Relationship Specialty Start Date End Date Margareth Camara DO [address] [place] [address] 7 [place] [address] [email or web address] PCP - General 07/06/17 08/24/19 Margareth Camara DO [address] [place] [address] 7 [place] [address] [email or web address] PCP - General Family Medicine 08/25/19 03/15/20 Carina Law MD PCP - General Nephrology 03/16/20 documented as of this encounter Additional Source Comments The information contained in this document represents components of the legal health record. It is not the complete legal health record.[facility]
--- OUTSIDE RECORDS SUMMARY | 2025-07-14 13:22 | XMS_ITS | Encounter Summary ---
Author Organization [employer] [facility] Address [address] [place] [address] 7 h Floor [place] [id number] Care Team Providers Care Melt Room Operator Name Role Phone Vlad Childers DMD Primary [...] on filedocumented in this encounter Care Teams Melt Room Operator Relationship Specialty Start Date End Date Vlad Childers DMD PCP - General Dentist 06/30/22 documented as of this encounter
--- OUTSIDE RECORDS SUMMARY | 2025-07-14 13:22 | XMS_ITS | Encounter Summary ---
Author Organization [facility] Address [address] [facility] [address] [place] [address] Phone Care Team Providers Care Arts And Sciences Dean Name Role Phone Carina Law MD Primary Care Provider Unavaila ble Reason for Visit * Reason Comments Medication Refill Encounter Details Date Type Department Care Team (Late st Contact Info) Description 06/30/2025 Refill [facility] [address] [place] [address] Ramirez Sultana MD [address] [place] [phone] [email or web address] Medication Refill Social History Tobacco Use Types [...] documented as of this encounter Care Teams Arts And Sciences Dean Relationship Specialty Start Date End Date Carina Law MD PCP - General Nephrology 03/16/20 documented as of this encounter Additional Source Comments The information contained in this document represents components of the legal health record. It is not the complete legal health record.[facility]
--- OUTSIDE RECORDS SUMMARY | 2025-07-14 13:22 | XMS_ITS | Encounter Summary ---
Author Organization [facility] Address [address] [facility] [address] [place] [address] Phone Care Team Providers Care Team Physician Name Role Phone Margareth Camara DO Primary Care Provider [phone] Margareth Camara DO Primary Care Provider [phone] Carina Law MD Primary Care Provider Unavaila ble Encounter Details Date Type Department Care Team (Late st Contact Info) Description 07/10/2018 Ancillary Orders [facility] [address] [place] [address] Margareth Camara DO [address] [address] [email or web address] Breast screening Social History Tobacco Use Types [...] documented as of this encounter Care Teams Team Physician Relationship Specialty Start Date End Date Margareth Camara DO [address] [address] PCP - General 07/06/17 08/24/19 Margareth Camara DO [address] [place] [address], [facility] 7 [place] [address] PCP - General Family Medicine 08/25/19 03/15/20 Carina Law MD PCP - General Nephrology 03/16/20 documented as of this encounter Additional Source Comments The information contained in this document represents components of the legal health record. It is not the complete legal health record.[facility]
--- OUTSIDE RECORDS SUMMARY | 2025-07-14 13:22 | XMS_ITS | Clinical Summary ---
Author Organization [employer] [facility] Address [address] [facility] [address] 7[address] [place] [address] Care Team Providers Care Mobile Sales Consultant Name Role Phone Vlad Childers MERRY Primary [...] to Health Maintenance Insurance DENTAL - [facility] Care Teams Mobile Sales Consultant Relationship Specialty Start Date End Date Vlad Childers DMD PCP - General Dentist 06/30/22
--- OUTSIDE RECORDS SUMMARY | 2025-07-14 13:22 | XMS_ITS | Clinical Summary ---
Author Organization [facility] Address [address] [address] Phone Care Team Providers Care Architecture Drafter Name Role Phone Carina Law MD Primary [...] Refill [facility] [address] [place] [address] Ramirez Sultana MD Medication Refill 06/29/2025 Refill [facility]CMP [facility] Program [address] [place] [address] Ramirez Sultana MD Medication Refill from Last [...] (03/16/2020 9:57 AM EDT) HDL 60 mg/dL [facility] Comment: Interpretation <40 mg/dL: Low HDL cholesterol (major risk factor for CHD) Greater than or equal to 60 mg/dL: High HDL cholesterol ( negative risk factor for CHD) HDL - cholesterol is affected by a number of factors, e.g. smoking, excerise, hormones, sex and age. CHOLESTEROL 223 0 - 240 mg/dL [facility] TRIGLYCERIDES 112 30 - 160 mg/dL [facility] LDL 141(H) 50 - 129 mg/dL [facility] Comment: LDL levels in terms of risk for coronary heart disease: <100 mg/dL: Optimal 100-129 mg/dL: Near or above optimal 130-159 mg/dL: Borderline high 160-189 mg/dL: High >190 mg/dL: Very High CARDIAC RISK RATIO 3.7 3.3 - 4.4 C [facility] Blood 03/16/2020 9:57 AM EDT 03/16/2020 10:01 AM EDT us Carina Law MD LAB BLOOD BKR ORDERABLES Final Result [facility] [address] [place] [address] * COLONOSCOPY FOR RESULT ENTRY ONLY (09/21/2016) Pathologist [facility] Colonoscopy 2 yr repeat us Isma Degroot MD HEALTH MAINTENANCE Final Result from Last 3 Months or Most Recently Relevant to Health Maintenance Insurance [place] [facility] Care Teams Architecture Drafter Relationship Specialty Start Date End Date Carina Law MD PCP - General Nephrology 03/16/20 Additional Source Comments The information contained in this document represents components of the legal health record. It is not the complete legal health record.[facility]
--- OUTSIDE RECORDS SUMMARY | 2025-07-14 13:22 | XMS_ITS | Encounter Summary ---
Author Organization [facility] Address 399 [facility] [address] [place] [address] Phone Care Team Providers Care Operations Expert Name Role Phone Carina Law MD Primary Care Provider Unavaila ble Encounter Details Date Type Department Care Team (Late st Contact Info) Description 12/16/2020 Transcribe Orders [address] [address] Carina Law MD Social History Tobacco Use [...] documented as of this encounter Care Teams Operations Expert Relationship Specialty Start Date End Date Carina Lwa MD PCP - General Nephrology 03/16/20 documented as of this encounter Additional Source Comments The information contained in this document represents components of the legal health record. It is not the complete legal health record.[facility]
--- OUTSIDE RECORDS SUMMARY | 2025-07-14 13:22 | XMS_ITS | Encounter Summary ---
Author Organization [facility] Address 399 [facility] [address] [place] [address] Phone Care Team Providers Care Biophysics Teacher Name Role Phone Carina Law MD Primary Care Provider Unavaila ble Encounter Details Date Type Department Care Team (Latest Contact Info) Description 03/16/2020 Transcribe Orders [address] [address] Carina Law MD Mixed hyperlipidemia (Primary Dx); [...] (03/16/2020 9:57 AM EDT) HDL 60 mg/dL [facility] Comment: Interpretation <40 mg/dL: Low HDL cholesterol (major risk factor for CHD) Greater than or equal to 60 mg/dL: High HDL cholesterol ( negative risk factor for CHD) HDL - cholesterol is affected by a number of factors, e.g. smoking, excerise, hormones, sex and age. CHOLESTEROL 223 0 - 240 mg/dL [facility] TRIGLYCERIDES 112 30 - 160 mg/dL [facility] LDL 141(H) 50 - 129 mg/dL [facility] Comment: LDL levels in terms of risk for coronary heart disease: <100 mg/dL: Optimal 100-129 mg/dL: Near or above optimal 130-159 mg/dL: Borderline high 160-189 mg/dL: High >190 mg/dL: Very High CARDIAC RISK RATIO 3.7 3.3 - 4.4 C [facility] Blood 03/16/2020 9:57 AM EDT 03/16/2020 10:01 AM EDT us Carina Law MD LAB BLOOD BKR ORDERABLES Final Result [address] [address] * (ABNORMAL) Comprehensive metabolic panel (03/16/2020 9:57 AM EDT) SODIUM 141 133 - 146 mmol/L [facility] POTASSIUM 4.5 3.3 - 5.1 mmol/L [facility] CHLORIDE 107 96 - 108 mmol/L [facility] CO2 26 21 - 35 mmol/L [facility] BUN 21(H) 6 - 19 mg/dL [facility] CREATININE 0.90 0.5 - 1.5 mg/dL [facility] GLUCOSE 95 70 - 99 mg/dL [facility] ALBUMIN 4.0 3.9 - 4.8 g/dL [facility] TOTAL PROTEIN 7.2 6.5 - 8.0 g/dL [facility] CALCIUM 10.0 8.4 - 10.3 mg/dL [facility] ALKALINE PHOSPHATASE 95 39 - 117 U/L [facility] TOTAL BILIRUBIN 0.3 0.0 - 1.2 mg/dL [facility] AST 19 0 - 37 U/L [facility] ALT 26 0 - 40 U/L [facility] GLOBULIN 3.2 1 - 4.8 g/dL [facility] EGFR 63 >59 mL/min/1.7 3m2 [facility] Comment:Estimated glomerular filtration rate calculated using the CKD-EPI equation. ANION GAP 13 10 - 20 mmol/L [facility] Blood 03/16/2020 9:57 AM EDT 03/16/2020 10:01 AM EDT us Carina Law MD LAB BLOOD BKR ORDERABLES Final Result [address] [address] * Hemoglobin A1c (03/16/2020 9:57 AM EDT) HEMOGLOBIN A1C 5.8 4.3 - 5.8 % [facility] Blood 03/16/2020 9:57 AM EDT 03/16/2020 10:01 AM EDT us Carina Law MD LAB BLOOD BKR ORDERABLES Final Result Performing Organization Address [facility]/ZIP Co de Phone Number [address] [address] * CBC and differential (03/16/2020 9:57 AM EDT) WBC 6.64 4.00 - 11.00 K/uL [facility] Comment:Note Reference Range updates to all CBC and Differential results. RBC 4.30 3.72 - 5.30 M/uL [facility] HGB 12.5 11.4 - 15.9 g/dL [facility] Comment:Note updated Referen ce Ranges for all CBC and Differential results. HCT 38.1 34.2 - 46.8 % [facility] PLT 188 140 - 430 K/uL [facility] MCV 88.6 78.0 - 97.0 fL [facility] MCH 29.1 25.0 - 33.0 pg [facility] MCHC 32.8 32.0 - 36.0 g/dL [facility] RDW 13.4 11.0 - 16.0 % [facility] MPV 10.8 8.4 - 12.8 fl [facility] NRBC 0.00 0 /100 WBCs [facility] ABSOLUTE NRBC 0.00 0 K/uL [facility] DIFF METHOD Auto [facility] NEUTS 59.7 43.0 - 75.0 % [facility] LYMPHS 27.6 18.2 - 47.4 % [facility] MONOS 7.1 4.00 - 11.00 % [facility] EOS 4.4 0.0 - 8.0 % [facility] BASOS 0.9 0.0 - 2.0 % [facility] Granulocytes, immature (%) 0.3 0.0 - 0.9 % [facility] ABSOLUTE NEUTS 3.97 1.80 - 7.70 K/uL [facility] ABSOLUTE LYMPHS 1.83 1.00 - 3.10 K/uL [facility] ABSOLUTE MONOS 0.47 0.20 - 0.80 K/uL [facility] ABSOLUTE EOS 0.29 0.00 - 0.80 K/uL [facility] ABSOLUTE BASOS 0.06 0.00 - 0.09 K/uL [facility] Granulocytes, immature 0.02 0.00 - 0.05 K/uL [facility] Blood 03/16/2020 9:57 AM EDT 03/16/2020 10:01 AM EDT us Carina Law MD LAB BLOOD BKR ORDERABLES Final Result Performing Organization Address City/State/[facility] Co de Phone Number [address] [address] documented in this encounter Visit Diagnoses Diagnosis Mixed hyperlipidemia- Primary Diabetes mellitus screening Screening for diabetes mellitus documented in this encounter Additional Health Concerns Assessment Noted Time PHQ-2 Depression Total Score: 0 06/25/20 18 10:57 AM EDT documented as of this encounter Care Teams Biophysics Teacher Relationship Specialty Start Date End Date Carina Law MD PCP - General Nephrology 03/16/20 documented as of this encounter Additional Source Comments The information contained in this document represents components of the legal health record. It is not the complete legal health record.[facility]
== END 2025-07-14 12:39 | disposition home or self-care (01) ==
LOC: HO.HMCC 11:13
PROVIDERS: PCP Internal Medicine; Visit Provider Internal Medicine
DX: I10 Essential (primary) hypertension (principal); I87.2 Venous insufficiency (chronic) (peripheral); E78.00 Pure hypercholesterolemia, unspecified; H10.32 Unspecified acute conjunctivitis, left eye; J30.9 Allergic rhinitis, unspecified

== ENCOUNTER → 2025-07-14 11:12 | Outpatient (BNVA) | payer MEDICARE, SELFPAY | PROVIDERS: PCP Internal Medicine; Visit Provider Internal Medicine | DX: I10 Essential (primary) hypertension (principal); I87.2 Venous insufficiency (chronic) (peripheral); E78.00 Pure hypercholesterolemia, unspecified; H10.32 Unspecified acute conjunctivitis, left eye; J30.9 Allergic rhinitis, unspecified | CPT/HCPCS: 96127; 99212 ==

== ENCOUNTER 2025-07-16 14:57 | Outpatient (AMB) | payer MEDICARE, SELFPAY ==
--- NOTE | 2025-07-16 15:06 | MHC.OFFVIS ---
Vital Signs 07/16/25 15:09 Height 5 ft 1 in BP 124/68 Blood Pressure Location Lt brachial Position Sitting Pulse 70 Pulse Source Pulse Oximeter Intake Visit Reasons: f/u Radio Engineering Teacher Required: Yes Radio Engineering Teacher Services: Radio Engineering Teacher Offered & Declined Accompanied by: Daughter Allergies hydrocortisone (From Cortizone-10) Adverse Reaction (Verified 07/16/25 15:18) blurred vision Medication List - Last Reconciled 07/16/25 by Caleb Kelly NP amlodipine 5 mg PO DAILY atorvastatin 40 mg PO DAILY azelastine 1 spray intranasal BID cholecalciferol (vitamin D3) 50 mcg PO DAILY commode As directed commode use as directed diclofenac sodium ER 100 mg PO DAILY PRN escitalopram oxalate 30 mg (1.5 x 20 mg) PO DAILY 30 days Grab bar As directed Grab bar Use as directed levocetirizine 5 mg PO QPM PRN miscellaneous medical supply Use as directed moxifloxacin 0.5% (Vigamox) 1 drp ophthalmic (eye) TID 5 days olmesartan 40 mg PO DAILY omeprazole 20 mg PO DAILY oxcarbazepine orally Qam; vit C,B-Ei-jmqbd-lutein-zeaxan 250-90-40-1 mg (PreserVision AREDS-2) 1 tab PO BID walker (Ultra-Light Rollator misc) As directed HPI Comments Details: This is a 79-year-old female patient coming in for a follow-up visit, accompanied by her daughter who helped with the interpretation throughout the visit. Patient with a history of hypertension, ascending aorta dilatation on CAT scan, and obesity. Today, patient is reporting feeling well overall without any cardiac symptoms of exertional chest pain, shortness of breath, palpitations, dizziness, orthopnea, PND, presyncope or syncope. Patient is reporting intermittent leg swelling. Patient is otherwise reporting compliance with all her medications. [facility] Medical History GALLITO on CPAP Depression with anxiety Venous insufficiency of both lower extremities Essential hypertension Trigeminal neuralgia of right side of face Localized swelling of both lower legs Ascending aorta dilatation Polyarthralgia Cough GERD (gastroesophageal reflux disease) Gait instability Heartburn symptom Macular degeneration Hyperlipidemia Family history of thyroid disease Lichen sclerosus et atrophicus of the vulva History of herpes zoster Lesion of skin of face Generalized anxiety disorder with panic attacks Chronic gastroesophageal reflux disease Surgical History History of varicose vein ligation Hx of colonoscopy History of esophagogastroduodenoscopy (EGD) Hx of hernia repair Family History Son Generalized anxiety disorder with panic attacks Maternal Aunt Mental health disorder Social History Housing: Apartment Alcohol intake: former Patient Tobacco Use Status: Former Tobacco user Years Smoked: 5 yrs e-Cigarette/Vaping Use: Never Used service: No Current occupational status: disabled Cognitive needs: No Hearing needs: No Vision needs: No Review of Systems Const Denies daytime sleepiness, Denies difficulty sleeping, Denies snoring, Denies stops breathing during sleep and Denies weakness Card Denies chest pain, Denies rapid heart rate, Denies irregular heart rhythm, Denies claudication, Denies leg edema, Denies lightheadedness, Denies dyspnea, Reports dyspnea on exertion, Denies orthopnea, Denies paroxysmal nocturnal dyspnea and Denies slow heart rate Resp Reports cough, Denies dyspnea, Reports dyspnea on exertion and Denies snoring GI Reports no additional complaints, Denies hematochezia, Denies change in stool character and Denies dyspepsia Musc Denies abnormal gait, Denies muscle weakness and Denies numbness Neuro Denies abnormal gait, Denies numbness and Denies weakness Physical Exam Vital Signs: Last Vital Signs Pulse 70 07/16/25 15:09 BP 124/68 07/16/25 15:09 Const General: cooperative, healthy appearing, comfortable and no acute distress Orientation/consciousness: patient oriented x3 HEENT Head: Yes normal to inspection Neck Neck: Yes normal visual inspection, Yes trachea midline and Yes supple Chest Chest palpation & inspection: normal inspection of the chest Resp Effort & Inspection: normal respiratory effort Auscultation: clear to auscultation bilaterally, no crackles, no rales, no rhonchi and no wheezes Cardio Jugular venous distension: no JVD Palpation: normal PMI Rate: regular rate Rhythm: regular rhythm Heart sounds: S1 normal heart sound present, S2 normal heart sound present, no click, no gallops, no murmurs and no rubs Peripheral pulses: Peripheral pulses 2+ throughout GI Inspection: Yes normal to inspection Palpation (GI): Soft to palpation Auscultation: normal bowel sounds Skin General skin exam: no rashes or lesions noted Neuro General: patient oriented x3 Extrem Other: 1+ nonpitting edema to bilateral lower legs General: Yes normal to inspection and No calf tenderness Psych Appearance: grossly normal Mental Status: mental status grossly normal Speech and movement: Normal speech and movement present Assessment & Plan Assessment & Plan (1) Chronic right heart failure: Code(s): I50.812 - Chronic right heart failure Category: Medical Plan: Chronic bilateral leg swelling. Multifactorial as patient with venous disease, chronic right-sided heart failure, and morbid obesity. Patient states that she takes Lasix as needed but is also following with vascular for lymphedema. Patient was provided with compression socks which daughter states that patient is not compliant with. Patient was also provided with pneumatic compression boots which patient is using minimally. Advised on using this regularly to help with circulation. Advised to also elevate legs when sitting. Patient verbalizes understanding. (2) Ascending aorta dilatation: Code(s): I77.810 - Thoracic aortic ectasia Category: Medical Plan: Back in October 2023, chest CT head showed a mildly dilated ascending aorta at the level of main pulmonary artery measuring at 4.1 cm. 06/12/2025-patient underwent an echo study that showed normal LV systolic function with the ejection fraction between 60-65% with trace mitral and pulmonic valve regurgitation. (3) Essential hypertension: Code(s): I10 - Essential (primary) hypertension Category: Medical Plan: Blood pressure is well-controlled. Continue current regimen with a blood pressure goal less than 130/80. Advised monitoring blood pressures at home. Advised on low-salt diet. Advised on heart healthy diet, regular exercise, losing weight, med compliance, and management of vascular risk factors. Follow up in 1 year, sooner if needed. In the interim, patient will call the office with any concerns or change in symptoms. This note was generated using voice recognition software. While every effort has been made to ensure accuracy and proper route specialist, there may be occasional errors that could affect the content or meaning of the described symptoms. Medications: New furosemide (Lasix) 20 mg PO .prn 30 tabs 0RF Leg swelling Coding Level of Care Code Est Pt Level 4 (41843) Complex EM visit Add On G2211 Diagnoses Chronic right heart failure I50.812 Ascending aorta dilatation I77.810 Essential hypertension I10 Time Spent (min) 31 Comment Time spent in reviewing the chart, test results, assessment, counseling and documentation.
[2025-07-16 15:09] VITALS: BP 124/68; PULSE 70
--- OUTSIDE RECORDS SUMMARY | 2025-07-16 18:13 | XMS_ITS | Encounter Summary ---
Author Organization [facility] Address 399 [facility] [address] [place] [address] Phone Care Team Providers Care Pinion Staker Name Role Phone Carina Law MD Primary Care Provider Unavaila ble Reason for Visit * Reason Comments Medication Refill Encounter Details Date Type Department Care Team (Late st Contact Info) Description 06/29/2025 Refill [facility] CCA iCMP PLUS Program [address] [place] [address] Ramirez Sultana MD [address] [place] [phone] [email or web address] Medication Refill Social History Tobacco Use Types [...] documented as of this encounter Care Teams Pinion Staker Relationship Specialty Start Date End Date Carina Law MD PCP - General Nephrology 03/16/20 documented as of this encounter Additional Source Comments The information contained in this document represents components of the legal health record. It is not the complete legal health record.[facility]
--- OUTSIDE RECORDS SUMMARY | 2025-07-16 18:13 | XMS_ITS | Encounter Summary ---
Author Organization [facility] Address 399 [facility] [address] [place] [address] Phone Care Team Providers Care Press Operator [employer] Products Name Role Phone Margareth Camara DO Primary Care Provider [phone] Margareth Camara DO Primary Care Provider [phone] Carina Law MD Primary Care Provider Unavaila ble Encounter Details Date Type Department Care Team (Late st Contact Info) Description 07/05/2018 Transcribe Orders [facility] [address] [place] [address] Margareth Camara DO [address] [facility] 7 [place], [place] [id number] [email or web address] Social History Tobacco Use Types Packs/Day Years [...] documented as of this encounter Care Teams Press Operator [employer] Relationship Specialty Start Date End Date Margareth Camara DO [address] [facility] 7 [place] [address] PCP - General 07/06/17 08/24/19 Margareth Camara DO [address] [place] [address] 7 [place] [address] PCP - General Family Medicine 08/25/19 03/15/20 Craina Law MD PCP - General Nephrology 03/16/20 documented as of this encounter Additional Source Comments The information contained in this document represents components of the legal health record. It is not the complete legal health record.[facility]
--- OUTSIDE RECORDS SUMMARY | 2025-07-16 18:13 | XMS_ITS | Encounter Summary ---
Author Organization [employer] Address [address] [facility] 7t [place] [address] Care Team Providers Care 1St Grade Teacher Name Role Phone Vlad Childers DMD Primary Care Provider Unava ilable Reason for Visit * Reason Comments Med Refill Encounter Details Date Type Department Care Team (Late st Contact Info) Description 01/02/2025 Refill [facility] [address] [place] [address] Екатерина Johnson BDS Social History Tobacco Use [...] on filedocumented in this encounter Care Teams 1St Grade Teacher Relationship Specialty Start Date End Date Vlad Childers DMD PCP - General Dentist 06/30/22 documented as of this encounter
--- OUTSIDE RECORDS SUMMARY | 2025-07-16 18:13 | XMS_ITS | Clinical Summary ---
Author Organization [facility] Address [address] [address] Phone Care Team Providers Care Microsoft Dynamics Developer Name Role Phone Carina Law MD Primary [...] Refill [facility] [address] [place] [address] Ramirez Sultana MD Medication Refill 06/29/2025 Refill [facility] iCMP PL[facility] Program [address] [place] [address] Ramirez Sultana MD Medication Refill from Last [...] (03/16/2020 9:57 AM EDT) HDL 60 mg/dL [facility] Comment: Interpretation <40 mg/dL: Low HDL cholesterol (major risk factor for CHD) Greater than or equal to 60 mg/dL: High HDL cholesterol ( negative risk factor for CHD) HDL - cholesterol is affected by a number of factors, e.g. smoking, excerise, hormones, sex and age. CHOLESTEROL 223 0 - 240 mg/dL [facility] TRIGLYCERIDES 112 30 - 160 mg/dL [facility] LDL 141(H) 50 - 129 mg/dL [facility] Comment: LDL levels in terms of risk for coronary heart disease: <100 mg/dL: Optimal 100-129 mg/dL: Near or above optimal 130-159 mg/dL: Borderline high 160-189 mg/dL: High >190 mg/dL: Very High CARDIAC RISK RATIO 3.7 3.3 - 4.4 C [facility] Blood 03/16/2020 9:57 AM EDT 03/16/2020 10:01 AM EDT us Carina Law MD LAB BLOOD BKR ORDERABLES Final Result [facility] [address] [place] [address] * COLONOSCOPY FOR RESULT ENTRY ONLY (09/21/2016) Pathologist [facility] Colonoscopy 2 yr repeat us Isma Degroot MD HEALTH MAINTENANCE Final Result from Last 3 Months or Most Recently Relevant to Health Maintenance Insurance [place] [facility] Care Teams Microsoft Dynamics Developer Relationship Specialty Start Date End Date Carina Law MD PCP - General Nephrology 03/16/20 Additional Source Comments The information contained in this document represents components of the legal health record. It is not the complete legal health record.[facility]
--- OUTSIDE RECORDS SUMMARY | 2025-07-16 18:13 | XMS_ITS | Encounter Summary ---
Author Organization [facility] Address 399 [facility] [address] [place] [address] Phone Care Team Providers Care Lard Renderer Name Role Phone Carina Law MD Primary Care Provider Unavaila ble Encounter Details Date Type Department Care Team (Late st Contact Info) Description 12/16/2020 Transcribe Orders [address] [address] Carina Law MD Social History Tobacco Use [...] documented as of this encounter Care Teams Lard Renderer Relationship Specialty Start Date End Date Carina Law MD PCP - General Nephrology 03/16/20 documented as of this encounter Additional Source Comments The information contained in this document represents components of the legal health record. It is not the complete legal health record.[facility]
--- OUTSIDE RECORDS SUMMARY | 2025-07-16 18:13 | XMS_ITS | Encounter Summary ---
Author Organization [facility] Address [address] [facility] [address] [place] [address] Phone Care Team Providers Care Tool Shaper Set Up Operator Name Role Phone Carina Law MD Primary Care Provider Unavaila ble Reason for Visit * Reason Comments Medication Refill Encounter Details Date Type Department Care Team (Late st Contact Info) Description 06/30/2025 Refill [facility] CCA iCMP PLUS Program [address] [place] [address] Ramirez Sultana MD [address] [place] [phone] [email or web address] Medication Refill Social History Tobacco Use Types [...] documented as of this encounter Care Teams Tool Shaper Set Up Operator Relationship Specialty Start Date End Date Carina Law MD PCP - General Nephrology 03/16/20 documented as of this encounter Additional Source Comments The information contained in this document represents components of the legal health record. It is not the complete legal health record.[facility]
--- OUTSIDE RECORDS SUMMARY | 2025-07-16 18:13 | XMS_ITS | Encounter Summary ---
Author Organization [employer] [facility] Address [address] [place] [address] 7 h Floor [place] [id number] Care Team Providers Care Criminal Attorney Name Role Phone Vlad Childers DMD Primary [...] on filedocumented in this encounter Care Teams Criminal Attorney Relationship Specialty Start Date End Date Vlad Childers DMD PCP - General Dentist 06/30/22 documented as of this encounter
--- OUTSIDE RECORDS SUMMARY | 2025-07-16 18:13 | XMS_ITS | Clinical Summary ---
Author Organization [facility] Address [address] [facility] [address] 7t [place] [address] Care Team Providers Care Putty Maker Name Role Phone Vlad Childers MERRY Primary [...] Health Maintenance Insurance DENTAL - [facility] Care Teams Putty Maker Relationship Specialty Start Date End Date Vlad Childers DMD PCP - General Dentist 06/30/22
--- OUTSIDE RECORDS SUMMARY | 2025-07-16 18:13 | XMS_ITS | Encounter Summary ---
Author Organization [facility] Address [address] [facility] [address] [place] [address] Phone Care Team Providers Care Christian Science Practitioner Name Role Phone Carina Law MD Primary Care Provider Unavaila ble Encounter Details Date Type Department Care Team (Latest Contact Info) Description 03/16/2020 Transcribe Orders [address] [address] Carina Law MD Mixed hyperlipidemia (Primary Dx); [...] (03/16/2020 9:57 AM EDT) HDL 60 mg/dL [facility] Comment: Interpretation <40 mg/dL: Low HDL cholesterol (major risk factor for CHD) Greater than or equal to 60 mg/dL: High HDL cholesterol ( negative risk factor for CHD) HDL - cholesterol is affected by a number of factors, e.g. smoking, excerise, hormones, sex and age. CHOLESTEROL 223 0 - 240 mg/dL [facility] TRIGLYCERIDES 112 30 - 160 mg/dL [facility] LDL 141(H) 50 - 129 mg/dL [facility] Comment: LDL levels in terms of risk for coronary heart disease: <100 mg/dL: Optimal 100-129 mg/dL: Near or above optimal 130-159 mg/dL: Borderline high 160-189 mg/dL: High >190 mg/dL: Very High CARDIAC RISK RATIO 3.7 3.3 - 4.4 C [facility] Blood 03/16/2020 9:57 AM EDT 03/16/2020 10:01 AM EDT us Carina Law MD LAB BLOOD BKR ORDERABLES Final Result [address] [address] * (ABNORMAL) Comprehensive metabolic panel (03/16/2020 9:57 AM EDT) SODIUM 141 133 - 146 mmol/L [facility] POTASSIUM 4.5 3.3 - 5.1 mmol/L [facility] CHLORIDE 107 96 - 108 mmol/L [facility] CO2 26 21 - 35 mmol/L [facility] BUN 21(H) 6 - 19 mg/dL [facility] CREATININE 0.90 0.5 - 1.5 mg/dL [facility] GLUCOSE 95 70 - 99 mg/dL [facility] ALBUMIN 4.0 3.9 - 4.8 g/dL [facility] TOTAL PROTEIN 7.2 6.5 - 8.0 g/dL [facility] CALCIUM 10.0 8.4 - 10.3 mg/dL [facility] ALKALINE PHOSPHATASE 95 39 - 117 U/L [facility] TOTAL BILIRUBIN 0.3 0.0 - 1.2 mg/dL [facility] AST 19 0 - 37 U/L [facility] ALT 26 0 - 40 U/L [facility] GLOBULIN 3.2 1 - 4.8 g/dL [facility] EGFR 63 >59 mL/min/1.7 3m2 [facility] Comment:Estimated glomerular filtration rate calculated using the CKD-EPI equation. ANION GAP 13 10 - 20 mmol/L [facility] Blood 03/16/2020 9:57 AM EDT 03/16/2020 10:01 AM EDT us Carina Law MD LAB BLOOD BKR ORDERABLES Final Result [address] [address] * Hemoglobin A1c (03/16/2020 9:57 AM EDT) HEMOGLOBIN A1C 5.8 4.3 - 5.8 % [facility] Blood 03/16/2020 9:57 AM EDT 03/16/2020 10:01 AM EDT us Carina Law MD LAB BLOOD BKR ORDERABLES Final Result Performing Organization Address [facility]/ZIP Co de Phone Number [address] [address] * CBC and differential (03/16/2020 9:57 AM EDT) WBC 6.64 4.00 - 11.00 K/uL [facility] Comment:Note Reference Range updates to all CBC and Differential results. RBC 4.30 3.72 - 5.30 M/uL [facility] HGB 12.5 11.4 - 15.9 g/dL [facility] Comment:Note updated Referen ce Ranges for all CBC and Differential results. HCT 38.1 34.2 - 46.8 % [facility] PLT 188 140 - 430 K/uL [facility] MCV 88.6 78.0 - 97.0 fL [facility] MCH 29.1 25.0 - 33.0 pg [facility] MCHC 32.8 32.0 - 36.0 g/dL [facility] RDW 13.4 11.0 - 16.0 % [facility] MPV 10.8 8.4 - 12.8 fl [facility] NRBC 0.00 0 /100 WBCs [facility] ABSOLUTE NRBC 0.00 0 K/uL [facility] DIFF METHOD Auto [facility] NEUTS 59.7 43.0 - 75.0 % [facility] LYMPHS 27.6 18.2 - 47.4 % [facility] MONOS 7.1 4.00 - 11.00 % [facility] EOS 4.4 0.0 - 8.0 % [facility] BASOS 0.9 0.0 - 2.0 % [facility] Granulocytes, immature (%) 0.3 0.0 - 0.9 % [facility] ABSOLUTE NEUTS 3.97 1.80 - 7.70 K/uL [facility] ABSOLUTE LYMPHS 1.83 1.00 - 3.10 K/uL [facility] ABSOLUTE MONOS 0.47 0.20 - 0.80 K/uL [facility] ABSOLUTE EOS 0.29 0.00 - 0.80 K/uL [facility] ABSOLUTE BASOS 0.06 0.00 - 0.09 K/uL [facility] Granulocytes, immature 0.02 0.00 - 0.05 K/uL [facility] Blood 03/16/2020 9:57 AM EDT 03/16/2020 10:01 AM EDT us Carina Law MD LAB BLOOD BKR ORDERABLES Final Result Performing Organization Address City/State/[facility] Co de Phone Number [address] [address] documented in this encounter Visit Diagnoses Diagnosis Mixed hyperlipidemia- Primary Diabetes mellitus screening Screening for diabetes mellitus documented in this encounter Additional Health Concerns Assessment Noted Time PHQ-2 Depression Total Score: 0 06/25/20 18 10:57 AM EDT documented as of this encounter Care Teams Christian Science Practitioner Relationship Specialty Start Date End Date Carina Law MD PCP - General Nephrology 03/16/20 documented as of this encounter Additional Source Comments The information contained in this document represents components of the legal health record. It is not the complete legal health record.[facility]
--- OUTSIDE RECORDS SUMMARY | 2025-07-16 18:13 | XMS_ITS | Encounter Summary ---
Author Organization [facility] Address [address] [facility] [address] [place] [address] Phone Care Team Providers Care Portfolio Assistant Name Role Phone Margareth Camara DO Primary Care Provider Margareth Camara DO Primary Care Provider [phone] Carina Law MD Primary Care Provider Unavaila ble Encounter Details Date Type Department Care Team (Late st Contact Info) Description 08/02/2017 Ancillary Orders [facility] [address] [place] [address] Margareth Camara, DO [address] [facility] [address] [place] [address] [email or web address] Breast screening Social History Tobacco Use Types [...] unspecified documented in this encounter Care Teams Portfolio Assistant Relationship Specialty Start Date End Date Margareth Camara DO [address] [place] [address] [address] [place] [address] [email or web address] PCP - General 07/06/17 08/24/19 Margareth Camara DO [address] [place] [address] [address] [place] [address] [email or web address] PCP - General Family Medicine 08/25/19 03/15/20 Carina Law MD PCP - General Nephrology 03/16/20 documented as of this encounter Additional Source Comments The information contained in this document represents components of the legal health record. It is not the complete legal health record.[facility]
--- OUTSIDE RECORDS SUMMARY | 2025-07-16 18:13 | XMS_ITS | Encounter Summary ---
Author Organization [facility] Address [address] [facility] [address] [place] [address] Phone Care Team Providers Care Head Of Store Operations Name Role Phone Margareth Camara DO Primary Care Provider [phone] Margareth Camara DO Primary Care Provider [phone] Carina Law MD Primary Care Provider Unavaila ble Encounter Details Date Type Department Care Team (Late st Contact Info) Description 07/10/2018 Ancillary Orders [facility] [address] [place] [address] Margareth Camara DO [address] [address] [email or web address] Breast screening Social History Tobacco Use Types [...] documented as of this encounter Care Teams Head Of Store Operations Relationship Specialty Start Date End Date Margareth Camara DO [address] [address] [email or web address] PCP - General 07/06/17 08/24/19 Margareth Camara DO [address] [place] [address], [facility] [address] [place] [address] [email or web address] PCP - General Family Medicine 08/25/19 03/15/20 Carina Law MD PCP - General Nephrology 03/16/20 documented as of this encounter Additional Source Comments The information contained in this document represents components of the legal health record. It is not the complete legal health record.[facility]
== END 2025-07-16 15:42 | disposition home or self-care (01) ==
LOC: HO.HCS 14:58
PROVIDERS: PCP Internal Medicine
DX: I50.812 Chronic right heart failure (principal); I77.810 Thoracic aortic ectasia; I10 Essential (primary) hypertension
CPT/HCPCS: 99214; G2211

== ENCOUNTER → 2025-07-16 14:57 | Outpatient (BNVA) | payer MEDICARE, SELFPAY | PROVIDERS: PCP Internal Medicine | DX: I10 Essential (primary) hypertension (principal); I77.810 Thoracic aortic ectasia; I50.812 Chronic right heart failure; E66.01 Morbid (severe) obesity due to excess calories; I87.2 Venous insufficiency (chronic) (peripheral) | CPT/HCPCS: 99212 ==